=== PATIENT | male | born 1995 | race Caucasian/White ===

== ENCOUNTER 2023-04-18 12:24 | Inpatient (IN) | payer MEDICAID, SELFPAY ==
[2023-04-18] VITALS (34 sets, daily range): BP systolic 84–141; BP diastolic 64–101; PULSE 107–143; RESP 13–46; TEMP 36.1–38.2; O2SAT 90–100; BMI 18.3; BMI 18.8
[2023-04-18] MEDS: Rocuronium Bromide 50 MG/5 ML Vial IV (12:29)
[2023-04-18] MEDS: Etomidate 20 MG/10 ML Vial 10 MG IV (12:29)
--- NOTE | 2023-04-18 12:32 | EKG12_ITS ---
Test Reason : Blood Pressure : / mmHG Vent. Rate : 119 BPM Atrial Rate : 119 BPM P-R Int : 130 ms QRS Dur : 070 ms QT Int : 314 ms P-R-T Axes : 041 -49 071 degrees QTc Int : 441 ms Sinus tachycardia Left axis deviation Abnormal ECG Confirmed by BERT GALLARDO MD ([id number]), news videotape editor DOMI FERNANDEZ ([id number]) on 04/20/2023 10:54:16 AM Referred By: Confirmed By:BERT GALLARDO MD
--- NOTE | 2023-04-18 12:38 | CT_ITS ---
INDICATION: Hx IVDU, decerebrate posturing, unresponsive, unknown time down, ? Abscess, multiple doses of Narcan. EXAMINATION: CT BRAIN WITH AND WITHOUT CONTRAST - CT Head or Brain WO/W Contrast Injection TECHNIQUE: Multiple axial images were obtained of the brain with and without IV contrast. A radiation dose optimization technique was used for this scan. IV Contrast dosage and agent: 100 cc of Isovue-370. RADIATION DOSAGE (If Supplied By Facility): CTDIvol = ( 44.99 ) mGy, DLP = ( 1760.95 ) mGycm COMPARISON: No prior examinations are available for comparison. FINDINGS: BRAIN PARENCHYMA: No intra- or extra-axial hemorrhage. No evidence of acute infarct. No intracranial mass or mass effect. There is preservation of the espinosa/white matter interface. Posterior fossa structures are unremarkable. No abnormal contrast enhancement. CSF SPACES: Appropriate for age. No hydrocephalus. Basal cisterns are patent. CALVARIUM, SKULL BASE, PARANASAL SINUSES AND MASTOID AIR CELLS: Mild mucosal thickening of the maxillary sinuses. No discrete lytic or blastic abnormalities. ORBITS: Both globes, extraocular muscles, optic nerves and retrobulbar fat appear unremarkable. ASPECTS Score for Acute Strokes: 10 CT/Brain/Head W/WO Contrast IMPRESSION: No acute intracranial process. Electronically Signed: Charlie Fierro MD at 13:46 EDT ,
--- NOTE | 2023-04-18 12:50 | RAD_ITS ---
INDICATION: Intubation EXAMINATION/TECHNIQUE: X-RAY - XR Chest 1 View COMPARISON: None. FINDINGS: LINES/DEVICES: Endotracheal tube with its tip approximately 3 cm proximal to the fredy. Nasogastric tube with the tip at the gastroesophageal junction region and should be advanced about 8 to 10 cm. LUNGS: No consolidation, edema or effusion. No pneumothorax. MEDIASTINUM AND CARDIOVASCULAR STRUCTURES: Cardiac silhouette not enlarged. Central airways and mediastinal contour are unremarkable. BONES AND SOFT TISSUES: Unremarkable. RAD/Chest 1 View (Portable) IMPRESSION: Nasogastric tube with its tip in the gastroesophageal junction region and should be advanced. No active pulmonary disease. Electronically Signed: Charlie Fierro MD at 13:31 EDT ,
[2023-04-18] MEDS: 0.9% Normal Saline 1,000 ML 150 ML IV ×2 (12:58→19:35)
[2023-04-18 13:03] LABS: Absolute Lymphocyte Count 1.96 X10^3/uL (0.83-4.51); Absolute Neutrophil Count 19.1 X10^3/uL (2.0-7.7); Basophil# 0.12 X10^3/uL; Basophil% 0.5 % (0-1); Eosinophil# 0.01 X10^3/uL; Hematocrit 47.8 % (40-54); Hemoglobin 15.4 g/dL (13.0-16.5); Lymphocyte # 1.96 X10^3/ul (0.83-4.51); Lymphocyte % 8.4 % (19-41); Mean Corp Hgb Conc 32.2 g/dL (32-36); Mean Corpuscular Hgb 29.8 pg (27.0-32.0); Mean Corpuscular Volume 92.6 fL (80-94); Mean Platelet Vol. 10.4 fl (6.2-12.0); Monocyte% 7.3 % (0-10); NRBC Flagged by Analyzer 0 % (0-5); Neutrophil # 19.07 X10^3/uL (2.7-7.7); Neutrophil % 81.4 % (47-70); POSITIVE DIFFERENTIAL YES; Platelet Count 301 K/mm3 (150-450); RBC Distribution Width CV 13.4 % (11.6-14.6); RBC Distribution Width SD 45.7 fl (35.1-43.9); Red Blood Count 5.16 M/mm3 (4.6-6.2); White Blood Count 23.4 K/mm3 (4.4-11.0)
[2023-04-18 13:10] LABS: Color, Urine Amber (Yellow); Glucose, Dipstick Normal (Normal); Ketone-Dipstick 5 mg/dl (Negative); Leukocyte Esterase-Dipstick 25 /ul (Negative); Nitrite-Dipstick Positive (Negative); Occult Blood-Urine 250 /ul (Negative); Protein-Dipstick 100 mg/dl (Negative); Specific Gravity, Urine 1.025 (1.002-1.030); Urine Bilirubin Dipstick Negative (Negative); Urine Clarity Sl. Cloudy (Clear); Urine Urobilinogen 1 mg/dl (Normal)
[2023-04-18 13:14] LABS: International Normalized Ratio 1.2; Prothrombin Time (Protime)PT. 15.2 SECONDS (11.7-14.9)
[2023-04-18] MEDS: Clindamycin 900 MG/50 ML BAG 75 MG IV (13:17)
[2023-04-18 13:18] LABS: Bacteria 2+ /hpf (None Seen); Mucous, Urine 1+ /hpf (<or=2+); Red Blood Cells-Urine 25-50 SEEN /hpf (0-5); Squamous Epithelial Cells - UA 0-5 SEEN /hpf (0-5); White Blood Cells 0-5 SEEN /hpf (0-5)
--- NOTE | 2023-04-18 13:25 | ED.RN ---
PATIENT WITH REDDENED AREAS TO FOREHEAD, BILATERAL HIPS, BILATERAL KNEES, AND TOPS OF BILATERAL FEET. PATIENT WITH WOUND TO RIGHT BICEP, REDDENED WITH BLISTERS. PATIENT WITH ABRASION TO CHIN. LIPS SWOLLEN, DRY AND CRACKED. PATIENT WITH MULTIPLE SCABS OVER BODY.
--- NOTE | 2023-04-18 13:30 | EX.ED.DYSGE1 ---
HPI History of Present Illness Chief Complaint: Unresponsive Detail of Chief Complaint: Patient arrived unresponsive. Pupils were deviated to the right. Informant: EMS Onset/Context/Timing Onset: - (Unknown) Context: - (On known) Timing: - (Unknown) Quality: Unresponsive Location: Found facedown lying on floor at residence Worsened by: Unknown Relieved by: Unknown Associated Symptoms Associated Symptoms: Unknown Narrative Narrative: Patient is a 27-year-old male who was found on floor unresponsive. He has history of drug use. He arrived with a GCS of 3. Patient then had D decerebrate posturing versus seizure. Prior similar symptoms: No Recent Illness/Hospitalization: No PFSH PFSH Medical History unable to obtain unable to obtain Home Medications naproxen 500 mg tablet 500 mg PO BID PRN #20 tabs 09/30/16 [Rx Last Taken Unknown] sulfamethoxazole 800 mg-trimethoprim 160 mg tablet 1 tab PO BID ##13 09/30/16 [Rx Last Taken Unknown] Allergy/AdvReac Type Severity Reaction Status Date / Time acetaminophen [From [place]] Allergy Swelling Verified 09/30/16 04:48 cephalexin [From [place]] Allergy Hives Verified 09/30/16 04:48 hydrocodone [From [place]] Allergy Swelling Verified 09/30/16 04:48 Penicillins Allergy Itching Verified 09/30/16 04:48 Family History unable to obtain Surgical History unable to obtain unable to obtain Social History Smoking Status: Current every day smoker tobacco type: cigarettes ROS ROS ED Review of Systems ROS Unobtainable: due to mental status EXAM Physical Exam Const Vital Signs: 04/18/23 12:26 04/18/23 12:45 04/18/23 12:45 Temperature 97 F L Temperature Source Temporal Pulse Rate 138 H 136 H Respiratory Rate 46 H 17 Respiratory Pattern Blood Pressure 130/95 H 119/91 H Blood Pressure Mean 106 100 Pulse Ox 92 99 99 Oxygen Delivery Method Room Air Mechanical Ventilator Mechanical Ventilator Fraction of Inspired Oxygen (FIO2) 04/18/23 12:24 04/18/23 13:23 04/18/23 13:55 Temperature 98.2 F 97.9 F Temperature Source Core Core Pulse Rate 123 H 118 H Respiratory Rate 17 20 H 22 H Respiratory Pattern Normal Blood Pressure 137/97 H 133/93 H Blood Pressure Mean 110 106 Pulse Ox 100 100 Oxygen Delivery Method Mechanical Ventilator Mechanical Ventilator Fraction of Inspired Oxygen (FIO2) 100 04/18/23 14:11 Temperature 97.7 F L Temperature Source Core Pulse Rate 117 H Respiratory Rate 16 Respiratory Pattern Blood Pressure 119/82 H Blood Pressure Mean 94 Pulse Ox 100 Oxygen Delivery Method Mechanical Ventilator Fraction of Inspired Oxygen (FIO2) Positive well developed Constitutional Narrative: Thin gentleman. He has multiple pressure sores on his shoulder, wrists, pelvis (anterior iliac wing bilaterally), knees and ankle patient has labored breathing, perinatal coordinator small like pattern. General Appearance ED: well developed; Negative for cyanotic or diaphoretic HEENT Reports dry mucous membranes HEENT Narrative: He has evidence of trauma to his lips. He has poor dentition. He has many missing teeth. There is no hemotympanum. TMs appear normal. Mouth ED: Yes dry mucous membranes Mouth: dry mucous membranes Eyes Eyes Narrative: Patient's eyes were initially deviated to the right. Now he has roving eyes with conjugate gaze. Sclera is injected. Conjunctive is slightly injected. There is no drainage. Neck no lymphadenopathy and no JVD Neck Narrative: Trachea is midline. There is no inspiratory stridor. Chest Wall inspection of chest normal and palpation of chest normal Resp No normal respiratory effort and clear to auscultation bilaterally Resp Narrative: Use of accessory muscles and retractions noted. Patient is breathing much more rapidly than 20 times a minute Cardio regular rhythm, S1 normal heart sound, S2 normal heart sound and no murmurs Rate: tachycardic GI GI Narrative: Flat abdomen with no palp pulsatile mass or abdominal bruit. No paraspinal my. Narrative: Normal male external genitalia. Back/Spine Back/Spine Narrative: Inspection of the back. Extremity Extremity Narrative: Pressure sore is no. Question of burn versus cellulitis right bicep. There is no lymphangitis. There is no actual lymphadenopathy. Neuro No oriented x3 and No no sensory deficits noted Neuro Narrative: GCS is 3 Sensorium / Orientation: Negative for alert Psych Psych Narrative: Unable to Skin Skin Narrative: Previously described under the General appearance and extremity portion of the exam MDM MDM MDM Narrative Medical decision making narrative: With history of IV drug use unresponsiveness pinpoint pupils need to evaluate for meningitis, intracranial abscess, sinusitis. Sepsis work-up was initiated. Because of the multiple pressure sores need to evaluate for rhabdomyolysis. EKG was obtained to evaluate for evidence of pericarditis, myocarditis acute ischemia. UA was obtained to assess specific gravity as well as ketones. CPK to assess liver enzymes, and return if there is any endorgan dysfunction and specifically involving the kidneys. Since patient had GCS of 3 patient was chemically paralyzed since his teeth were clenched together. He received 10 of etomidate followed by 50 mg rocuronium. He was orotracheal intubated using a 7.5 endotracheal tube. There was purulent material noted above his cords. There is appropriate color change on the capnometer. Breath sounds were heard bilaterally. OG was placed per nursing staff. OG on chest x-ray needs to be inserted further. Endotracheal tube is at the fredy. Respiratory was asked to pull back 1.5 cm. Nurse was instructed to push the NG in an additional 10 cm. Because patient has an elevated potassium and his T waves are slightly prominent he was treated with the hyperkalemia order set Lab Data Attestation: I reviewed the patient's lab results. Lab results narrative: UA reveals spec gravity 1.025, ketones, occult blood, nitrites and leukoesterase. Micro is remarkable for 25-50 RBCs and 0-5 WBCs with 2+ bacteria. Culture was sent. I was informed the patient's lactate is 4.7 at 1339. This may be due to seizure this could be due to sepsis. Since he remains tachycardic will give small bolus at this time versus full bolus White count is 23.4 thousand with shift. There is EMEA. Comprehensive metabolic panel is remarkable for a potassium of 6.3. CO2 of 18 with an anion gap of 18. BUN of 28 the creatinine of 2.8. Estimated GFR is 29. Glucose is 115. Liver enzymes are elevated 388 and 231, AST and ALT respectively. Labs: Laboratory Results - last 24 hr 04/18/23 04/18/23 04/18/23 12:40 12:45 12:55 WBC 23.4 H RBC 5.16 Hgb 15.4 Hct 47.8 MCV 92.6 MCH 29.8 MCHC 32.2 RDW Std Deviation 45.7 H RDW Coeff of Emrrick 13.4 Plt Count 301 MPV 10.4 Immature Gran % (Auto) 2.400 H Neut % (Auto) 81.4 H Lymph % (Auto) 8.4 L Barron % (Auto) 7.3 Eos % (Auto) 0.0 Baso % (Auto) 0.5 Absolute Neuts (auto) 19.1 H Absolute Lymphs (auto) 1.96 Nucleated RBC % 0 Diff Path Review May foll Platelet Estimate ADEQUATE RBC Morphology NORM C+C PT 15.2 H INR 1.2 APTT 37.0 H Sodium 133 L Potassium 6.3 H* Chloride 101 Carbon Dioxide 14.0 L Anion Gap 18 H BUN 28 H Creatinine 2.80 H Estim Creat Clear Calc 31.93 Est GFR (MDRD) Af Amer 35 L Est GFR (MDRD) Non-Af 29 L BUN/Creatinine Ratio 10.0 Glucose 115 H Lactic Acid 4.7 H* Calcium 7.9 L Total Bilirubin 0.30 AST 388 H ALT 231 H Alkaline Phosphatase 96 Total Creatine Kinase 36434 H Total Protein 8.4 H Albumin 4.4 Globulin 4.0 Albumin/Globulin Ratio 1.1 Urine Color Arianna Urine Clarity Sl. Cloudy Urine pH 5.0 Ur Specific [place] 1.025 Urine Protein 100 H Urine Glucose (UA) Normal Urine Ketones 5 H Urine Occult Blood 250 H Urine Nitrite Positive H Urine Bilirubin Negative Urine Urobilinogen 1 H Ur Leukocyte Esterase 25 H Urine RBC 25-50 SEEN Urine WBC 0-5 SEEN Ur Squamous Epith Cells 0-5 SEEN Urine Bacteria 2+ Urine Mucus 1+ Radiography Chest X-Ray - ED: 1 View and Read by ED Physician Diagnostic Testing: Clinical Impression(s) from Imaging Studies Brain CT 04/18/23 12:38 IMPRESSION: No acute intracranial process. Electronically Signed: Charlie Fierro MD at 13:46 EDT , Chest X-Ray 04/18/23 12:50 IMPRESSION: Nasogastric tube with its tip in the gastroesophageal junction region and should be advanced. No active pulmonary disease. Electronically Signed: Charlie Fierro MD at 13:31 EDT , CT of the head with and without contrast reviewed by me reveals no obvious abnormality. There is no evidence of an abscess. There is no evidence of sinusitis. Awaiting formal read by radiologist, 1331 Management Discussion w/another healthcare provider: Hospitalist (Hospitalist was paged after contacting Dr. Barrientos.) and Chop Saw Operator (Spoke with Dr. Quique Barrientos. He was made aware of patient's history physical laboratory results and treatment. Patient be admitted to the ICU.) Treatment and Re-Evaluation :: Because of concern for meningitis, sepsis and his allergies to cephalosporin and penicillin he received 900 mg clindamycin, meropenem and vancomycin 15 mg/kg. Critical Care Time Critical Care Time: Yes Critical care time (excluding procedures): 30-74 minutes (63 minutes), Including time spent: (History, physical, discussion with EMS, discussion with law enforcement), Discussing w/Patient &/or Family/Network Security Officer (Patient has a GCS of 3 and no one has come in), Discussing w/Consultants (Dr. Quique Barrientos and hospitalist), Arranging Admission or Transfer and Performing Direct Patient Care at Bedside (Intubation, treatment for hyperkalemia) Discharge Plan Dx/Rx/DC Orders Clinical Impression: Acute kidney injury, Bacteria in urine, Hematuria, Decerebrate posture, Sepsis syndrome, Rhabdomyolysis, History of drug abuse, Chloe coma scale score 3-8, at arrival to emergency department, Acute hyperkalemia, Acidosis, lactic Disposition Disposition: [facility]
[2023-04-18 13:39] LABS: ALB/GLOB Ratio 1.1 RATIO (0.9-2.4); AST(SGOT) 388 U/L (15-37); Alanine Aminotransfer ALT/SGPT 231 U/L (16-61); Albumin, Serum 4.4 g/dL (3.2-5.0); Alkaline Phosphatase 96 U/L (45-117); Anion Gap 18 (5-15); BUN 28 mg/dL (7-18); Calcium,Total 7.9 mg/dL (8.5-10.1); Chloride 101 mmol/L (98-107); Differential Indicated SCAN CRITERIA MET; EST Glomerular Filtration Rate 29 mL/min (>60); Est Glom Filt Rate - Afr Amer 35 mL/min (>60); Estimated Creatinine Clearance 31.93 ml/min; Glucose 115 mg/dL (74-106); Platelet Estimate ADEQUATE (ADEQ); Potassium 6.3 mmol/L (3.5-5.1); Protein, Total 8.4 g/dL (6.4-8.2); Red Cell Morphology NORM C+C NORMAL (NORM C&C); Sodium Level 133 mmol/L (136-145)
[2023-04-18 13:40] LABS: Lactic Acid 4.7 mmol/L (0.4-1.9)
[2023-04-18 13:50] LABS: CPK Total, Creatine Kinase 10960 U/L (39-308)
--- NOTE | 2023-04-18 14:12 | HP.PCM.HOS_ITS ---
HPI - General General Date of Admission: 04/18/23 Date of Service: 04/18/23 Chief Complaint: found unresponsive HPI Narrative LIZ WHITNEY, is a 27 M with a PMH as outlined who was admitted via the ED after being found unresponsive. He has a history of IV drug use. HE was found face down on the floor in his residence. the EMS gave 4 doses of fentanyl with no response. On arrival in the ED, he was found to be in a decorticate posture. His Chloe Coma scale was 3. Unable to get any furhter history. Vitals in the E#D wre BP of 119/82, CO of 117, RR of 16 and temp of 97.7F. He was intubated in the ED and there was some material aspirated from his ET tube. Chemistry was significant for Hb of 15.4, wbc of 23.4, platelets of 301, INR of 1.2. Chemistry showed sodium of 133, potassium of 6.3 and bicarb of 14. HCr was 2.8 and anion gap was 18. Lactic acid was 4.7 and AST/ALT was 388/231. CPK was 90010. Urinalysis showed 2+ bacteria. CT brain showed no acute intracranial pathology and chest x-ray also showed no acute cardiopulmonary pathology. He was started on broad spectrum antibiotics and is being admitted to be managed for acute metabolic encephalopathy in setting of probable drug overdose, rhabdomyolysis, GREGORY on CKD adn anion gap metabolic acidosis. [facility] Medical History unable to obtain Home Medications naproxen 500 mg tablet 500 mg PO BID PRN #20 tabs 09/30/16 [Rx Last Taken Unknown] sulfamethoxazole 800 mg-trimethoprim 160 mg tablet 1 tab PO BID ##13 09/30/16 [Rx Last Taken Unknown] Allergy/AdvReac Type Severity Reaction Status Date / Time acetaminophen [From [place]] Allergy Swelling Verified 09/30/16 04:48 cephalexin [From Keflex] Allergy Hives Verified 09/30/16 04:48 hydrocodone [From [place]] Allergy Swelling Verified 09/30/16 04:48 Penicillins Allergy Itching Verified 09/30/16 04:48 Family History unable to obtain Surgical History unable to obtain Social History Smoking Status: Current every day smoker tobacco type: cigarettes ROS Review of Systems ROS Unobtainable: due to encephalopathy Vital Signs Vital Signs Vital Signs: 04/18/23 12:26 04/18/23 12:45 04/18/23 12:45 Temperature 97 F L Temperature Source Temporal Pulse Rate 138 H 136 H Respiratory Rate 46 H 17 Respiratory Pattern Blood Pressure 130/95 H 119/91 H Blood Pressure Mean 106 100 Pulse Ox 92 99 99 Oxygen Delivery Method Room Air Mechanical Ventilator Mechanical Ventilator Fraction of Inspired Oxygen (FIO2) 04/18/23 12:24 04/18/23 13:23 04/18/23 13:55 Temperature 98.2 F 97.9 F Temperature Source Core Core Pulse Rate 123 H 118 H Respiratory Rate 17 20 H 22 H Respiratory Pattern Normal Blood Pressure 137/97 H 133/93 H Blood Pressure Mean 110 106 Pulse Ox 100 100 Oxygen Delivery Method Mechanical Ventilator Mechanical Ventilator Fraction of Inspired Oxygen (FIO2) 100 04/18/23 14:11 Temperature 97.7 F L Temperature Source Core Pulse Rate 117 H Respiratory Rate 16 Respiratory Pattern Blood Pressure 119/82 H Blood Pressure Mean 94 Pulse Ox 100 Oxygen Delivery Method Mechanical Ventilator Fraction of Inspired Oxygen (FIO2) Weight Weight: 127 lb 13.89 oz Body Mass Index (BMI) 18.3 Physical Exam Const Constitutional Narrative: intubated, RASS score is -4 even off sedation HEENT normocephalic Eyes PERRL and conjunctivae normal Neck no lymphadenopathy Resp Resp Narrative: diminished breath sounds bibasally, few crackles, has some gurgling sounds whilst breathing. intubated. RASS score is -4 Cardio regular rhythm, S1 normal heart sound and S2 normal heart sound Cardio Narrative: tachycardic GI normal to inspection, nondistended, normoactive bowel sounds, soft to palpation and non-tender Extremity Extremity Narrative: as under skin Skin Skin Narrative: numerous superficial erythematous areas over forehead, elbows, ankles and heels as well as his knees. multiple tattoos over dorsum and extremities. Neuro Neuro Narrative: intubated, sedated, RASS score is -4 Results Lab / Micro Data 04/18/23 12:40 04/18/23 12:40 Labs: Laboratory Results - last 24 hr 04/18/23 12:40: WBC 23.4 H, RBC 5.16, Hgb 15.4, Hct 47.8, MCV 92.6, MCH 29.8, MCHC 32.2, RDW Std Deviation 45.7 H, RDW Coeff of Merrick 13.4, Plt Count 301, MPV 10.4, Immature Gran % (Auto) 2.400 H, Neut % (Auto) 81.4 H, Lymph % (Auto) 8.4 L , [place] % (Auto) 7.3, Eos % (Auto) 0.0, Baso % (Auto) 0.5, Absolute Neuts (auto) 19.1 H, Absolute Lymphs (auto) 1.96, Nucleated RBC % 0, Diff Path Review December, Platelet Estimate ADEQUATE, RBC Morphology NORM C+C, PT 15.2 H, INR 1.2, APTT 37.0 H, Sodium 133 L, Potassium 6.3 H*, Chloride 101, Carbon Dioxide 14.0 L , Anion Gap 18 H, BUN 28 H, Creatinine 2.80 H, Estim Creat Clear Calc 31.93, Est GFR (MDRD) Af Amer 35 L, Est GFR (MDRD) Non-Af 29 L, BUN/Creatinine Ratio 10.0, Glucose 115 H, Calcium 7.9 L, Total Bilirubin 0.30, AST 388 H, ALT 231 H, Alkaline Phosphatase 96, Total Creatine Kinase 51523 H, Total Protein 8.4 H, Albumin 4.4, Globulin 4.0, Albumin/Globulin Ratio 1.1 04/18/23 12:45: Urine Color Arianna, Urine Clarity Sl. Cloudy, Urine pH 5.0, Ur Specific [place] 1.025, Urine Protein 100 H, Urine Glucose (UA) Normal, Urine K etones 5 H, Urine Occult Blood 250 H, Urine Nitrite Positive H, Urine Bilirubin Negative, Urine Urobilinogen 1 H, Ur Leukocyte Esterase 25 H, Urine RBC 25-50 SEEN, Urine WBC 0-5 SEEN, Ur Squamous Epith Cells 0-5 SEEN, Urine Bacteria 2+, Urine Mucus 1+ 04/18/23 12:55: Lactic Acid 4.7 H* Radiology Impression Brain CT 04/18/23 12:38 IMPRESSION: No acute intracranial process. Electronically Signed: Charlie Fierro MD at 13:46 EDT , Chest X-Ray 04/18/23 12:50 IMPRESSION: Nasogastric tube with its tip in the gastroesophageal junction region and should be advanced. No active pulmonary disease. Electronically Signed: Charlie Fierro MD at 13:31 EDT , Assessment & Plan Assessment/Plan (1) Acute kidney injury: (2) Bacteria in urine: (3) History of drug abuse: (4) Acute hyperkalemia: (5) Rhabdomyolysis: PLAN: Plan #Acute encephalopathy * found unresponsive in his residence. Unclear how long he had been down, but considering the superficial erythema over lower extremities, forehead and elbows, he had been down on the ground for a whil * Has a history of extensive drug use. Urine tox pending. * intubated on admission. Received 4 doses of narcan to no avail * admit to ICU * hydrate with IVF * started on fentanyl drip for sedation in the ED * started on broad spectrum antibiotics; will continue vancomycin and meropenem * CT of the brain showed no acute intracranial pathology * consult critical care * get blood and urine cultures * titrate oxygen to maintain sats >90% * breathing treatment with bronchodilators * #Drug overdose: * urine tox positive for MDMA, amphetamines, cocaine and marijuana * * #NOnstemi * initial troponin checked was 4060 * cardiology consult placed. He had no audible murmur during my examination * will start on heparin drip as well as aspirin 325mg x 1 * Dr Hernandez informed * 2D echo ordered * #Acute hypoxic respiratory failure * as above. * currently intubated and sedated * critical care consulted #Hyperkalemia * given potassium depleting cocktail in the ED * give rectal kayexalate * trend potassium * * #Lactic acidosis * Lactic acid was 4.7 on admission. Will hydrate aggressively with IV fluids and trend * #GREGORY * Creatinine is 2.8. No baseline in the system. * Should improve with IV fluid hydration if it is indeed GREGORY. * Hydrate with IV fluids and trend. #UTI: Urinalysis showed 3+ bacteria. Currently on broad-spectrum antibiotics as above. Urine cultures ordered. #Rhabdomyolysis: hydrate aggressively with iVF and trend. CPK was over 10,000. Will trend CPK. DVT prophylaxis: on heparin drip Total critical care time spent in seeing, the patient, reviewing chart, examining patient and formulating the assessment and plan as well as talking to specialists: 85 minutes. Charges/Coding Visit Charges Inpatient E&M: 37282 Init Hosp L3 Procedures Hospitalists Procedures: 31242 Critial Care 1st Hr
[2023-04-18] MEDS: fentaNYL 100 MCG/2 ML Ampul 50 MCG IV (14:26)
[2023-04-18] MEDS: fentaNYL drip 100 ML 5 MCG CONT INF (14:37)
[2023-04-18 14:41] LABS: Alcohol, Blood (Medical)-Serum < 3.0 mg/dL
[2023-04-18] MEDS: Calcium Gluconate IV 3 GM in Syringe 1 EACH IV (14:42)
[2023-04-18 14:45] LABS: Allen Test Positive; Base Excess -10 mmol/L (-2 to +2); Blood Gas Specimen Type ART; Mode AC; O2 Delivery Device Adult Vent; PEEP 5; PO2 456 mmHG (75-100); RR 14; SITE R Brach; SO2 100 % (95-99); Total Carbon Dioxide 17 mmol/L; pCO2 31.9 mmHg (35-45); pH 7.31 (7.35-7.45)
[2023-04-18] MEDS: Dextrose 50%-Water 25 GM/50 ML DISP.SYRIN IV (14:47)
[2023-04-18] MEDS: Insulin Lispro 10 UNIT in Syringe 0 ML 6 UNIT IV (14:48)
[2023-04-18] MEDS: Midazolam 2 MG/2 ML Syringe IV (15:21)
--- NOTE | 2023-04-18 15:25 | RAD_ITS ---
INDICATION: NG Insertion EXAMINATION/TECHNIQUE: X-RAY - XR Abdomen 1 View COMPARISON: Prior of 04/18/2023. FINDINGS: BOWEL GAS PATTERN: Nasogastric tube with the tip in the region of the gastric fundus. Nonspecific gaseous bowel loops. The lower abdomen is not included on this examination. RAD/Abdomen Single View (Portable) IMPRESSION: NG tube with the tip in the region of the gastric fundus. Electronically Signed: Charlie Fierro MD at 16:05 EDT ,
--- NOTE | 2023-04-18 16:21 | PCM.RX.CS ---
Consult Antibiotic Management Pharmacy has been consulted to manage selected antiobiotic: Vancomycin Type of Intervention Type of Consult: New start Suspected Infection Suspected Infection: Other Labs Labs: Sodium 133 mmol/L (136-145) L 04/18/23 12:40 Potassium 6.3 mmol/L (3.5-5.1) H* 04/18/23 12:40 Chloride 101 mmol/L (98-107) 04/18/23 12:40 Carbon Dioxide 14.0 mmol/L (21.0-32.0) L 04/18/23 12:40 Anion Gap 18 (5-15) H 04/18/23 12:40 BUN 28 mg/dL (7-18) H 04/18/23 12:40 Creatinine 2.80 mg/dL (0.70-1.30) H 04/18/23 12:40 Est GFR (MDRD) Af Amer 35 mL/min (>60) L 04/18/23 12:40 Est GFR (MDRD) Non-Af 29 mL/min (>60) L 04/18/23 12:40 BUN/Creatinine Ratio 10.0 RATIO (10-20) 04/18/23 12:40 Glucose 115 mg/dL (74-106) H 04/18/23 12:40 Goal Trough Goal Trough: 15-20 mcg/mL Pharmacy Plan for Drug Dosing Pharmacy Plan for Drug Dosing: NEW IV VANCOMYCIN Consulting Physician: Dr. Aden Indication: Encephalopathy/R/O infection Goal Trough: 15-20 SrCr: 2.8 CrCl: 31 mL/min Comments: Loading dose of 1500mg IV x1 in ED 04/18/23 @1558 Vancomycin Dose: 750mg IV Q24h to start 04/19/23 @1600 Pending Level:04/20/23 @1530, prior to 3rd total dose of vancomycin per protocol Pharmacy Service will continue to monitor and adjust dosing as required.
[2023-04-18 16:24] LABS: Amphetamine Urine VISTA POSITIVE (<1000 ng/mL); Barbiturate Urine VISTA NEGATIVE (< 200 ng/mL); Benzodiazepine Urine VISTA NEGATIVE (< 200 ng/mL); Cocaine Urine VISTA POSITIVE (< 300 ng/mL); Ecstacy Urine VISTA POSITIVE (< 500 ng/mL); Methadone Urine VISTA NEGATIVE (< 300 ng/mL); PCP Urine VISTA NEGATIVE (< 25 ng/mL); THC Urine VISTA POSITIVE (< 50 ng/mL); Vista UDS pH Range 6
[2023-04-18 17:04] LABS: Reflex Lactate? Y
[2023-04-18] MEDS: Sodium Polystyrene Sulfonate 15 GM/60 ML UDC 30 GM RC (17:19)
[2023-04-18 18:09] LABS: Lactic Acid 1.2 mmol/L (0.4-1.9)
[2023-04-18 18:11] LABS: Troponin-I HS 4060 pg/mL (3.0-78.0)
--- NOTE | 2023-04-18 18:32 | ECHOD_ITS ---
Reason For Study: DYSPNEA Procedure This was a 2D Doppler, Color Flow transthoracic echocardiogram. Technically difficult study due to patient being intubated. Patient scenned in sitting position. Exam performed portable in ICU/CCU. Left Ventricle Normal left ventricle. The estimated ejection fraction is 65-70% %. Right Ventricle Normal right ventricle. Normal systolic function. Atria Normal left atrium. Moderate size echogenic mass noted attached to the right atrium, The tricuspid valve appeared clear with no evidence of tricuspid gravitation. Cannot rule out vegetations. Mitral Valve The mitral valve is structurally normal. No prolapse or stenosis seen. Tricuspid Valve Normal tricuspid valve. No tricuspid valve insufficiency. Aortic Valve The aortic valve is not well visualized. Pulmonic Valve The pulmonic valve is not well visualized. Great Vessels Normal aortic root. Pericardium/Pleural No pericardial effusion. MMode/2D Measurements & Calculations LVIDd: 3.0 cm IVSd: 0.87 cm LVIDs: 2.5 cm LVPWd: 1.2 cm RVDd: 3.1 cm FS: 19.0 % Doppler Measurements & Calculations MV E max javon: 67.4 cm/sec Lat Peak E' Javon: 10.4 cm/sec Med Peak E' Javon: 11.4 cm/sec MV A max javon: 41.6 cm/sec E/E' lat: 6.5 E/E' med: 5.9 MV E/A: 1.6 MV V2 max: 127.7 cm/sec Ao V2 max: 129.1 cm/sec LV V1 max: 95.5 cm/sec MV max P.5 mmHg Ao max P.7 mmHg LV V1 max P.7 mmHg MV V2 mean: 60.7 cm/sec Ao V2 mean: 91.8 cm/sec LV V1 mean P.1 mmHg MV mean P.8 mmHg Ao mean P.7 mmHg LV V1 mean: 68.5 cm/sec MV V2 VTI: 18.6 cm Ao V2 VTI: 17.5 cm LV V1 VTI: 14.1 cm AV (velocity ratio): 0.81 PA V2 max: 93.5 cm/sec PA V2 mean: 80.2 cm/sec ECHO/Echo Complete Interpretation Summary The estimated ejection fraction is 65-70% %. Moderate size echogenic mass noted attached to the right atrium, The tricuspid valve appeared clear with no evidence of tricuspid gravitation. Cannot rule out vegetations Consider to evaluate further with SUZIE If clinically warranted No prior echocardiogram to compare Ordering Physician: Twila Aden Referring Physician: NO PCP Performed By: Geni Spring RCS
[2023-04-18] MEDS: Propofol 10MG/Ml 1,000 MG/100 ML Bottle 3.4 MG CONT INF (19:30)
[2023-04-18] MEDS: HEPARIN/D5w 25,000 UNITS 25,000 UNITS/250 ML IV.SOLN. 7 UNITS CONT INF (19:34)
[2023-04-18] MEDS: Heparin Injection (Vial) 5,000 UNIT/ML VIAL 3500 UNIT IV (19:34)
[2023-04-18 20:01] LABS: International Normalized Ratio 1.5; Prothrombin Time (Protime)PT. 17.8 SECONDS (11.7-14.9)
[2023-04-18 20:15] LABS: Troponin-I HS 7702 pg/mL (3.0-78.0)
--- NOTE | 2023-04-18 23:05 | RAD_ITS ---
STUDY: X-RAY CHEST REASON FOR EXAM: Male, 27 years old. ETT positioning verification TECHNIQUE: Single AP portable view of the chest. COMPARISON: April 18, 2023 chest x-ray FINDINGS: An endotracheal tube is present 4.3 cm above the fredy. An NG tube is present the tip is below the hemidiaphragm out of the [id number] and appears to be within the stomach. The lungs are clear and expanded. There is no demonstrated pleural abnormality. Normal size heart. There is a tiny 4 mm curvilinear density within the left hilum. Normal visualized pulmonary arteries. Normal visualized aortic arch and descending thoracic aorta. Normal visualized thoracic spine. Normal visualized ribs, clavicles, and shoulders. There is no demonstrated abnormality of the visualized soft tissue structures of the upper abdomen. RAD/Chest 1 View (Portable) IMPRESSION: An NG tube is place the tip is out of the field of view below the hemidiaphragm. Endotracheal tube in satisfactory position. Note is made of a tiny curvilinear density projected over the left hilum which may represent a small calcification versus a foreign body. Electronically Signed: Maria Victoria Ontiveros MD at 23:20 EDT ,
--- NOTE | 2023-04-18 23:23 | NURSING ---
Upon assessment of ETT at 2230 it was noted that patient ETT was not at 24cm at the lip but was noted to be at 26cm at the lip, consulted with RT regarding report given to her for ETT placement she states she also was told 24cm at the lip, assisted RT to reposition ETT to 24cm at the lip and CXR ordered for placement verification.
[2023-04-19] VITALS (52 sets, daily range): BP systolic 85–246; BP diastolic 64–85; PULSE 100–130; RESP 9–20; TEMP 36.8–38.3; O2SAT 35–100; BMI 19.5; BMI 19.4
[2023-04-19 00:04] LABS: Troponin-I HS 15524 pg/mL (3.0-78.0)
[2023-04-19] MEDS: fentaNYL drip 100 ML 12.5 MCG CONT INF (00:35)
[2023-04-19 01:35] LABS: Triglycerides 46 mg/dL
[2023-04-19] MEDS: 0.9% Normal Saline 1,000 ML 150 ML IV ×2 (01:45→08:31)
[2023-04-19 02:52] LABS: Partial Thromboplast Time > 200.0 Seconds (24.1-36.2)
[2023-04-19 04:59] LABS: Absolute Lymphocyte Count 2.31 X10^3/uL (0.83-4.51); Absolute Neutrophil Count 18.7 X10^3/uL (2.0-7.7); Basophil# 0.07 X10^3/uL; Basophil% 0.3 % (0-1); Eosinophil# 0.11 X10^3/uL; Eosinophils% 0.5 % (0-5); Hematocrit 55.4 % (40-54); Hemoglobin 17.8 g/dL (13.0-16.5); Lymphocyte # 2.31 X10^3/ul (0.83-4.51); Lymphocyte % 9.9 % (19-41); Mean Corp Hgb Conc 32.1 g/dL (32-36); Mean Corpuscular Hgb 30.1 pg (27.0-32.0); Mean Corpuscular Volume 93.6 fL (80-94); Mean Platelet Vol. 10.7 fl (6.2-12.0); Monocyte# 1.95 X10^3/uL; Monocyte% 8.3 % (0-10); NRBC Flagged by Analyzer 0.1 % (0-5); Neutrophil # 18.66 X10^3/uL (2.7-7.7); Neutrophil % 79.9 % (47-70); POSITIVE DIFFERENTIAL YES; Platelet Count 270 K/mm3 (150-450); RBC Distribution Width CV 14.1 % (11.6-14.6); RBC Distribution Width SD 48.8 fl (35.1-43.9); Red Blood Count 5.92 M/mm3 (4.6-6.2); White Blood Count 23.4 K/mm3 (4.4-11.0)
[2023-04-19 05:17] LABS: Differential Indicated SCAN CRITERIA MET
[2023-04-19 06:05] LABS: Anion Gap 7 (5-15); BUN 40 mg/dL (7-18); BUN/Creat Ratio 11.6 RATIO (10-20); Calcium,Total 7.3 mg/dL (8.5-10.1); Chloride 112 mmol/L (98-107); Creatinine, Serum 3.46 mg/dL (0.70-1.30); EST Glomerular Filtration Rate 22 mL/min (>60); Est Glom Filt Rate - Afr Amer 27 mL/min (>60); Estimated Creatinine Clearance 25.93 ml/min; Glucose 108 mg/dL (74-106); Potassium 6.8 mmol/L (3.5-5.1); Sodium Level 138 mmol/L (136-145)
--- NOTE | 2023-04-19 07:01 | EX.PCM.CONCC ---
Assessment & Plan Assessment/Plan (1) Encephalopathy: (2) Acute respiratory failure: PLAN: Plan RECOMMENDATIONS: 1. Continue assist-control mode of mechanical ventilation. Wean FiO2 and PEEP to maintain saturations at or above 90%. 2. Continue empiric antimicrobials. Blood, urine and sputum cultures are pending. 3. Continue propofol and fentanyl for sedation. 4. Continue spontaneous awakening and breathing trials daily. 5. Increase saline infusion rate on account of rising CK. 6. Obtain nephrology consultation. 7. Complete echocardiogram and obtain renal ultrasound. IMPRESSIONS: 1. Encephalopathy Most likely secondary to acute drug overdose with questionable anoxic insult. The patient will be continued on invasive mechanical ventilatory support. Primitive brainstem reflexes remain intact. Plan to minimize sedating medications as feasible. Continue supportive care for now. Depending on neurological state, will consider neurology consultation and head imaging in the next 24 to 48 hours. 2. Acute respiratory failure The patient was initially intubated in the emergency department after being found down unresponsive at home. There was also report of a questionable aspiration event at the time of his intubation. Therefore, I agree with continuing empiric antimicrobials, while awaiting infectious work-up. The patient will be continued on assist control mode of mechanical ventilation. FiO2 and PEEP will be weaned to maintain saturations at or above 90%. Plan to continue with daily paired spontaneous awakening and breathing trials. 3. Acute kidney injury/hyperkalemia/rhabdomyolysis Most likely prerenal in etiology in the setting of #1. The patient does have an underlying metabolic acidosis and rising CK level. Potassium is elevated as well. Plan to continue aggressive volume resuscitation. Nephrology consultation will be obtained over concerns for the potential need for dialysis. 4. NSTEMI Continue current supportive care with heparin infusion and pending echocardiogram. Cardiology consultation is pending. 5. Sepsis The patient presented with sepsis due to possible urinary tract source of infection and/or aspiration pneumonia with acute sepsis related organ dysfunction as evidenced by lactic acidemia, acute kidney injury and respiratory failure, requiring invasive mechanical ventilatory support. The patient will be continued on empiric broad-spectrum antimicrobials, pending finalized culture results. TIME: 37 minutes of critical care time, independent of procedures, was spent addressing the patient's encephalopathy, acute respiratory failure, acute kidney injury, hyperkalemia, NSTEMI, sepsis, review of all data and collaboration with the care team. HPI Consult Data Date of Consult: 04/19/23 HPI Narrative Reason for Consultation: Acute respiratory failure HPI Narrative: The patient is a 27-year-old male, with a history as outlined below, who presented to the emergency department via EMS on April for after being found down unresponsive. The patient has a reported history of polysubstance dependency. History pertinent to his hospitalization was obtained primarily via chart review, as the patient is currently intubated and there is no family available at the bedside. On presentation to the emergency department, the patient was noted to have a temperature of 97 ?F. He was notably tachycardic and tachypneic. However, he was otherwise hemodynamically stable. The patient was emergently intubated on arrival. Initial laboratory evaluation revealed an elevated white blood cell count to 23,000. Arterial blood gas obtained on the ventilator demonstrated a pH of 7.3 with a PCO2 of 32 and PO2 of 456. Chemistry profile was notable for a sodium of 133, potassium of 6.3, anion gap of 18, bicarbonate of 14 and creatinine of 2.8. Lactate was elevated at 4.7. AST and ALT were increased to 388 and 231, respectively. CK was elevated at 10,960. Urine analysis was positive for nitrites, leukocyte esterase and 2+ urine bacteria. Toxicology screen was positive for amphetamines, MDMA, cocaine and cannabinoids. Head CT revealed no acute intracranial process. The patient was initiated on supplemental IV fluids along with broad-spectrum antimicrobials. He was admitted to the medical intensive care unit for further management. The patient did tolerate a spontaneous awakening and breathing trial this morning. However, the patient's breathing trial was terminated due to apneic events. [facility] Medical History unable to obtain Home Medications naproxen 500 mg tablet 500 mg PO BID PRN #20 tabs 09/30/16 [Rx Last Taken Unknown] sulfamethoxazole 800 mg-trimethoprim 160 mg tablet 1 tab PO BID ##13 09/30/16 [Rx Last Taken Unknown] Allergy/AdvReac Type Severity Reaction Status Date / Time acetaminophen [From [place]] Allergy Swelling Verified 09/30/16 04:48 cephalexin [From Kef[place]] Allergy Hives Verified 09/30/16 04:48 hydrocodone [From [place]] Allergy Swelling Verified 09/30/16 04:48 Penicillins Allergy Itching Verified 09/30/16 04:48 Family History unable to obtain Surgical History unable to obtain Social History Smoking Status: Current every day smoker tobacco type: cigarettes ROS Review of Systems ROS Unobtainable: due to endotracheal tube and due to mental status Physical Exam Const Constitutional Narrative: Currently intubated, sedated and mechanically ventilated. No ventilator dyssynchrony noted. HEENT normocephalic and head/scalp atraumatic Mouth: endotracheal tube in place and OG tube in place Eyes Eyes Narrative: Disconjugate gaze Neck supple General: trachea midline Chest inspection of chest normal Resp Auscultation: Negative for rales, rhonchi or wheezes Cardio S1 normal heart sound and S2 normal heart sound Rate: tachycardic GI normal to inspection, nondistended, normoactive bowel sounds Extremity no clubbing, cyanosis or edema Neuro Sensorium / Orientation: sedated on vent Lab / Micro Data 04/19/23 04:50 04/19/23 05:14 Labs: Laboratory Results - last 24 hr 04/18/23 12:40: WBC 23.4 H, RBC 5.16, Hgb 15.4, Hct 47.8, MCV 92.6, MCH 29.8, MCHC 32.2, RDW Std Deviation 45.7 H, RDW Coeff of Merrick 13.4, Plt Count 301, MPV 10.4, Immature Gran % (Auto) 2.400 H, Neut % (Auto) 81.4 H, Lymph % (Auto) 8.4 L, Fleming % (Auto) 7.3, Eos % (Auto) 0.0, Baso % (Auto) 0.5, Absolute Neuts (auto) 19.1 H, Absolute Lymphs (auto) 1.96, Nucleated RBC % 0, Diff Path Review December, Platelet Estimate ADEQUATE, RBC Morphology NORM C+C, PT 15.2 H, INR 1.2, APTT 37.0 H, Sodium 133 L, Potassium 6.3 H*, Chloride 101, Carbon Dioxide 14.0 L, Anion Gap 18 H, BUN 28 H, Creatinine 2.80 H, Estim Creat Clear Calc 31.93, Est GFR (MDRD) Af Amer 35 L, Est GFR (MDRD) Non-Af 29 L, BUN/Creatinine Ratio 10.0, Glucose 115 H, Calcium 7.9 L, Total Bilirubin 0.30, AST 388 H, ALT 231 H, Alkaline Phosphatase 96, Total Creatine Kinase 33461 H, Total Protein 8.4 H, Albumin 4.4, Globulin 4.0, Albumin/Globulin Ratio 1.1, Ethyl Alcohol < 3.0 04/18/23 12:45: Urine Color Arianna, Urine Clarity Sl. Cloudy, Urine pH 5.0, Ur Specific [place] 1.025, Urine Protein 100 H, Urine Glucose (UA) Normal, Urine Ketones 5 H, Urine Occult Blood 250 H, Urine Nitrite Positive H, Urine Bilirubin Negative, Urine Urobilinogen 1 H, Ur Leukocyte Esterase 25 H, Urine RBC 25-50 SEEN, Urine WBC 0-5 SEEN, Ur Squamous Epith Cells 0-5 SEEN, Urine Bacteria 2+, Urine Mucus 1+, Urine Opiates Screen NEGATIVE, Urine Methadone Screen NEGATIVE, Ur Barbiturates Screen NEGATIVE, Ur Phencyclidine Scrn NEGATIVE, Ur Amphetamines Screen POSITIVE H, MDMA (Ecstasy) Screen POSITIVE H, U Benzodiazepines Scrn NEGATIVE, Urine Cocaine Screen POSITIVE H, U Cannabinoids Screen POSITIVE H, Ur Drug Screen Comment 04/18/23 12:55: Lactic Acid 4.7 H* 04/18/23 17:20: Lactic Acid 1.2, Troponin I High Sens 4060 H* 04/18/23 19:35: PT 17.8 H, INR 1.5, APTT 36.0, Troponin I High Sens 7702 H* 04/18/23 21:45: Total Creatine Kinase 10780 H, Triglycerides 46 04/18/23 23:38: Troponin I High Sens 12384 H* 04/19/23 01:50: APTT Cancelled 04/19/23 02:20: APTT > 200.0 H* 04/19/23 04:50: WBC 23.4 H, RBC 5.92, Hgb 17.8 H, Hct 55.4 H, MCV 93.6, MCH 30.1, MCHC 32.1, RDW Std Deviation 48.8 H, RDW Coeff of Merrick 14.1, Plt Count 270, MPV 10.7, Immature Gran % (Auto) 1.100 H, Neut % (Auto) 79.9 H, Lymph % (Auto) 9.9 L, Fleming % (Auto) 8.3, Eos % (Auto) 0.5, Baso % (Auto) 0.3, Absolute Neuts (auto) 18.7 H, Absolute Lymphs (auto) 2.31, Nucleated RBC % 0.1, Diff Path Review December04/19/23 05:14: Sodium 138, Potassium 6.8 H*, Chloride 112 H, Carbon Dioxide 19.0 L, Anion Gap 7, BUN 40 H, Creatinine 3.46 H, Estim Creat Clear Calc 25.93, Est GFR (MDRD) Af Amer 27 L, Est GFR (MDRD) Non-Af 22 L, BUN/Creatinine Ratio 11.6, Glucose 108 H, Calcium 7.3 L ABG Data ABG results: ABG 04/18/23 14:40 Specimen Type ART Sample Site R Brach pH 7.31 L Bicarbonate Actual 16.0 L Total CO2 17 Base Excess -10 L O2 Saturation 100 H O2 % 80.0 ABG pCO2 31.9 L ABG pO2 456 H* Vince Test Positive Respiration Rate 14 O2 Delivery Device Adult Vent Vent Mode AC Tidal Volume 450.0 POC PEEP 5 Crit Call To/Read Back Yes Blood Gas Notified Whom castañeda Radiology Impression Brain CT 04/18/23 12:38 IMPRESSION: No acute intracranial process. Electronically Signed: Charlie Fierro MD at 13:46 EDT Reading Location ID and State: [facility] / [place] Tel , Service support , Chest X-Ray 04/18/23 12:50 IMPRESSION: Nasogastric tube with its tip in the gastroesophageal junction region and should be advanced. No active pulmonary disease. Electronically Signed: Charlie Fierro MD at 13:31 EDT Reading Location ID and State: [facility] / [place] Tel , Service support , KUB X-Ray 04/18/23 15:25 IMPRESSION: NG tube with the tip in the region of the gastric fundus. Electronically Signed: Charlie Fierro MD at 16:05 EDT , Chest X-Ray 04/18/23 23:05 IMPRESSION: An NG tube is place the tip is out of the field of view below the hemidiaphragm. Endotracheal tube in satisfactory position. Note is made of a tiny curvilinear density projected over the left hilum which may represent a small calcification versus a foreign body. Electronically Signed: Maria Victoria Ontiveros MD at 23:20 EDT , Charges/Coding Procedures Hospitalists Procedures: [id number] [facility] H[facility]
[2023-04-19] MEDS: TITRATION PARAMETER CHANGE 1 EACH IV (07:05)
--- NOTE | 2023-04-19 07:06 | US_ITS ---
INDICATION: GREGORY EXAMINATION: Ultrasound US Kidney(s) complete (eg, kidneys and bladder) TECHNIQUE: Turcios scale and color doppler images were obtained of the kidneys. COMPARISON: No prior examinations are available for comparison. FINDINGS: RIGHT KIDNEY: Echogenic in texture measuring about 11 x 5.3 x 3.9 cm. The renal cortex measures 1.3 cm. There is no hydronephrosis. No shadowing calculus, focal lesion or perinephric collection is demonstrated. LEFT KIDNEY: Echogenic in texture measuring about 10.6 x 4.3 x 4.3 cm. The renal cortex measures 1.3 cm. There is no hydronephrosis. No shadowing calculus, focal lesion or perinephric collection is demonstrated. URINARY BLADDER: The bladder is not visualized. No ureteral jet is seen. US/Kidney and Bladder IMPRESSION: 1. Echogenic kidneys likely reflecting renal medical disease. 2. No evidence of hydronephrosis. Electronically Signed: Charlie Fierro MD at 8:52 EDT ,
--- NOTE | 2023-04-19 07:56 | CPS ---
This RT was told by nightshift RT that pt was on a CPAP trial this AM. When this RT went into room pt was not on CPAP trial and was on AC/VC. RT talked to Dr. Barrientos about said pt, Floyd had called ICU to switch pt back. According to vent log, change was made at 640 without RT knowing.
--- NOTE | 2023-04-19 08:00 | NURSING ---
Pt RASS technically -3 due to no eye contact being made or held. Pt continues to be on 10 of propofol d/t restlessness on ventilator, pt continues to move extremities with and without stimulation. Opens eyes and grimaces w/ oral suctioning, upper extremities tense. Cough and gag present w/ yankeur and ett suctioning. Babinksi present in L foot, absent in R. Corneal reflexes absent, diverted gaze w/ pinpoint pupils that are not PERRLA. Dr. Barrientos made aware of pt RASS at rounds.
[2023-04-19] MEDS: fentaNYL drip 100 ML 15 MCG CONT INF ×2 (10:05→17:29)
[2023-04-19 11:09] LABS: Partial Thromboplast Time 76.3 Seconds (24.1-36.2)
--- NOTE | 2023-04-19 12:00 | NURSING ---
Dr. Delaney bedside for temporary dialysis catheter placement.
--- NOTE | 2023-04-19 12:17 | CASEMGMT ---
JORDEN ALMONTE Assessment: Face to Face with pt mother Sindhu Madrigal for initial transition planning/care coordination assessment. RN GAGE introduced self and role at [facility], pt mother voices understanding and consents to assessment. Pt is on vent and having line placed currently in room. Care providers, pharmacy, and demographics verified/updated. Admitting Dx: sepsis syndrome, GCS 3, hyperkalemia PCP:No PCP Specialists:None Preferred Pharmacy:[facility] Retail Insurance: [employer] Prescription Benefit: yes LNOK: Johan Martinez, father; Sindhu Madrigal, mother Living Arrangements: Pt lives alone in a mobile home with 4-5 steps to enter with a rail. Per mother, pt was I in ADL's prior to hospitalization. She states that pt has within the last 2-3 years quit taking care of himself and is using drugs. Transportation: Pt does not drive. Pt father transports pt as needed. DME/HHC/SNF: Pt does not have any DME, previous HHC or SNF stays. Pt mother states she has been trying to get the pt to get help with his drug use but he does not feel he has a problem. She states when it is time for him to come home, she wants him to come to her home. Pt mother states no further concerns/needs. CM to follow. Advised pt to ask CM if any further question/concerns/needs arise, voices understanding. Pt Goal: TBD Plan: TBD, updated SW on drug use.
--- NOTE | 2023-04-19 12:25 | RAD_ITS ---
INDICATION: line placement EXAMINATION/TECHNIQUE: X-RAY - XR Chest 1 View COMPARISON: 04/18/2023 FINDINGS: LINES/DEVICES: New right internal jugular central venous catheter with its tip in the cavoatrial junction region. Endotracheal tube and nasogastric tube are stable position. LUNGS: No consolidation, edema or effusion. No pneumothorax. MEDIASTINUM AND CARDIOVASCULAR STRUCTURES: Cardiac silhouette not enlarged. Central airways and mediastinal contour are unremarkable. Persistent density overlying the left hilum unchanged. BONES AND SOFT TISSUES: Unremarkable. RAD/CXR for Line Placement IMPRESSION: 1. Status post right internal jugular central venous catheter placement. 2. Otherwise no significant change. Electronically Signed: Charlie Fierro MD at 12:58 EDT ,
[2023-04-19] MEDS: Propofol 10MG/Ml 1,000 MG/100 ML Bottle 3.5 MG CONT INF (12:26)
[2023-04-19] MEDS: Chlorhexidine 15 ML PO ×2 (12:27→20:20)
--- NOTE | 2023-04-19 12:42 | PCM.CONS.C ---
Documented by User: Sendy CALVIN PA 04/19/23 14:18 Assessment & Plan Assessment/Plan (1) NSTEMI (non-ST elevated myocardial infarction): (2) Acute respiratory failure: (3) Encephalopathy: (4) Rhabdomyolysis: (5) History of drug abuse: PLAN: Plan Troponins trended 4060/7702/45742. Pt is currently intubated and unresponsive. He is on Heparin. EF is preserved. At this time his BP is on the low side and can not start a BB or LOLI-I. There is a question of a mass in his Right Atrium, if can consider a SUZIE if this would like to be pursues further. For now will monitor. He does have blood cultures pending and is on antx. BP is on the low side, he made need support of his BP in the future, will continue to monitor. Pt is being followed by Licensing Officer and hospitalist, HPI Consult Data Date of Consult: 04/19/23 HPI Narrative HPI Narrative: LIZ WHITNEY, is a 27 M who presented to [facility] ER on 04/18/2023 who was found unresponsive, he did have pinpoint pupils and pressure sores. He does have a history of IV drug use. [place] [address]. Troponins trended 4060/7702/70585. [facility] Medical History (Updated 04/19/23 @ 14:13 by MARIXA Collazo) NSTEMI (non-ST elevated myocardial infarction) Medical History unable to obtain Home Medications naproxen 500 mg tablet 500 mg PO BID PRN #20 tabs 09/30/16 [Rx Last Taken Unknown] sulfamethoxazole 800 mg-trimethoprim 160 mg tablet 1 tab PO BID ##13 09/30/16 [Rx Last Taken Unknown] Allergy/AdvReac Type Severity Reaction Status Date / Time acetaminophen [From Cypress] Allergy Swelling Verified 09/30/16 04:48 cephalexin [From Keflex] Allergy Hives Verified 09/30/16 04:48 hydrocodone [From Cypress] Allergy Swelling Verified 09/30/16 04:48 Penicillins Allergy Itching Verified 09/30/16 04:48 Family History unable to obtain Surgical History unable to obtain Social History Smoking Status: Current every day smoker tobacco type: cigarettes ROS Review of Systems ROS Unobtainable: due to endotracheal tube Physical Exam Const Constitutional Narrative: Currently intubated, sedated and mechanically ventilated. HEENT normocephalic and head/scalp atraumatic Mouth: endotracheal tube in place and OG tube in place Neck supple General: trachea midline Chest inspection of chest normal Resp Auscultation: Negative for rales, rhonchi or wheezes Cardio S1 normal heart sound and S2 normal heart sound Rate: tachycardic GI normal to inspection, nondistended, normoactive bowel sounds Extremity no clubbing, cyanosis or edema Neuro Sensorium / Orientation: sedated on vent Risk Stratification Risk Stratification Applicable: Yes Age >/= 65: No >/= 3 CAD Risk Factors (HTN, HLD, DM, family hx of CAD, or current smoker): No Aspirin Use in the Past 7 Days: No Severe Angina (>/= episodes in 24 hours): No EKG ST Changes >/= 0.5mm: No Positive Cardiac Marker: Yes RENU Risk Stratification Score: 1 RENU % Risk: 5% Risk Charges/Coding Visit Charges Office Visits / Consults: 84460 IP Consult L4 Objective Data Vital Signs: Vital Signs Temp Pulse Resp BP Pulse Ox O2 Del Method FiO2 99.8 F H 118 H 14 101/65 94 Mechanical Ventilator 30 04/19/23 11:00 04/19/23 11:00 04/19/23 11:00 04/19/23 11:00 04/19/23 11:00 04/19/23 11:00 04/19/23 11:00 Oxygen Delivery Method Mechanical Ventilator Weight: 128 lb 4.944 oz Body Mass Index (BMI) 19.5 Intake & Output: Intake and Output for Last 24 Hours 04/17/23 04/18/23 04/19/23 23:59 23:59 23:59 Intake Total 2332.25 / 2338.78 2537.22 / 2537.22 Output Total 200 / 200 248 / 248 Balance 2132.25 / 2138.78 2289.22 / 2289.22 Lab / Micro Data 04/19/23 04:50 04/19/23 05:14 Labs: Laboratory Results - last 24 hr 04/18/23 12:40: WBC 23.4 H, RBC 5.16, Hgb 15.4, Hct 47.8, MCV 92.6, MCH 29.8, MCHC 32.2, RDW Std Deviation 45.7 H, RDW Coeff of Merrick 13.4, Plt Count 301, MPV 10.4, Immature Gran % (Auto) 2.400 H, Neut % (Auto) 81.4 H, Lymph % (Auto) 8.4 L, Mcdonough % (Auto) 7.3, Eos % (Auto) 0.0, Baso % (Auto) 0.5, Absolute Neuts (auto) 19.1 H, Absolute Lymphs (auto) 1.96, Nucleated RBC % 0, Diff Path Review December, Platelet Estimate ADEQUATE, RBC Morphology NORM C+C, PT 15.2 H, INR 1.2, APTT 37.0 H, Sodium 133 L, Potassium 6.3 H*, Chloride 101, Carbon Dioxide 14.0 L, Anion Gap 18 H, BUN 28 H, Creatinine 2.80 H, Estim Creat Clear Calc 31.93, Est GFR (MDRD) Af Amer 35 L, Est GFR (MDRD) Non-Af 29 L, BUN/Creatinine Ratio 10.0, Glucose 115 H, Calcium 7.9 L, Total Bilirubin 0.30, AST 388 H, ALT 231 H, Alkaline Phosphatase 96, Total Creatine Kinase 60202 H, Total Protein 8.4 H, Albumin 4.4, Globulin 4.0, Albumin/Globulin Ratio 1.1, Ethyl Alcohol < 3.0 04/18/23 12:45: Urine Color Arianna, Urine Clarity Sl. Cloudy, Urine pH 5.0, Ur Specific [place] 1.025, Urine Protein 100 H, Urine Glucose (UA) Normal, Urine Ketones 5 H, Urine Occult Blood 250 H, Urine Nitrite Positive H, Urine Bilirubin Negative, Urine Urobilinogen 1 H, Ur Leukocyte Esterase 25 H, Urine RBC 25-50 SEEN, Urine WBC 0-5 SEEN, Ur Squamous Epith Cells 0-5 SEEN, Urine Bacteria 2+, Urine Mucus 1+, Urine Opiates Screen NEGATIVE, Urine Methadone Screen NEGATIVE, Ur Barbiturates Screen NEGATIVE, Ur Phencyclidine Scrn NEGATIVE, Ur Amphetamines Screen POSITIVE H, MDMA (Ecstasy) Screen POSITIVE H, U Benzodiazepines Scrn NEGATIVE, Urine Cocaine Screen POSITIVE H, U Cannabinoids Screen POSITIVE H, Ur Drug Screen Comment 04/18/23 12:55: Lactic Acid 4.7 H* 04/18/23 17:20: Lactic Acid 1.2, Troponin I High Sens 4060 H* 04/18/23 19:35: PT 17.8 H, INR 1.5, APTT 36.0, Troponin I High Sens 7702 H* 04/18/23 21:45: Total Creatine Kinase 43006 H, Triglycerides 46 04/18/23 23:38: Troponin I High Sens 03146 H* 04/19/23 01:50: APTT Cancelled 04/19/23 02:20: APTT > 200.0 H* 04/19/23 04:50: WBC 23.4 H, RBC 5.92, Hgb 17.8 H, Hct 55.4 H, MCV 93.6, MCH 30.1, MCHC 32.1, RDW Std Deviation 48.8 H, RDW Coeff of Merrick 14.1, Plt Count 270, MPV 10.7, Immature Gran % (Auto) 1.100 H, Neut % (Auto) 79.9 H, Lymph % (Auto) 9.9 L, [place] % (Auto) 8.3, Eos % (Auto) 0.5, Baso % (Auto) 0.3, Absolute Neuts (auto) 18.7 H, Absolute Lymphs (auto) 2.31, Nucleated RBC % 0.1, Diff Path Review December04/19/23 05:14: Sodium 138, Potassium 6.8 H*, Chloride 112 H, Carbon Dioxide 19.0 L, Anion Gap 7, BUN 40 H, Creatinine 3.46 H, Estim Creat Clear Calc 25.93, Est GFR (MDRD) Af Amer 27 L, Est GFR (MDRD) Non-Af 22 L, BUN/Creatinine Ratio 11.6, Glucose 108 H, Calcium 7.3 L 04/19/23 10:30: APTT 76.3 H Micro: Microbiology 04/18/23 16:35 Sputum, Tracheal Aspirate Gram Stain - Final 04/18/23 16:35 Sputum, Tracheal Aspirate Respiratory Culture - Preliminary Beta streptococcus 04/18/23 12:45 Urine Catheter - Catheter Urine Culture - Preliminary Culture exhibits no growth. ABG Data ABG results: ABG 04/18/23 14:40 Specimen Type ART Sample Site R Brach pH 7.31 L Bicarbonate Actual 16.0 L Total CO2 17 Base Excess -10 L O2 Saturation 100 H O2 % 80.0 ABG pCO2 31.9 L ABG pO2 456 H* Vince Test Positive Respiration Rate 14 O2 Delivery Device Adult Vent Vent Mode AC Tidal Volume 450.0 POC PEEP 5 Crit Call To/Read Back Yes Blood Gas Notified [facility] Labs/Tests 04/18/23 12:40: WBC 23.4 H, RBC 5.16, Hgb 15.4, Hct 47.8, MCV 92.6, MCH 29.8, MCHC 32.2, Plt Count 301, MPV 10.4, Immature Gran % (Auto) 2.400 H, Neut % (Auto) 81.4 H, Lymph % (Auto) 8.4 L, [place]cd[place]ough % (Auto) 7.3, Eos % (Auto) 0.0, Baso % (Auto) 0.5, Absolute Neuts (auto) 19.1 H, Nucleated RBC % 0, PT 15.2 H, INR 1.2, APTT 37.0 H, Sodium 133 L, Potassium 6.3 H*, Chloride 101, Carbon Dioxide 14.0 L, Anion Gap 18 H, BUN 28 H, Creatinine 2.80 H, Est GFR (MDRD) Af Amer 35 L, Est GFR (MDRD) Non-Af 29 L, BUN/Creatinine Ratio 10.0, Glucose 115 H, Calcium 7.9 L, Total Bilirubin 0.30 04/18/23 12:45: Urine Color Arianna, Urine Clarity Sl. Cloudy, Urine pH 5.0, Ur Specific [place] 1.025, Urine Protein 100 H, Urine Glucose (UA) Normal, Urine Ketones 5 H, Urine Occult Blood 250 H, Urine Nitrite Positive H, Urine Bilirubin Negative, Urine Urobilinogen 1 H, Ur Leukocyte Esterase 25 H, Urine RBC 25-50 SEEN, Urine WBC 0-5 SEEN 04/18/23 12:55: Lactic Acid 4.7 H* 04/18/23 14:40: pH 7.31 L, Bicarbonate Actual 16.0 L, Base Excess -10 L, O2 Saturation 100 H, ABG pCO2 31.9 L, ABG pO2 456 H*, Vince Test Positive 04/18/23 17:20: Lactic Acid 1.2 04/18/23 19:35: PT 17.8 H, INR 1.5, APTT 36.0 04/18/23 21:45: Triglycerides 46 04/19/23 01:50: APTT Cancelled 04/19/23 02:20: APTT > 200.0 H* 04/19/23 04:50: WBC 23.4 H, RBC 5.92, Hgb 17.8 H, Hct 55.4 H, MCV 93.6, MCH 30.1, MCHC 32.1, Plt Count 270, MPV 10.7, Immature Gran % (Auto) 1.100 H, Neut % (Auto) 79.9 H, Lymph % (Auto) 9.9 L, Mcdonough % (Auto) 8.3, Eos % (Auto) 0.5, Baso % (Auto) 0.3, Absolute Neuts (auto) 18.7 H, Nucleated RBC % 0.1 04/19/23 05:14: Sodium 138, Potassium 6.8 H*, Chloride 112 H, Carbon Dioxide 19.0 L, Anion Gap 7, BUN 40 H, Creatinine 3.46 H, Est GFR (MDRD) Af Amer 27 L, Est GFR (MDRD) Non-Af 22 L, BUN/Creatinine Ratio 11.6, Glucose 108 H, Calcium 7.3 L 04/19/23 10:30: APTT 76.3 H Rhythm: Sinus Tach Radiography Diagnostic Testing: Radiology Impression Brain CT 04/18/23 12:38 IMPRESSION: No acute intracranial process. Electronically Signed: Charlie Fierro MD at 13:46 EDT , Chest X-Ray 04/18/23 12:50 IMPRESSION: Nasogastric tube with its tip in the gastroesophageal junction region and should be advanced. No active pulmonary disease. Electronically Signed: Charlie Fierro MD at 13:31 EDT , KUB X-Ray 04/18/23 15:25 IMPRESSION: NG tube with the tip in the region of the gastric fundus. Electronically Signed: Charlie Fierro MD at 16:05 EDT , Echocardiogram 04/18/23 18:32 Interpretation Summary The estimated ejection fraction is 65-70% %. Moderate size echogenic mass noted attached to the right atrium, The tricuspid valve appeared clear with no evidence of tricuspid gravitation. Cannot rule out vegetations Consider to evaluate further with SUZIE If clinically warranted No prior echocardiogram to compare Ordering Physician: Twila Aden Referring Physician: FARHEEN PCP Performed By: Geni Spring RCS Chest X-Ray 04/18/23 23:05 IMPRESSION: An NG tube is place the tip is out of the field of view below the hemidiaphragm. Endotracheal tube in satisfactory position. Note is made of a tiny curvilinear density projected over the left hilum which may represent a small calcification versus a foreign body. Electronically Signed: Maria Victoria Ontiveros MD at 23:20 EDT , Renal Ultrasound 04/19/23 07:06 IMPRESSION: 1. Echogenic kidneys likely reflecting renal medical disease. 2. No evidence of hydronephrosis. Electronically Signed: Charlie Fierro MD at 8:52 EDT , Documented by User: Dr. Otoniel Booth MD 04/19/23 16:22 Assessment & Plan Assessment/Plan (1) NSTEMI (non-ST elevated myocardial infarction): (2) Acute respiratory failure: (3) Encephalopathy: (4) Rhabdomyolysis: (5) History of drug abuse: PLAN: Plan Troponins trended 4060/7702/06339. Pt is currently intubated and unresponsive. He is on Heparin. EF is preserved. At this time his BP is on the low side and can not start a BB or LOLI-I. There is a question of a mass in his Right Atrium, if can consider a SUZIE if this would like to be pursues further. For now will monitor. He does have blood cultures pending and is on antx. BP is on the low side, he made need support of his BP in the future, will continue to monitor. Pt is being followed by Licensing Officer and hospitalist, I independently examined this patient, reviewed all the documentation in the hospital Including the EKG laboratory monitor, as well I reviewed his echocardiogram today current lab result I concur with cardiac care plan as per midlevel notes and documentation No further cardiac follow-up will be required at this point and no indication for any invasive cardiac evaluation We will be available if further cardiac need arise Otoniel Booth MD,[facility] HPI Consult Data Date of Consult: 04/19/23 [facility] Medical History (Updated 04/19/23 @ 14:13 by Sendy CALVIN, PA) NSTEMI (non-ST elevated myocardial infarction) Medical History unable to obtain Home Medications naproxen 500 mg tablet 500 mg PO BID PRN #20 tabs 09/30/16 [Rx Last Taken Unknown] sulfamethoxazole 800 mg-trimethoprim 160 mg tablet 1 tab PO BID ##13 09/30/16 [Rx Last Taken Unknown] Allergy/AdvReac Type Severity Reaction Status Date / Time acetaminophen [From Cypress] Allergy Swelling Verified 09/30/16 04:48 cephalexin [From Keflex] Allergy Hives Verified 09/30/16 04:48 hydrocodone [From Cypress] Allergy Swelling Verified 09/30/16 04:48 Penicillins Allergy Itching Verified 09/30/16 04:48 Family History unable to obtain Surgical History unable to obtain Social History Smoking Status: Current every day smoker tobacco type: cigarettes Risk Stratification Age >/= 65: No REUN Risk Stratification Score: 1 RENU % Risk: 5% Risk Lab / Micro Data 04/19/23 04:50 04/19/23 05:14
[2023-04-19] MEDS: PureFlow B 2K Dialysis Soln 1 BAG 6 BAG PF (13:53)
[2023-04-19] MEDS: 0.9% Normal Saline 1,000 ML IV.SOLN. 1000 ML OPERA.SITE (13:53)
[2023-04-19] MEDS: 0.9% Saline Lock 10 ML Syringe IV ×2 (13:54→16:30)
[2023-04-19] MEDS: 0.9% Normal Saline 1,000 ML 200 ML IV ×2 (14:29→19:00)
--- NOTE | 2023-04-19 15:17 | PCM.PN.HOSP ---
Reason for Visit Reason for Visit: Diagnoses Encephalopathy, unspecified (04/18/23) Acute respiratory failure, unspecified whether with hypoxia or hypercapnia (04/18/23) Subjective Subjective Patient was seen and examined today, he remains on the ventilator, his potassium was elevated today, I talked briefly with critical care and nephrology, nephrology is planning on dialyzing the patient due to no urinary output and elevated potassium. Patient's echocardiogram today did not show any decrease in his EF, patient's tox screen yesterday was positive for amphetamines, MDMA, cocaine, and cannabinoids. Objective Data Objective Data Vital Signs: Vital Signs Temp Pulse Resp BP Pulse Ox O2 Del Method FiO2 99.3 F H 108 H 13 100/74 95 Mechanical Ventilator 30 04/19/23 14:00 04/19/23 15:13 04/19/23 15:13 04/19/23 15:13 04/19/23 15:13 04/19/23 15:13 04/19/23 14:00 Oxygen Delivery Method Mechanical Ventilator Weight: 58.2 kg Body Mass Index (BMI) 19.4 Intake & Output: Intake and Output for Last 24 Hours 04/17/23 04/18/23 04/19/23 23:59 23:59 23:59 Intake Total 2332.25 / 2338.78 3569.38 / 3569.38 Output Total 200 / 200 278 / 278 Balance 2132.25 / 2138.78 3291.38 / 3291.38 Lab / Micro Data 04/19/23 04:50 04/19/23 05:14 Labs: Laboratory Results - last 24 hr 04/18/23 12:45: Urine Color Arianna, Urine Clarity Sl. Cloudy, Urine pH 5.0, Ur Specific [place] 1.025, Urine Protein 100 H, Urine Glucose (UA) Normal, Urine Ketones 5 H, Urine Occult Blood 250 H, Urine Nitrite Positive H, Urine Bilirubin Negative, Urine Urobilinogen 1 H, Ur Leukocyte Esterase 25 H, Urine RBC 25-50 SEEN, Urine WBC 0-5 SEEN, Ur Squamous Epith Cells 0-5 SEEN, Urine Bacteria 2+, Urine Mucus 1+, Urine Opiates Screen NEGATIVE, Urine Methadone Screen NEGATIVE, Ur Barbiturates Screen NEGATIVE, Ur Phencyclidine Scrn NEGATIVE, Ur Amphetamines Screen POSITIVE H, MDMA (Ecstasy) Screen POSITIVE H, U Benzodiazepines Scrn NEGATIVE, Urine Cocaine Screen POSITIVE H, U Cannabinoids Screen POSITIVE H 04/18/23 17:20: Lactic Acid 1.2, Troponin I High Sens 4060 H* 04/18/23 19:35: PT 17.8 H, INR 1.5, APTT 36.0, Troponin I High Sens 7702 H* 04/18/23 21:45: Total Creatine Kinase 92876 H, Triglycerides 46 04/18/23 23:38: Troponin I High Sens 52542 H* 04/19/23 01:50: APTT Cancelled 04/19/23 02:20: APTT > 200.0 H* 04/19/23 04:50: WBC 23.4 H, RBC 5.92, Hgb 17.8 H, Hct 55.4 H, MCV 93.6, MCH 30.1, MCHC 32.1, RDW Std Deviation 48.8 H, RDW Coeff of Merrick 14.1, Plt Count 270, MPV 10.7, Immature Gran % (Auto) 1.100 H, Neut % (Auto) 79.9 H, Lymph % (Auto) 9.9 L, [place] % (Auto) 8.3, Eos % (Auto) 0.5, Baso % (Auto) 0.3, Absolute Neuts (auto) 18.7 H, Absolute Lymphs (auto) 2.31, Nucleated RBC % 0.1, Diff Path Review December04/19/23 05:14: Sodium 138, Potassium 6.8 H*, Chloride 112 H, Carbon Dioxide 19.0 L, Anion Gap 7, BUN 40 H, Creatinine 3.46 H, Estim Creat Clear Calc 25.93, Est GFR (MDRD) Af Amer 27 L, Est GFR (MDRD) Non-Af 22 L, BUN/Creatinine Ratio 11.6, Glucose 108 H, Calcium 7.3 L 04/19/23 10:30: APTT 76.3 H Micro: Microbiology 04/18/23 16:35 Sputum, Tracheal Aspirate Gram Stain - Final 04/18/23 16:35 Sputum, Tracheal Aspirate Respiratory Culture - Preliminary Beta streptococcus 04/18/23 12:45 Urine Catheter - Catheter Urine Culture - Preliminary Culture exhibits no growth. Radiography Diagnostic Testing: Radiology Impression KUB X-Ray 04/18/23 15:25 IMPRESSION: NG tube with the tip in the region of the gastric fundus. Electronically Signed: Charlie Fierro MD at 16:05 EDT , Echocardiogram 04/18/23 18:32 Interpretation Summary The estimated ejection fraction is 65-70% %. Moderate size echogenic mass noted attached to the right atrium, The tricuspid valve appeared clear with no evidence of tricuspid gravitation. Cannot rule out vegetations Consider to evaluate further with SUZIE If clinically warranted No prior echocardiogram to compare Ordering Physician: Twila Aden Referring Physician: FARHEEN PCP Performed By: Geni Spring RCS Chest X-Ray 04/18/23 23:05 IMPRESSION: An NG tube is place the tip is out of the field of view below the hemidiaphragm. Endotracheal tube in satisfactory position. Note is made of a tiny curvilinear density projected over the left hilum which may represent a small calcification versus a foreign body. Electronically Signed: Maria Victoria Ontiveros MD at 23:20 EDT , Renal Ultrasound 04/19/23 07:06 IMPRESSION: 1. Echogenic kidneys likely reflecting renal medical disease. 2. No evidence of hydronephrosis. Electronically Signed: Charlie Fierro MD at 8:52 EDT , Chest X-Ray 04/19/23 12:25 IMPRESSION: 1. Status post right internal jugular central venous catheter placement. 2. Otherwise no significant change. Electronically Signed: Charlie Fierro MD at 12:58 EDT , Physical Exam Const Constitutional Narrative: Patient is sedated and on the ventilator at this time General Appearance: well kempt and well developed HEENT normocephalic and head/scalp atraumatic Eyes conjunctivae normal Neck no JVD and thyroid normal General: trachea midline Resp normal respiratory effort, no retractions, no use of accessory muscles and clear to auscultation bilaterally Resp Narrative: Patient on mechanical ventilation Auscultation: Negative for rales, rhonchi or wheezes Cardio regular rate, regular rhythm, S1 normal heart sound, S2 normal heart sound, no murmurs, no rub and no gallops GI normal to inspection, nondistended, normoactive bowel sounds, soft to palpation and non-distended Extremity no clubbing, cyanosis or edema Skin no rashes or lesions noted General Skin Exam: no breakdown Neuro Neuro Narrative: Patient is sedated and on the ventilator Psych Psych Narrative: Patient is sedated and on the ventilator Assessment & Plan Assessment/Plan (1) Acute respiratory failure: PLAN: Plan 1. Acute respiratory failure-patient remains sedated on the ventilator at this time, critical care is managing his vent, the etiology of his respiratory failure is unknown but suspected to be secondary to drug usage, patient's tox screen was positive for multiple drugs #2 encephalopathy-secondary to questionable anoxic insult, supportive care will be administered #3 acute renal failure with hyperkalemia-nephrology is participating in his care, patient will receive dialysis, labs will be monitored #4 [id number] had an echocardiogram today which showed a normal EF, cardiology is participating in his care #5 sepsis-secondary to possible urinary tract infection and/or aspiration pneumonia-patient remains on IV antibiotics at this time, labs will be monitored Total clinical time spent by myself addressing the patient's medical issues, reviewing his data, and collaborating with patient's care team: 25 minutes Charges/Coding Visit Charges Inpatient E&M: 47310 Subs Hosp L1
[2023-04-19 16:29] LABS: Vancomycin, Trough Level 6.1 ug/mL (5.0-15.0)
[2023-04-19] MEDS: Heparin 10,000 UNITS/10 ML Vial IV (16:30)
[2023-04-19 16:34] LABS: BNP,B-Type NATRIURETIC PEPTIDE 7.6 pg/mL (0-100)
--- NOTE | 2023-04-19 16:41 | PCM.RX.CS ---
Consult Antibiotic Management Pharmacy has been consulted to manage selected antiobiotic: Vancomycin Type of Intervention Type of Consult: Follow-up Suspected Infection Suspected Infection: Sepsis Prior Doses of Antibiotics Prior Doses of Antibiotics Received/Current Regimen: Vancomycin 1500 mg given 04/18/23 @ 1558 Labs Labs: Sodium 138 mmol/L (136-145) 04/19/23 05:14 Potassium 6.8 mmol/L (3.5-5.1) H* 04/19/23 05:14 Chloride 112 mmol/L (98-107) H 04/19/23 05:14 Carbon Dioxide 19.0 mmol/L (21.0-32.0) L 04/19/23 05:14 Anion Gap 7 (5-15) 04/19/23 05:14 BUN 40 mg/dL (7-18) H 04/19/23 05:14 Creatinine 3.46 mg/dL (0.70-1.30) H 04/19/23 05:14 Est GFR (MDRD) Af Amer 27 mL/min (>60) L 04/19/23 05:14 Est GFR (MDRD) Non-Af 22 mL/min (>60) L 04/19/23 05:14 BUN/Creatinine Ratio 11.6 RATIO (10-20) 04/19/23 05:14 Glucose 108 mg/dL (74-106) H 04/19/23 05:14 Vancomycin Trough 6.1 ug/mL (5.0-15.0) 04/19/23 15:35 Microbiology Microbiology: Microbiology 04/18/23 16:35 Sputum, Tracheal Aspirate Gram Stain - Final 04/18/23 16:35 Sputum, Tracheal Aspirate Respiratory Culture - Preliminary Beta streptococcus 04/18/23 12:45 Urine Catheter - Catheter Urine Culture - Preliminary Culture exhibits no growth. Dosing Weight Weight used for dosin kg Estimated Creatinine Clearance Estimated Creatinine Clearance: 26 Goal Trough Goal Trough: 15-20 mcg/mL Pharmacy Plan for Drug Dosing Pharmacy Plan for Drug Dosing: Patient was started on dialysis this afternoon, vanco trough entered earlier was drawn during dialysis, will give 500 mg IV vancomycin dose today after hemodialysis, with random tomorrow morning as dialysis schedule isn't set yet. Pharmacy Service will continue to monitor and adjust dosing as required. Follow-Up Labs Follow-Up Labs: Trough: Vancomycin (random) Date/Time Labs Ordered Labs to be done on [date and time ordered]: 04/20/23 @ 0600 (Random)
[2023-04-19] MEDS: Vancomycin IV 500 MG/100 ML BAG 100 MG IV (17:31)
--- NOTE | 2023-04-19 18:37 | CON.PCM.RE_ITS ---
Assessment & Plan Assessment/Plan (1) Acute kidney injury: PLAN: LIkely due to ischemic ATN/rhabdomyolysis. no urine output. Hyperkalemia, several rhabdomyolysis. needs INSERTER. dw family at bedside. dw ICU attending. Dialysis catheter placed bedside. will plan for HD today. may need CRRT if BP any worse. HPI Consult Data Date of Consult: 04/19/23 HPI Narrative Reason for Consultation: GREGORY HPI Narrative: LIZ WHITNEY, is a 27 M who presents to hospital with AMS. was found down, unknown down time. U tox positive. Renal consulted for GREGORY and rhabdomyolysis. dw family at bedside. no prior kidney disease as per family. no urine output since this am as per staff. unable to obtain [facility] Medical History (Updated 04/19/23 @ 14:13 by Sendy CALVIN, PA) NSTEMI (non-ST elevated myocardial infarction) Medical History unable to obtain Home Medications naproxen 500 mg tablet 500 mg PO BID PRN #20 tabs 09/30/16 [Rx Last Taken Unknown] sulfamethoxazole 800 mg-trimethoprim 160 mg tablet 1 tab PO BID ##13 09/30/16 [Rx Last Taken Unknown] Allergy/AdvReac Type Severity Reaction Status Date / Time acetaminophen [From [place]] Allergy Swelling Verified 09/30/16 04:48 cephalexin [From [place]] Allergy Hives Verified 09/30/16 04:48 hydrocodone [From [place]] Allergy Swelling Verified 09/30/16 04:48 Penicillins Allergy Itching Verified 09/30/16 04:48 Family History unable to obtain Surgical History unable to obtain Social History Smoking Status: Current every day smoker tobacco type: cigarettes Physical Exam Narrative intubated no obvious distress no pallor no icterus no JVD s1s2 no murmurs lungs clear abdomen soft no organomegaly no edema no cyanosis torrez + Lab / Micro Data 04/19/23 04:50 04/19/23 05:14 Labs: Laboratory Results - last 24 hr 04/18/23 12:40: B-Natriuretic Peptide 7.6 04/18/23 19:35: PT 17.8 H, INR 1.5, APTT 36.0, Troponin I High Sens 7702 H* 04/18/23 21:45: Total Creatine Kinase 01390 H, Triglycerides 46 04/18/23 23:38: Troponin I High Sens 71574 H* 04/19/23 01:50: APTT Cancelled 04/19/23 02:20: APTT > 200.0 H* 04/19/23 04:50: WBC 23.4 H, RBC 5.92, Hgb 17.8 H, Hct 55.4 H, MCV 93.6, MCH 30.1, MCHC 32.1, RDW Std Deviation 48.8 H, RDW Coeff of Merrick 14.1, Plt Count 270, MPV 10.7, Immature Gran % (Auto) 1.100 H, Neut % (Auto) 79.9 H, Lymph % (Auto) 9.9 L, [place] % (Auto) 8.3, Eos % (Auto) 0.5, Baso % (Auto) 0.3, Absolute Neuts (auto) 18.7 H, Absolute Lymphs (auto) 2.31, Nucleated RBC % 0.1, Diff Path Review December04/19/23 05:14: Sodium 138, Potassium 6.8 H*, Chloride 112 H, Carbon Dioxide 19.0 L, Anion Gap 7, BUN 40 H, Creatinine 3.46 H, Estim Creat Clear Calc 25.93, Est GFR (MDRD) Af Amer 27 L, Est GFR (MDRD) Non-Af 22 L, BUN/Creatinine Ratio 11.6, Glucose 108 H, Calcium 7.3 L 04/19/23 10:30: APTT 76.3 H 04/19/23 15:35: Vancomycin Trough 6.1 Micro: Microbiology 04/18/23 16:35 Sputum, Tracheal Aspirate Gram Stain - Final 04/18/23 16:35 Sputum, Tracheal Aspirate Respiratory Culture - Preliminary Beta streptococcus 04/18/23 12:45 Urine Catheter - Catheter Urine Culture - Preliminary Culture exhibits no growth. Radiology Impression Echocardiogram 04/18/23 18:32 Interpretation Summary The estimated ejection fraction is 65-70% %. Moderate size echogenic mass noted attached to the right atrium, The tricuspid valve appeared clear with no evidence of tricuspid gravitation. Cannot rule out vegetations Consider to evaluate further with SUZIE If clinically warranted No prior echocardiogram to compare Ordering Physician: Twila Aden Referring Physician: NO PCP Performed By: Geni Spring RCS Chest X-Ray 04/18/23 23:05 IMPRESSION: An NG tube is place the tip is out of the field of view below the hemidiaphragm. Endotracheal tube in satisfactory position. Note is made of a tiny curvilinear density projected over the left hilum which may represent a small calcification versus a foreign body. Electronically Signed: Maria Victoria Ontiveros MD at 23:20 EDT , Renal Ultrasound 04/19/23 07:06 IMPRESSION: 1. Echogenic kidneys likely reflecting renal medical disease. 2. No evidence of hydronephrosis. Electronically Signed: Charlie Fierro MD at 8:52 EDT , Chest X-Ray 04/19/23 12:25 IMPRESSION: 1. Status post right internal jugular central venous catheter placement. 2. Otherwise no significant change. Electronically Signed: Charlie Fierro MD at 12:58 EDT ,
--- NOTE | 2023-04-19 18:41 | PCM.OP.PRO ---
Procedure Report Date of Procedure: 04/19/23 ALJ Dialysis catheter placement Pre procedure IJ visualized, confirmed collapsibility Site prepped drape applied, US sterile cover placed Under US visualization, lidocaine local injected Under US visualization, introducer needle placed, venous blood draw confirmed guidewire placed, confirmed placement under US serial dilation of tract done catheter placed with good blood return both ports sutures placed CXR done post procedure with satisfactory position
[2023-04-19 19:12] LABS: Partial Thromboplast Time > 200.0 Seconds (24.1-36.2)
[2023-04-19 20:07] LABS: Partial Thromboplast Time 54.1 Seconds (24.1-36.2)
[2023-04-19 22:05] LABS: Hepatitis B Surface Antigen Non-Reactive (Nonreactive)
[2023-04-20] VITALS (48 sets, daily range): BP systolic 8–250; BP diastolic 65–91; PULSE 79–106; RESP 7–21; TEMP 36.1–37.4; O2SAT 92–100; BMI 21.3; BMI 20.7
[2023-04-20] MEDS: 0.9% Normal Saline 1,000 ML 200 ML IV ×2 (00:34→04:52)
[2023-04-20] MEDS: fentaNYL drip 100 ML 15 MCG CONT INF ×2 (00:37→09:25)
[2023-04-20 03:08] LABS: Absolute Lymphocyte Count 1.57 X10^3/uL (0.83-4.51); Absolute Neutrophil Count 11.3 X10^3/uL (2.0-7.7); Basophil# 0.06 X10^3/uL; Basophil% 0.4 % (0-1); Eosinophil# 0.04 X10^3/uL; Eosinophils% 0.3 % (0-5); Hematocrit 45.1 % (40-54); Hemoglobin 14.3 g/dL (13.0-16.5); Lymphocyte # 1.57 X10^3/ul (0.83-4.51); Mean Corp Hgb Conc 31.7 g/dL (32-36); Mean Corpuscular Hgb 30.2 pg (27.0-32.0); Mean Corpuscular Volume 95.3 fL (80-94); Mean Platelet Vol. 11.5 fl (6.2-12.0); Monocyte# 1.21 X10^3/uL; Monocyte% 8.5 % (0-10); NRBC Flagged by Analyzer 0 % (0-5); Neutrophil # 11.32 X10^3/uL (2.7-7.7); Neutrophil % 79.1 % (47-70); Platelet Count 135 K/mm3 (150-450); RBC Distribution Width CV 14.2 % (11.6-14.6); RBC Distribution Width SD 49.7 fl (35.1-43.9); Red Blood Count 4.73 M/mm3 (4.6-6.2); White Blood Count 14.3 K/mm3 (4.4-11.0)
[2023-04-20 03:17] LABS: Partial Thromboplast Time 42.3 Seconds (24.1-36.2)
[2023-04-20 03:27] LABS: Vancomycin, Random Level 23.3 ug/mL (0.0-15.0)
[2023-04-20 04:22] LABS: ALB/GLOB Ratio 0.6 RATIO (0.9-2.4); AST(SGOT) 2040 U/L (15-37); Alanine Aminotransfer ALT/SGPT 1151 U/L (16-61); Albumin, Serum 1.8 g/dL (3.2-5.0); Alkaline Phosphatase 60 U/L (45-117); Anion Gap 7 (5-15); BUN 47 mg/dL (7-18); BUN/Creat Ratio 11.8 RATIO (10-20); Calcium,Total 6.9 mg/dL (8.5-10.1); Chloride 112 mmol/L (98-107); Creatinine, Serum 3.97 mg/dL (0.70-1.30); EST Glomerular Filtration Rate 19 mL/min (>60); Est Glom Filt Rate - Afr Amer 23 mL/min (>60); Globulin 3.1 g/dL (2.2-4.2); Glucose 105 mg/dL (74-106); Magnesium 2.2 mg/dL (1.6-2.6); Potassium 5.4 mmol/L (3.5-5.1); Protein, Total 4.9 g/dL (6.4-8.2); Sodium Level 138 mmol/L (136-145)
--- NOTE | 2023-04-20 05:16 | PCM.RX.CS ---
Consult Antibiotic Management Pharmacy has been consulted to manage selected antiobiotic: Vancomycin Type of Intervention Type of Consult: Follow-up Labs Labs: Sodium 138 mmol/L (136-145) 04/20/23 03:00 Potassium 5.4 mmol/L (3.5-5.1) H 04/20/23 03:00 Chloride 112 mmol/L (98-107) H 04/20/23 03:00 Carbon Dioxide 19.0 mmol/L (21.0-32.0) L 04/20/23 03:00 Anion Gap 7 (5-15) 04/20/23 03:00 BUN 47 mg/dL (7-18) H 04/20/23 03:00 Creatinine 3.97 mg/dL (0.70-1.30) H 04/20/23 03:00 Est GFR (MDRD) Af Amer 23 mL/min (>60) L 04/20/23 03:00 Est GFR (MDRD) Non-Af 19 mL/min (>60) L 04/20/23 03:00 BUN/Creatinine Ratio 11.8 RATIO (10-20) 04/20/23 03:00 Glucose 105 mg/dL (74-106) 04/20/23 03:00 Vancomycin Trough 6.1 ug/mL (5.0-15.0) 04/19/23 15:35 Random Vancomycin 23.3 ug/mL (0.0-15.0) H 04/20/23 03:00 Microbiology Microbiology: Microbiology 04/18/23 16:35 Sputum, Tracheal Aspirate Gram Stain - Final 04/18/23 16:35 Sputum, Tracheal Aspirate Respiratory Culture - Preliminary Beta streptococcus 04/18/23 12:45 Urine Catheter - Catheter Urine Culture - Preliminary Culture exhibits no growth. Dosing Weight Weight used for dosin.8 kg Estimated Creatinine Clearance Estimated Creatinine Clearance: 22.6 Goal Trough Goal Trough: 15-20 mcg/mL Pharmacy Plan for Drug Dosing Pharmacy Plan for Drug Dosing: The random vancomycin level drawn 04/20/23 @0300 was 23.3. This was 9.5hrs after the previous dose. This is high enough to warrant holding further dosing today, if another dialysis is done. Pharmacy will coordinate with nursing for ongoing HD schedule. Another level will be drawn in AM day of next scheduled dialysis. Pharmacy Service will continue to monitor and adjust dosing as required.
[2023-04-20] MEDS: TITRATION PARAMETER CHANGE 1 EACH IV (06:03)
[2023-04-20] MEDS: Propofol 10MG/Ml 1,000 MG/100 ML Bottle 3.8 MG CONT INF ×2 (06:03→14:04)
--- NOTE | 2023-04-20 06:12 | PCM.PN.INT ---
Assessment & Plan Assessment/Plan (1) Encephalopathy: (2) Acute respiratory failure: PLAN: Plan RECOMMENDATIONS: 1. Continue assist-control mode of mechanical ventilation. Wean FiO2 and PEEP to maintain saturations at or above 90%. 2. Ongoing dialysis support per nephrology recommendations. 3. Recheck CK and obtain arterial blood gas. 4. Attempt to limit sedating medications. Goal to maintain a RASS of -1 to 1. 5. Continue spontaneous awakening and breathing trials daily. 6. Obtain SUZIE, while the patient is still intubated. 7. Obtain MRI brain. 8. Initiate tube feeds today. 9. Continue appropriate GI prophylaxis. IMPRESSIONS: 1. Encephalopathy Most likely secondary to acute drug overdose with questionable anoxic insult. The patient will be continued on invasive mechanical ventilatory support. Primitive brainstem reflexes remain intact. Plan to minimize sedating medications as feasible. Continue supportive care for now. Depending on neurological state, will consider neurology consultation. In the interim, will obtain MRI brain today. 2. Acute respiratory failure The patient was initially intubated in the emergency department after being found down unresponsive at home. There was also report of a questionable aspiration event at the time of his intubation. Therefore, I agree with continuing empiric antimicrobials, while awaiting infectious work-up. The patient will be continued on assist control mode of mechanical ventilation. FiO2 and PEEP will be weaned to maintain saturations at or above 90%. Plan to continue with daily paired spontaneous awakening and breathing trials. 3. Acute kidney injury/hyperkalemia/rhabdomyolysis Most likely prerenal in etiology in the setting of #1. Nephrology is currently following to assist with hemodialysis needs. 4. NSTEMI Continue current supportive care with heparin infusion. Echocardiogram revealed a potential vegetation. Therefore, recommend follow-up transesophageal echocardiogram for further clarification. Blood cultures are pending. 5. Sepsis The patient presented with sepsis due to possible urinary tract source of infection and/or aspiration pneumonia with acute sepsis related organ dysfunction as evidenced by lactic acidemia, acute kidney injury and respiratory failure, requiring invasive mechanical ventilatory support. The patient will be continued on empiric broad-spectrum antimicrobials, pending finalized culture results. TIME: 34 minutes of critical care time, independent of procedures, was spent addressing the patient's encephalopathy, acute respiratory failure, acute kidney injury, hyperkalemia, NSTEMI, sepsis, review of all data and collaboration with the care team. Subjective Subjective The patient was seen and examined at the bedside this morning. Events from the last 24 hours have been reviewed. The patient is currently afebrile, hemodynamically stable and maintaining appropriate oxygen saturations on assist control mode mechanical ventilation with an FiO2 of 30%. White count is elevated at 14,000. Potassium is elevated at 5.4. The patient tolerated his first dialysis session yesterday. The patient again failed his spontaneous breathing trial this morning due to apneic events. He is currently documented to be overall net +8.4 L for the hospitalization. When the patient's sedation is placed on hold, he does open his eyes to his name and attempts to sit up in bed, but is overall not directable. Objective Data Objective Data The patient's most recent lab work, culture data and imaging studies have all been personally reviewed. Renal ultrasound was unremarkable. Surface echocardiogram demonstrated an ejection fraction of 65 to 70%. There was a moderate size echogenic mass noted in the right atrium, which could represent a potential vegetation. Preliminary sputum culture is growing beta Streptococcus. Vital Signs: Vital Signs Temp Pulse Resp BP Pulse Ox O2 Del Method FiO2 98.2 F 90 14 110/75 97 Mechanical Ventilator 30 04/20/23 05:00 04/20/23 05:39 04/20/23 05:39 04/20/23 05:00 04/20/23 05:39 04/20/23 05:00 04/20/23 05:39 Oxygen Delivery Method Mechanical Ventilator Weight: 140 lb 10.479 oz Body Mass Index (BMI) 21.3 Intake & Output: Intake and Output for Last 24 Hours 04/18/23 04/19/23 04/20/23 23:59 23:59 23:59 Intake Total 2332.25 / 2338.78 4754.41 / 5759.16 2088.86 / 2088.86 Output Total 200 / 200 478 / 478 50 / 50 Balance 2132.25 / 2138.78 4276.41 / 5281.16 2038. / Lab / Micro Data Attestation: I reviewed the patient's lab results. 04/20/23 03:00 04/20/23 03:00 Labs: Laboratory Results - last 24 hr 04/18/23 12:40: B-Natriuretic Peptide 7.6 04/19/23 10:30: APTT 76.3 H 04/19/23 15:35: Vancomycin Trough 6.1, Hep Bs Antigen Non-Reactive 04/19/23 18:20: APTT > 200.0 H* 04/19/23 19:30: APTT 54.1 H 04/20/23 03:00: WBC 14.3 H, RBC 4.73, Hgb 14.3, Hct 45.1, MCV 95.3 H, MCH 30.2, MCHC 31.7 L, RDW Std Deviation 49.7 H, RDW Coeff of Merrick 14.2, Plt Count 135 L, MPV 11.5, Immature Gran % (Auto) 0.700, Neut % (Auto) 79.1 H, Lymph % (Auto) 11.0 L, [place] % (Auto) 8.5, Eos % (Auto) 0.3, Baso % (Auto) 0.4, Absolute Neuts (auto) 11.3 H, Absolute Lymphs (auto) 1.57, Nucleated RBC % 0, APTT 42.3 H, Sodium 138, Potassium 5.4 H, Chloride 112 H, Carbon Dioxide 19.0 L, Anion Gap 7, BUN 47 H, Creatinine 3.97 H, Estim Creat Clear Calc 22.60, Est GFR (MDRD) Af Amer 23 L, Est GFR (MDRD) Non-Af 19 L, BUN/Creatinine Ratio 11.8, Glucose 105, Calcium 6.9 L, Phosphorus 9.0 H*, Magnesium 2.2, Total Bilirubin 0.30, AST 2040 H, ALT 1151 H, Alkaline Phosphatase 60, Total Protein 4.9 L, Albumin 1.8 L, Globulin 3.1, Albumin/Globulin Ratio 0.6 L, Random Vancomycin 23.3 H Micro: Microbiology 04/18/23 16:35 Sputum, Tracheal Aspirate Gram Stain - Final 04/18/23 16:35 Sputum, Tracheal Aspirate Respiratory Culture - Preliminary Beta streptococcus 04/18/23 12:45 Urine Catheter - Catheter Urine Culture - Preliminary Culture exhibits no growth. Radiography Diagnostic Testing: Radiology Impression Echocardiogram 04/18/23 18:32 Interpretation Summary The estimated ejection fraction is 65-70% %. Moderate size echogenic mass noted attached to the right atrium, The tricuspid valve appeared clear with no evidence of tricuspid gravitation. Cannot rule out vegetations Consider to evaluate further with SUZIE If clinically warranted No prior echocardiogram to compare Ordering Physician: Twila Aden Referring Physician: FARHEEN PCP Performed By: Geni Spring RCS Renal Ultrasound 04/19/23 07:06 IMPRESSION: 1. Echogenic kidneys likely reflecting renal medical disease. 2. No evidence of hydronephrosis. Electronically Signed: Charlie Fierro MD at 8:52 EDT , Chest X-Ray 04/19/23 12:25 IMPRESSION: 1. Status post right internal jugular central venous catheter placement. 2. Otherwise no significant change. Electronically Signed: Charlie Fierro MD at 12:58 EDT , Physical Exam Const Constitutional Narrative: Currently intubated, sedated and mechanically ventilated. No ventilator dyssynchrony noted. HEENT normocephalic and head/scalp atraumatic HEENT Narrative: Nasogastric tube in place. The patient does have swelling of his lips and tongue. Mouth: endotracheal tube in place Eyes PERRL Neck supple General: trachea midline Chest inspection of chest normal Resp Auscultation: Negative for rales, rhonchi or wheezes Cardio regular rate, regular rhythm, S1 normal heart sound and S2 normal heart sound GI normal to inspection, nondistended, normoactive bowel sounds Extremity no clubbing, cyanosis or edema Neuro Sensorium / Orientation: sedated on vent Charges/Coding Procedures Hospitalists Procedures: [id number] Critial Care 1st Hr
--- NOTE | 2023-04-20 07:12 | PCM.PN.HOSP ---
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 Objective Data Objective Data Vital Signs: Vital Signs Temp Pulse Resp BP Pulse Ox O2 Del Method FiO2 98.4 F 101 H 14 110/69 95 Mechanical Ventilator 30 04/20/23 07:00 04/20/23 07:00 04/20/23 07:00 04/20/23 07:00 04/20/23 07:00 04/20/23 07:00 04/20/23 07:00 Oxygen Delivery Method Mechanical Ventilator Weight: 140 lb 10.479 oz Body Mass Index (BMI) 21.3 Intake & Output: Intake and Output for Last 24 Hours 04/18/23 04/19/23 04/20/23 23:59 23:59 23:59 Intake Total 2332.25 / 2338.78 4754.41 / 5759.16 2103.77 / 2103.77 Output Total 200 / 200 478 / 478 50 / 50 Balance 2132.25 / 2138.78 4276.41 / 5281.16 2053.77 / 2053.77 Lab / Micro Data 04/20/23 03:00 04/20/23 03:00 Labs: Laboratory Results - last 24 hr 04/18/23 12:40: B-Natriuretic Peptide 7.6 04/19/23 10:30: APTT 76.3 H 04/19/23 15:35: Vancomycin Trough 6.1, Hep Bs Antigen Non-Reactive 04/19/23 18:20: APTT > 200.0 H* 04/19/23 19:30: APTT 54.1 H 04/20/23 03:00: WBC 14.3 H, RBC 4.73, Hgb 14.3, Hct 45.1, MCV 95.3 H, MCH 30.2, MCHC 31.7 L, RDW Std Deviation 49.7 H, RDW Coeff of Merrick 14.2, Plt Count 135 L, MPV 11.5, Immature Gran % (Auto) 0.700, Neut % (Auto) 79.1 H, Lymph % (Auto) 11.0 L, [place] % (Auto) 8.5, Eos % (Auto) 0.3, Baso % (Auto) 0.4, Absolute Neuts (auto) 11.3 H, Absolute Lymphs (auto) 1.57, Nucleated RBC % 0, APTT 42.3 H, Sodium 138, Potassium 5.4 H, Chloride 112 H, Carbon Dioxide 19.0 L, Anion Gap 7, BUN 47 H, Creatinine 3.97 H, Estim Creat Clear Calc 22.60, Est GFR (MDRD) Af Amer 23 L, Est GFR (MDRD) Non-Af 19 L, BUN/Creatinine Ratio 11.8, Glucose 105, Calcium 6.9 L, Phosphorus 9.0 H*, Magnesium 2.2, Total Bilirubin 0.30, AST 2040 H, ALT 1151 H, Alkaline Phosphatase 60, Total Protein 4.9 L, Albumin 1.8 L, Globulin 3.1, Albumin/Globulin Ratio 0.6 L, Random Vancomycin 23.3 H Micro: Microbiology 04/18/23 16:35 Sputum, Tracheal Aspirate Gram Stain - Final 04/18/23 16:35 Sputum, Tracheal Aspirate Respiratory Culture - Preliminary Beta streptococcus 04/18/23 12:45 Urine Catheter - Catheter Urine Culture - Preliminary Culture exhibits no growth. Radiography Diagnostic Testing: Radiology Impression Echocardiogram 04/18/23 18:32 Interpretation Summary The estimated ejection fraction is 65-70% %. Moderate size echogenic mass noted attached to the right atrium, The tricuspid valve appeared clear with no evidence of tricuspid gravitation. Cannot rule out vegetations Consider to evaluate further with SUZIE If clinically warranted No prior echocardiogram to compare Renal Ultrasound 04/19/23 07:06 IMPRESSION: 1. Echogenic kidneys likely reflecting renal medical disease. 2. No evidence of hydronephrosis. Electronically Signed: Charlie Fierro MD at 8:52 EDT , Chest X-Ray 04/19/23 12:25 IMPRESSION: 1. Status post right internal jugular central venous catheter placement. 2. Otherwise no significant change. Physical Exam Narrative General: Sedated. HEENT: Atraumatic, PERRLA, EOMI, Normocephalic Oral: Intubated on ventilator Neck: Right IJ temporary dialysis catheter. Supple, No JVD, Negative Carotid Bruits Lungs: Air entry diminished in bilateral lung bases. No crepitation/rhonchi Cardiovascular: Regular rate, Regular Rhythm, Normal S1, Normal S2, No murmurs Abdomen: Bowel Sounds sluggish, Soft, Non Tender, Non-Distended : No renal angle tenderness. No suprapubic tenderness. Extremities: No edema, Capillary Refill Less than 3 Seconds Skin: No rashes, No breakdown Musculoskeletal: No Tenderness to Palpation of Joints or Extremities. Neurological: Sedated. No acute focal neurological deficit. Psych/Mental Status: Sedated Assessment & Plan Assessment/Plan (1) Acute respiratory failure: QUALIFIERS: Respiratory failure complication: hypoxia Qualified Code(s): J96.01 - Acute respiratory failure with hypoxia PLAN: Plan 1. Acute respiratory failure mainly due to acute encephalopathy with questionable anoxic insult Patient is sedated on the ventilator at this time, critical care is managing his vent, the etiology of his respiratory failure is unknown but suspected to be secondary to drug usage, patient's tox screen was positive for multiple drugs. MRI brain is ordered. #2 Acute encephalopathy due to multiple etiologies, predominantly toxic encephalopathy and metabolic/hypoxic encephalopathy from multiple drug overdoses:-secondary to questionable anoxic insult, supportive care. Tox screen positive for crack cocaine, amphetamine, ecstasy and cannabinoids. Patient was intubated after being found unresponsive at home. There is also questionable aspiration event at the time of intubation. #3 Acute kidney injury most likely due to ischemic ATN/rhabdomyolysis: Hyperkalemia and rhabdomyolysis most likely prerenal progressed to ATN-patient has right IJ dialysis temporary catheter. Patient is started on dialysis. Low urine output. Patient has metabolic acidosis. Magnesium 2.2. Phosphorus 9.0, calcium 6.9. Hyperkalemia potassium 5.4. Normal anion gap metabolic acidosis. BUNs/creatinine 47/3.97. CK 51,615. Urine output 85 mL since midnight. 478 mL on 04/19. #4 [id number] consulted. Very high troponin, 15,524 most likely due to increased cardiac demand/myocardial injury. Patient on IV heparin drip. 2D echo shows EF 65 to 70% #5 sepsis-sepsis most likely due to UTI and/or aspiration pneumonia with acute sepsis related organ dysfunction as evidenced by lactic acidemia, acute kidney injury, acute hypoxic respiratory failure on mechanical invasive ventilator spectrum antibiotic. Tracheal aspirate shows beta Streptococcus on 04/18/2023. Blood culture is pending. 2D echo shows moderate-sized echogenic mass attached to right atrium. Tricuspid valve appears clear with no TR. discussed with reeling and tubing machine operator. No plan for SUZIE until patient is extubated or more awake. Total time of the visit including total time spent in counseling or coordination of care, (more than 50% of the total time, spent in obtaining medical information from nurses and other ancillary care providers,explaining to the patient about labs, imaging, diagnosis and management of active complex medical conditions), multiple consultants, review of labs and imaging is 50 minutes. Charges/Coding Visit Charges Inpatient E&M: 86409 Subs Hosp L3
--- NOTE | 2023-04-20 07:17 | MRI_ITS ---
INDICATION: Eval for anoxic injury EXAMINATION: MRI - MR Brain WO/W Contrast TECHNIQUE: Multiplanar and multisequence MR images of the brain were obtained without and with gadolinium. IV Contrast Dosage and Agent: 13 cc clariscan. COMPARISON: CT 04/18/2023. FINDINGS: BRAIN AND EXTRA-AXIAL SPACES: No intracranial mass, mass effect, or midline shift. No enhancing lesion. No acute hemorrhage. Restricted diffusion in the internal capsules bilaterally and in the deep parietal white matter consistent with acute ischemia. Areas of low attenuation / T2 signal hyperintensity in the white matter are consistent with microvascular ischemia. Ventriculomegaly is commensurate with the degree of sulcal atrophy. There is cerebral atrophy with widening of the extra-axial spaces and ventricular dilation. Basal cisterns are unremarkable. SELLA: Pituitary gland is normal in height. AUDITORY SYSTEM: Unremarkable. BONES/JOINTS: Unremarkable. SINUSES: Unremarkable as visualized. Clear. MASTOID AIR CELLS: Unremarkable as visualized. Clear. ORBITS: Unremarkable as visualized. VASCULATURE: Normal flow voids in the major intracranial circulation. MRI/Brain W/WO Contrast IMPRESSION: Acute ischemia in the internal capsules and deep parietal white matter bilaterally consistent with anoxia. Electronically Signed: Tammy De León MD at 16:44 EDT [place] Location ID and State: [id number] / Tel , Service support ,
--- NOTE | 2023-04-20 07:38 | US_ITS ---
STUDY: ABDOMINAL ULTRASOUND - RIGHT UPPER QUADRANT REASON FOR VISIT: Male, 27 years old Transaminitis TECHNIQUE: Ultrasound evaluation of the right upper quadrant was performed with real-time and static espinosa-scale imaging. TECHNICAL QUALITY: Adequate. COMPARISON: None. FINDINGS: Liver: The liver measures 15.9 cm. There is normal echogenicity of the liver. The bile ducts are within normal limits. There is hepatic color flow. The direction of portal flow is hepatopetal. There is no demonstrated mass lesion. Minimal amount of free fluid is seen surrounding the liver. Gallbladder: Normal distended gallbladder. The gallbladder wall measures 2.7 mm. There is a negative sonographic Munroe''s sign. There is no pericholecystic fluid. There are no gallstones. Sludge is seen within the gallbladder lumen. Common Bile Duct (C.B.D.): The common bile duct measures 5 mm. Pancreas: Normal size of the head, body and tail of the pancreas. There is normal echogenicity of the pancreas. There is no demonstrated pancreatic mass or cyst. Right Kidney: Normal size of the right kidney. The right kidney measures 11.2 cm x 5.5 cm x 3.7 cm. Increased echotexture of the renal cortex suggestive medical renal disease. The right cortex measures 1.6 cm. There is no demonstrated renal mass or cyst. There is no right hydronephrosis. US/Liver IMPRESSION: Sludge is seen in the gallbladder lumen. Small amount of perihepatic fluid. Increased echotexture of the kidneys suggestive of medical renal disease. Electronically Signed: Art Kelly MD at 12:53 EDT ,
[2023-04-20] MEDS: Chlorhexidine 15 ML PO ×2 (07:48→21:20)
[2023-04-20 07:49] LABS: Allen Test Positive; Base Excess -10 mmol/L (-2 to +2); Bicarbonate 18.1 mmol/L (22-26); Blood Gas Specimen Type ART; Mode AC; O2 Delivery Device Adult Vent; PEEP 5; PO2 78 mmHG (75-100); RR 14; SITE R Radial; SO2 93 % (95-99); Total Carbon Dioxide 20 mmol/L; pCO2 44.9 mmHg (35-45); pH 7.21 (7.35-7.45)
[2023-04-20] MEDS: PureFlow B 2K Dialysis Soln 1 BAG 6 BAG PF (08:41)
[2023-04-20] MEDS: 0.9% Normal Saline 1,000 ML IV.SOLN. 1000 ML OPERA.SITE (08:41)
[2023-04-20] MEDS: 0.9% Saline Lock 10 ML Syringe IV ×2 (08:43→11:00)
[2023-04-20 09:51] LABS: Partial Thromboplast Time 36.7 Seconds (24.1-36.2)
[2023-04-20 10:35] LABS: Bedside Glucose 133 mg/dL (74-106)
--- NOTE | 2023-04-20 10:43 | CASEMGMT ---
Social Work SW met with pt's mother and introduced self and role of SW. Emotional support provided to mother. Pt's mother has friends present with her in ICU waiting room offering support. Pt's father is aware of pt's hospitalization but mother states he has not been present. No needs voiced at this time. SW will remain available should need arise. CASSANDRA Acevedo
[2023-04-20] MEDS: Heparin 10,000 UNITS/10 ML Vial IV (11:00)
--- NOTE | 2023-04-20 11:45 | PCM.PN.REN ---
Subjective Subjective no new events. no urine output. cr remains high. K is borderline. Objective Data Objective Data Vital Signs: Vital Signs Temp Pulse Resp BP Pulse Ox O2 Del Method FiO2 96.9 F L 100 14 113/80 96 Ambu-Bag 30 04/20/23 11:34 04/20/23 11:34 04/20/23 11:34 04/20/23 11:34 04/20/23 11:34 04/20/23 11:34 04/20/23 11:00 Oxygen Delivery Method Ambu-Bag Weight: 60.1 kg Body Mass Index (BMI) 20.0 Intake & Output: Intake and Output for Last 24 Hours 04/18/23 04/19/23 04/20/23 23:59 23:59 23:59 Intake Total 2332.25 / 2338.78 4754.41 / 5759.16 2899.89 / 2899.89 Output Total 200 / 200 478 / 478 1994 / 1994 Balance 2132.25 / 2138.78 4276.41 / 5281.16 904.89 / 904.89 Lab / Micro Data 04/20/23 03:00 04/20/23 03:00 Labs: Laboratory Results - last 24 hr 04/18/23 12:40: B-Natriuretic Peptide 7.6 04/18/23 12:45: Urine Color Arianna, Urine Clarity Sl. Cloudy, Urine pH 5.0, Ur Specific [place] 1.025, Urine Protein 100 H, Urine Glucose (UA) Normal, Urine Ketones 5 H, Urine Occult Blood 250 H, Urine Nitrite Positive H, Urine Bilirubin Negative, Urine Urobilinogen 1 H, Ur Leukocyte Esterase 25 H, Urine RBC 25-50 SEEN, Urine WBC 0-5 SEEN, Ur Squamous Epith Cells 0-5 SEEN, Urine Bacteria 2+, Urine Mucus 1+ 04/18/23 13:03: POC Glucose 133 H 04/19/23 15:35: Vancomycin Trough 6.1, Hep Bs Antigen Non-Reactive 04/19/23 18:20: APTT > 200.0 H* 04/19/23 19:30: APTT 54.1 H 04/20/23 03:00: WBC 14.3 H, RBC 4.73, Hgb 14.3, Hct 45.1, MCV 95.3 H, MCH 30.2, MCHC 31.7 L, RDW Std Deviation 49.7 H, RDW Coeff of [place]rick 14.2, Plt Count 135 L, MPV 11.5, Immature Gran % (Auto) 0.700, Neut % (Auto) 79.1 H, Lymph % (Auto) 11.0 L, [place] % (Auto) 8.5, Eos % (Auto) 0.3, Baso % (Auto) 0.4, Absolute Neuts (auto) 11.3 H, Absolute Lymphs (auto) 1.57, Nucleated RBC % 0, APTT 42.3 H, Sodium 138, Potassium 5.4 H, Chloride 112 H, Carbon Dioxide 19.0 L, Anion Gap 7, BUN 47 H, Creatinine 3.97 H, Estim Creat Clear Calc 22.60, Est GFR (MDRD) Af Amer 23 L, Est GFR (MDRD) Non-Af 19 L, BUN/Creatinine Ratio 11.8, Glucose 105, Calcium 6.9 L, Phosphorus 9.0 H*, Magnesium 2.2, Total Bilirubin 0.30, AST 2040 H, ALT 1151 H, Alkaline Phosphatase 60, Total Creatine Kinase 12509 H, Total Protein 4.9 L, Albumin 1.8 L, Globulin 3.1, Albumin/Globulin Ratio 0.6 L, Random Vancomycin 23.3 H 04/20/23 08:58: Ammonia 52.0 H 04/20/23 09:20: APTT 36.7 H Micro: Microbiology 04/18/23 12:45 Urine Catheter - Catheter Urine Culture - Final Culture exhibits no growth. 04/18/23 16:35 Sputum, Tracheal Aspirate Gram Stain - Final 04/18/23 16:35 Sputum, Tracheal Aspirate Respiratory Culture - Final Streptococcus group C ABG Data ABG results: ABG 04/20/23 07:44 Specimen Type ART Sample Site R Radial pH 7.21 L Bicarbonate Actual 18.1 L Total CO2 20 Base Excess -10 L O2 Saturation 93 L O2 % 30.0 ABG pCO2 44.9 ABG pO2 78 Vince Test Positive Respiration Rate 14 O2 Delivery Device Adult Vent Vent Mode AC Tidal Volume 450.0 POC PEEP 5 Radiography Diagnostic Testing: Radiology Impression Echocardiogram 04/18/23 18:32 Interpretation Summary The estimated ejection fraction is 65-70% %. Moderate size echogenic mass noted attached to the right atrium, The tricuspid valve appeared clear with no evidence of tricuspid gravitation. Cannot rule out vegetations Consider to evaluate further with SUZIE If clinically warranted No prior echocardiogram to compare Ordering Physician: Twila Aden Referring Physician: NO PCP Performed By: Geni Spring RCS Chest X-Ray 04/19/23 12:25 IMPRESSION: 1. Status post right internal jugular central venous catheter placement. 2. Otherwise no significant change. Electronically Signed: Charlie Fierro MD at 12:58 EDT , Physical Exam Narrative intubated no obvious distress no pallor no icterus no JVD s1s2 no murmurs lungs clear abdomen soft no organomegaly no edema no cyanosis torrez + Assessment & Plan Assessment/Plan (1) Acute kidney injury: PLAN: due to ATN. no obstruction. anuric. due to ATN and rhaddomyolysis. HD today. seen on HD. see orders Hyperkalemia. S/p dialysis. Potassium remains borderline high. Repeat dialysis today. Rhabdomyolysis. CPK levels are better. Discussed with ICU.
[2023-04-20] MEDS: Heparin Injection (Vial) 5,000 UNIT/ML VIAL IV (11:53)
[2023-04-20 13:01] LABS: Magnesium 2.6 mg/dL (1.6-2.6)
[2023-04-20 13:08] LABS: Pathologist Review Reviewed
[2023-04-20 13:10] LABS: Pathologist Review Reviewed
--- NOTE | 2023-04-20 14:45 | NURSING ---
1445- per [facility] interventional radiology tech, pt was restless and unsafe to scan in MRI, [facility] RN increased patient sedation, Propofol to 20mcg/kg/min and Fentanyl to 200mcg/hr. 1600- pt returned to ICU w/ respiratory and [facility] interventional radiology tech, propofol noted to be at 20mcg/kg/min and fentanyl 200mcg/hr.
[2023-04-20] MEDS: fentaNYL drip 100 ML 20 MCG CONT INF (15:15)
--- NOTE | 2023-04-20 16:07 | VDLE_ITS ---
Reason For Study: RLE Swelling RIGHT LEFT GSV is normal. CFV is compressible, spontaneous, competent, CFV is compressible, spontaneous, competent and demonstrates pulsatile venous flow. and demonstrates pulsatile venous flow. FV is compressible, spontaneous, competent and demonstrates pulsatile venous flow. POP V is compressible, spontaneous, competent and demonstrates pulsatile venous flow. T/P Trunk is compressible. PTV is compressible. RT PerV is compressible. Procedure This is a venous duplex using B-mode, color flow and spectral Doppler. Exam performed portable in ICU/CCU. The exam was diagnostic. A preliminary report was called and/or faxed to CVICU house servant. VL/Venous Duplex US, Unilateral Interpretation Summary Deep veins of the right lower extremity are patent and compressible segmentally . There is no evidence of right lower extremity deep vein thrombosis. The right [place] vein appears patent and compressible segmentally. Ordering Physician: Anthony Beauchamp Referring Physician: N/A Performed By: Patric Sotomayor RVT
--- NOTE | 2023-04-20 16:08 | VDUE_ITS ---
Reason For Study: RUE Swelling Right Proximal Left Proximal Right jugular vein is spontaneous, widely Left subclavian vein is spontaneous, widely patent, pulsatile, with no intraluminal patent, pulsatile, with no intraluminal echogenicity noted. echogenicity noted. Right subclavian vein is spontaneous, widely patent, pulsatile, with no intraluminal echogenicity noted. Right Lower Arm Right radial vein is compressible. Right ulnar vein is compressible. Right Arm Right axillary vein is spontaneous, patent, pulsatile, competent, compressible and demonstrates augmentation. Right brachial vein is compressible. Right cephalic vein is compressible. Right basilic vein is compressible. non vascularized heterogenous mass measuring approximately 2.29cm x 1.21cm is noted mid RT bicep. Patient Safety Preliminary result delivered to CVICU interactive art director. VL/Venous Duplex US, Unilateral Interpretation Summary Deep veins of the right upper extremity are patent and compressible segmentally . There is no evidence of deep vein thrombosis. Superficial veins of the right upper extremity are patent and compressible segm entally. There is no evidence of superficial vein thrombosis. Non vascularized heterogenous mass measuring approximately 2.29cm x 1.21cm is n oted mid right bicep. Ordering Physician: Anthony Beauchamp Referring Physician: N/A Performed By: Patric Sotomayor RVT ???
--- NOTE | 2023-04-20 16:08 | PCM.CONS.GEN ---
Assessment & Plan Assessment/Plan (1) Encephalopathy: PLAN: Possible mass/veg seen on TTE. Recommend SUZIE. Bcx neg so far, will check another today. On empiric vanc/jorge. H/o PCN allergy. IVDU - will check hiv and hep panel with AM labs. RUE and RLE swelling - will order doppler u/s of R side Will follow, thank you, d.w nursing (2) Acute kidney injury: (3) Acute respiratory failure: QUALIFIERS: Respiratory failure complication: hypoxia Qualified Code(s): J96.01 - Acute respiratory failure with hypoxia (4) History of drug abuse: HPI Consult Data Date of Consult: 04/20/23 HPI Narrative Reason for Consultation: endocarditis HPI Narrative: LIZ WHITNEY, is a 27 M with h/o IVDU, presented 04/18/23 after being found down. Tox screen (+). Intubated, admitted to icu with rhabdo, started on vanc/jorge. Family at bedside, mother reports he had been at normal health a few days ago. TTE showed possible atrial mass/veg. ROS unobtainable due to mental status [facility] Medical History NSTEMI (non-ST elevated myocardial infarction) Medical History unable to obtain Home Medications naproxen 500 mg tablet 500 mg PO BID PRN #20 tabs 09/30/16 [Rx Last Taken Unknown] sulfamethoxazole 800 mg-trimethoprim 160 mg tablet 1 tab PO BID ##13 09/30/16 [Rx Last Taken Unknown] Allergy/AdvReac Type Severity Reaction Status Date / Time acetaminophen [From [place]] Allergy Swelling Verified 09/30/16 04:48 cephalexin [From [place]] Allergy Hives Verified 09/30/16 04:48 hydrocodone [From [place]] Allergy Swelling Verified 09/30/16 04:48 Penicillins Allergy Itching Verified 09/30/16 04:48 Family History unable to obtain Surgical History unable to obtain Social History Smoking Status: Current every day smoker tobacco type: cigarettes Physical Exam Const Constitutional Narrative: ill appearing, on vent HEENT normocephalic Eyes Eyes Narrative: pupils constricted Neck supple and No nodes Resp Effort and Inspection: mechanically ventilated Auscultation: diminished lung sounds Cardio Rate: tachycardic Heart Sounds: murmur GI soft to palpation, non-tender and non-distended Extremity Extremity Narrative: RUE and RLE swelling Skin Skin Narrative: cross-shaped ? brand on R upper arm Neuro Neuro Narrative: not following commands Lab / Micro Data Attestation: I reviewed the patient's lab results. 04/20/23 03:00 04/20/23 12:30 Labs: Laboratory Results - last 24 hr 04/18/23 12:40: Diff Path Review Reviewed, B-Natriuretic Peptide 7.6 04/18/23 12:45: Urine Color Arianna, Urine Clarity Sl. Cloudy, Urine pH 5.0, Ur Specific [place] 1.025, Urine Protein 100 H, Urine Glucose (UA) Normal, Urine Ketones 5 H, Urine Occult Blood 250 H, Urine Nitrite Positive H, Urine Bilirubin Negative, Urine Urobilinogen 1 H, Ur Leukocyte Esterase 25 H, Urine RBC 25-50 SEEN, Urine WBC 0-5 SEEN, Ur Squamous Epith Cells 0-5 SEEN, Urine Bacteria 2+, Urine Mucus 1+ 04/18/23 13:03: POC Glucose 133 H 04/19/23 04:50: Diff Path Review Reviewed 04/19/23 15:35: Vancomycin Trough 6.1, Hep Bs Antigen Non-Reactive 04/19/23 18:20: APTT > 200.0 H* 04/19/23 19:30: APTT 54.1 H 04/20/23 03:00: WBC 14.3 H, RBC 4.73, Hgb 14.3, Hct 45.1, MCV 95.3 H, MCH 30.2, MCHC 31.7 L, RDW Std Deviation 49.7 H, RDW Coeff of [place]rick 14.2, Plt Count 135 L, MPV 11.5, Immature Gran % (Auto) 0.700, Neut % (Auto) 79.1 H, Lymph % (Auto) 11.0 L, [place] % (Auto) 8.5, Eos % (Auto) 0.3, Baso % (Auto) 0.4, Absolute Neuts (auto) 11.3 H, Absolute Lymphs (auto) 1.57, Nucleated RBC % 0, APTT 42.3 H, Sodium 138, Potassium 5.4 H, Chloride 112 H, Carbon Dioxide 19.0 L, Anion Gap 7, BUN 47 H, Creatinine 3.97 H, Estim Creat Clear Calc 22.60, Est GFR (MDRD) Af Amer 23 L, Est GFR (MDRD) Non-Af 19 L, BUN/Creatinine Ratio 11.8, Glucose 105, Calcium 6.9 L, Phosphorus 9.0 H*, Magnesium 2.2, Total Bilirubin 0.30, AST 2040 H, ALT 1151 H, Alkaline Phosphatase 60, Total Creatine Kinase 26924 H, Total Protein 4.9 L, Albumin 1.8 L, Globulin 3.1, Albumin/Globulin Ratio 0.6 L, Random Vancomycin 23.3 H 04/20/23 08:58: Ammonia 52.0 H 04/20/23 09:20: APTT 36.7 H 04/20/23 12:30: Potassium 5.0, Magnesium 2.6 Micro: Microbiology 04/18/23 12:55 Blood Culture (Wb) - Venous Blood Culture - Preliminary No growth in 48 hours. 04/18/23 12:40 Blood Culture (Wb) - Venous Blood Culture - Preliminary No growth in 48 hours. 04/18/23 12:45 Urine Catheter - Catheter Urine Culture - Final Culture exhibits no growth. 04/18/23 16:35 Sputum, Tracheal Aspirate Gram Stain - Final 04/18/23 16:35 Sputum, Tracheal Aspirate Respiratory Culture - Final Streptococcus group C ABG Data ABG results: ABG 04/20/23 07:44 Specimen Type ART Sample Site R Radial pH 7.21 L Bicarbonate Actual 18.1 L Total CO2 20 Base Excess -10 L O2 Saturation 93 L O2 % 30.0 ABG pCO2 44.9 ABG pO2 78 Vince Test Positive Respiration Rate 14 O2 Delivery Device Adult Vent Vent Mode AC Tidal Volume 450.0 POC PEEP 5 Radiology Impression Liver Ultrasound 04/20/23 07:38 IMPRESSION: Sludge is seen in the gallbladder lumen. Small amount of perihepatic fluid. Increased echotexture of the kidneys suggestive of medical renal disease. Electronically Signed: Art Kelly MD at 12:53 EDT ,
[2023-04-20] MEDS: NEPRO TUBE FEED 1,000 ML 20 ML NG (16:26)
[2023-04-20] MEDS: fentaNYL drip 100 ML 17.5 MCG CONT INF (21:00)
[2023-04-20 21:03] LABS: Partial Thromboplast Time 65.1 Seconds (24.1-36.2)
[2023-04-20] MEDS: HEPARIN/D5w 25,000 UNITS 25,000 UNITS/250 ML IV.SOLN. 7 UNITS CONT INF (23:47)
[2023-04-21] VITALS (35 sets, daily range): BP systolic 119–167; BP diastolic 56–97; PULSE 16–114; RESP 11–23; TEMP 36.9–37.7; O2SAT 93–961; BMI 21.5
[2023-04-21 03:57] LABS: Partial Thromboplast Time 64.4 Seconds (24.1-36.2)
[2023-04-21 04:34] LABS: Vancomycin, Random Level 17.2 ug/mL (0.0-15.0)
[2023-04-21 05:02] LABS: HIV - WCH Non-Reactive (Nonreactive)
--- NOTE | 2023-04-21 06:53 | PCM.PN.INT ---
Assessment & Plan Assessment/Plan (1) Encephalopathy: (2) Acute respiratory failure: QUALIFIERS: Respiratory failure complication: hypoxia Qualified Code(s): J96.01 - Acute respiratory failure with hypoxia PLAN: Plan RECOMMENDATIONS: 1. Given frequent apneic events on SBT, will convert back to assist control and resume full ventilatory support. 2. Resume sedation regimen with fentanyl and propofol. 3. Continue daily spontaneous awakening and breathing trials. 4. Resume tube feeds. 5. Continue antimicrobials per ID recommendations. 6. Defer timing of SUZIE to cardiology. 7. Ongoing dialysis support per nephrology recommendations. 8. Continue appropriate GI prophylaxis. IMPRESSIONS: 1. Encephalopathy Most likely secondary to acute drug overdose with questionable anoxic insult. The patient will be continued on invasive mechanical ventilatory support. Primitive brainstem reflexes remain intact. Plan to minimize sedating medications as feasible. Continue supportive care for now. Although MRI brain did reveal some ischemic changes, the patient was able to follow simple commands during his breathing trial this morning. 2. Acute respiratory failure The patient was initially intubated in the emergency department after being found down unresponsive at home. There was also report of a questionable aspiration event at the time of his intubation. Therefore, I agree with continuing empiric antimicrobials, while awaiting infectious work-up. The patient will be continued on assist control mode of mechanical ventilation. FiO2 and PEEP will be weaned to maintain saturations at or above 90%. Plan to continue with daily paired spontaneous awakening and breathing trials. 3. Acute kidney injury/hyperkalemia/rhabdomyolysis Most likely prerenal in etiology in the setting of #1. Nephrology is currently following to assist with hemodialysis needs. 4. NSTEMI Continue current supportive care with heparin infusion. Echocardiogram revealed a potential vegetation. Therefore, recommend follow-up transesophageal echocardiogram for further clarification. Blood cultures are pending. 5. Sepsis The patient presented with sepsis due to possible urinary tract source of infection and/or aspiration pneumonia with acute sepsis related organ dysfunction as evidenced by lactic acidemia, acute kidney injury and respiratory failure, requiring invasive mechanical ventilatory support. The patient will be continued on empiric broad-spectrum antimicrobials, pending finalized culture results. TIME: 33 minutes of critical care time, independent of procedures, was spent addressing the patient's encephalopathy, acute respiratory failure, acute kidney injury, hyperkalemia, NSTEMI, sepsis, review of all data and collaboration with the care team. Subjective Subjective The patient was seen and examined at the bedside this morning. Events from the last 24 hours have been reviewed. The patient has a low-grade fever but remains otherwise hemodynamically stable on spontaneous mode of mechanical ventilation with an FiO2 of 30%. The patient has actually passed a spontaneous breathing trial this morning for a period of time, but was later noted to have frequent apneic events, for which his SBT was terminated. He was alert and able to follow simple commands, nevertheless. The patient is currently documented to be overall net +8.3 L for the hospitalization. MRI brain yesterday revealed some ischemic changes in the internal capsule and deep parietal white matter bilaterally. Objective Data Objective Data The patient's most recent lab work, culture data and imaging studies have all been personally reviewed. Renal ultrasound was unremarkable. Surface echocardiogram demonstrated an ejection fraction of 65 to 70%. There was a moderate size echogenic mass noted in the right atrium, which could represent a potential vegetation. Preliminary sputum culture is growing beta Streptococcus. Vital Signs: Vital Signs Temp Pulse Resp BP Pulse Ox O2 Del Method FiO2 99.4 F H 105 H 14 138/63 H 95 Mechanical Ventilator 30 04/21/23 06:00 04/21/23 06:00 04/21/23 06:00 04/21/23 06:00 04/21/23 06:00 04/21/23 06:00 04/21/23 05:00 Oxygen Delivery Method Mechanical Ventilator Weight: 141 lb 15.643 oz Body Mass Index (BMI) 21.5 Intake & Output: Intake and Output for Last 24 Hours 04/19/23 04/20/23 04/21/23 23:59 23:59 23:59 Intake Total 4754.41 / 5759.16 3370.01 / 3541.31 555.11 / 555.11 Output Total 478 / 478 2014 Balance 4276.41 / 5281.16 1355.01 / 1526.31 545.11 / 545.11 Lab / Micro Data Attestation: I reviewed the patient's lab results. 04/21/23 03:40 04/21/23 03:40 Labs: Laboratory Results - last 24 hr 04/18/23 12:40: Diff Path Review Reviewed 04/18/23 12:45: Urine Color Arianna, Urine Clarity Sl. Cloudy, Urine pH 5.0, Ur Specific [place] 1.025, Urine Protein 100 H, Urine Glucose (UA) Normal, Urine Ketones 5 H, Urine Occult Blood 250 H, Urine Nitrite Positive H, Urine Bilirubin Negative, Urine Urobilinogen 1 H, Ur Leukocyte Esterase 25 H, Urine RBC 25-50 SEEN, Urine WBC 0-5 SEEN, Ur Squamous Epith Cells 0-5 SEEN, Urine Bacteria 2+, Urine Mucus 1+ 04/18/23 13:03: POC Glucose 133 H 04/19/23 04:50: Diff Path Review Reviewed 04/20/23 03:00: Total Creatine Kinase 74953 H 04/20/23 08:58: Ammonia 52.0 H 04/20/23 09:20: APTT 36.7 H 04/20/23 12:30: Potassium 5.0, Magnesium 2.6 04/20/23 20:17: APTT 65.1 H 04/21/23 03:40: APTT 64.4 H, Random Vancomycin 17.2 H, HIV 1&2 Antibody Non-Reactive Micro: Microbiology 04/18/23 12:55 Blood Culture (Wb) - Venous Blood Culture - Preliminary No growth in 48 hours. 04/18/23 12:40 Blood Culture (Wb) - Venous Blood Culture - Preliminary No growth in 48 hours. 04/18/23 12:45 Urine Catheter - Catheter Urine Culture - Final Culture exhibits no growth. 04/18/23 16:35 Sputum, Tracheal Aspirate Gram Stain - Final 04/18/23 16:35 Sputum, Tracheal Aspirate Respiratory Culture - Final Streptococcus group C ABG Data ABG results: ABG 04/20/23 07:44 Specimen Type ART Sample Site R Radial pH 7.21 L Bicarbonate Actual 18.1 L Total CO2 20 Base Excess -10 L O2 Saturation 93 L O2 % 30.0 ABG pCO2 44.9 ABG pO2 78 Vince Test Positive Respiration Rate 14 O2 Delivery Device Adult Vent Vent Mode AC Tidal Volume 450.0 POC PEEP 5 Radiography Diagnostic Testing: Radiology Impression Brain MRI 04/20/23 07:17 IMPRESSION: Acute ischemia in the internal capsules and deep parietal white matter bilaterally consistent with anoxia. Electronically Signed: Tammy De León MD at 16:44 EDT Reading Location ID and State: [id number] / Tel , Service support , Liver Ultrasound 04/20/23 07:38 IMPRESSION: Sludge is seen in the gallbladder lumen. Small amount of perihepatic fluid. Increased echotexture of the kidneys suggestive of medical renal disease. Electronically Signed: Art Kelly MD at 12:53 EDT , Physical Exam Const Constitutional Narrative: Remains intubated and mechanically ventilated. Currently tolerating spontaneous mode mechanical ventilation. Alert and able to follow simple commands. HEENT normocephalic and head/scalp atraumatic HEENT Narrative: Nasogastric tube in place. The patient does have swelling of his lips and tongue. Mouth: endotracheal tube in place Eyes PERRL and EOMs intact bilaterally Neck supple General: trachea midline Chest inspection of chest normal Resp Auscultation: Negative for rales, rhonchi or wheezes Cardio regular rate, regular rhythm, S1 normal heart sound and S2 normal heart sound GI normal to inspection, nondistended, normoactive bowel sounds Extremity Extremity Narrative: There is edema involving the right upper and lower extremities. General Extremity: Negative for clubbing Neuro Neuro Narrative: Alert and able to follow simple commands. Charges/Coding Procedures Hospitalists Procedures: [id number] Critial Care 1st Hr
[2023-04-21 07:20] LABS: Absolute Lymphocyte Count 0.95 X10^3/uL (0.83-4.51); Absolute Neutrophil Count 8.3 X10^3/uL (2.0-7.7); Basophil# 0.07 X10^3/uL; Basophil% 0.6 % (0-1); Eosinophil# 0.51 X10^3/uL; Eosinophils% 4.7 % (0-5); Hematocrit 37.3 % (40-54); Hemoglobin 11.2 g/dL (13.0-16.5); Lymphocyte # 0.95 X10^3/ul (0.83-4.51); Lymphocyte % 8.8 % (19-41); Mean Corpuscular Hgb 30.1 pg (27.0-32.0); Mean Corpuscular Volume 100.3 fL (80-94); Mean Platelet Vol. 11.7 fl (6.2-12.0); Monocyte# 0.96 X10^3/uL; Monocyte% 8.8 % (0-10); NRBC Flagged by Analyzer 0 % (0-5); Neutrophil # 8.28 X10^3/uL (2.7-7.7); Neutrophil % 76.4 % (47-70); POSITIVE MORPHOLOGY YES; Platelet Count 117 K/mm3 (150-450); RBC Distribution Width CV 14.4 % (11.6-14.6); RBC Distribution Width SD 52.9 fl (35.1-43.9); Red Blood Count 3.72 M/mm3 (4.6-6.2); White Blood Count 10.9 K/mm3 (4.4-11.0)
[2023-04-21 07:21] LABS: Differential Indicated SCAN CRITERIA MET
[2023-04-21 07:52] LABS: ALB/GLOB Ratio 0.6 RATIO (0.9-2.4); AST(SGOT) 1664 U/L (15-37); Alanine Aminotransfer ALT/SGPT 995 U/L (16-61); Albumin, Serum 1.9 g/dL (3.2-5.0); Alkaline Phosphatase 66 U/L (45-117); Anion Gap 9 (5-15); BUN 57 mg/dL (7-18); BUN/Creat Ratio 10.7 RATIO (10-20); Calcium,Total 7.2 mg/dL (8.5-10.1); Chloride 106 mmol/L (98-107); Creatinine, Serum 5.34 mg/dL (0.70-1.30); EST Glomerular Filtration Rate 14 mL/min (>60); Est Glom Filt Rate - Afr Amer 16 mL/min (>60); Estimated Creatinine Clearance 18.59 ml/min; Globulin 3.3 g/dL (2.2-4.2); Glucose 107 mg/dL (74-106); Potassium 4.1 mmol/L (3.5-5.1); Protein, Total 5.2 g/dL (6.4-8.2); Sodium Level 137 mmol/L (136-145)
[2023-04-21 07:56] LABS: Differential Comment SCANNED
--- NOTE | 2023-04-21 08:11 | PN.HOSP_ITS ---
Reason for Visit Reason for Visit: Diagnoses Hyperkalemia (04/18/23) Other psychoactive substance abuse, in remission (04/18/23) Encephalopathy, unspecified (04/18/23) Non-ST elevation (NSTEMI) myocardial infarction (04/18/23) Acute respiratory failure, unspecified whether with hypoxia or hypercapnia (04/18/23) Acute respiratory failure with hypoxia (04/18/23) Rhabdomyolysis (04/18/23) Acute kidney failure, unspecified (04/18/23) Bacteriuria (04/18/23) Subjective Subjective Multiple leg issues including acute encephalopathy, acute hypoxic respiratory failure, rhabdomyolysis and GREGORY Objective Data Objective Data Vital Signs: Vital Signs Temp Pulse Resp BP Pulse Ox O2 Del Method FiO2 99.1 F 114 H 16 149/97 H 98 Mechanical Ventilator 25 04/21/23 07:00 04/21/23 07:05 04/21/23 07:05 04/21/23 07:00 04/21/23 07:05 04/21/23 07:00 04/21/23 07:05 Oxygen Delivery Method Mechanical Ventilator Weight: 141 lb 15.643 oz Body Mass Index (BMI) 21.5 Intake & Output: Intake and Output for Last 24 Hours 04/19/23 04/20/23 04/21/23 23:59 23:59 23:59 Intake Total 4754.41 / 5759.16 3370.01 / 3541.31 555.11 / 555.11 Output Total 478 / 478 2014 Balance 4276.41 / 5281.16 1355.01 / 1526.31 545.11 / 545.11 Lab / Micro Data 04/21/23 03:40 04/21/23 03:40 Labs: Laboratory Results - last 24 hr 04/18/23 12:40: Diff Path Review Reviewed 04/18/23 12:45: Urine Color Arianna, Urine Clarity Sl. Cloudy, Urine pH 5.0, Ur Specific [place] 1.025, Urine Protein 100 H, Urine Glucose (UA) Normal, Urine Ketones 5 H, Urine Occult Blood 250 H, Urine Nitrite Positive H, Urine Bilirubin Negative, Urine Urobilinogen 1 H, Ur Leukocyte Esterase 25 H, Urine RBC 25-50 SEEN, Urine WBC 0-5 SEEN, Ur Squamous Epith Cells 0-5 SEEN, Urine Bacteria 2+, Urine Mucus 1+ 04/18/23 13:03: POC Glucose 133 H 04/19/23 04:50: Diff Path Review Reviewed 04/20/23 03:00: Total Creatine Kinase 47064 H 04/20/23 08:58: Ammonia 52.0 H 04/20/23 09:20: APTT 36.7 H 04/20/23 12:30: Potassium 5.0, Magnesium 2.6 04/20/23 20:17: APTT 65.1 H 04/21/23 03:40: WBC 10.9, RBC 3.72 L, Hgb 11.2 L, Hct 37.3 L, MCV 100.3 H D, MCH 30.1, MCHC 30.0 L D, RDW Std Deviation 52.9 H, RDW Coeff of Merrick 14.4, Plt Count 117 L, MPV 11.7, Immature Gran % (Auto) 0.700, Neut % (Auto) 76.4 H, Lymph % (Auto) 8.8 L, Kinney % (Auto) 8.8, Eos % (Auto) 4.7, Baso % (Auto) 0.6, Absolute Neuts (auto) 8.3 H, Absolute Lymphs (auto) 0.95, Nucleated RBC % 0, Differential Comment SCANNED, APTT 64.4 H, Sodium 137, Potassium 4.1, Chloride 106, Carbon Dioxide 22.0, Anion Gap 9, BUN 57 H, Creatinine 5.34 H, Estim Creat Clear Calc 18.59, Est GFR (MDRD) Af Amer 16 L, Est GFR (MDRD) Non-Af 14 L, BUN/Creatinine Ratio 10.7, Glucose 107 H, Calcium 7.2 L, Total Bilirubin 0.30, AST 1664 H, ALT 995 H, Alkaline Phosphatase 66, Total Protein 5.2 L, Albumin 1.9 L, Globulin 3.3, Albumin/Globulin Ratio 0.6 L, Random Vancomycin 17.2 H, HIV 1&2 Antibody Non-Reactive Micro: Microbiology 04/18/23 12:55 Blood Culture (Wb) - Venous Blood Culture - Preliminary No growth in 48 hours. 04/18/23 12:40 Blood Culture (Wb) - Venous Blood Culture - Preliminary No growth in 48 hours. 04/18/23 12:45 Urine Catheter - Catheter Urine Culture - Final Culture exhibits no growth. 04/18/23 16:35 Sputum, Tracheal Aspirate Gram Stain - Final 04/18/23 16:35 Sputum, Tracheal Aspirate Respiratory Culture - Final Streptococcus group C Radiography Diagnostic Testing: Radiology Impression Brain MRI 04/20/23 07:17 IMPRESSION: Acute ischemia in the internal capsules and deep parietal white matter bilaterally consistent with anoxia. Liver Ultrasound 04/20/23 07:38 IMPRESSION: Sludge is seen in the gallbladder lumen. Small amount of perihepatic fluid. Increased echotexture of the kidneys suggestive of medical renal disease. Physical Exam Narrative General: Awake, follows simple command HEENT: Atraumatic, PERRLA, EOMI, Normocephalic Oral: Intubated on ventilator Neck: Right IJ temporary dialysis catheter. Supple, No JVD, Negative Carotid Bruits Lungs: Air entry diminished in bilateral lung bases. No crepitation/rhonchi Cardiovascular: Regular rate, Regular Rhythm, Normal S1, Normal S2, No murmurs Abdomen: Bowel Sounds sluggish, Soft, Non Tender, Non-Distended : No renal angle tenderness. No suprapubic tenderness. Extremities: Bilateral lower and upper extremities dependent edema., Capillary Refill Less than 3 Seconds Skin: No rashes, No breakdown Musculoskeletal: No Tenderness to Palpation of Joints or Extremities. Neurological: Opens eyes, DTR 2+. Follows simple commands. Psych/Mental Status: Flat affect Assessment & Plan Assessment/Plan (1) Acute respiratory failure: QUALIFIERS: Respiratory failure complication: hypoxia Qualified Code(s): J96.01 - Acute respiratory failure with hypoxia PLAN: Plan 27-year-old gentleman was brought to ED by EMS in unresponsive state. 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 EMS gave 4 doses of Narcan. In ED patient GCS scale was 3 in decorticate posture 1. Acute respiratory failure mainly due to acute encephalopathy with anoxic insult Patient is sedated on the ventilator at this time, critical care is managing his vent, the etiology of his respiratory failure is unknown but suspected to be secondary to drug usage, patient's tox screen was positive for multiple drugs. 04/21/2023: Patient is on weaning trial for extubation. #2 Acute encephalopathy due to multiple etiologies, predominantly toxic encephalopathy and metabolic/hypoxic encephalopathy from multiple drug overdoses:-secondary to questionable anoxic insult, supportive care. Tox screen positive for crack cocaine, amphetamine, ecstasy and cannabinoids. Patient was intubated after being found unresponsive at home. There is also questionable aspiration event at the time of intubation. 04/21: MRI brain was done and reported acute ischemia of the internal capsules and deep parietal white matter's bilaterally consistent with anoxia. Microvascular ischemia in the white matter with ventriculomegaly. Cerebral atrophy, sulcal atrophy with widening of the extra-axial spaces. Patient is following simple commands as a squeezing and opening eyes, raising her legs. #3 Acute kidney injury most likely due to ischemic ATN/rhabdomyolysis: Hyperkalemia and rhabdomyolysis most likely prerenal progressed to ATN-patient has right IJ dialysis temporary catheter. Patient is started on dialysis. Low urine output. Patient has metabolic acidosis. Magnesium 2.2. Phosphorus 9.0, calcium 6.9. Hyperkalemia potassium 5.4. Normal anion gap metabolic acidosis. BUNs/creatinine 47/3.97. CK 51,615. Urine output 85 mL since midnight. 478 mL on 04/19. 04/21: BUN 57, creatinine 5.34. Bicarb 22 anion gap 9. Serum sodium potassium normal. Patient on hemodialysis as per calender runner schedule.Was dialyzed yesterday on 04/20. Repeat CPK ordered #4 [id number] consulted. Very high troponin, 15,524 most likely due to increased cardiac demand/myocardial injury. Patient on IV heparin drip. 2D echo shows EF 65 to 70% #5 sepsis-sepsis most likely due to UTI and/or aspiration pneumonia with acute sepsis related organ dysfunction as evidenced by lactic acidemia, acute kidney injury, acute hypoxic respiratory failure on mechanical invasive ventilator spectrum antibiotic. Tracheal aspirate shows beta Streptococcus on 04/18/2023. Blood culture is pending. 2D echo shows moderate-sized echogenic mass attached to right atrium. Tricuspid valve appears clear with no TR. discussed with leadership development manager. No plan for SUZIE until patient is extubated or more awake. 04/15: Blood culture negative for 48 hours. Urine culture negative. Sputum culture growing strep group C. ID was consulted yesterday. 6. Acute liver injury most likely due to ischemic hepatitis : ALT AST elevated, AST 1600s, ALT about 1000. Total bilirubin normal. Alkaline phosphatase 66. Liver chemistry shows decreasing trend of transaminitis. Liver ultrasound reported sludge in GB lumen with a small amount of perihepatic fluid. Total time of the visit including total time spent in counseling or coordination of care, (more than 50% of the total time, spent in obtaining medical information from nurses and other ancillary care providers,explaining to the patient about labs, imaging, diagnosis and management of active complex medical conditions), multiple consultants, review of labs and imaging is 50 minutes. Laboratory Results 04/18/23 12:40: Diff Path Review Reviewed 04/18/23 13:03: POC Glucose 133 H 04/19/23 04:50: Diff Path Review Reviewed 04/20/23 03:00: Total Creatine Kinase 81281 H 04/20/23 08:58: Ammonia 52.0 H 04/20/23 09:20: APTT 36.7 H 04/20/23 12:30: Potassium 5.0, Magnesium 2.6 04/20/23 20:17: APTT 65.1 H 04/21/23 03:40: WBC 10.9, RBC 3.72 L, Hgb 11.2 L, Hct 37.3 L, MCV 100.3 H D, MCH 30.1, MCHC 30.0 L D, RDW Std Deviation 52.9 H, RDW Coeff of Merrick 14.4, Plt Count 117 L, MPV 11.7, Immature Gran % (Auto) 0.700, Neut % (Auto) 76.4 H, Lymph % (Auto) 8.8 L, Kinney % (Auto) 8.8, Eos % (Auto) 4.7, Baso % (Auto) 0.6, Absolute Neuts (auto) 8.3 H, Absolute Lymphs (auto) 0.95, Nucleated RBC % 0, Differential Comment SCANNED, APTT 64.4 H, Sodium 137, Potassium 4.1, Chloride 106, Carbon Dioxide 22.0, Anion Gap 9, BUN 57 H, Creatinine 5.34 H, Estim Creat Clear Calc 18.59, Est GFR (MDRD) Af Amer 16 L, Est GFR (MDRD) Non-Af 14 L, BUN/Creatinine Ratio 10.7, Glucose 107 H, Calcium 7.2 L, Total Bilirubin 0.30, AST 1664 H, ALT 995 H, Alkaline Phosphatase 66, Total Protein 5.2 L, Albumin 1.9 L, Globulin 3.3, Albumin/Globulin Ratio 0.6 L, Random Vancomycin 17.2 H, Hepatitis A IgM Ab Pending, Hep Bs Antigen Pending, Hep B Core IgM Ab Pending, Hepatitis C Ab (EIA) Pending, HIV 1&2 Antibody Non-Reactive Charges/Coding Visit Charges Inpatient E&M: 01774 Subs Hosp L3
--- NOTE | 2023-04-21 09:02 | PCM.RX.CS ---
Consult Antibiotic Management Pharmacy has been consulted to manage selected antiobiotic: Vancomycin Type of Intervention Type of Consult: Follow-up Suspected Infection Suspected Infection: Sepsis Prior Doses of Antibiotics Prior Doses of Antibiotics Received/Current Regimen: Received 750mg iv x 1 9.5.23 @1600 Labs Labs: Sodium 137 mmol/L (136-145) 04/21/23 03:40 Potassium 4.1 mmol/L (3.5-5.1) 04/21/23 03:40 Chloride 106 mmol/L (98-107) 04/21/23 03:40 Carbon Dioxide 22.0 mmol/L (21.0-32.0) 04/21/23 03:40 Anion Gap 9 (5-15) 04/21/23 03:40 BUN 57 mg/dL (7-18) H 04/21/23 03:40 Creatinine 5.34 mg/dL (0.70-1.30) H 04/21/23 03:40 Est GFR (MDRD) Af Amer 16 mL/min (>60) L 04/21/23 03:40 Est GFR (MDRD) Non-Af 14 mL/min (>60) L 04/21/23 03:40 BUN/Creatinine Ratio 10.7 RATIO (10-20) 04/21/23 03:40 Glucose 107 mg/dL (74-106) H 04/21/23 03:40 Vancomycin Trough 6.1 ug/mL (5.0-15.0) 04/19/23 15:35 Random Vancomycin 17.2 ug/mL (0.0-15.0) H 04/21/23 03:40 Microbiology Microbiology: Microbiology 04/18/23 12:55 Blood Culture (Wb) - Venous Blood Culture - Preliminary No growth in 48 hours. 04/18/23 12:40 Blood Culture (Wb) - Venous Blood Culture - Preliminary No growth in 48 hours. 04/18/23 12:45 Urine Catheter - Catheter Urine Culture - Final Culture exhibits no growth. 04/18/23 16:35 Sputum, Tracheal Aspirate Gram Stain - Final 04/18/23 16:35 Sputum, Tracheal Aspirate Respiratory Culture - Final Streptococcus group C Dosing Weight Weight used for dosin.8 kg Estimated Creatinine Clearance Estimated Creatinine Clearance: 18ml/min Goal Trough Goal Trough: 15-20 mcg/mL Pharmacy Plan for Drug Dosing Pharmacy Plan for Drug Dosing: Random level yesterday elevated @ 23.3. Today in goal range @17.2. Patient not getting HD today. Will not give any dosing today. Pharmacy Service will continue to monitor and adjust dosing as required.
[2023-04-21] MEDS: Chlorhexidine 15 ML PO ×2 (09:16→20:49)
--- NOTE | 2023-04-21 09:57 | ECHOL_ITS ---
Reason For Study: Endocarditis Procedure This was a limited 2D transthoracic echocardiogram. SUZIE attempted but was unsuccessful, a limited surface echo was completed to check function and valves. Exam performed portable in ICU/CCU. Left Ventricle Normal left ventricle. The estimated ejection fraction is 55-60 %. Right Ventricle Normal right ventricle. Normal systolic function. Atria Normal left atrium. Normal right atrium. Mitral Valve The mitral valve is structurally normal. No prolapse or stenosis seen. Tricuspid Valve Normal tricuspid valve. ECHO/Echo, Limited Study Interpretation Summary The estimated ejection fraction is 55-60 %. Patient was very resistant for SUZIE evaluation Repeat transthoracic echocardiogram was performed No valvular vegetation noted LV and RV systolic function normal No pericardial effusion It was a limited study with a focus on the right atrium which revealed eustachi an valve. Ordering Physician: Sendy Reyes Performed By: Gilberto Kimbrough RCS
[2023-04-21] MEDS: Propofol 10MG/Ml 1,000 MG/100 ML Bottle 3.8 MG CONT INF (09:59)
--- NOTE | 2023-04-21 10:33 | PCM.PN.ID ---
Physical Exam Narrative On vent, no fever, more interactive Const no apparent distress Resp normal air movement and clear to auscultation bilaterally Effort and Inspection: mechanically ventilated Cardio regular rate and regular rhythm GI soft to palpation, non-tender and non-distended Skin no rashes or lesions noted ID ID: Route of nutrition/ use of supplements: [] Nutritional Intake: [] IV Site: [] Allison Catheter: [] Assessment & Plan Assessment/Plan (1) Encephalopathy: PLAN: Possible mass/veg seen on TTE. Pending SUZIE. Bcx neg so far.. On empiric vanc/jorge. H/o PCN allergy. IVDU - neg hiv and pending hep panel with AM labs. RUE and RLE swelling - pending doppler u/s of R side Will follow (2) Acute kidney injury: (3) Acute respiratory failure: QUALIFIERS: Respiratory failure complication: hypoxia Qualified Code(s): J96.01 - Acute respiratory failure with hypoxia (4) History of drug abuse:
--- NOTE | 2023-04-21 10:51 | PN.RENAL_ITS ---
Subjective Subjective Resting in bed, on vent. Mother at bedside Objective Data Objective Data Vital Signs: Vital Signs Temp Pulse Resp BP Pulse Ox O2 Del Method FiO2 98.9 F 92 15 119/56 L 98 Mechanical Ventilator 35 04/21/23 10:00 04/21/23 10:00 04/21/23 10:00 04/21/23 10:00 04/21/23 10:00 04/21/23 10:00 04/21/23 10:00 Oxygen Delivery Method Mechanical Ventilator Weight: 64.4 kg Body Mass Index (BMI) 21.5 Intake & Output: Intake and Output for Last 24 Hours 04/19/23 04/20/23 04/21/23 23:59 23:59 23:59 Intake Total 4754.41 / 5759.16 3370.01 / 3541.31 665.68 / 665.68 Output Total 478 / 478 2014 Balance 4276.41 / 5281.16 1355.01 / 1526.31 655.68 / 655.68 Lab / Micro Data 04/21/23 03:40 04/21/23 03:40 Labs: Laboratory Results - last 24 hr 04/18/23 12:40: Diff Path Review Reviewed 04/19/23 04:50: Diff Path Review Reviewed 04/20/23 12:30: Potassium 5.0, Magnesium 2.6 04/20/23 20:17: APTT 65.1 H 04/21/23 03:40: WBC 10.9, RBC 3.72 L, Hgb 11.2 L, Hct 37.3 L, MCV 100.3 H D, MCH 30.1, MCHC 30.0 L D, RDW Std Deviation 52.9 H, RDW Coeff of Merrick 14.4, Plt Count 117 L, MPV 11.7, Immature Gran % (Auto) 0.700, Neut % (Auto) 76.4 H, Lymph % (Auto) 8.8 L, Baker % (Auto) 8.8, Eos % (Auto) 4.7, Baso % (Auto) 0.6, Absolute Neuts (auto) 8.3 H, Absolute Lymphs (auto) 0.95, Nucleated RBC % 0, Differential Comment SCANNED, APTT 64.4 H, Sodium 137, Potassium 4.1, Chloride 106, Carbon Dioxide 22.0, Anion Gap 9, BUN 57 H, Creatinine 5.34 H, Estim Creat Clear Calc 18.59, Est GFR (MDRD) Af Amer 16 L, Est GFR (MDRD) Non-Af 14 L, BUN/Creatinine Ratio 10.7, Glucose 107 H, Calcium 7.2 L, Total Bilirubin 0.30, AST 1664 H, ALT 995 H, Alkaline Phosphatase 66, Total Protein 5.2 L, Albumin 1.9 L, Globulin 3.3, Albumin/Globulin Ratio 0.6 L, Random Vancomycin 17.2 H, HIV 1&2 Antibody Non-Reactive Micro: Microbiology 04/18/23 12:55 Blood Culture (Wb) - Venous Blood Culture - Preliminary No growth in 48 hours. 04/18/23 12:40 Blood Culture (Wb) - Venous Blood Culture - Preliminary No growth in 48 hours. 04/18/23 12:45 Urine Catheter - Catheter Urine Culture - Final Culture exhibits no growth. 04/18/23 16:35 Sputum, Tracheal Aspirate Gram Stain - Final 04/18/23 16:35 Sputum, Tracheal Aspirate Respiratory Culture - Final Streptococcus group C Radiography Diagnostic Testing: Radiology Impression Brain MRI 04/20/23 07:17 IMPRESSION: Acute ischemia in the internal capsules and deep parietal white matter bilaterally consistent with anoxia. Electronically Signed: Tammy De León MD at 16:44 EDT Reading Location ID and State: [id number] / Tel , Service support , Liver Ultrasound 04/20/23 07:38 IMPRESSION: Sludge is seen in the gallbladder lumen. Small amount of perihepatic fluid. Increased echotexture of the kidneys suggestive of medical renal disease. Electronically Signed: Art Kelly MD at 12:53 EDT , Physical Exam Narrative intubated no obvious distress s1s2 no murmurs lungs clear abdomen soft no pitting edema torrez + right IJ temporary HD catheter Assessment & Plan Assessment/Plan (1) Acute kidney injury: PLAN: Anuric GREGORY secondary due to ATN and rhabdo. Patient initiated on hemodialysis on 04/19 (K+ 6.8, Cr 3.4) and dialyzed again on 04/20. No acute indication for CABLE WAY OPERATOR today, likely plan for dialysis tomorrow with UF. Discussed with patient's mother who is at bedside. Hyperkalemia. S/p dialysis. NPO. On nepro TF Rhabdomyolysis. possible mass/vegetation on echo, to have SUZIE today. BC negative so far. On IV ABX per ID.
[2023-04-21] MEDS: NEPRO TUBE FEED 1,000 ML 30 ML NG (11:53)
[2023-04-21] MEDS: fentaNYL drip 100 ML 2.5 MCG CONT INF (12:58)
[2023-04-21] MEDS: Propofol 10MG/Ml 1,000 MG/100 ML Bottle 5.7 MG CONT INF (20:40)
[2023-04-22] VITALS (50 sets, daily range): BP systolic 124–213; BP diastolic 60–93; PULSE 69–117; RESP 13–24; TEMP 37–38.6; O2SAT 15–99; BMI 21.7; BMI 20.3
[2023-04-22 04:31] LABS: Partial Thromboplast Time 102.6 Seconds (24.1-36.2)
[2023-04-22 05:01] LABS: Albumin, Serum 1.8 g/dL (3.2-5.0); BUN 81 mg/dL (7-18); BUN/Creat Ratio 10.5 RATIO (10-20); Calcium,Total 7.1 mg/dL (8.5-10.1); Chloride 104 mmol/L (98-107); Creatinine, Serum 7.73 mg/dL (0.70-1.30); EST Glomerular Filtration Rate 9 mL/min (>60); Est Glom Filt Rate - Afr Amer 11 mL/min (>60); Estimated Creatinine Clearance 12.84 ml/min; Glucose 124 mg/dL (74-106); Phosphorus 6.4 mg/dL (2.5-4.9); Potassium 3.8 mmol/L (3.5-5.1); Sodium Level 136 mmol/L (136-145)
--- NOTE | 2023-04-22 06:48 | PN.CC_ITS ---
Assessment & Plan Assessment/Plan (1) Encephalopathy: (2) Acute respiratory failure: QUALIFIERS: Respiratory failure complication: hypoxia Qualified Code(s): J96.01 - Acute respiratory failure with hypoxia PLAN: Plan RECOMMENDATIONS: 1. Continue assist-control mode mechanical ventilation. Wean FiO2 to maintain oxygen saturations at or above 90%. 2. Continue sedation regimen with fentanyl and propofol. 3. Continue daily spontaneous awakening and breathing trials. 4. Continue tube feeds. 5. Continue antimicrobials per ID recommendations. 6. Ongoing dialysis support per nephrology recommendations. 7. Continue appropriate GI prophylaxis. IMPRESSIONS: 1. Encephalopathy Most likely secondary to acute drug overdose with questionable anoxic insult. The patient will be continued on invasive mechanical ventilatory support. Plan to minimize sedating medications as feasible. Continue supportive care for now. Although MRI brain did reveal some ischemic changes, the patient has been intermittently able to follow simple commands. However, he failed his spontaneous breathing trial this morning due to apneic events and will therefore not be extubated. 2. Acute respiratory failure The patient was initially intubated in the emergency department after being found down unresponsive at home. There was also report of a questionable aspiration event at the time of his intubation. Therefore, I agree with continuing empiric antimicrobials, while awaiting infectious work-up. The patient will be continued on assist control mode of mechanical ventilation. FiO2 and PEEP will be weaned to maintain saturations at or above 90%. Plan to continue with daily paired spontaneous awakening and breathing trials. 3. Acute kidney injury/hyperkalemia/rhabdomyolysis Most likely prerenal in etiology in the setting of #1. Nephrology is currently following to assist with hemodialysis needs. 4. NSTEMI Most likely secondary to demand ischemia. Echocardiogram revealed intact systolic function. Cardiology is following to assist with medical management. 5. Sepsis The patient presented with sepsis due to possible aspiration pneumonia with acute sepsis related organ dysfunction as evidenced by lactic acidemia, acute kidney injury and respiratory failure, requiring invasive mechanical ventilatory support. The patient will be continued on empiric broad-spectrum antimicrobials, pending finalized culture results. TIME: 31 minutes of critical care time, independent of procedures, was spent addr essing the patient's encephalopathy, acute respiratory failure, acute kidney injury, hyperkalemia, NSTEMI, sepsis, review of all data and collaboration with the care team. Subjective Subjective The patient was seen and examined at the bedside this morning. Events from the last 24 hours have been reviewed. The patient continues to have low-grade fevers but remains otherwise hemodynamically stable on assist control mode of mechanical ventilation with an FiO2 requirement of 30% and PEEP of 5. The patient remains on broad-spectrum antimicrobials. He has been tolerant of tube feeds. The patient remains sedated on propofol and fentanyl. There are plans to proceed with dialysis today. Unfortunately, the patient failed his spontaneous breathing trial this morning due to significant apneic episodes. He is currently documented to be overall net +10.3 L for the hospitalization. Objective Data Objective Data The patient's most recent lab work, culture data and imaging studies have all been personally reviewed. Renal ultrasound was unremarkable. Surface echocardiogram demonstrated an ejection fraction of 65 to 70%. Preliminary sputum culture is growing beta Streptococcus. Vital Signs: Vital Signs Temp Pulse Resp BP Pulse Ox O2 Del Method O2 Flow Rate 99.7 F H 87 17 135/80 H 97 Mechanical Ventilator 35 04/22/23 06:00 04/22/23 06:00 04/22/23 06:00 04/22/23 06:00 04/22/23 06:00 04/22/23 06:00 04/21/23 13:00 FiO2 30 04/22/23 06:00 Oxygen Flow Rate (L/min) 35 Oxygen Delivery Method Mechanical Ventilator Weight: 143 lb 1.28 oz Body Mass Index (BMI) 21.7 Intake & Output: Intake and Output for Last 24 Hours 04/20/23 04/21/23 04/22/23 23:59 23:59 23:59 Intake Total 3370.01 / 3541.31 1894.67 / 2056.87 698.86 / 698.86 Output Total 2014 50 / 50 0 / 0 Balance 1355.01 / 1526.31 1844.67 / 2006.87 698.86 / 698.86 Lab / Micro Data Attestation: I reviewed the patient's lab results. 04/22/23 04:05 04/22/23 04:05 Labs: Laboratory Results - last 24 hr 04/21/23 03:40: WBC 10.9, RBC 3.72 L, Hgb 11.2 L, Hct 37.3 L, MCV 100.3 H D, MCH 30.1, MCHC 30.0 L D, RDW Std Deviation 52.9 H, RDW Coeff of Merrick 14.4, Plt Count 117 L, MPV 11.7, Immature Gran % (Auto) 0.700, Neut % (Auto) 76.4 H, Lymph % (Auto) 8.8 L, [place] % (Auto) 8.8, Eos % (Auto) 4.7, Baso % (Auto) 0.6, Absolute Neuts (auto) 8.3 H, Absolute Lymphs (auto) 0.95, Nucleated RBC % 0, Differential Comment SCANNED, Sodium 137, Potassium 4.1, Chloride 106, Carbon Dioxide 22.0, Anion Gap 9, BUN 57 H, Creatinine 5.34 H, Estim Creat Clear Calc 18.59, Est GFR (MDRD) Af Amer 16 L, Est GFR (MDRD) Non-Af 14 L, BUN/Creatinine Ratio 10.7, Glucose 107 H, Calcium 7.2 L, Total Bilirubin 0.30, AST 1664 H, ALT 995 H, Alkaline Phosphatase 66, Total Protein 5.2 L, Albumin 1.9 L, Globulin 3.3, Albumin/Globulin Ratio 0.6 L 04/22/23 04:05: APTT 102.6 H*, Sodium 136, Potassium 3.8, Chloride 104, Carbon Dioxide 22.0, BUN 81 H, Creatinine 7.73 H*, Estim Creat Clear Calc 12.84, Est GFR (MDRD) Af Amer 11 L, Est GFR (MDRD) Non-Af 9 L, BUN/Creatinine Ratio 10.5, Glucose 124 H, Calcium 7.1 L, Phosphorus 6.4 H, Albumin 1.8 L Micro: Microbiology 04/18/23 12:55 Blood Culture (Wb) - Venous Blood Culture - Preliminary No growth in 48 hours. 04/18/23 12:40 Blood Culture (Wb) - Venous Blood Culture - Preliminary No growth in 48 hours. 04/18/23 12:45 Urine Catheter - Catheter Urine Culture - Final Culture exhibits no growth. 04/18/23 16:35 Sputum, Tracheal Aspirate Gram Stain - Final 04/18/23 16:35 Sputum, Tracheal Aspirate Respiratory Culture - Final Streptococcus group C ABG Data ABG results: ABG 04/20/23 07:44 Specimen Type ART Sample Site R Radial pH 7.21 L Bicarbonate Actual 18.1 L Total CO2 20 Base Excess -10 L O2 Saturation 93 L O2 % 30.0 ABG pCO2 44.9 ABG pO2 78 Vince Test Positive Respiration Rate 14 O2 Delivery Device Adult Vent Vent Mode AC Tidal Volume 450.0 POC PEEP 5 Radiography Diagnostic Testing: Radiology Impression Venous Doppler Study 04/20/23 16:07 Interpretation Summary Deep veins of the right lower extremity are patent and compressible segmentally. There is no evidence of right lower extremity deep vein thrombosis. The right great saphenous vein appears patent and compressible segmentally. Ordering Physician: Anthony Beauchamp Referring Physician: N/A Performed By: Patric Sotomayor RVT Venous Doppler Study 04/20/23 16:08 Interpretation Summary Deep veins of the right upper extremity are patent and compressible segmentally. There is no evidence of deep vein thrombosis. Superficial veins of the right upper extremity are patent and compressible segmentally. There is no evidence of superficial vein thrombosis. Non vascularized heterogenous mass measuring approximately 2.29cm x 1.21cm is noted mid right bicep. Ordering Physician: Anthony Beauchamp Referring Physician: N/A Performed By: Patric Sotomayor RVT ??? Echocardiogram 04/21/23 09:57 Interpretation Summary The estimated ejection fraction is 55-60 %. Patient was very resistant for SUZIE evaluation Repeat transthoracic echocardiogram was performed No valvular vegetation noted LV and RV systolic function normal No pericardial effusion It was a limited study with a focus on the right atrium which revealed eustachian valve. Ordering Physician: Sendy Reyes Performed By: Gilberto Kimbrough RCS Physical Exam Const Constitutional Narrative: Remains intubated, sedated and mechanically ventilated. No ventilator dyssynchrony noted. HEENT normocephalic and head/scalp atraumatic HEENT Narrative: Nasogastric tube in place. The patient does have swelling of his lips and tongue. Mouth: endotracheal tube in place Eyes PERRL and EOMs intact bilaterally Neck supple General: trachea midline Chest inspection of chest normal Resp Auscultation: Negative for rales, rhonchi or wheezes Cardio regular rate, regular rhythm, S1 normal heart sound and S2 normal heart sound GI normal to inspection, nondistended, normoactive bowel sounds Extremity Extremity Narrative: There is edema involving the right upper and lower extremities. General Extremity: Negative for clubbing Neuro Sensorium / Orientation: sedated on vent Psych Activity / Motor Behavior: restless Charges/Coding Procedures Hospitalists Procedures: 31614 Critial Care 1st Hr
[2023-04-22 07:05] LABS: Absolute Neutrophil Count 6.6 X10^3/uL (2.0-7.7); Basophil# 0.03 X10^3/uL; Basophil% 0.3 % (0-1); Eosinophil# 0.39 X10^3/uL; Eosinophils% 4.4 % (0-5); Hematocrit 33.1 % (40-54); Lymphocyte % 10.1 % (19-41); Mean Corp Hgb Conc 33.2 g/dL (32-36); Mean Corpuscular Hgb 30.2 pg (27.0-32.0); Mean Corpuscular Volume 90.9 fL (80-94); Mean Platelet Vol. 11.9 fl (6.2-12.0); Monocyte# 0.96 X10^3/uL; Monocyte% 10.8 % (0-10); NRBC Flagged by Analyzer 0 % (0-5); Neutrophil # 6.56 X10^3/uL (2.7-7.7); Neutrophil % 73.4 % (47-70); POSITIVE COUNT YES; POSITIVE MORPHOLOGY YES; Platelet Count 84 K/mm3 (150-450); RBC Distribution Width CV 13.8 % (11.6-14.6); RBC Distribution Width SD 45.9 fl (35.1-43.9); Red Blood Count 3.64 M/mm3 (4.6-6.2); White Blood Count 8.9 K/mm3 (4.4-11.0)
[2023-04-22 07:12] LABS: Differential Indicated SCAN CRITERIA MET
[2023-04-22] MEDS: 0.9% Saline Lock 10 ML Syringe IV ×2 (07:23→10:25)
[2023-04-22] MEDS: 0.9% Normal Saline 1,000 ML IV.SOLN. 1000 ML OPERA.SITE (07:23)
--- NOTE | 2023-04-22 07:23 | PCM.PN.HOSP ---
Reason for Visit Reason for Visit: Diagnoses Hyperkalemia (04/18/23) Other psychoactive substance abuse, in remission (04/18/23) Encephalopathy, unspecified (04/18/23) Non-ST elevation (NSTEMI) myocardial infarction (04/18/23) Acute respiratory failure, unspecified whether with hypoxia or hypercapnia (04/18/23) Acute respiratory failure with hypoxia (04/18/23) Rhabdomyolysis (04/18/23) Acute kidney failure, unspecified (04/18/23) Bacteriuria (04/18/23) Objective Data Objective Data Vital Signs: Vital Signs Temp Pulse Resp BP Pulse Ox O2 Del Method O2 Flow Rate 99.6 F H 117 H 21 H 132/82 H 98 Mechanical Ventilator 35 04/22/23 07:10 04/22/23 07:10 04/22/23 07:10 04/22/23 07:10 04/22/23 07:10 04/22/23 07:10 04/21/23 13:00 FiO2 30 04/22/23 07:00 Oxygen Flow Rate (L/min) 35 Oxygen Delivery Method Mechanical Ventilator Weight: 143 lb 1.28 oz Body Mass Index (BMI) 21.7 Intake & Output: Intake and Output for Last 24 Hours 04/20/23 04/21/23 04/22/23 23:59 23:59 23:59 Intake Total 3370.01 / 3541.31 1894.67 / 2056.87 708.31 / 708.31 Output Total 2014 50 / 50 0 / 0 Balance 1355.01 / 1526.31 1844.67 / 2006. 708.31 / 708.31 Lab / Micro Data 04/22/23 04:05 04/22/23 04:05 Labs: Laboratory Results - last 24 hr 04/21/23 03:40: Differential Comment SCANNED, Sodium 137, Potassium 4.1, Chloride 106, Carbon Dioxide 22.0, Anion Gap 9, BUN 57 H, Creatinine 5.34 H, Estim Creat Clear Calc 18.59, Est GFR (MDRD) Af Amer 16 L, Est GFR (MDRD) Non-Af 14 L, BUN/Creatinine Ratio 10.7, Glucose 107 H, Calcium 7.2 L, Total Bilirubin 0.30, AST 1664 H, ALT 995 H, Alkaline Phosphatase 66, Total Protein 5.2 L, Albumin 1.9 L, Globulin 3.3, Albumin/Globulin Ratio 0.6 L 04/22/23 04:05: WBC 8.9, RBC 3.64 L, Hgb 11.0 L, Hct 33.1 L, MCV 90.9 D, MCH 30.2, MCHC 33.2 D, RDW Std Deviation 45.9 H, RDW Coeff of Merrick 13.8, Plt Count 84 L, MPV 11.9, Immature Gran % (Auto) 1.000 H, Neut % (Auto) 73.4 H, Lymph % (Auto) 10.1 L, [place] % (Auto) 10.8 H, Eos % (Auto) 4.4, Baso % (Auto) 0.3, Absolute Neuts (auto) 6.6, Absolute Lymphs (auto) 0.90, Nucleated RBC % 0, APTT 102.6 H*, Sodium 136, Potassium 3.8, Chloride 104, Carbon Dioxide 22.0, BUN 81 H, Creatinine 7.73 H*, Estim Creat Clear Calc 12.84, Est GFR (MDRD) Af Amer 11 L, Est GFR (MDRD) Non-Af 9 L, BUN/Creatinine Ratio 10.5, Glucose 124 H, Calcium 7.1 L, Phosphorus 6.4 H, Albumin 1.8 L Micro: Microbiology 04/18/23 12:55 Blood Culture (Wb) - Venous Blood Culture - Preliminary No growth in 48 hours. 04/18/23 12:40 Blood Culture (Wb) - Venous Blood Culture - Preliminary No growth in 48 hours. 04/18/23 12:45 Urine Catheter - Catheter Urine Culture - Final Culture exhibits no growth. 04/18/23 16:35 Sputum, Tracheal Aspirate Gram Stain - Final 04/18/23 16:35 Sputum, Tracheal Aspirate Respiratory Culture - Final Streptococcus group C Radiography Diagnostic Testing: Radiology Impression Venous Doppler Study 04/20/23 16:07 Interpretation Summary Deep veins of the right lower extremity are patent and compressible segmentally. There is no evidence of right lower extremity deep vein thrombosis. The right great saphenous vein appears patent and compressible segmentally. Ordering Physician: Anthony Beauchamp Referring Physician: N/A Performed By: Patric Sotomayor RVT Venous Doppler Study 04/20/23 16:08 Interpretation Summary Deep veins of the right upper extremity are patent and compressible segmentally. There is no evidence of deep vein thrombosis. Superficial veins of the right upper extremity are patent and compressible segmentally. There is no evidence of superficial vein thrombosis. Non vascularized heterogenous mass measuring approximately 2.29cm x 1.21cm is noted mid right bicep. Ordering Physician: Anthony Beauchamp Referring Physician: N/A Performed By: Patric Sotomayor RVT ??? Echocardiogram 04/21/23 09:57 Interpretation Summary The estimated ejection fraction is 55-60 %. Patient was very resistant for SUZIE evaluation Repeat transthoracic echocardiogram was performed No valvular vegetation noted LV and RV systolic function normal No pericardial effusion It was a limited study with a focus on the right atrium which revealed eustachian valve. Ordering Physician: Sendy Reyes Performed By: Gilberto Kimbrough RCS Physical Exam Narrative Seen and examined. Mild low-grade fever Tmax 100 Fahrenheit. Sinus tachycardia. Follow simple command but could not be extubated. FiO2 30%, PEEP 5. General: Awake, follows simple command on low IV fentanyl drip HEENT: Atraumatic, PERRLA, EOMI, Normocephalic Oral: Intubated on ventilator. NG tube Neck: Right IJ temporary dialysis catheter. Supple, No JVD, Negative Carotid Bruits Lungs: Air entry diminished in bilateral lung bases. No crepitation/rhonchi Cardiovascular: Sinus tachycardia, Normal S1, Normal S2, No murmurs Abdomen: Bowel Sounds sluggish, Soft, Non Tender, Non-Distended : On hemodialysis. Allison catheter. Oliguria no renal angle tenderness. No suprapubic tenderness. Extremities: Bilateral lower and upper extremities dependent edema., Capillary Refill Less than 3 Seconds Skin: No rashes, No breakdown Musculoskeletal: No Tenderness to Palpation of Joints or Extremities. Neurological: Opens eyes, DTR 2+. Follows simple commands. Psych/Mental Status: Flat affect Assessment & Plan Assessment/Plan (1) Acute respiratory failure: QUALIFIERS: Respiratory failure complication: hypoxia Qualified Code(s): J96.01 - Acute respiratory failure with hypoxia PLAN: Plan 27-year-old gentleman was brought to ED by EMS in unresponsive state. 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 EMS gave 4 doses of Narcan. In ED patient GCS scale was 3 in decorticate posture 1. Acute respiratory failure mainly due to acute encephalopathy with anoxic insult Patient is sedated on the ventilator at this time, critical care is managing his vent, the etiology of his respiratory failure is unknown but suspected to be secondary to drug usage, patient's tox screen was positive for multiple drugs. 04/21/2023: Patient is on weaning trial for extubation. 04/22/2023: Patient failed his spontaneous breathing trial due to significant apneic episodes. Being managed by manager investment #2 Acute encephalopathy due to multiple etiologies, predominantly toxic encephalopathy and metabolic/hypoxic encephalopathy from multiple drug overdoses:-secondary to questionable anoxic insult, supportive care. Tox screen positive for crack cocaine, amphetamine, ecstasy and cannabinoids. Patient was intubated after being found unresponsive at home. There is also questionable aspiration event at the time of intubation. 04/21: MRI brain was done and reported acute ischemia of the internal capsules and deep parietal white matter's bilaterally consistent with anoxia. Microvascular ischemia in the white matter with ventriculomegaly. Cerebral atrophy, sulcal atrophy with widening of the extra-axial spaces. Patient is following simple commands as a squeezing and opening eyes, raising her legs. #3 Acute kidney injury most likely due to ischemic ATN/rhabdomyolysis: Hyperkalemia and rhabdomyolysis most likely prerenal progressed to ATN-patient has right IJ dialysis temporary catheter. Patient is started on dialysis. Low urine output. Patient has metabolic acidosis. Magnesium 2.2. Phosphorus 9.0, calcium 6.9. Hyperkalemia potassium 5.4. Normal anion gap metabolic acidosis. BUNs/creatinine 47/3.97. CK 51,615. Urine output 85 mL since midnight. 478 mL on 04/19. 04/21: BUN 57, creatinine 5.34. Bicarb 22 anion gap 9. Serum sodium potassium normal. Patient on hemodialysis as per motel food service supervisor schedule.Was dialyzed yesterday on 04/20. Repeat CPK ordered 04/22: Remains on hemodialysis. Oliguric. BUNs/creatinine high. Corrected calcium 8.9. Electrolytes in normal range #4 [id number] consulted. Very high troponin, 15,524 most likely due to increased cardiac demand/myocardial injury. Patient on IV heparin drip. 2D echo shows EF 65 to 70% #5 sepsis-sepsis most likely due to UTI and/or aspiration pneumonia with acute sepsis related organ dysfunction as evidenced by lactic acidemia, acute kidney injury, acute hypoxic respiratory failure on mechanical invasive ventilator spectrum antibiotic. Tracheal aspirate shows beta Streptococcus on 04/18/2023. Blood culture is pending. 2D echo shows moderate-sized echogenic mass attached to right atrium. Tricuspid valve appears clear with no TR. discussed with stewardesses teacher. No plan for SUZIE until patient is extubated or more awake. 04/22: Blood culture negative for 48 hours. Urine culture negative. Sputum culture growing strep group C. ID was consulted yesterday. 04/21: Limited echo was done which reported no valvular vegetations noted with attempted SUZIE but was unsuccessful. Patient was very resistant for SUZIE evaluation. LV and RV systolic function normal. Normal left and right atria. EF 55 to 60%. RUE venous duplex shows no DVT but nonvascularized creatinine is mass 2.29 x 1.1 cm noted in mid right biceps. RLE venous duplex also negative for DVT and right GSV thrombosis. 6. Acute liver injury most likely due to ischemic hepatitis : ALT AST elevated, AST 1600s, ALT about 1000. Total bilirubin normal. Alkaline phosphatase 66. Liver chemistry shows decreasing trend of transaminitis. Liver ultrasound reported sludge in GB lumen with a small amount of perihepatic fluid. 04/22: ALT and AST decreasing improving trend. Alkaline phosphatase normal. Low albumin 1.8. Total time of the visit including total time spent in counseling or coordination of care, (more than 50% of the total time, spent in obtaining medical information from nurses and other ancillary care providers,explaining to the patient about labs, imaging, diagnosis and management of active complex medical conditions), multiple consultants, review of labs and imaging is 50 minutes. Charges/Coding Visit Charges Inpatient E&M: 56543 Subs Hosp L3
[2023-04-22] MEDS: PureFlow B 3K Dialysis Soln 1 BAG 6 BAG PF (07:24)
[2023-04-22 07:27] LABS: AST(SGOT) 1402 U/L (15-37); Alanine Aminotransfer ALT/SGPT 743 U/L (16-61); Albumin, Serum 1.8 g/dL (3.2-5.0); Alkaline Phosphatase 66 U/L (45-117); Bilirubin, Direct 0.19 mg/dL (0.00-0.30); Globulin 3.4 g/dL (2.2-4.2); Protein, Total 5.2 g/dL (6.4-8.2)
[2023-04-22 07:38] LABS: Platelet Estimate SLT DEC (ADEQ)
--- NOTE | 2023-04-22 08:24 | NURSING ---
started hemodialysis treatment on 3K+ solution r/t potassium trending down on non-dialysis. utilities ground worker ordered to use 2k+ solution during last hour of treatment to prevent hyperkalemia. patient is now receiving 1.8cal Nepro via NG tube.
[2023-04-22] MEDS: Chlorhexidine 15 ML PO ×2 (08:40→21:45)
[2023-04-22] MEDS: Propofol 10MG/Ml 1,000 MG/100 ML Bottle 5.7 MG CONT INF ×2 (08:48→17:44)
[2023-04-22] MEDS: fentaNYL drip 100 ML 7.5 MCG CONT INF ×2 (09:23→19:52)
[2023-04-22] MEDS: PUREFLOW B SOLUTION 2K 5,000 ML BAG 1 BAG PF (09:33)
[2023-04-22] MEDS: Heparin 10,000 UNITS/10 ML Vial IV (10:25)
[2023-04-22 12:11] LABS: Partial Thromboplast Time 119.3 Seconds (24.1-36.2)
--- NOTE | 2023-04-22 12:45 | PCM.PN.ID ---
Physical Exam Narrative On vent, no fever Const no apparent distress Resp Effort and Inspection: mechanically ventilated Cardio regular rate and regular rhythm GI soft to palpation, non-tender and non-distended Skin Skin Narrative: Dressing over R bicep, no purulence ID ID: Route of nutrition/ use of supplements: [] Nutritional Intake: [] IV Site: [] Allison Catheter: [] Assessment & Plan Assessment/Plan (1) Encephalopathy: PLAN: Possible atrial mass/veg seen on TTE. Unable to do SUZIE, repeat SUZIE showed eustachian valve. Bcx neg so far. On empiric vanc/jorge. H/o PCN allergy. Will stop vanc today. On jorge for suspected aspiration. IVDU - neg hiv, pending hep panel RUE and RLE swelling - neg doppler u/s of R side Will follow (2) Acute kidney injury: (3) Acute respiratory failure: QUALIFIERS: Respiratory failure complication: hypoxia Qualified Code(s): J96.01 - Acute respiratory failure with hypoxia (4) History of drug abuse:
[2023-04-22] MEDS: NEPRO TUBE FEED 1,000 ML 40 ML NG (13:23)
--- NOTE | 2023-04-22 13:48 | PCM.PN.REN ---
Subjective Subjective Is alert, awake. Follows basic commands. Failed extubation trial. On minimal FiO2 and PEEP. No urine output. Objective Data Objective Data Vital Signs: Vital Signs Temp Pulse Resp BP Pulse Ox O2 Del Method O2 Flow Rate 99.1 F 81 16 137/79 H 98 Mechanical Ventilator 35 04/22/23 11:00 04/22/23 11:37 04/22/23 11:37 04/22/23 11:00 04/22/23 11:37 04/22/23 11:00 04/21/23 13:00 FiO2 21 04/22/23 11:37 Oxygen Flow Rate (L/min) 35 Oxygen Delivery Method Mechanical Ventilator Weight: 60.9 kg Body Mass Index (BMI) 20.3 Intake & Output: Intake and Output for Last 24 Hours 04/20/23 04/21/23 04/22/23 23:59 23:59 23:59 Intake Total 3370.01 / 3541.31 1894.67 / 2057.87 1367.67 / 1367.67 Output Total 2014 50 / 50 4000 / 4000 Balance 1355.01 / 1526.31 1844.67 / 2007.87 -2632.33 / -2632.33 Lab / Micro Data 04/22/23 04:05 04/22/23 04:05 Labs: Laboratory Results - last 24 hr 04/22/23 04:05: WBC 8.9, RBC 3.64 L, Hgb 11.0 L, Hct 33.1 L, MCV 90.9 D, MCH 30.2, MCHC 33.2 D, RDW Std Deviation 45.9 H, RDW Coeff of Merrick 13.8, Plt Count 84 L, MPV 11.9, Immature Gran % (Auto) 1.000 H, Neut % (Auto) 73.4 H, Lymph % (Auto) 10.1 L, [place] % (Auto) 10.8 H, Eos % (Auto) 4.4, Baso % (Auto) 0.3, Absolute Neuts (auto) 6.6, Absolute Lymphs (auto) 0.90, Nucleated RBC % 0, Differential Comment , Platelet Estimate SLT DEC, APTT 102.6 H*, Sodium 136, Potassium 3.8, Chloride 104, Carbon Dioxide 22.0, BUN 81 H, Creatinine 7.73 H*, Estim Creat Clear Calc 12.84, Est GFR (MDRD) Af Amer 11 L, Est GFR (MDRD) Non-Af 9 L, BUN/Creatinine Ratio 10.5, Glucose 124 H, Calcium 7.1 L, Phosphorus 6.4 H, Total Bilirubin 0.40, Direct Bilirubin 0.19, AST 1402 H, ALT 743 H, Alkaline Phosphatase 66, Total Protein 5.2 L, Albumin 1.8 L 04/22/23 04:05: Albumin 1.8 L, Globulin 3.4 04/22/23 11:35: APTT 119.3 H* Micro: Microbiology 04/18/23 12:55 Blood Culture (Wb) - Venous Blood Culture - Preliminary No growth in 48 hours. 04/18/23 12:40 Blood Culture (Wb) - Venous Blood Culture - Preliminary No growth in 48 hours. 04/18/23 12:45 Urine Catheter - Catheter Urine Culture - Final Culture exhibits no growth. 04/18/23 16:35 Sputum, Tracheal Aspirate Gram Stain - Final 04/18/23 16:35 Sputum, Tracheal Aspirate Respiratory Culture - Final Streptococcus group C Radiography Diagnostic Testing: Radiology Impression Venous Doppler Study 04/20/23 16:07 Interpretation Summary Deep veins of the right lower extremity are patent and compressible segmentally. There is no evidence of right lower extremity deep vein thrombosis. The right great saphenous vein appears patent and compressible segmentally. Ordering Physician: Anthony Beauchamp Referring Physician: N/A Performed By: Patric Sotomayor RVT Venous Doppler Study 04/20/23 16:08 Interpretation Summary Deep veins of the right upper extremity are patent and compressible segmentally. There is no evidence of deep vein thrombosis. Superficial veins of the right upper extremity are patent and compressible segmentally. There is no evidence of superficial vein thrombosis. Non vascularized heterogenous mass measuring approximately 2.29cm x 1.21cm is noted mid right bicep. Ordering Physician: Anthony Beauchamp Referring Physician: N/A Performed By: Patric Sotomayor RVT ??? Physical Exam Narrative intubated no obvious distress s1s2 no murmurs lungs clear abdomen soft no pitting edema torrez + right IJ temporary HD catheter Assessment & Plan Assessment/Plan (1) Acute kidney injury: PLAN: Anuric GREGORY secondary due to ATN and rhabdo. Patient initiated on hemodialysis on 04/19 (K+ 6.8, Cr 3.4) and dialyzed again on 04/20. Dialysis today 04/22/2023. Discussed with dialysis staff. Hyperkalemia. Potassium has improved. Rhabdomyolysis. Due to prolonged immobilization. CPK levels are improving. He is anuric now. IV fluids have been discontinued. No focal tenderness to suggest compartment syndrome on examination. possible mass/vegetation on echo. SUZIE could not be done. Waiting for extubation at this point. On broad-spectrum antibiotic coverage as per ID. Thrombocytopenia. Platelet counts are totally appropriate. Down to 84. Discussed with hospitalist. Heparin drip will be discontinued today
--- NOTE | 2023-04-22 19:59 | NURSING ---
Addendum entered by Tammy Marcelo 04/22/23 20:57: Correction: Fentynal drip is going at 75mcg/hr not 75mL/hr Original Note: Fentynal drip appears on OCT that it was completed at 1800. However, Fentynal drip has continued at 75mL/hr, per order, since this nurse came onto unit at 1900.
[2023-04-23] VITALS (30 sets, daily range): BP systolic 123–176; BP diastolic 62–93; PULSE 90–118; RESP 11–27; TEMP 37.6–38.4; O2SAT 92–100; BMI 21.4
--- NOTE | 2023-04-23 03:36 | NURSING ---
At 0224 when this nurse and preceptor were giving patient a bed bath and changing linens it was noted that upon turning patient on his left side that he had a run of V tach on the monitor. Pt had a 6 beat run and then went back into sinus tach. Pt remained in sinus tach until we turned him on his right side and he had a 10 beat run on V tach. Pt went back into sinus tach. Pt resting on back at this time and remains sinus tach with no further episodes noted.
[2023-04-23 04:17] LABS: Absolute Lymphocyte Count 1.02 X10^3/uL (0.83-4.51); Absolute Neutrophil Count 9.8 X10^3/uL (2.0-7.7); Basophil# 0.08 X10^3/uL; Basophil% 0.6 % (0-1); Eosinophil# 0.75 X10^3/uL; Eosinophils% 5.6 % (0-5); Hematocrit 36.9 % (40-54); Hemoglobin 12.5 g/dL (13.0-16.5); Lymphocyte # 1.02 X10^3/ul (0.83-4.51); Lymphocyte % 7.6 % (19-41); Mean Corp Hgb Conc 33.9 g/dL (32-36); Mean Corpuscular Hgb 30.3 pg (27.0-32.0); Mean Corpuscular Volume 89.3 fL (80-94); Mean Platelet Vol. 11.7 fl (6.2-12.0); Monocyte# 1.46 X10^3/uL; Monocyte% 10.8 % (0-10); NRBC Flagged by Analyzer 0 % (0-5); Neutrophil # 9.79 X10^3/uL (2.7-7.7); Neutrophil % 72.7 % (47-70); Platelet Count 125 K/mm3 (150-450); RBC Distribution Width CV 13.7 % (11.6-14.6); RBC Distribution Width SD 44.7 fl (35.1-43.9); Red Blood Count 4.13 M/mm3 (4.6-6.2); White Blood Count 13.5 K/mm3 (4.4-11.0)
[2023-04-23 04:34] LABS: ALB/GLOB Ratio 0.5 RATIO (0.9-2.4); AST(SGOT) 961 U/L (15-37); Alanine Aminotransfer ALT/SGPT 519 U/L (16-61); Albumin, Serum 1.8 g/dL (3.2-5.0); Alkaline Phosphatase 69 U/L (45-117); Anion Gap 8 (5-15); BUN 79 mg/dL (7-18); BUN/Creat Ratio 11.1 RATIO (10-20); Calcium,Total 7.6 mg/dL (8.5-10.1); Chloride 101 mmol/L (98-107); Creatinine, Serum 7.13 mg/dL (0.70-1.30); EST Glomerular Filtration Rate 10 mL/min (>60); Est Glom Filt Rate - Afr Amer 12 mL/min (>60); Estimated Creatinine Clearance 13.84 ml/min; Globulin 3.6 g/dL (2.2-4.2); Glucose 123 mg/dL (74-106); Magnesium 3.2 mg/dL (1.6-2.6); Potassium 3.7 mmol/L (3.5-5.1); Protein, Total 5.4 g/dL (6.4-8.2); Sodium Level 134 mmol/L (136-145)
[2023-04-23] MEDS: Propofol 10MG/Ml 1,000 MG/100 ML Bottle 5.7 MG CONT INF (07:00)
--- NOTE | 2023-04-23 07:27 | PCM.PN.HOSP ---
Reason for Visit Reason for Visit: Diagnoses Hyperkalemia (04/18/23) Other psychoactive substance abuse, in remission (04/18/23) Encephalopathy, unspecified (04/18/23) Non-ST elevation (NSTEMI) myocardial infarction (04/18/23) Acute respiratory failure, unspecified whether with hypoxia or hypercapnia (04/18/23) Acute respiratory failure with hypoxia (04/18/23) Rhabdomyolysis (04/18/23) Acute kidney failure, unspecified (04/18/23) Bacteriuria (04/18/23) Objective Data Objective Data Vital Signs: Vital Signs Temp Pulse Resp BP Pulse Ox O2 Del Method O2 Flow Rate 100 F H 100 18 167/75 H 95 Mechanical Ventilator 35 04/23/23 07:00 04/23/23 07:00 04/23/23 07:00 04/23/23 07:00 04/23/23 07:00 04/23/23 07:00 04/21/23 13:00 FiO2 21 04/23/23 07:00 Oxygen Flow Rate (L/min) 35 Oxygen Delivery Method Mechanical Ventilator Weight: 141 lb 1.533 oz Body Mass Index (BMI) 21.4 Intake & Output: Intake and Output for Last 24 Hours 04/21/23 04/22/23 04/23/23 23:59 23:59 23:59 Intake Total 1893.67 / 2056.87 88 / 1082.10 / 1082.10 Output Total 50 / 50 4000 / 4010 Balance 1844.67 / -2021. 1072.10 / 1072.10 Lab / Micro Data 04/23/23 04:00 04/23/23 04:00 Labs: Laboratory Results - last 24 hr 04/22/23 04:05: Differential Comment , Platelet Estimate SLT DEC, Total Bilirubin 0.40, Direct Bilirubin 0.19, AST 1402 H, ALT 743 H, Alkaline Phosphatase 66, Total Protein 5.2 L, Albumin 1.8 L, Globulin 3.4 04/22/23 11:35: APTT 119.3 H* 04/23/23 04:00: WBC 13.5 H, RBC 4.13 L, Hgb 12.5 L, Hct 36.9 L, MCV 89.3, MCH 30.3, MCHC 33.9, RDW Std Deviation 44.7 H, RDW Coeff of Merrick 13.7, Plt Count 125 L, MPV 11.7, Immature Gran % (Auto) 2.700 H, Neut % (Auto) 72.7 H, Lymph % (Auto) 7.6 L, [place] % (Auto) 10.8 H, Eos % (Auto) 5.6 H, Baso % (Auto) 0.6, Absolute Neuts (auto) 9.8 H, Absolute Lymphs (auto) 1.02, Nucleated RBC % 0, Sodium 134 L, Potassium 3.7, Chloride 101, Carbon Dioxide 25.0, Anion Gap 8, BUN 79 H, Creatinine 7.13 H, Estim Creat Clear Calc 13.84, Est GFR (MDRD) Af Amer 12 L, Est GFR (MDRD) Non-Af 10 L, BUN/Creatinine Ratio 11.1, Glucose 123 H, Calcium 7.6 L, Magnesium 3.2 H, Total Bilirubin 0.50, AST 961 H, ALT 519 H, Alkaline Phosphatase 69, Total Protein 5.4 L, Albumin 1.8 L, Globulin 3.6, Albumin/Globulin Ratio 0.5 L Micro: Microbiology 04/18/23 12:55 Blood Culture (Wb) - Venous Blood Culture - Preliminary No growth in 48 hours. 04/18/23 12:40 Blood Culture (Wb) - Venous Blood Culture - Preliminary No growth in 48 hours. 04/18/23 12:45 Urine Catheter - Catheter Urine Culture - Final Culture exhibits no growth. 04/18/23 16:35 Sputum, Tracheal Aspirate Gram Stain - Final 04/18/23 16:35 Sputum, Tracheal Aspirate Respiratory Culture - Final Streptococcus group C Physical Exam Narrative Seen and examined. The patient has fever Tmax 101.5 Fahrenheit. Patient is extubated in the morning. Lip swelling but denies any sore throat. General: Awake, alert, oriented x3. HEENT: Atraumatic, PERRLA, EOMI, Normocephalic. Grossly visual equity looks normal, color perception normal. Oral: Intubated on ventilator. NG tube Neck: Right IJ temporary dialysis catheter. Supple, No JVD, Negative Carotid Bruits Lungs: Air entry diminished in bilateral lung bases. No crepitation/rhonchi Cardiovascular: Sinus tachycardia, Normal S1, Normal S2, No murmurs Abdomen: Bowel Sounds sluggish, Soft, Non Tender, Non-Distended : On hemodialysis. Allison catheter. Oliguria no renal angle tenderness. No suprapubic tenderness. Extremities: Bilateral lower and upper extremities dependent edema., Capillary Refill Less than 3 Seconds Skin: No rashes, No breakdown Musculoskeletal: No Tenderness to Palpation of Joints or Extremities. Moving his extremities Neurological: Moves extremities. Speech fluent. Swallow evaluation pending. Denies sensory changes Psych/Mental Status: Flat affect. Remembers the name of his relatives including mother father and sister. Reads wall clock correctly. Aware of the month and the year. Assessment & Plan Assessment/Plan (1) Acute respiratory failure: QUALIFIERS: Respiratory failure complication: hypoxia Qualified Code(s): J96.01 - Acute respiratory failure with hypoxia PLAN: Plan 27-year-old gentleman was brought to ED by EMS in unresponsive state. 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 EMS gave 4 doses of Narcan. In ED patient GCS scale was 3 in decorticate posture 1. Acute respiratory failure mainly due to acute encephalopathy with anoxic insult Patient is sedated on the ventilator at this time, critical care is managing his vent, the etiology of his respiratory failure is unknown but suspected to be secondary to drug usage, patient's tox screen was positive for multiple drugs. 04/21/2023: Patient is on weaning trial for extubation. 04/22/2023: Patient failed his spontaneous breathing trial due to significant apneic episodes. Being managed by blood bank booking clerk 04/23/2023: Patient is extubated.Swallow evaluation pending. Patient currently on ambient air #2 Acute encephalopathy due to multiple etiologies, predominantly toxic encephalopathy and metabolic/hypoxic encephalopathy from multiple drug overdoses:-secondary to questionable anoxic insult, supportive care. Tox screen positive for crack cocaine, amphetamine, ecstasy and cannabinoids. Patient was intubated after being found unresponsive at home. There is also questionable aspiration event at the time of intubation. 04/21: MRI brain was done and reported acute ischemia of the internal capsules and deep parietal white matter's bilaterally consistent with anoxia. Microvascular ischemia in the white matter with ventriculomegaly. Cerebral atrophy, sulcal atrophy with widening of the extra-axial spaces. Patient is following simple commands as a squeezing and opening eyes, raising her legs. 04/23: Patient remembers well is surrounding, oriented x3. Fluent speech. Has gross retrograde memory. PT OT and speech evaluation as per stroke protocol reported in MRI. #3 Acute kidney injury most likely due to ischemic ATN/rhabdomyolysis: Hyperkalemia and rhabdomyolysis most likely prerenal progressed to ATN-patient has right IJ dialysis temporary catheter. Patient is started on dialysis. Low urine output. Patient has metabolic acidosis. Magnesium 2.2. Phosphorus 9.0, calcium 6.9. Hyperkalemia potassium 5.4. Normal anion gap metabolic acidosis. BUNs/creatinine 47/3.97. CK 51,615. Urine output 85 mL since midnight. 478 mL on 04/19. 04/21: BUN 57, creatinine 5.34. Bicarb 22 anion gap 9. Serum sodium potassium normal. Patient on hemodialysis as per telephone order dispatcher schedule.Was dialyzed yesterday on 04/20. Repeat CPK ordered 04/22: Remains on hemodialysis. Oliguric. BUNs/creatinine high. Corrected calcium 8.9. Electrolytes in normal range 04/23: Patient remains on hemodialysis with anuria, urine output 0 and 10 ml. Repeat CPK and ammonia ordered. #4 [id number] consulted. Very high troponin, 15,524 most likely due to increased cardiac demand/myocardial injury. Patient on IV heparin drip. 2D echo shows EF 65 to 70% #5 sepsis-sepsis most likely due to UTI and/or aspiration pneumonia with acute sepsis related organ dysfunction as evidenced by lactic acidemia, acute kidney injury, acute hypoxic respiratory failure on mechanical invasive ventilator spectrum antibiotic. Tracheal aspirate shows beta Streptococcus on 04/18/2023. Blood culture is pending. 2D echo shows moderate-sized echogenic mass attached to right atrium. Tricuspid valve appears clear with no TR. discussed with tumble tailstock turret lathe operator. No plan for SUZIE until patient is extubated or more awake. 04/22: Blood culture negative for 48 hours. Urine culture negative. Sputum culture growing strep group C. ID was consulted yesterday. 04/21: Limited echo was done which reported no valvular vegetations noted with attempted SUZIE but was unsuccessful. Patient was very resistant for SUZIE evaluation. LV and RV systolic function normal. Normal left and right atria. EF 55 to 60%. RUE venous duplex shows no DVT but nonvascularized creatinine is mass 2.29 x 1.1 cm noted in mid right biceps. RLE venous duplex also negative for DVT and right GSV thrombosis. 04/23: Temperature Tmax 101.4%. CBC shows immature granulocytes 2.7% suggestive of left shift and bands were noted. Patient has leukocytosis 13.5K. ID follow-up reviewed. Vancomycin discontinued. Continue IV meropenem 6. Acute liver injury most likely due to ischemic hepatitis : ALT AST elevated, AST 1600s, ALT about 1000. Total bilirubin normal. Alkaline phosphatase 66. Liver chemistry shows decreasing trend of transaminitis. Liver ultrasound reported sludge in GB lumen with a small amount of perihepatic fluid. 04/22: ALT and AST decreasing improving trend. Alkaline phosphatase normal. Low albumin 1.8. 04/23: ALT AST are improving. Alkaline phosphatase normal. Total time of the visit including total time spent in counseling or coordination of care, (more than 50% of the total time, spent in obtaining medical information from nurses and other ancillary care providers,explaining to the patient about labs, imaging, diagnosis and management of active complex medical conditions), multiple consultants, review of labs and imaging clinical update and hospital course to patient's mother is 50 minutes. Charges/Coding Visit Charges Inpatient E&M: 86386 Subs Hosp L3
--- NOTE | 2023-04-23 10:05 | PN.CC_ITS ---
Assessment & Plan Assessment/Plan (1) Encephalopathy: (2) Acute respiratory failure: QUALIFIERS: Respiratory failure complication: hypoxia Qualified Code(s): J96.01 - Acute respiratory failure with hypoxia PLAN: Plan RECOMMENDATIONS: Extubated successfully this morning PT/ OT Bedside swallow eval. if he passes remove NG tube and start clear liquid diet Continue antimicrobials per ID recommendations. Right calf pain, no signs of DVT on duplex ultrasound and pain management Ongoing dialysis per nephrology, underwent hemodialysis yesterday Continue appropriate GI prophylaxis. Completed heparin drip for NSTEMI. Switch to subcu heparin for DVT prophylaxis Lines: abbey Allison he reamins oligouric IMPRESSIONS: 1. Encephalopathy Most likely secondary to acute drug overdose with questionable anoxic insult. MRI brain did reveal some ischemic changes, He was extubated this morning improved mental status. Can't be started on statins given liver injury. 2. Acute respiratory failure The patient was initially intubated in the emergency department after being found down unresponsive at home. Extubated to RA on 04/23. 3. Acute kidney injury/hyperkalemia/rhabdomyolysis Most likely prerenal in etiology in the setting of #1. Nephrology is currently following to assist with hemodialysis needs. 4. NSTEMI Most likely secondary to demand ischemia. Echocardiogram revealed intact systolic function. Cardiology is following to assist with medical management. He completed Heparin ggt. Concern for mass in RA, SUZIE was not feasible, repeat TTE was WNL. 5. Sepsis The patient presented with sepsis due to possible aspiration pneumonia with acute sepsis related organ dysfunction as evidenced by lactic acidemia, acute kidney injury and respiratory failure, requiring invasive mechanical ventilatory support. Antibiotics per ID. 6. Transaminitis Secondary to rhabdomyolysis. Hepatitis panel is pending. Ultrasound of liver was negative for acute process TIME: 31 minutes of critical care time, independent of procedures, was spent addressing the patient's above problems Subjective Subjective Underwent SBT this morning. Extubated successfully. He was complaining of right calf pain. DVT scan yesterday was negative. He notes that he is not allergic to oxycodone. And had tried it before. Objective Data Objective Data Vital Signs: Vital Signs Temp Pulse Resp BP Pulse Ox O2 Del Method O2 Flow Rate 37.7 C H 100 18 167/75 H 95 Mechanical Ventilator 35 04/23/23 07:00 04/23/23 07:00 04/23/23 07:00 04/23/23 07:00 04/23/23 07:00 04/23/23 07:00 04/21/23 13:00 FiO2 21 04/23/23 07:00 Oxygen Flow Rate (L/min) 35 Oxygen Delivery Method Mechanical Ventilator Weight: 64 kg Body Mass Index (BMI) 21.4 Intake & Output: Intake and Output for Last 24 Hours 04/21/23 04/22/23 04/23/23 23:59 23:59 23:59 Intake Total 1893.67 / 2056. / 1083.77 / 1083.77 Output Total 50 / 50 4000 / 4010 Balance 4. / 2006.87 -2021. 1073.77 / 1073.77 Lab / Micro Data 04/23/23 04:00 04/23/23 04:00 Labs: Laboratory Results - last 24 hr 04/22/23 11:35: APTT 119.3 H* 04/23/23 04:00: WBC 13.5 H, RBC 4.13 L, Hgb 12.5 L, Hct 36.9 L, MCV 89.3, MCH 30.3, MCHC 33.9, RDW Std Deviation 44.7 H, RDW Coeff of Merrick 13.7, Plt Count 125 L, MPV 11.7, Immature Gran % (Auto) 2.700 H, Neut % (Auto) 72.7 H, Lymph % (Auto) 7.6 L, [place] % (Auto) 10.8 H, Eos % (Auto) 5.6 H, Baso % (Auto) 0.6, Absolute Neuts (auto) 9.8 H, Absolute Lymphs (auto) 1.02, Nucleated RBC % 0, Sodium 134 L, Potassium 3.7, Chloride 101, Carbon Dioxide 25.0, Anion Gap 8, BUN 79 H, Creatinine 7.13 H, Estim Creat Clear Calc 13.84, Est GFR (MDRD) Af Amer 12 L, Est GFR (MDRD) Non-Af 10 L, BUN/Creatinine Ratio 11.1, Glucose 123 H, Calcium 7.6 L, Magnesium 3.2 H, Total Bilirubin 0.50, AST 961 H, ALT 519 H, Alkaline Phosphatase 69, Total Protein 5.4 L, Albumin 1.8 L, Globulin 3.6, Alb umin/Globulin Ratio 0.5 L 04/23/23 07:50: Ammonia 45.0 H Micro: Microbiology 04/20/23 20:17 Blood Culture (Wb) - Pic Blood Culture - Preliminary No growth in 48 hours. 04/18/23 12:55 Blood Culture (Wb) - Venous Blood Culture - Preliminary No growth in 48 hours. 04/18/23 12:40 Blood Culture (Wb) - Venous Blood Culture - Preliminary No growth in 48 hours. 04/18/23 12:45 Urine Catheter - Catheter Urine Culture - Final Culture exhibits no growth. 04/18/23 16:35 Sputum, Tracheal Aspirate Gram Stain - Final 04/18/23 16:35 Sputum, Tracheal Aspirate Respiratory Culture - Final Streptococcus group C Physical Exam Const oriented x3 and no apparent distress General Appearance: cooperative HEENT normocephalic Teeth and Gingiva: poor dentition Eyes EOMs intact bilaterally Resp normal respiratory effort and no use of accessory muscles Effort and Inspection: able to speak in complete sentences Cardio regular rate and regular rhythm GI normal to inspection, nondistended, normoactive bowel sounds Extremity Extremity Narrative: R Calf tenderness Neuro oriented x3, moves all extremities and no focal motor deficits Charges/Coding Multi Select Codes Hospitalists' Procedures Procedures: 42963 Critial Care 1st Hr
[2023-04-23] MEDS: oxyCODONE 5 MG Tablet PO ×2 (10:25→18:08)
[2023-04-23] MEDS: Potassium Chloride Oral Tablet 10 MEQ 20 MEQ PO (10:26)
[2023-04-23] MEDS: Heparin Injection (Vial) 5,000 UNIT/ML VIAL 5000 UNIT SC ×2 (14:10→22:50)
--- NOTE | 2023-04-23 20:59 | CASEMGMT ---
Social Work SW met with patient and introduced self and role as [facility] SW. Patient lying on hospital bed and agreeable to speak with SW. SW engage patient in conversation regarding community resources and AOD needs. Patient reports no current resources other than S Medicaid. SW attempted to discuss AOD resources, community agencies or MH agencies, patient declined information. SW offered to leave resources for patient to review at a different time, time declined. SW then inquired about providing a PCP list in network with patient's insurance and accepting new patients; patient declined. No other needs voiced by patient at this time. SW updated RN. Laney London MSW, JASON
[2023-04-24] VITALS (25 sets, daily range): BP systolic 110–162; BP diastolic 61–91; PULSE 82–105; RESP 11–23; TEMP 37.1–38.3; O2SAT 92–100; BMI 21.4
[2023-04-24] MEDS: oxyCODONE 5 MG Tablet PO ×3 (00:33→20:46)
[2023-04-24] MEDS: Morphine 2 MG/ML Syringe IV (02:18)
[2023-04-24] MEDS: 0.9% Saline Lock 10 ML Syringe IV ×2 (02:18→20:51)
[2023-04-24 02:26] LABS: Absolute Lymphocyte Count 1.07 X10^3/uL (0.83-4.51); Absolute Neutrophil Count 9.2 X10^3/uL (2.0-7.7); Basophil# 0.09 X10^3/uL; Basophil% 0.7 % (0-1); Eosinophil# 0.51 X10^3/uL; Hematocrit 30.7 % (40-54); Hemoglobin 10.4 g/dL (13.0-16.5); Lymphocyte # 1.07 X10^3/ul (0.83-4.51); Lymphocyte % 8.4 % (19-41); Mean Corp Hgb Conc 33.9 g/dL (32-36); Mean Corpuscular Volume 88.5 fL (80-94); Mean Platelet Vol. 11.5 fl (6.2-12.0); Monocyte# 1.27 X10^3/uL; NRBC Flagged by Analyzer 0 % (0-5); Neutrophil # 9.15 X10^3/uL (2.7-7.7); Neutrophil % 72.1 % (47-70); Platelet Count 122 K/mm3 (150-450); RBC Distribution Width CV 13.3 % (11.6-14.6); RBC Distribution Width SD 42.8 fl (35.1-43.9); Red Blood Count 3.47 M/mm3 (4.6-6.2); White Blood Count 12.7 K/mm3 (4.4-11.0)
[2023-04-24 02:52] LABS: ALB/GLOB Ratio 0.7 RATIO (0.9-2.4); AST(SGOT) 1291 U/L (15-37); Alanine Aminotransfer ALT/SGPT 532 U/L (16-61); Alkaline Phosphatase 51 U/L (45-117); Anion Gap 9 (5-15); BUN 109 mg/dL (7-18); BUN/Creat Ratio 11.7 RATIO (10-20); Calcium,Total 7.5 mg/dL (8.5-10.1); Chloride 100 mmol/L (98-107); Creatinine, Serum 9.28 mg/dL (0.70-1.30); EST Glomerular Filtration Rate 7 mL/min (>60); Est Glom Filt Rate - Afr Amer 9 mL/min (>60); Estimated Creatinine Clearance 10.63 ml/min; Globulin 2.9 g/dL (2.2-4.2); Glucose 111 mg/dL (74-106); Potassium 4.5 mmol/L (3.5-5.1); Protein, Total 4.9 g/dL (6.4-8.2); Sodium Level 131 mmol/L (136-145)
--- NOTE | 2023-04-24 03:44 | NURSING ---
Pt's sheets and gown disheveled and covered in food/drink stains. Attempted to assist pt into clean gown and change sheets. Pt uncooperative, turning away in the bed saying just leave it. This RN left the room per pt's request. Pt resting in bed, call light in reach.
[2023-04-24] MEDS: Heparin Injection (Vial) 5,000 UNIT/ML VIAL 5000 UNIT SC ×3 (06:03→20:49)
--- NOTE | 2023-04-24 07:22 | PCM.PN.HOSP ---
Reason for Visit Reason for Visit: Diagnoses Hyperkalemia (04/18/23) Other psychoactive substance abuse, in remission (04/18/23) Encephalopathy, unspecified (04/18/23) Non-ST elevation (NSTEMI) myocardial infarction (04/18/23) Acute respiratory failure, unspecified whether with hypoxia or hypercapnia (04/18/23) Acute respiratory failure with hypoxia (04/18/23) Rhabdomyolysis (04/18/23) Acute kidney failure, unspecified (04/18/23) Bacteriuria (04/18/23) Subjective Subjective Follow-up for GREGORY, rhabdomyolysis Objective Data Objective Data Vital Signs: Vital Signs Temp Pulse Resp BP Pulse Ox O2 Del Method O2 Flow Rate 99.9 F H 84 18 141/72 H 98 Room Air 35 04/24/23 06:00 04/24/23 06:00 04/24/23 06:00 04/24/23 06:00 04/24/23 06:00 04/24/23 06:00 04/21/23 13:00 FiO2 21 04/23/23 07:00 Oxygen Flow Rate (L/min) 35 Oxygen Delivery Method Room Air Weight: 141 lb 1.533 oz Body Mass Index (BMI) 21.4 Intake & Output: Intake and Output for Last 24 Hours 04/22/23 04/23/23 04/24/23 23:59 23:59 23:59 Intake Total 1977.88 / 1992.08 1494.29 / 1494.29 1160 / 1160 Output Total 4000 / 4010 40 / 40 Balance - 1454.29 / 1454.29 1155 / 1155 Lab / Micro Data 04/24/23 02:18 04/24/23 02:18 Labs: Laboratory Results - last 24 hr 04/23/23 07:50: Ammonia 45.0 H 04/23/23 08:09: Total Creatine Kinase 45576 H 04/24/23 02:18: WBC 12.7 H, RBC 3.47 L, Hgb 10.4 L, Hct 30.7 L, MCV 88.5, MCH 30.0, MCHC 33.9, RDW Std Deviation 42.8, RDW Coeff of Merrick 13.3, Plt Count 122 L, MPV 11.5, Immature Gran % (Auto) 4.800 H, Neut % (Auto) 72.1 H, Lymph % (Auto) 8.4 L, [place] % (Auto) 10.0, Eos % (Auto) 4.0, Baso % (Auto) 0.7, Absolute Neuts (auto) 9.2 H, Absolute Lymphs (auto) 1.07, Nucleated RBC % 0, Sodium 131 L, Potassium 4.5, Chloride 100, Carbon Dioxide 22.0, Anion Gap 9, BUN 109 H*, Creatinine 9.28 H*, Estim Creat Clear Calc 10.63, Est GFR (MDRD) Af Amer 9 L, Est GFR (MDRD) Non-Af 7 L, BUN/Creatinine Ratio 11.7, Glucose 111 H, Calcium 7.5 L, Total Bilirubin 0.60, AST 1291 H, ALT 532 H, Alkaline Phosphatase 51, Total Protein 4.9 L, Albumin 2.0 L, Globulin 2.9, Albumin/Globulin Ratio 0.7 L Micro: Microbiology 04/18/23 12:55 Blood Culture (Wb) - Venous Blood Culture - Final No growth in 5 days. 04/18/23 12:40 Blood Culture (Wb) - Venous Blood Culture - Final No growth in 5 days. 04/20/23 20:17 Blood Culture (Wb) - Pic Blood Culture - Preliminary No growth in 48 hours. 04/18/23 12:45 Urine Catheter - Catheter Urine Culture - Final Culture exhibits no growth. 04/18/23 16:35 Sputum, Tracheal Aspirate Gram Stain - Final 04/18/23 16:35 Sputum, Tracheal Aspirate Respiratory Culture - Final Streptococcus group C Physical Exam Narrative Seen and examined. The patient has fever Tmax 101.2 Fahrenheit. Patient is extubated on 04/23. Lip swelling but denies any sore throat. Patient tolerated regular diet. Complain of right lower leg pain and still swollen about 3 times more than left side. General: Awake, alert, oriented x3. HEENT: Atraumatic, PERRLA, EOMI, Normocephalic. Grossly visual equity looks normal, color perception normal. Oral: Intubated on ventilator. NG tube Neck: Right IJ temporary dialysis catheter. Supple, No JVD, Negative Carotid Bruits Lungs: Air entry diminished in bilateral lung bases. No crepitation/rhonchi Cardiovascular: Sinus tachycardia, Normal S1, Normal S2, No murmurs Abdomen: Bowel Sounds sluggish, Soft, Non Tender, Non-Distended : On hemodialysis. Allison catheter. Oliguria no renal angle tenderness. No suprapubic tenderness. Extremities: Bilateral lower and upper extremities dependent edema., Capillary Refill Less than 3 Seconds Skin: No rashes, No breakdown Musculoskeletal: No Tenderness to Palpation of Joints or Extremities. Moving his extremities Neurological: Moves extremities. Speech fluent. Passed nursing swallow test. Denies sensory changes Psych/Mental Status: Flat affect. Memory is good. Assessment & Plan Assessment/Plan (1) Acute respiratory failure: QUALIFIERS: Respiratory failure complication: hypoxia Qualified Code(s): J96.01 - Acute respiratory failure with hypoxia PLAN: Plan 27-year-old gentleman was brought to ED by EMS in unresponsive state. 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 EMS gave 4 doses of Narcan. In ED patient GCS scale was 3 in decorticate posture 1. Acute respiratory failure mainly due to acute encephalopathy with anoxic insult Patient is sedated on the ventilator at this time, critical care is managing his vent, the etiology of his respiratory failure is unknown but suspected to be secondary to drug usage, patient's tox screen was positive for multiple drugs. 04/21/2023: Patient is on weaning trial for extubation. 04/22/2023: Patient failed his spontaneous breathing trial due to significant apneic episodes. Being managed by asphalt heater operator 04/23/2023: Patient is extubated.Swallow evaluation pending. Patient currently on ambient air 04/23: Patient is on room air. #2 Acute encephalopathy due to multiple etiologies, predominantly toxic encephalopathy and metabolic/hypoxic encephalopathy from multiple drug overdoses:-secondary to questionable anoxic insult, supportive care. Tox screen positive for crack cocaine, amphetamine, ecstasy and cannabinoids. Patient was intubated after being found unresponsive at home. There is also questionable aspiration event at the time of intubation. 04/21: MRI brain was done and reported acute ischemia of the internal capsules and deep parietal white matter's bilaterally consistent with anoxia. Microvascular ischemia in the white matter with ventriculomegaly. Cerebral atrophy, sulcal atrophy with widening of the extra-axial spaces. Patient is following simple commands as a squeezing and opening eyes, raising her legs. 04/23: Patient remembers well is surrounding, oriented x3. Fluent speech. PT OT and speech evaluation as per stroke protocol reported in MRI. 04/24: No acute issues. Patient is eating food. Acute encephalopathy resolved. #3 Acute kidney injury most likely due to ischemic ATN/rhabdomyolysis: Hyperkalemia and rhabdomyolysis most likely prerenal progressed to ATN-patient has right IJ dialysis temporary catheter. Patient is started on dialysis. Low urine output. Patient has metabolic acidosis. Magnesium 2.2. Phosphorus 9.0, calcium 6.9. Hyperkalemia potassium 5.4. Normal anion gap metabolic acidosis. BUNs/creatinine 47/3.97. CK 51,615. Urine output 85 mL since midnight. 478 mL on 04/19. 04/21: BUN 57, creatinine 5.34. Bicarb 22 anion gap 9. Serum sodium potassium normal. Patient on hemodialysis as per radiographer angiogram schedule.Was dialyzed yesterday on 04/20. Repeat CPK ordered 04/22: Remains on hemodialysis. Oliguric. BUNs/creatinine high. Corrected calcium 8.9. Electrolytes in normal range 04/23: Patient remains on hemodialysis with anuria, urine output 0 and 10 ml. 04/24: Rhabdomyolysis. Total CK still 28,524. Uric acid 8.5. Discussed with the radiographer angiogram and does not need dialysis today. Ammonia 45 but patient does not seem confused. #4 [id number] consulted. Very high troponin, 15,524 most likely due to increased cardiac demand/myocardial injury. Patient on IV heparin drip. 2D echo shows EF 65 to 70% #5 sepsis-sepsis most likely due to UTI and/or aspiration pneumonia with acute sepsis related organ dysfunction as evidenced by lactic acidemia, acute kidney injury, acute hypoxic respiratory failure on mechanical invasive ventilator spectrum antibiotic. Tracheal aspirate shows beta Streptococcus on 04/18/2023. Blood culture is pending. 2D echo shows moderate-sized echogenic mass attached to right atrium. Tricuspid valve appears clear with no TR. discussed with gravel weigher. No plan for SUZIE until patient is extubated or more awake. 04/22: Blood culture negative for 48 hours. Urine culture negative. Sputum culture growing strep group C. ID was consulted yesterday. 04/21: Limited echo was done which reported no valvular vegetations noted with attempted SUZIE but was unsuccessful. Patient was very resistant for SUZIE evaluation. LV and RV systolic function normal. Normal left and right atria. EF 55 to 60%. RUE venous duplex shows no DVT but nonvascularized creatinine is mass 2.29 x 1.1 cm noted in mid right biceps. RLE venous duplex also negative for DVT and right GSV thrombosis. 04/23: Temperature Tmax 101.4%. CBC shows immature granulocytes 2.7% suggestive of left shift and bands were noted. Patient has leukocytosis 13.5K. ID follow-up reviewed. Vancomycin discontinued. Continue IV meropenem 6. Acute liver injury most likely due to ischemic hepatitis : ALT AST elevated, AST 1600s, ALT about 1000. Total bilirubin normal. Alkaline phosphatase 66. Liver chemistry shows decreasing trend of transaminitis. Liver ultrasound reported sludge in GB lumen with a small amount of perihepatic fluid. 04/22: ALT and AST decreasing improving trend. Alkaline phosphatase normal. Low albumin 1.8. 04/23: ALT AST are improving. Alkaline phosphatase normal. 04/24: Liver chemistry improving. ALT 532. AST 1291. Total time of the visit including total time spent in counseling or coordination of care, (more than 50% of the total time, spent in obtaining medical information from nurses and other ancillary care providers,explaining to the patient about labs, imaging, diagnosis and management of active complex medical conditions), asphalt heater operator and radiographer angiogram, review of labs and imaging clinical update and hospital course to patient's mother is 45 minutes. Microbiology Past 72 Hours 04/18/23 12:55 Blood Culture (Wb) - Venous Blood Culture - Final No growth in 5 days. 04/18/23 12:40 Blood Culture (Wb) - Venous Blood Culture - Final No growth in 5 days. 04/20/23 20:17 Blood Culture (Wb) - Pic Blood Culture - Preliminary No growth in 48 hours. Laboratory Results 04/24/23 02:18: WBC 12.7 H, RBC 3.47 L, Hgb 10.4 L, Hct 30.7 L, MCV 88.5, MCH 30.0, MCHC 33.9, RDW Std Deviation 42.8, RDW Coeff of Merrick 13.3, Plt Count 122 L, MPV 11.5, Immature Gran % (Auto) 4.800 H, Neut % (Auto) 72.1 H, Lymph % (Auto) 8.4 L, [place] % (Auto) 10.0, Eos % (Auto) 4.0, Baso % (Auto) 0.7, Absolute Neuts (auto) 9.2 H, Absolute Lymphs (auto) 1.07, Nucleated RBC % 0, Sodium 131 L, Potassium 4.5, Chloride 100, Carbon Dioxide 22.0, Anion Gap 9, BUN 109 H*, Creatinine 9.28 H*, Estim Creat Clear Calc 10.63, Est GFR (MDRD) Af Amer 9 L, Est GFR (MDRD) Non-Af 7 L, BUN/Creatinine Ratio 11.7, Glucose 111 H, Calcium 7.5 L, Total Bilirubin 0.60, AST 1291 H, ALT 532 H, Alkaline Phosphatase 51, Total Protein 4.9 L, Albumin 2.0 L, Globulin 2.9, Albumin/Globulin Ratio 0.7 L 04/24/23 09:00: Uric Acid 8.5 H, Total Creatine Kinase 87700 H Charges/Coding Visit Charges Inpatient E&M: 70311 Subs Hosp L3
[2023-04-24] MEDS: Vancomycin IV 1,000 MG/200 ML BAG 200 MG IV (09:10)
--- NOTE | 2023-04-24 09:22 | PN.CC_ITS ---
Assessment & Plan Assessment/Plan (1) Encephalopathy: (2) Acute respiratory failure: QUALIFIERS: Respiratory failure complication: hypoxia Qualified Code(s): J96.01 - Acute respiratory failure with hypoxia PLAN: Plan RECOMMENDATIONS: 1. He remains on room air in no acute respiratory distress 2. Right lower extremity appears to be swollen and inflamed, concern for cellulitis. Will restart vancomycin. This is to evaluate the patient tomorrow 3. Knee function appears to be worsening. He is on dialysis per nephrology 4. PT OT 5. He passed swallow tolerating diet 6. DVT prophylaxis subcu heparin Lines: vascath RIJ Torrez he remains anuric, ok to DC torrez IMPRESSIONS: 1. Encephalopathy Most likely secondary to acute drug overdose with questionable anoxic insult. MRI brain did reveal some ischemic changes, He was extubated this morning improved mental status. Can't be started on statins given liver injury. 2. Acute respiratory failure The patient was initially intubated in the emergency department after being found down unresponsive at home. Extubated to on 04/23. 3. Acute kidney injury/hyperkalemia/rhabdomyolysis Most likely prerenal in etiology in the setting of #1. Nephrology is currently following to assist with hemodialysis needs. 4. NSTEMI Most likely secondary to demand ischemia. Echocardiogram revealed intact systolic function. Cardiology is following to assist with medical management. He completed Heparin ggt. Concern for mass in RA, SUZIE was not feasible, repeat TTE was WNL. 5. Sepsis The patient presented with sepsis due to possible aspiration pneumonia with a cute sepsis related organ dysfunction as evidenced by lactic acidemia, acute kidney injury and respiratory failure, requiring invasive mechanical ventilatory support. Antibiotics per ID. 6. Transaminitis Secondary to rhabdomyolysis. Hepatitis panel is negative. Ultrasound of liver was negative for acute process Subjective Subjective No acute events overnight. Patient continues to have pain in his right leg. His fever has trended down. Tmax overnight was 38.4. Objective Data Objective Data Vital Signs: Vital Signs Temp Pulse Resp BP Pulse Ox O2 Del Method O2 Flow Rate 37.7 C H 84 18 141/72 H 98 Room Air 35 04/24/23 06:00 04/24/23 06:00 04/24/23 06:00 04/24/23 06:00 04/24/23 06:00 04/24/23 06:00 04/21/23 13:00 FiO2 21 04/23/23 07:00 Oxygen Flow Rate (L/min) 35 Oxygen Delivery Method Room Air Weight: 64 kg Body Mass Index (BMI) 21.4 Intake & Output: Intake and Output for Last 24 Hours 04/22/23 04/23/23 04/24/23 23:59 23:59 23:59 Intake Total 1977.88 / 1992.08 1494.29 / 1494.29 1270 / 1270 Output Total 4000 / 4010 40 / 40 Balance - 1454.29 / 1454.29 1265 / 1265 Lab / Micro Data 04/24/23 02:18 04/24/23 02:18 Labs: Laboratory Results - last 24 hr 04/23/23 08:09: Total Creatine Kinase 13400 H 04/24/23 02:18: WBC 12.7 H, RBC 3.47 L, Hgb 10.4 L, Hct 30.7 L, MCV 88.5, MCH 30.0, MCHC 33.9, RDW Std Deviation 42.8, RDW Coeff of Merrick 13.3, Plt Count 122 L, MPV 11.5, Immature Gran % (Auto) 4.800 H, Neut % (Auto) 72.1 H, Lymph % (Auto) 8.4 L, [place] % (Auto) 10.0, Eos % (Auto) 4.0, Baso % (Auto) 0.7, Absolute Neuts (auto) 9.2 H, Absolute Lymphs (auto) 1.07, Nucleated RBC % 0, Sodium 131 L, Potassium 4.5, Chloride 100, Carbon Dioxide 22.0, Anion Gap 9, BUN 109 H*, Creatinine 9.28 H*, Estim Creat Clear Calc 10.63, Est GFR (MDRD) Af Amer 9 L, Est GFR (MDRD) Non-Af 7 L, BUN/Creatinine Ratio 11.7, Glucose 111 H, Calcium 7.5 L, Total Bilirubin 0.60, AST 1291 H, ALT 532 H, Alkaline Phosphatase 51, Total Protein 4.9 L, Albumin 2.0 L, Globulin 2.9, Albumin/Globulin Ratio 0.7 L Micro: Microbiology 04/18/23 12:55 Blood Culture (Wb) - Venous Blood Culture - Final No growth in 5 days. 04/18/23 12:40 Blood Culture (Wb) - Venous Blood Culture - Final No growth in 5 days. 04/20/23 20:17 Blood Culture (Wb) - Pic Blood Culture - Preliminary No growth in 48 hours. 04/18/23 12:45 Urine Catheter - Catheter Urine Culture - Final Culture exhibits no growth. 04/18/23 16:35 Sputum, Tracheal Aspirate Gram Stain - Final 04/18/23 16:35 Sputum, Tracheal Aspirate Respiratory Culture - Final Streptococcus group C Physical Exam Narrative General alert oriented in no acute distress HEENT. Normocephalic atraumatic, pupils equal and reactive Respiratory equal air entry bilaterally no wheezing Cardiac S1-S2, regular rate and rhythm GI abdomen soft and nontender MSK Right calf pain and tenderness. Skin is warm and erythematous Neuro moves all extremities, no dysarthria, no facial droop Charges/Coding Visit Charges Inpatient E&M: 44661 Subs Hosp L3
[2023-04-24 10:36] LABS: CPK Total, Creatine Kinase 28524 U/L (39-308); Uric Acid 8.5 mg/dL (3.5-7.2)
[2023-04-24] MEDS: Polyethylene Glycol 3350 17 GM PACKET PO (12:04)
--- NOTE | 2023-04-24 12:07 | PCM.RX.CS ---
Consult Antibiotic Management Pharmacy has been consulted to manage selected antiobiotic: Vancomycin Type of Intervention Type of Consult: New start Suspected Infection Suspected Infection: Sepsis and Pneumonia Prior Doses of Antibiotics Prior Doses of Antibiotics Received/Current Regimen: Vancomycin 1000 mg IV x 1 given 04/24/23 @ 0910 Labs Labs: Sodium 131 mmol/L (136-145) L 04/24/23 02:18 Potassium 4.5 mmol/L (3.5-5.1) 04/24/23 02:18 Chloride 100 mmol/L (98-107) 04/24/23 02:18 Carbon Dioxide 22.0 mmol/L (21.0-32.0) 04/24/23 02:18 Anion Gap 9 (5-15) 04/24/23 02:18 BUN 109 mg/dL (7-18) H* 04/24/23 02:18 Creatinine 9.28 mg/dL (0.70-1.30) H* 04/24/23 02:18 Est GFR (MDRD) Af Amer 9 mL/min (>60) L 04/24/23 02:18 Est GFR (MDRD) Non-Af 7 mL/min (>60) L 04/24/23 02:18 BUN/Creatinine Ratio 11.7 RATIO (10-20) 04/24/23 02:18 Glucose 111 mg/dL (74-106) H 04/24/23 02:18 Vancomycin Trough 6.1 ug/mL (5.0-15.0) 04/19/23 15:35 Random Vancomycin 17.2 ug/mL (0.0-15.0) H 04/21/23 03:40 Microbiology Microbiology: Microbiology 04/18/23 12:55 Blood Culture (Wb) - Venous Blood Culture - Final No growth in 5 days. 04/18/23 12:40 Blood Culture (Wb) - Venous Blood Culture - Final No growth in 5 days. 04/20/23 20:17 Blood Culture (Wb) - Pic Blood Culture - Preliminary No growth in 48 hours. 04/18/23 12:45 Urine Catheter - Catheter Urine Culture - Final Culture exhibits no growth. 04/18/23 16:35 Sputum, Tracheal Aspirate Gram Stain - Final 04/18/23 16:35 Sputum, Tracheal Aspirate Respiratory Culture - Final Streptococcus group C Dosing Weight Weight used for dosin kg Estimated Creatinine Clearance Estimated Creatinine Clearance: HD Goal Trough Goal Trough: 10-15 mcg/mL Pharmacy Plan for Drug Dosing Pharmacy Plan for Drug Dosing: Patient given 1000 mg dose on 04/24/23 @ 0910. Patient is on HD with no HD scheduled for today. Will await further determination of HD prior to subsequent dosing and trough orders. Pharmacy Service will continue to monitor and adjust dosing as required.
--- NOTE | 2023-04-24 19:36 | PN.RENAL_ITS ---
Subjective Subjective unilateral right sided edema. ? dependent edema. anuric. extubated. Objective Data Objective Data Vital Signs: Vital Signs Temp Pulse Resp BP Pulse Ox O2 Del Method O2 Flow Rate 99.1 F 95 17 155/86 H 93 Room Air 35 04/24/23 09:00 04/24/23 18:00 04/24/23 18:00 04/24/23 18:00 04/24/23 18:00 04/24/23 18:00 04/21/23 13:00 FiO2 21 04/23/23 07:00 Oxygen Flow Rate (L/min) 35 Oxygen Delivery Method Room Air Weight: 64 kg Body Mass Index (BMI) 21.4 Intake & Output: Intake and Output for Last 24 Hours 04/22/23 04/23/23 04/24/23 23:59 23:59 23:59 Intake Total 1976.88 / 1992.08 1494.29 / 1494.29 2069 Output Total 4000 / 4010 40 / 40 45 / 45 Balance - 1454.29 / 1454.29 2024 Lab / Micro Data 04/24/23 02:18 04/24/23 02:18 Labs: Laboratory Results - last 24 hr 04/24/23 02:18: WBC 12.7 H, RBC 3.47 L, Hgb 10.4 L, Hct 30.7 L, MCV 88.5, MCH 30.0, MCHC 33.9, RDW Std Deviation 42.8, RDW Coeff of [place] 13.3, Plt Count 122 L, MPV 11.5, Immature Gran % (Auto) 4.800 H, Neut % (Auto) 72.1 H, Lymph % (Auto) 8.4 L, [place] % (Auto) 10.0, Eos % (Auto) 4.0, Baso % (Auto) 0.7, Absolute Neuts (auto) 9.2 H, Absolute Lymphs (auto) 1.07, Nucleated RBC % 0, Sodium 131 L, Potassium 4.5, Chloride 100, Carbon Dioxide 22.0, Anion Gap 9, BUN 109 H*, Creatinine 9.28 H*, Estim Creat Clear Calc 10.63, Est GFR (MDRD) Af Amer 9 L, Est GFR (MDRD) Non-Af 7 L, BUN/Creatinine Ratio 11.7, Glucose 111 H, Calcium 7.5 L, Total Bilirubin 0.60, AST 1291 H, ALT 532 H, Alkaline Phosphatase 51, Total Protein 4.9 L, Albumin 2.0 L, Globulin 2.9, Albumin/Globulin Ratio 0.7 L 04/24/23 09:00: Uric Acid 8.5 H, Total Creatine Kinase 33856 H Micro: Microbiology 04/18/23 12:55 Blood Culture (Wb) - Venous Blood Culture - Final No growth in 5 days. 04/18/23 12:40 Blood Culture (Wb) - Venous Blood Culture - Final No growth in 5 days. 04/20/23 20:17 Blood Culture (Wb) - Pic Blood Culture - Preliminary No growth in 48 hours. 04/18/23 12:45 Urine Catheter - Catheter Urine Culture - Final Culture exhibits no growth. 04/18/23 16:35 Sputum, Tracheal Aspirate Gram Stain - Final 04/18/23 16:35 Sputum, Tracheal Aspirate Respiratory Culture - Final Streptococcus group C Physical Exam Narrative no obvious distress s1s2 no murmurs lungs clear abdomen soft no pitting edema torrez + right IJ temporary HD catheter Assessment & Plan Assessment/Plan (1) Acute kidney injury: PLAN: Anuric GREGORY secondary due to ATN and rhabdo. Patient initiated on hemodialysis on 04/19 (K+ 6.8, Cr 3.4) Hyperkalemia. Potassium has improved. Rhabdomyolysis. Due to prolonged immobilization. CPK levels are improving. He is anuric now. IV fluids have been discontinued. No focal tenderness to suggest compartment syndrome on examination. possible mass/vegetation on echo. SUZIE could not be done. CK remains high but he is anuric. right sided edema likely dependent edema. extubated. on RA. will plan for HD 04/25/23
[2023-04-25] VITALS (36 sets, daily range): BP systolic 46–271; BP diastolic 43–88; PULSE 71–110; RESP 14–20; TEMP 36.3–37; O2SAT 93–100; BMI 22.1; BMI 21.3
[2023-04-25] MEDS: oxyCODONE 5 MG Tablet PO ×3 (04:32→19:57)
[2023-04-25 06:07] LABS: Hematocrit 32.1 % (40-54); Mean Corp Hgb Conc 34.3 g/dL (32-36); Mean Corpuscular Hgb 29.7 pg (27.0-32.0); Mean Corpuscular Volume 86.8 fL (80-94); Mean Platelet Vol. 11.8 fl (6.2-12.0); POSITIVE COUNT YES; POSITIVE DIFFERENTIAL YES; POSITIVE MORPHOLOGY YES; Platelet Count 149 K/mm3 (150-450); RBC Distribution Width CV 13.1 % (11.6-14.6); RBC Distribution Width SD 40.7 fl (35.1-43.9); White Blood Count 16.2 K/mm3 (4.4-11.0)
[2023-04-25 06:15] LABS: Differential Indicated MANUAL DIFF
[2023-04-25] MEDS: Heparin Injection (Vial) 5,000 UNIT/ML VIAL 5000 UNIT SC ×2 (06:24→14:58)
[2023-04-25 06:53] LABS: ALB/GLOB Ratio 0.8 RATIO (0.9-2.4); AST(SGOT) 709 U/L (15-37); Alanine Aminotransfer ALT/SGPT 372 U/L (16-61); Alkaline Phosphatase 48 U/L (45-117); Anion Gap 13 (5-15); BUN 139 mg/dL (7-18); BUN/Creat Ratio 12.6 RATIO (10-20); Calcium,Total 7.7 mg/dL (8.5-10.1); Chloride 96 mmol/L (98-107); EST Glomerular Filtration Rate 6 mL/min (>60); Est Glom Filt Rate - Afr Amer 7 mL/min (>60); Estimated Creatinine Clearance 9.24 ml/min; Globulin 2.6 g/dL (2.2-4.2); Glucose 104 mg/dL (74-106); Potassium 5.4 mmol/L (3.5-5.1); Protein, Total 4.6 g/dL (6.4-8.2); Sodium Level 129 mmol/L (136-145)
--- NOTE | 2023-04-25 06:59 | PCM.RX.CS ---
Consult Antibiotic Management Pharmacy has been consulted to manage selected antiobiotic: Vancomycin Type of Intervention Type of Consult: Follow-up Labs Labs: Sodium 129 mmol/L (136-145) L 04/25/23 06:00 Potassium 5.4 mmol/L (3.5-5.1) H 04/25/23 06:00 Chloride 96 mmol/L (98-107) L 04/25/23 06:00 Carbon Dioxide 20.0 mmol/L (21.0-32.0) L 04/25/23 06:00 Anion Gap 13 (5-15) 04/25/23 06:00 BUN 139 mg/dL (7-18) H* 04/25/23 06:00 Creatinine 11.00 mg/dL (0.70-1.30) H* 04/25/23 06:00 Est GFR (MDRD) Af Amer 7 mL/min (>60) L 04/25/23 06:00 Est GFR (MDRD) Non-Af 6 mL/min (>60) L 04/25/23 06:00 BUN/Creatinine Ratio 12.6 RATIO (10-20) 04/25/23 06:00 Glucose 104 mg/dL (74-106) 04/25/23 06:00 Vancomycin Trough 6.1 ug/mL (5.0-15.0) 04/19/23 15:35 Random Vancomycin 17.2 ug/mL (0.0-15.0) H 04/21/23 03:40 Microbiology Microbiology: Microbiology 04/18/23 12:55 Blood Culture (Wb) - Venous Blood Culture - Final No growth in 5 days. 04/18/23 12:40 Blood Culture (Wb) - Venous Blood Culture - Final No growth in 5 days. 04/20/23 20:17 Blood Culture (Wb) - Pic Blood Culture - Preliminary No growth in 48 hours. 04/18/23 12:45 Urine Catheter - Catheter Urine Culture - Final Culture exhibits no growth. 04/18/23 16:35 Sputum, Tracheal Aspirate Gram Stain - Final 04/18/23 16:35 Sputum, Tracheal Aspirate Respiratory Culture - Final Streptococcus group C Pharmacy Plan for Drug Dosing Pharmacy Plan for Drug Dosing: DAILY ASSESSMENT Current Vancomycin Dose: Dosing per HD schedule Number of Doses Received: Initial dose 1000mg IV x1 ordered & administered 04/24 @0910 Current Renal Function: On HD- no set schedule established at this time Renal Function Trend: on HD. Plan is for HD today, 04/25/23 Lab/Micro: BCx NG x48hr Any Change in Vanc Plan: Patient will get 500mg IV x1 post HD treatment today Pending Level: None scheduled at this time. Will have to follow daily to see when next HD session will be. Patient will be due for a trough prior to next HD session to determine what dosing pt should get. Pharmacy Service will continue to monitor and adjust dosing as required.
[2023-04-25 07:02] LABS: Metamyelocyte 2 % (0-1); Neutrophil-Band 2 % (0-5); Neutrophil-Segmented 63 % (47-70); Total Cells Counted 100 (MANUAL DIFF)
[2023-04-25 07:03] LABS: Atypical Lymphocyte 2+ %; Differential Comment SCANNED; Eosinophil 8 % (0-5); Lymphocyte 16 % (19-41); Monocyte 7 % (0-10); Myelocyte 2 % (0-0)
[2023-04-25 07:06] LABS: Toxic Granulation RARE
[2023-04-25 07:11] LABS: Absolute Lymphocyte Count 2.59 X10^3/uL (0.83-4.51); Absolute Neutrophil Count 10.5 X10^3/uL (2.0-7.7)
[2023-04-25] MEDS: PureFlow B 2K Dialysis Soln 1 BAG 6 BAG PF (07:24)
[2023-04-25] MEDS: 0.9% Normal Saline 1,000 ML IV.SOLN. 1000 ML OPERA.SITE (07:24)
[2023-04-25] MEDS: 0.9% Saline Lock 10 ML Syringe IV ×3 (07:24→11:36)
--- NOTE | 2023-04-25 08:59 | PCM.PN.INT ---
Assessment & Plan Assessment/Plan (1) Encephalopathy: (2) Acute respiratory failure: QUALIFIERS: Respiratory failure complication: hypoxia Qualified Code(s): J96.01 - Acute respiratory failure with hypoxia PLAN: Plan RECOMMENDATIONS: 1. He remains on room air in no acute respiratory distress 2. Cont vanc for possible cellulitis 3. He is undergoing HD this AM with plans for 3 L to be removed. He remains anuric. He may need a tunneled dialysis catheter if his kidney function doesn't improve. SW is onboard, pt has hx of drug abuse which may complicate his discharge plan with an HD catheter 4. liver enzymes are improving, hepatits panel is negative 5. PT OT 6. tolerating diet 7. DVT prophylaxis subcu heparin Lines: abbey torrez Dc'bridget 04/24 OK for transfer to PCU IMPRESSIONS: 1. Encephalopathy Most likely secondary to acute drug overdose with questionable anoxic insult. MRI brain did reveal some ischemic changes, He was extubated this morning improved mental status. Can't be started on statins given liver injury. 2. Acute respiratory failure The patient was initially intubated in the emergency department after being found down unresponsive at home. Extubated to RA on 04/23. 3. Acute kidney injury/hyperkalemia/rhabdomyolysis Most likely prerenal in etiology in the setting of #1. Nephrology is currently following to assist with hemodialysis needs. 4. NSTEMI Most likely secondary to demand ischemia. Echocardiogram revealed intact systolic function. Cardiology is following to assist with medical management. He completed Heparin ggt. Concern for mass in RA, SUZIE was not feasible, repeat TTE was WNL. 5. Sepsis The patient presented with sepsis due to possible aspiration pneumonia with acute sepsis related organ dysfunction as evidenced by lactic acidemia, acute kidney injury and respiratory failure, requiring invasive mechanical ventilatory support. Antibiotics per ID. 6. Transaminitis Secondary to rhabdomyolysis. Hepatitis panel is negative. Ultrasound of liver was negative for acute process Subjective Subjective No acute events. Pt undergoing HD this AM. Objective Data Objective Data Vital Signs: Vital Signs Temp Pulse Resp BP Pulse Ox O2 Del Method O2 Flow Rate 36.4 C L 79 15 114/65 96 Room Air 35 04/25/23 07:00 04/25/23 08:43 04/25/23 08:43 04/25/23 08:43 04/25/23 08:43 04/25/23 08:43 04/21/23 13:00 FiO2 21 04/23/23 07:00 Oxygen Flow Rate (L/min) 35 Oxygen Delivery Method Room Air Weight: 65.9 kg Body Mass Index (BMI) 22.1 Intake & Output: Intake and Output for Last 24 Hours 04/23/23 04/24/23 04/25/23 23:59 23:59 23:59 Intake Total 1494.29 / 1494.29 2069 120 / 120 Output Total 40 / 40 45 / 45 Balance 1454.29 / 1454.29 2024 120 / 120 Lab / Micro Data 04/25/23 06:00 04/25/23 06:00 Labs: Laboratory Results - last 24 hr 04/24/23 09:00: Uric Acid 8.5 H, Total Creatine Kinase 95025 H 04/25/23 06:00: WBC 16.2 H, RBC 3.70 L, Hgb 11.0 L, Hct 32.1 L, MCV 86.8, MCH 29.7, MCHC 34.3, RDW Std Deviation 40.7, RDW Coeff of Merrick 13.1, Plt Count 149 L, MPV 11.8, Neut % (Auto) Not Reportable, Absolute Neuts (auto) 10.5 H, Absolute Lymphs (auto) 2.59, Total Counted 100, Neutrophils % (Manual) 63, Band Neutrophils % 2, Lymphocytes % (Manual) 16 L, Monocytes % (Manual) 7, Eosinophils % (Manual) 8 H, Metamyelocytes % 2 H, Myelocytes % 2 H, Differential Comment SCANNED, Diff Path Review May foll, Atypical Lymphocytes 2+, Toxic Granulation RARE, Sodium 129 L, Potassium 5.4 H, Chloride 96 L, Carbon Dioxide 20.0 L, Anion Gap 13, BUN 139 H*, Creatinine 11.00 H*, Estim Creat Clear Calc 9.24, Est GFR (MDRD) Af Amer 7 L, Est GFR (MDRD) Non-Af 6 L, BUN/Creatinine Ratio 12.6, Glucose 104, Calcium 7.7 L, Total Bilirubin 0.60, AST 709 H, ALT 372 H, Alkaline Phosphatase 48, Total Protein 4.6 L, Albumin 2.0 L, Globulin 2.6, Albumin/Globulin Ratio 0.8 L Micro: Microbiology 04/18/23 12:55 Blood Culture (Wb) - Venous Blood Culture - Final No growth in 5 days. 04/18/23 12:40 Blood Culture (Wb) - Venous Blood Culture - Final No growth in 5 days. 04/20/23 20:17 Blood Culture (Wb) - Pic Blood Culture - Preliminary No growth in 48 hours. 04/18/23 12:45 Urine Catheter - Catheter Urine Culture - Final Culture exhibits no growth. 04/18/23 16:35 Sputum, Tracheal Aspirate Gram Stain - Final 04/18/23 16:35 Sputum, Tracheal Aspirate Respiratory Culture - Final Streptococcus group C Physical Exam Narrative General alert oriented in no acute distress HEENT. Normocephalic atraumatic, pupils equal and reactive Respiratory equal air entry bilaterally no wheezing Cardiac S1-S2, regular rate and rhythm GI abdomen soft and nontender MSK Right calf pain and tenderness. Skin is warm and erythematous Neuro moves all extremities, no dysarthria, no facial droop Charges/Coding Visit Charges Inpatient E&M: 78454 Subs Hosp L3
--- NOTE | 2023-04-25 10:05 | VDLE_ITS ---
Reason For Study: Right leg swelling RIGHT LEFT GSV is normal. CFV is compressible, spontaneous, phasic, T/P Trunk is compressible. competent, and demonstrates normal PTV is compressible. augmentation. RT PerV is compressible. CFV is compressible, countinuous high resistive flow, competent and demonstrates normal augmentation. FV is compressible, countinuous high resistive flow, competent and demonstrates normal augmentation. POP V is compressible, competent and demonstrates normal augmentation. EIV has countinuous high resistive flow. EIA, 133.1 cm/sec, artery is low resistive. TUGGER OPERATOR, 151.6 cm/sec, artery is low resistive. SFA prox, 150.6 cm/sec, artery is low resistive. Procedure This is a venous duplex using B-mode, color flow and spectral Doppler. Exam performed portable in ICU/CCU. A preliminary report was called and/or faxed to ICU. VL/Venous Duplex US, Unilateral Interpretation Summary Deep veins of the right lower extremity are patent and compressible segmentally . There is no evidence of right lower extremity deep vein thrombosis. The right great sapheno us vein appears patent and compressible segmentally. High resistance venous waveforms indicating possible central obstruction. Ordering Physician: Christine Mancini Performed By: Gudelia Kim RVT
--- NOTE | 2023-04-25 10:08 | PCM.PN.REN ---
Subjective Subjective Seen and examined during dialysis. Alert. Mother at bedside. Denies any complaints except for swelling right leg and right arm. Objective Data Objective Data Vital Signs: Vital Signs Temp Pulse Resp BP Pulse Ox O2 Del Method O2 Flow Rate 97.6 F L 88 17 96/49 L 100 Room Air 35 04/25/23 07:00 04/25/23 10:00 04/25/23 09:45 04/25/23 10:00 04/25/23 09:14 04/25/23 09:45 04/21/23 13:00 FiO2 21 04/23/23 07:00 Oxygen Flow Rate (L/min) 35 Oxygen Delivery Method Room Air Weight: 65.9 kg Body Mass Index (BMI) 22.1 Intake & Output: Intake and Output for Last 24 Hours 04/23/23 04/24/23 04/25/23 23:59 23:59 23:59 Intake Total 1494.29 / 1494.29 2069 / 2069 120 / 120 Output Total 40 / 40 45 / 45 Balance 1454.29 / 1454.29 2024 / 2024 120 / 120 Lab / Micro Data 04/25/23 06:00 04/25/23 06:00 Labs: Laboratory Results - last 24 hr 04/24/23 09:00: Uric Acid 8.5 H, Total Creatine Kinase 66024 H 04/25/23 06:00: WBC 16.2 H, RBC 3.70 L, Hgb 11.0 L, Hct 32.1 L, MCV 86.8, MCH 29.7, MCHC 34.3, RDW Std Deviation 40.7, RDW Coeff of Merrick 13.1, Plt Count 149 L, MPV 11.8, Neut % (Auto) Not Reportable, Absolute Neuts (auto) 10.5 H, Absolute Lymphs (auto) 2.59, Total Counted 100, Neutrophils % (Manual) 63, Band Neutrophils % 2, Lymphocytes % (Manual) 16 L, Monocytes % (Manual) 7, Eosinophils % (Manual) 8 H, Metamyelocytes % 2 H, Myelocytes % 2 H, Differential Comment SCANNED, Diff Path Review May foll, Atypical Lymphocytes 2+, Toxic Granulation RARE, Sodium 129 L, Potassium 5.4 H, Chloride 96 L, Carbon Dioxide 20.0 L, Anion Gap 13, BUN 139 H*, Creatinine 11.00 H*, Estim Creat Clear Calc 9.24, Est GFR (MDRD) Af Amer 7 L, Est GFR (MDRD) Non-Af 6 L, BUN/Creatinine Ratio 12.6, Glucose 104, Calcium 7.7 L, Total Bilirubin 0.60, AST 709 H, ALT 372 H, Alkaline Phosphatase 48, Total Protein 4.6 L, Albumin 2.0 L, Globulin 2.6, Albumin/Globulin Ratio 0.8 L Micro: Microbiology 04/18/23 12:55 Blood Culture (Wb) - Venous Blood Culture - Final No growth in 5 days. 04/18/23 12:40 Blood Culture (Wb) - Venous Blood Culture - Final No growth in 5 days. 04/20/23 20:17 Blood Culture (Wb) - Pic Blood Culture - Preliminary No growth in 48 hours. 04/18/23 12:45 Urine Catheter - Catheter Urine Culture - Final Culture exhibits no growth. 04/18/23 16:35 Sputum, Tracheal Aspirate Gram Stain - Final 04/18/23 16:35 Sputum, Tracheal Aspirate Respiratory Culture - Final Streptococcus group C Physical Exam Narrative no obvious distress, alert and oriented s1s2 no murmurs lungs clear abdomen soft no pitting edema left leg or arm. Edema right leg and arm. right IJ temporary HD catheter accessed for dialysis Assessment & Plan Assessment/Plan (1) Acute kidney injury: PLAN: Anuric GREGORY secondary to ATN and rhabdo. Patient initiated on hemodialysis on 04/19 (K+ 6.8, Cr 3.4). Creatinine increasing, up to 11.00 mg/dL today, patient to undergo dialysis today over 4 hours and attempt around 1 to 2 L fluid removal as patient/blood pressure tolerates. Likely patient will need dialysis outside of hospital. HD to be arranged at kidney center near his home ([facility]). When cleared by infectious disease patient will need tunneled HD catheter placed. Hyperkalemia. To dialyze on 2K bath today Rhabdomyolysis. Due to prolonged immobilization. CPK levels are improving. He is anuric now. IV fluids have been discontinued. Edema right arm and right leg,Venous ultrasound no evidence of DVT. possible mass/vegetation on echo. blood cultures to date negative. Antibiotics per ID, has been on Vanco and meropenem.
[2023-04-25] MEDS: Heparin 10,000 UNITS/10 ML Vial IV (10:44)
[2023-04-25 11:42] LABS: BUN 94 mg/dL (7-18)
--- NOTE | 2023-04-25 13:07 | PCM.PN.ID ---
Physical Exam Narrative Off vent, feeling ok, no fever. RLE mildly sore. Const alert and no apparent distress General Appearance: cooperative Resp normal air movement and clear to auscultation bilaterally Cardio regular rate and regular rhythm GI soft to palpation, non-tender and non-distended Skin no rashes or lesions noted Skin Narrative: RLE and RUE edema, mild soreness ID ID: Route of nutrition/ use of supplements: [] Nutritional Intake: [] IV Site: [] Allison Catheter: [] Assessment & Plan Assessment/Plan (1) Encephalopathy: PLAN: Possible atrial mass/veg seen on TTE. Unable to do SUZIE, repeat SUZIE showed eustachian valve. Bcx neg so far. On empiric vanc/jorge. H/o PCN allergy. On jorge for suspected aspiration. IVDU - neg hiv, pending hep panel RUE and RLE swelling - neg doppler u/s of R side. No redness today, but mild soreness. Will follow (2) Acute kidney injury: (3) Acute respiratory failure: QUALIFIERS: Respiratory failure complication: hypoxia Qualified Code(s): J96.01 - Acute respiratory failure with hypoxia (4) History of drug abuse:
[2023-04-25 17:07] LABS: Heparin-Induced Plt Ab 0.052 OD (0.000-0.400)
[2023-04-25] MEDS: Vancomycin IV 500 MG/100 ML BAG 100 MG IV (17:16)
--- NOTE | 2023-04-25 17:51 | PN.HOSP_ITS ---
Reason for Visit Reason for Visit: Unresponsive Subjective Subjective Patient is a 27-year-old male who presented to the emergency department on 04/18/2023 after being found unresponsive. He had a known history of IV drug use and was found facedown on the floor at his residence. EMS gave him 4 doses of Narcan with no response. On arrival to the emergency department he was found to be in a decorticate posturing and his Chloe Coma Scale was 3. He was intu bated in the emergency department and admitted to the ICU. Vital signs on presentation were overall unremarkable. CBC showed a white count of 23,000 and hemoglobin of 15.4. His chemistry showed a sodium of 133 with a potassium of 6.8 and a serum bicarb of 14. Serum creatinine was 2.8 and his anion gap was 18. Lactic acid was 4.7 and he had shock liver with AST of 388 and an ALT of 231. CPK was found to be 10,960 and his urinalysis showed 2+ bacteria. CT of the brain was unremarkable. He was started on broad-spectrum antibiotics after cultures were obtained and admitted to the ICU. An echocardiogram was done on the day of presentation showed an EF of 65 to 70% with a moderate size echogenic mass attached to the right atrium, unremarkable tricuspid valve. ICU was consulted as well as nephrology. Renal ultrasound was also performed due to his GREGORY due to rhabdomyolysis and showed echogenic kidneys indicative of renal medical disease but no hydronephrosis. An MRI of his brain was performed on 04/20/2023 that showed acute ischemia in the internal capsules and deep parietal white matter consistent with anoxia but was otherwise unremarkable. Liver ultrasound was done for liver enzyme elevation and demonstrated gallbladder sludge, small amount of perihepatic fluid and increased echotexture of the kidneys as noted previously. Venous Dopplers were performed on 04 20 and was unre markable for clot. Repeated Dopplers were done for right lower extremity swelling today and again remained unremarkable. Initial blood cultures were negative and repeat blood cultures were performed and remained negative. He was maintained empirically on vancomycin and meropenem due to history of penicillin allergy. We did obtain HIV and hepatitis studies and they were all negative. A SUZIE was unable to be performed. He did ultimately require initiation of dialysis and a temporary IJ dialysis catheter was placed by the journeyman operator assistant on 04/19/2023. He has tolerated dialysis well. His troponin did rise and it was felt likely due to demand ischemia as his echocardiogram was unremarkable. C ardiology was following but has since signed off. It was felt that sepsis was present on presentation and was likely related to aspiration pneumonia. Sputum culture is growing group see strep at this point. Antibiotics have been weaned to meropenem by infectious disease. Patient was able to be extubated on 04/23/2023 and has been transitioned to an oral diet without difficulty. He has since been cleared for placement of a tunneled dialysis catheter until there is hopeful return of renal function. Patient currently is complaining only of right lower extremity pain and swelling which is likely related to his rhabdomyolysis and there are no current signs of compartment syndrome. Objective Data Objective Data Vital Signs: Vital Signs Temp Pulse Resp BP Pulse Ox O2 Del Method O2 Flow Rate 98.2 F 90 15 123/56 H 100 Room Air 35 04/25/23 16:00 04/25/23 17:00 04/25/23 17:00 04/25/23 17:00 04/25/23 17:00 04/25/23 17:00 04/21/23 13:00 FiO2 21 04/23/23 07:00 Oxygen Flow Rate (L/min) 35 Oxygen Delivery Method Room Air Weight: 63.9 kg Body Mass Index (BMI) 21.3 Intake & Output: Intake and Output for Last 24 Hours 04/23/23 04/24/23 04/25/23 23:59 23:59 23:59 Intake Total 1494.29 / 1494.29 2069 1035.25 / 1035.25 Output Total 40 / 40 45 / 45 1999 Balance 1454.29 / 1454.29 2024 -964.75 / -964.75 Lab / Micro Data 04/25/23 06:00 04/25/23 Unknown Labs: Laboratory Results - last 24 hr 04/22/23 13:55: Heparin-induced Plt Ab 0.052 04/25/23 06:00: WBC 16.2 H, RBC 3.70 L, Hgb 11.0 L, Hct 32.1 L, MCV 86.8, MCH 29.7, MCHC 34.3, RDW Std Deviation 40.7, RDW Coeff of Merrick 13.1, Plt Count 149 L, MPV 11.8, Neut % (Auto) Not Reportable, Absolute Neuts (auto) 10.5 H, Absolute Lymphs (auto) 2.59, Total Counted 100, Neutrophils % (Manual) 63, Band Neutrophils % 2, Lymphocytes % (Manual) 16 L, Monocytes % (Manual) 7, Eosinophils % (Manual) 8 H, Metamyelocytes % 2 H, Myelocytes % 2 H, Differential Comment SCANNED, Diff Path Review May foll, Atypical Lymphocytes 2+, Toxic Granulation RARE, Sodium 129 L, Potassium 5.4 H, Chloride 96 L, Carbon Dioxide 20.0 L, Anion Gap 13, BUN 139 H*, Creatinine 11.00 H*, Estim Creat Clear Calc 9.24, Est GFR (MDRD) Af Amer 7 L, Est GFR (MDRD) Non-Af 6 L, BUN/Creatinine Rati o 12.6, Glucose 104, Calcium 7.7 L, Total Bilirubin 0.60, AST 709 H, ALT 372 H, Alkaline Phosphatase 48, Total Protein 4.6 L, Albumin 2.0 L, Globulin 2.6, Albumin/Globulin Ratio 0.8 L 04/25/23 : BUN 94 H Micro: Microbiology 04/18/23 12:55 Blood Culture (Wb) - Venous Blood Culture - Final No growth in 5 days. 04/18/23 12:40 Blood Culture (Wb) - Venous Blood Culture - Final No growth in 5 days. 04/20/23 20:17 Blood Culture (Wb) - Pic Blood Culture - Preliminary No growth in 48 hours. 04/18/23 12:45 Urine Catheter - Catheter Urine Culture - Final Culture exhibits no growth. 04/18/23 16:35 Sputum, Tracheal Aspirate Gram Stain - Final 04/18/23 16:35 Sputum, Tracheal Aspirate Respiratory Culture - Final Streptococcus group C Radiography Diagnostic Testing: Radiology Impression Venous Doppler Study 04/25/23 10:05 Interpretation Summary Deep veins of the right lower extremity are patent and compressible segmentally. There is no evidence of right lower extremity deep vein thrombosis. The right great saphenous vein appears patent and compressible segmentally. High resistance venous waveforms indicating possible central obstruction. Ordering Physician: Christine Mancini Performed By: Gudelia Kim RVT Assessment & Plan Assessment/Plan (1) NSTEMI (non-ST elevated myocardial infarction): (2) Acute respiratory failure: QUALIFIERS: Respiratory failure complication: hypoxia Qualified Code(s): J96.01 - Acute respiratory failure with hypoxia (3) Encephalopathy: (4) Acute kidney injury: (5) Sepsis syndrome: (6) Rhabdomyolysis: (7) Leukocytosis: (8) Thrombocytopenia: PLAN: Plan Acute hypoxic respiratory failure secondary to narcotic overdose -Intubated on presentation -Extubated on 04/23/2023 -Currently on room air -Tolerating oral diet without difficulty Acute encephalopathy secondary to the above -Resolved -Patient does have evidence of anoxia on his MRI -Continue to monitor clinically GREGORY secondary to ischemic ATN/rhabdomyolysis -Temporary dialysis catheter placed on 04/19/2023 -Per discussion with nephrology will need tunneled catheter placement -Okay per infectious disease for tunneled dialysis catheter placement at this time -Discussed case with general surgery and they would like to follow his white count prior to placing this -N.p.o. at midnight and reevaluate CBC in a.m. for possible tunneled dialysis placement tomorrow depending on white count -No further need to follow CPK as they are trending down and he is on dialysis -Continue dialysis per nephrology Sepsis secondary to Group C strep pneumonia -Likely related to aspiration with acute event -ID is following -Appreciate input -TTE was suggestive of possible echogenic mass in the right atrium and tricuspid valve appeared unremarkable -Patient was resistant to SUZIE and cardiology did not want to do this why he was intubated -Repeat blood cultures drawn are negative thus far -Vancomycin discontinued on 04/23/2023 and patient remains on IV meropenem per ID 8 recommendations Acute ischemic hepatitis secondary to the above -Improving and liver enzymes continue to trend down with dramatic improvement in AST in the last 24 hours Thrombocytopenia -Mild -Likely related to acute process he -We will continue to monitor as this is mild with a platelet count of 149,000 currently -Overall improving Leukocytosis -Slowly trending up however seems to fluctuate -Cultures all remain unremarkable at this time -We will continue to monitor with repeat CBC in the a.m. History of IVDU -HIV and hepatitis are unremarkable -Toxicology screen on presentation showed amphetamines, ecstasy, cocaine, and cannabis, -Admitted to fentanyl use which would not show up on toxicology screen DVT prophylaxis -We will hold heparin tonight for possible tunneled dialysis catheter tomorrow CODE STATUS Full code Charges/Coding Visit Charges Inpatient E&M: 72749 Subs Hosp L2
--- NOTE | 2023-04-25 17:53 | CASEMGMT ---
JORDEN ALMONTE NOTE: Per Liana/PLATE ROLLER, nephrology, plan is for pt to have tunnelled cath placed once cleared by ID and OP HD referral to be initiated. JORDEN ALMONTE to room. Pt states he plans to discharge to his moms home in [place] @ d/c. Pt denies having preference of OP HD company and gave JORDEN ALMONTE permission to contact his mom to discuss. Call placed to pt's mom. She states she wants an HD center near her home, stating there is a dialysis center right up the street on [address], but is not sure if it is [facility] or [facility]. JORDEN ALMONTE checked on locations and both are on [address]. [facility] is 5 min away. [facility] is 7 min away. Mother made aware. She states to go with the one w/highest star-rating. Per Medicare.gov, [facility] is 5-star and [facility] is 4-star. Referral faxed to [facility] at this time. Confirmation received that fax went through successfully. Trish PAYNE RN CM
--- NOTE | 2023-04-25 21:35 | EX.PCM.CON.S ---
Assessment & Plan Assessment/Plan (1) Acute kidney injury: (2) Leukocytosis: (3) NSTEMI (non-ST elevated myocardial infarction): (4) Thrombocytopenia: (5) History of drug abuse: (6) Localized swelling of right upper extremity: PLAN: Plan Discussed with patient will not plan to place a tunneled dialysis catheter as this is a more permanent catheter with a white blood cell count still increasing. Would recommend continued use of temporary until leukocytosis has improved/resolved. Patient's Dopplers of the right upper extremity did note heterogeneous mass over the right bicep. 2.3 x 1.5 cm. Recommend ultrasound of this area to take further look. Nneka Zheng M.D. Pager: [phone] [facility] [address] [place] [address], [facility], [address] [place] [address] Office: [phone] HPI Consult Data Date of Consult: 04/26/23 HPI Narrative HPI Narrative: LIZ WHITNEY, is a 27 M who after being found down on 04/18 admitted to ICU. Patient was found to have acute kidney injury and dialysis line was placed by nephrology. Request for tunneled dialysis catheter. Patient's white blood cell count yesterday was 12 today it is 16. Infectious disease also consulted and following?patient is on empiric Vanco/jorge for possible aspiration. Patient does have a history of IV drug use states usually injects into his left AC. [facility] Medical History NSTEMI (non-ST elevated myocardial infarction) Medical History unable to obtain Home Medications naproxen 500 mg tablet 500 mg PO BID PRN #20 tabs 09/30/16 [Rx Last Taken Unknown] sulfamethoxazole 800 mg-trimethoprim 160 mg tablet 1 tab PO BID ##13 09/30/16 [Rx Last Taken Unknown] Allergy/AdvReac Type Severity Reaction Status Date / Time acetaminophen [From [place]] Allergy Swelling Verified 09/30/16 04:48 cephalexin [From [place]] Allergy Hives Verified 09/30/16 04:48 hydrocodone [From [place]] Allergy Swelling Verified 09/30/16 04:48 Penicillins Allergy Itching Verified 09/30/16 04:48 Family History unable to obtain Surgical History unable to obtain Social History Smoking Status: Current every day smoker tobacco type: cigarettes ROS Constitutional Constitutional: Denies anorexia Eyes Eyes: Denies loss of central vision ENT HEENT: Denies dysphagia Cardiovascular Cardiovascular: Denies chest pain Respiratory/Chest Respiratory/Chest: Denies cough Gastrointestinal Gastrointestinal: Denies abdominal pain, nausea or vomiting Genitourinary Genitourinary: Denies dysuria Musculoskeletal Musculoskeletal: Denies back pain Integumentary Integumentary: Denies jaundice Neurologic Neurologic: Denies focal weakness Psychiatric Psychiatric: Denies anxiety Endocrine Endocrinology: Denies palpitations Hematologic/Lymphatic Hematologic/Lymphatic: Denies easy bleeding Physical Exam Narrative Temporary right IJ dialysis catheter in place Const alert, oriented x3 and no apparent distress Neck supple Resp normal respiratory effort Cardio Rate: regular rate GI soft to palpation, non-tender and non-distended Extremity Extremity Narrative: Right upper and lower extremity are enlarged compared to the left side. Dopplers were done and negative. Patient's right bicep has a firm area of induration below his skin tear which was dressed with 4 x 4's and tape. Skin No no jaundice Neuro CN's II-XII intact bilaterally Psych mental status grossly normal Lab / Micro Data 04/26/23 06:33 04/26/23 06:33 Labs: Laboratory Results - last 24 hr 04/21/23 03:40: Hepatitis A IgM Ab , Hep Bs Antigen Not Reportable, Hep B Core IgM Ab Not Reportable, Hepatitis C Ab (EIA) Not Reportable 04/22/23 13:55: Heparin-induced Plt Ab 0.052 04/25/23 06:00: WBC 16.2 H, RBC 3.70 L, Hgb 11.0 L, Hct 32.1 L, MCV 86.8, MCH 29.7, MCHC 34.3, RDW Std Deviation 40.7, RDW Coeff of Merrick 13.1, Plt Count 149 L, MPV 11.8, Neut % (Auto) Not Reportable, Absolute Neuts (auto) 10.5 H, Absolute Lymphs (auto) 2.59, Total Counted 100, Neutrophils % (Manual) 63, Band Neutrophils % 2, Lymphocytes % (Manual) 16 L, Monocytes % (Manual) 7, Eosinophils % (Manual) 8 H, Metamyelocytes % 2 H, Myelocytes % 2 H, Differential Comment SCANNED, Diff Path Review May foll, Atypical Lymphocytes 2+, Toxic Granulation RARE, Sodium 129 L, Potassium 5.4 H, Chloride 96 L, Carbon Dioxide 20.0 L, Anion Gap 13, BUN 139 H*, Creatinine 11.00 H*, Estim Creat Clear Calc 9.24, Est GFR (MDRD) Af Amer 7 L, Est GFR (MDRD) Non-Af 6 L, BUN/Creatinine Ratio 12.6, Glucose 104, Calcium 7.7 L, Total Bilirubin 0.60, AST 709 H, ALT 372 H, Alkaline Phosphatase 48, Total Protein 4.6 L, Albumin 2.0 L, Globulin 2.6, Albumin/Globulin Ratio 0.8 L 04/25/23 : BUN 94 H Radiology Impression Venous Doppler Study 04/25/23 10:05 Interpretation Summary Deep veins of the right lower extremity are patent and compressible segmentally. There is no evidence of right lower extremity deep vein thrombosis. The right great saphenous vein appears patent and compressible segmentally. High resistance venous waveforms indicating possible central obstruction. Ordering Physician: Christine Mancini Performed By: Gudelia Kim RVT Charges/Coding Visit Charges Inpatient E&M: 59204 Init Hosp L3
[2023-04-26] VITALS: BP 114/62; PULSE 74; PULSE 81; RESP 18; TEMP 36.6; O2SAT 98
--- NOTE | 2023-04-26 00:01 | VDUE_ITS ---
Reason For Study: RUE Swelling Right Proximal Left Proximal Right jugular vein is spontaneous, widely Left subclavian vein is spontaneous, widely patent, phasic, with no intraluminal patent, phasic, with no intraluminal echogenicity noted. echogenicity noted. Right subclavian vein is spontaneous, widely patent, phasic, with no intraluminal echogenicity noted. Right Lower Arm Right radial vein is compressible. Right ulnar vein is compressible. Right Arm Right axillary vein is spontaneous, patent, phasic, competent, compressible and demonstrates augmentation. Right brachial vein is compressible. Right cephalic vein is compressible. Right basilic vein is compressible. non vascularized heterogenous mass measuring approximately 2.24cm x 1.34cm is noted mid RT bicep. Patient Safety Preliminary result delivered to PCU special agent in charge. VL/Venous Duplex US, Unilateral Interpretation Summary Deep veins of the right upper extremity are patent and compressible segmentally . There is no evidence of deep vein thrombosis. Superficial veins of the right upper extremity are patent and compressible segm entally. There is no evidence of superficial vein thrombosis. Non vascularized heterogenous mass measuring approximately 2.24cm x 1.34cm is n oted mid right bicep. Ordering Physician: Nneka Zhegn Referring Physician: Christine Mancini Performed By: Patric Sotomayor RVT ???
[2023-04-26 03:00] VITALS: BP 129/64; PULSE 86; RESP 16; TEMP 36.6; O2SAT 96
[2023-04-26 03:38] VITALS: BMI 22.3
--- NOTE | 2023-04-26 04:38 | US_ITS ---
STUDY: SUPERFICIAL ULTRASOUND - PALPABLE LUMP IN THE RIGHT BICEPS. REASON FOR EXAM: Male, 27 years old. Right bicep swelling/mass TECHNIQUE: A superficial ultrasound was performed with real-time and static espinosa-scale imaging. COMPARISON: None. FINDINGS: The palpable abnormality corresponds to a 2.6 cm x 1.6 x 1.4 cm heterogeneous hypoechoic solid nodule. This is deep to the overlying open wound. This may represent a possible resolving hematoma. Tissue diagnosis is recommended. US/Ext Non Vasc Limited/Soft Tiss IMPRESSION: Palpable abnormality corresponds to a 2.6 cm x 1.69 x 1.4 cm heterogeneous hypoechoic solid nodular density deep to the skin surface. Differential diagnosis should include probable resolving hematoma. Tissue diagnosis is recommended. Electronically Signed: Art Kelly MD at 10:17 EDT ,
[2023-04-26] MEDS: oxyCODONE 5 MG Tablet PO ×3 (05:49→18:57)
[2023-04-26 06:45] LABS: Hematocrit 37.2 % (40-54); Hemoglobin 12.3 g/dL (13.0-16.5); Mean Corp Hgb Conc 33.1 g/dL (32-36); Mean Corpuscular Hgb 29.6 pg (27.0-32.0); Mean Corpuscular Volume 89.4 fL (80-94); Mean Platelet Vol. 11.6 fl (6.2-12.0); POSITIVE COUNT YES; POSITIVE DIFFERENTIAL YES; POSITIVE MORPHOLOGY YES; Platelet Count 179 K/mm3 (150-450); RBC Distribution Width CV 13.4 % (11.6-14.6); RBC Distribution Width SD 43.5 fl (35.1-43.9); Red Blood Count 4.16 M/mm3 (4.6-6.2); White Blood Count 16.3 K/mm3 (4.4-11.0)
[2023-04-26 06:50] LABS: Differential Indicated MANUAL DIFF
[2023-04-26 07:25] LABS: Lymphocyte 10 % (19-41); Metamyelocyte 2 % (0-1); Monocyte 7 % (0-10); Myelocyte 7 % (0-0); Neutrophil-Band 2 % (0-5); Neutrophil-Segmented 64 % (47-70); Total Cells Counted 100 (MANUAL DIFF)
[2023-04-26 07:26] LABS: Absolute Lymphocyte Count 0.26 X10^3/uL (0.83-4.51); Absolute Neutrophil Count 10.7 X10^3/uL (2.0-7.7); Eosinophil 8 % (0-5); Lymphocyte # 0.26 X10^3/ul (0.83-4.51); Neutrophil # 10.74 X10^3/uL (2.7-7.7); Platelet Estimate ADEQUATE (ADEQ); Red Cell Morphology NORM C+C NORMAL (NORM C&C)
[2023-04-26 07:49] LABS: ALB/GLOB Ratio 0.7 RATIO (0.9-2.4); AST(SGOT) 402 U/L (15-37); Alanine Aminotransfer ALT/SGPT 278 U/L (16-61); Alkaline Phosphatase 43 U/L (45-117); Anion Gap 9 (5-15); BUN 118 mg/dL (7-18); BUN/Creat Ratio 13.1 RATIO (10-20); Calcium,Total 7.8 mg/dL (8.5-10.1); Chloride 99 mmol/L (98-107); Creatinine, Serum 9.02 mg/dL (0.70-1.30); EST Glomerular Filtration Rate 7 mL/min (>60); Est Glom Filt Rate - Afr Amer 9 mL/min (>60); Estimated Creatinine Clearance 11.43 ml/min; Globulin 2.8 g/dL (2.2-4.2); Glucose 98 mg/dL (74-106); Phosphorus 5.2 mg/dL (2.5-4.9); Potassium 5.1 mmol/L (3.5-5.1); Protein, Total 4.8 g/dL (6.4-8.2); Sodium Level 129 mmol/L (136-145)
[2023-04-26 11:26] VITALS: BP 111/54; PULSE 85; RESP 16; TEMP 36.7; O2SAT 98
--- NOTE | 2023-04-26 12:22 | CT_ITS ---
STUDY: CT SCAN UPPER EXTREMITY RIGHT REASON FOR EXAM: Male, 27 years old. Palpable mass in the right upper extremity RADIATION DOSAGE (If Supplied By Facility): CTDIvol = ( 24.58 ) mGy, DLP = ( 996.98 ) mGycm. Individualized dose optimization techniques were used for this CT.? TECHNIQUE: Multiple axial tomographic images of the right upper extremity were obtained following IV contrast administration. COMPARISON: None. FINDINGS: There is a 5 cm x 6.5 cm heterogeneous enhancing mass in the region of the triceps muscle. With the patient''s history of IV drug abuser, this most likely represents phlegmon with abscess formation. There is also evidence of a focal area of heterogeneous enhancement in the soft tissues overlying the distal humerus measuring 3.2 cm x 5.4 cm. This is seen in the distal portion of the biceps muscle. This corresponds to the sonographic abnormality. This may represent a similar appearing abscess. No bony destruction is seen. CT/Extremity Upper WITH Contrast IMPRESSION: 5 cm x 6.5 cm heterogeneous enhancing mass in the region of the triceps muscle as well as in the soft tissues overlying the distal portion of the humerus suggestive of abscess formation. Electronically Signed: Art Kelly MD at 14:50 EDT ,
--- NOTE | 2023-04-26 13:45 | PCM.PN.REN ---
Subjective Subjective Resting in bed, father at bedside. No overnight events. Objective Data Objective Data Vital Signs: Vital Signs Temp Pulse Resp BP Pulse Ox O2 Del Method O2 Flow Rate 98.1 F 85 16 111/54 L 98 Room Air 35 04/26/23 11:26 04/26/23 11:04/26/23 11:04/26/23 11:04/26/23 11:04/26/23 11:04/21/23 13:00 FiO2 21 04/23/23 07:00 Oxygen Flow Rate (L/min) 35 Oxygen Delivery Method Room Air Weight: 66.9 kg Body Mass Index (BMI) 22.3 Intake & Output: Intake and Output for Last 24 Hours 04/24/23 04/25/23 04/26/23 23:59 23:59 23:59 Intake Total 2069 / 2069 1135.25 / 1235.25 270 / 270 Output Total 45 / 45 1999 / 1999 0 / 0 Balance 2024 / 2024 -864.75 / -764.75 270 / 270 Lab / Micro Data 04/26/23 06:33 04/26/23 06:33 Labs: Laboratory Results - last 24 hr 04/21/23 03:40: Hepatitis A IgM Ab , Hep Bs Antigen Not Reportable, Hep B Core IgM Ab Not Reportable, Hepatitis C Ab (EIA) Not Reportable 04/22/23 13:55: Heparin-induced Plt Ab 0.052 04/26/23 06:33: WBC 16.3 H, RBC 4.16 L, Hgb 12.3 L, Hct 37.2 L, MCV 89.4, MCH 29.6, MCHC 33.1, RDW Std Deviation 43.5, RDW Coeff of Merrick 13.4, Plt Count 179, MPV 11.6, Neut % (Auto) Not Reportable, Absolute Neuts (auto) 10.7 H, Absolute Lymphs (auto) 0.26 L, Total Counted 100, Neutrophils % (Manual) 64, Band Neutrophils % 2, Lymphocytes % (Manual) 10 L, Monocytes % (Manual) 7, Eosinophils % (Manual) 8 H, Metamyelocytes % 2 H, Myelocytes % 7 H, Diff Path Review May , Platelet Estimate ADEQUATE, RBC Morphology NORM C+C, Sodium 129 L, Potassium 5.1, Chloride 99, Carbon Dioxide 21.0, Anion Gap 9, BUN 118 H*, Creatinine 9.02 H*, Estim Creat Clear Calc 11.43, Est GFR (MDRD) Af Amer 9 L, Est GFR (MDRD) Non-Af 7 L, BUN/Creatinine Ratio 13.1, Glucose 98, Calcium 7.8 L, Phosphorus 5.2 H, Magnesium 3.0 H, Total Bilirubin 0.70, AST 402 H, ALT 278 H, Alkaline Phosphatase 43 L, Total Protein 4.8 L, Albumin 2.0 L, Globulin 2.8, Albumin/Globulin Ratio 0.7 L Micro: Microbiology 04/20/23 20:17 Blood Culture (Wb) - Pic Blood Culture - Final No growth in 5 days. 04/18/23 12:55 Blood Culture (Wb) - Venous Blood Culture - Final No growth in 5 days. 04/18/23 12:40 Blood Culture (Wb) - Venous Blood Culture - Final No growth in 5 days. 04/18/23 12:45 Urine Catheter - Catheter Urine Culture - Final Culture exhibits no growth. 04/18/23 16:35 Sputum, Tracheal Aspirate Gram Stain - Final 04/18/23 16:35 Sputum, Tracheal Aspirate Respiratory Culture - Final Streptococcus group C Radiography Diagnostic Testing: Radiology Impression Soft Tissue Ultrasound 04/26/23 04:38 IMPRESSION: Palpable abnormality corresponds to a 2.6 cm x 1.69 x 1.4 cm heterogeneous hypoechoic solid nodular density deep to the skin surface. Differential diagnosis should include probable resolving hematoma. Tissue diagnosis is recommended. Electronically Signed: Art Kelly MD at 10:17 EDT , Physical Exam Narrative no obvious distress, alert and oriented s1s2 no murmurs lungs clear abdomen soft no pitting edema left leg or arm. Edema right leg and arm. right IJ temporary HD catheter accessed for dialysis Assessment & Plan Assessment/Plan (1) Acute kidney injury: PLAN: Anuric GREGORY secondary to ATN and rhabdo. Patient initiated on hemodialysis on 04/19 (K+ 6.8, Cr 3.4). Creatinine increasing therefore underwent hemodialysis yesterday with fluid removal. 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 Likely plan for dialysis tomorrow. Creatinine continues to increase despite hemodialysis therefore patient will need dialysis outside of hospital. HD to be arranged at kidney center near his home ([facility]). White count 16.3 today. Blood cultures and urine culture no growth. On Vanco/meropenem. Patient has right IJ temporary HD catheter but line ran sluggish and was positional during last HD session. Appreciate surgery team consultation for eventual tunneled HD catheter placement. Rhabdomyolysis. Due to prolonged immobilization. CPK levels are improved. He is anuric now. IV fluids have been discontinued. Edema right arm and right leg, Venous ultrasound no evidence of DVT. Ultrasound right arm showed 2.6 cm solid nodular density; to have CT arm possible mass/vegetation on echo. blood cultures to date negative. Antibiotics per ID, has been on Vanco and meropenem.
[2023-04-26 15:16] VITALS: BP 147/78; PULSE 89; RESP 16; TEMP 36.7; O2SAT 100
--- NOTE | 2023-04-26 17:06 | PCM.PN.HOSP ---
Reason for Visit Reason for Visit: Unresponsiveness Objective Data Objective Data Vital Signs: Vital Signs Temp Pulse Resp BP Pulse Ox O2 Del Method O2 Flow Rate 98.1 F 89 16 147/78 H 100 Room Air 35 04/26/23 15:16 04/26/23 15:16 04/26/23 15:16 04/26/23 15:16 04/26/23 15:16 04/26/23 15:16 04/21/23 13:00 FiO2 21 04/23/23 07:00 Oxygen Flow Rate (L/min) 35 Oxygen Delivery Method Room Air Weight: 66.9 kg Body Mass Index (BMI) 22.3 Intake & Output: Intake and Output for Last 24 Hours 04/24/23 04/25/23 04/26/23 23:59 23:59 23:59 Intake Total 2069 1135.25 / 1235.25 270 / 270 Output Total 45 / 45 1999 0 / 0 Balance 2024 / 2024 -864.75 / -764.75 270 / 270 Lab / Micro Data 04/26/23 06:33 04/26/23 06:33 Labs: Laboratory Results - last 24 hr 04/21/23 03:40: Hepatitis A IgM Ab , Hep Bs Antigen Not Reportable, Hep B Core IgM Ab Not Reportable, Hepatitis C Ab (EIA) Not Reportable 04/22/23 13:55: Heparin-induced Plt Ab 0.052 04/26/23 06:33: WBC 16.3 H, RBC 4.16 L, Hgb 12.3 L, Hct 37.2 L, MCV 89.4, MCH 29.6, MCHC 33.1, RDW Std Deviation 43.5, RDW Coeff of Merrick 13.4, Plt Count 179, MPV 11.6, Neut % (Auto) Not Reportable, Absolute Neuts (auto) 10.7 H, Absolute Lymphs (auto) 0.26 L, Total Counted 100, Neutrophils % (Manual) 64, Band Neutrophils % 2, Lymphocytes % (Manual) 10 L, Monocytes % (Manual) 7, Eosinophils % (Manual) 8 H, Metamyelocytes % 2 H, Myelocytes % 7 H, Diff Path Review May , Platelet Estimate ADEQUATE, RBC Morphology NORM C+C, Sodium 129 L, Potassium 5.1, Chloride 99, Carbon Dioxide 21.0, Anion Gap 9, BUN 118 H*, Creatinine 9.02 H*, Estim Creat Clear Calc 11.43, Est GFR (MDRD) Af Amer 9 L, Est GFR (MDRD) Non-Af 7 L, BUN/Creatinine Ratio 13.1, Glucose 98, Calcium 7.8 L, Phosphorus 5.2 H, Magnesium 3.0 H, Total Bilirubin 0.70, AST 402 H, ALT 278 H, Alkaline Phosphatase 43 L, Total Protein 4.8 L, Albumin 2.0 L, Globulin 2.8, Albumin/Globulin Ratio 0.7 L Micro: Microbiology 04/20/23 20:17 Blood Culture (Wb) - Pic Blood Culture - Final No growth in 5 days. 04/18/23 12:55 Blood Culture (Wb) - Venous Blood Culture - Final No growth in 5 days. 04/18/23 12:40 Blood Culture (Wb) - Venous Blood Culture - Final No growth in 5 days. 04/18/23 12:45 Urine Catheter - Catheter Urine Culture - Final Culture exhibits no growth. 04/18/23 16:35 Sputum, Tracheal Aspirate Gram Stain - Final 04/18/23 16:35 Sputum, Tracheal Aspirate Respiratory Culture - Final Streptococcus group C Radiography Diagnostic Testing: Radiology Impression Soft Tissue Ultrasound 04/26/23 04:38 IMPRESSION: Palpable abnormality corresponds to a 2.6 cm x 1.69 x 1.4 cm heterogeneous hypoechoic solid nodular density deep to the skin surface. Differential diagnosis should include probable resolving hematoma. Tissue diagnosis is recommended. Electronically Signed: Art Kelly MD at 10:17 EDT , Upper Extremity CT 04/26/23 12:22 IMPRESSION: 5 cm x 6.5 cm heterogeneous enhancing mass in the region of the triceps muscle as well as in the soft tissues overlying the distal portion of the humerus suggestive of abscess formation. Electronically Signed: Art Kelly MD at 14:50 EDT , Physical Exam Narrative Seen and examined. The patient has fever Tmax 101.2 Fahrenheit. Patient is extubated on 04/23. Lip swelling but denies any sore throat. Patient tolerated regular diet. Complain of right lower leg pain and still swollen about 3 times more than left side. General: Awake, alert, oriented x3. HEENT: Atraumatic, PERRLA, EOMI, Normocephalic. Grossly visual equity looks normal, color perception normal. Oral: Intubated on ventilator. NG tube Neck: Right IJ temporary dialysis catheter. Supple, No JVD, Negative Carotid Bruits Lungs: Air entry diminished in bilateral lung bases. No crepitation/rhonchi Cardiovascular: Sinus tachycardia, Normal S1, Normal S2, No murmurs Abdomen: Bowel Sounds sluggish, Soft, Non Tender, Non-Distended : On hemodialysis. Allison catheter. Oliguria no renal angle tenderness. No suprapubic tenderness. Extremities: Bilateral lower and upper extremities dependent edema., Capillary Refill Less than 3 Seconds Skin: No rashes, No breakdown Musculoskeletal: No Tenderness to Palpation of Joints or Extremities. Moving his extremities Neurological: Moves extremities. Speech fluent. Passed nursing swallow test. Denies sensory changes Psych/Mental Status: Flat affect. Memory is good. Const Constitutional Narrative: Patient is sedated and on the ventilator at this time General Appearance: well kempt and well developed HEENT normocephalic and head/scalp atraumatic Eyes PERRL and conjunctivae normal Neck no lymphadenopathy, no JVD and thyroid normal General: trachea midline Resp normal respiratory effort, no retractions, no use of accessory muscles and clear to auscultation bilaterally Resp Narrative: Patient on mechanical ventilation Auscultation: Negative for rales, rhonchi or wheezes Cardio regular rate, regular rhythm, S1 normal heart sound, S2 normal heart sound, no murmurs, no rub and no gallops Cardio Narrative: tachycardic GI normal to inspection, nondistended, normoactive bowel sounds, soft to palpation, non-tender and non-distended Extremity normal to inspection and no clubbing, cyanosis or edema Extremity Narrative: as under skin Skin no rashes or lesions noted Skin Narrative: numerous superficial erythematous areas over forehead, elbows, ankles and heels as well as his knees. multiple tattoos over dorsum and extremities. General Skin Exam: no breakdown Neuro Neuro Narrative: Patient is sedated and on the ventilator Psych Psych Narrative: Patient is sedated and on the ventilator Assessment & Plan Assessment/Plan (1) NSTEMI (non-ST elevated myocardial infarction): (2) Acute respiratory failure: QUALIFIERS: Respiratory failure complication: hypoxia Qualified Code(s): J96.01 - Acute respiratory failure with hypoxia (3) Encephalopathy: (4) Acute kidney injury: (5) Sepsis syndrome: (6) Rhabdomyolysis: (7) Leukocytosis: (8) Thrombocytopenia: (9) Arm abscess: PLAN: Plan Acute hypoxic respiratory failure secondary to narcotic overdose -Intubated on presentation -Extubated on 04/23/2023 -Currently on room air -Tolerating oral diet without difficulty Acute encephalopathy secondary to the above -Resolved -Patient does have evidence of anoxia on his MRI -Continue to monitor clinically GREGORY secondary to ischemic ATN/rhabdomyolysis -Temporary dialysis catheter placed on 04/19/2023 -Per discussion with nephrology will need tunneled catheter placement -Okay per infectious disease for tunneled dialysis catheter placement at this time -Discussed case with general surgery and they would like to follow his white count prior to placing this -Placement to occur once general surgery feels he is medical stable for proceeding with this -No further need to follow CPK as they are trending down and he is on dialysis -Continue dialysis per nephrology Sepsis secondary to Group C strep pneumonia -Likely related to aspiration with acute event -ID is following -Appreciate input -TTE was suggestive of possible echogenic mass in the right atrium and tricuspid valve appeared unremarkable -Patient was resistant to SUZIE and cardiology did not want to do this why he was intubated -Repeat blood cultures are notable negative at 5 days -Vancomycin discontinued on 04/23/2023 and patient remains on IV meropenem per ID 8 recommendations Right arm abscess -Discussed findings on CT scan with general surgery and they will review it and either do an I&D or aspirated depending on appearance -Continue antibiotics as ordered -ID is following Acute ischemic hepatitis secondary to the above -Improving and liver enzymes continue to trend down with dramatic improvement in AST in the last 24 hours Thrombocytopenia -Resolved Leukocytosis -Stabilize around 16,000 -May be remaining elevated due to abscess noted on right upper arm -Cultures all remain unremarkable at this time -We will continue to monitor with repeat CBC in the a.m. History of IVDU -HIV and hepatitis are unremarkable -Toxicology screen on presentation showed amphetamines, ecstasy, cocaine, and cannabis, -Admitted to fentanyl use which would not show up on toxicology screen DVT prophylaxis -Restart subcu heparin CODE STATUS Full code Charges/Coding Visit Charges Inpatient E&M: 12141 Subs Hosp L2
[2023-04-26 21:23] VITALS: BP 137/61; PULSE 96; RESP 20; TEMP 36.6; O2SAT 100
[2023-04-26] MEDS: Heparin Injection (Vial) 5,000 UNIT/ML VIAL 5000 UNIT SC (21:43)
[2023-04-27] VITALS (14 sets, daily range): BP systolic 74–184; BP diastolic 57–85; PULSE 81–120; RESP 13–16; TEMP 36.2–36.9; O2SAT 95–100; BMI 22.9; BMI 22.4
[2023-04-27] MEDS: Heparin Injection (Vial) 5,000 UNIT/ML VIAL 5000 UNIT SC ×3 (05:17→20:15)
[2023-04-27] MEDS: oxyCODONE 5 MG Tablet PO ×2 (05:18→14:02)
[2023-04-27 06:28] LABS: Hematocrit 30.4 % (40-54); Hemoglobin 10.3 g/dL (13.0-16.5); Mean Corp Hgb Conc 33.9 g/dL (32-36); Mean Corpuscular Hgb 29.7 pg (27.0-32.0); Mean Corpuscular Volume 87.6 fL (80-94); Mean Platelet Vol. 11.6 fl (6.2-12.0); POSITIVE COUNT YES; POSITIVE DIFFERENTIAL YES; POSITIVE MORPHOLOGY YES; Platelet Count 218 K/mm3 (150-450); RBC Distribution Width CV 13.6 % (11.6-14.6); RBC Distribution Width SD 42.5 fl (35.1-43.9); Red Blood Count 3.47 M/mm3 (4.6-6.2); White Blood Count 15.5 K/mm3 (4.4-11.0)
[2023-04-27 06:43] LABS: Differential Indicated MANUAL DIFF
[2023-04-27 07:06] LABS: Vancomycin, Random Level 22.6 ug/mL (0.0-15.0)
[2023-04-27 07:10] LABS: Anion Gap 13 (5-15); BUN 141 mg/dL (7-18); BUN/Creat Ratio 13.3 RATIO (10-20); Calcium,Total 7.3 mg/dL (8.5-10.1); Chloride 94 mmol/L (98-107); EST Glomerular Filtration Rate 6 mL/min (>60); Est Glom Filt Rate - Afr Amer 7 mL/min (>60); Estimated Creatinine Clearance 9.95 ml/min; Glucose 106 mg/dL (74-106); Potassium 5.3 mmol/L (3.5-5.1); Sodium Level 126 mmol/L (136-145)
[2023-04-27 07:16] LABS: Metamyelocyte 2 % (0-1); Neutrophil-Band 6 % (0-5); Neutrophil-Segmented 55 % (47-70); Total Cells Counted 100 (MANUAL DIFF)
[2023-04-27 07:17] LABS: Absolute Neutrophil Count 9.4 X10^3/uL (2.0-7.7); Eosinophil 4 % (0-5); Lymphocyte 16 % (19-41); Monocyte 10 % (0-10); Myelocyte 7 % (0-0); Neutrophil # 9.43 X10^3/uL (2.7-7.7); Platelet Estimate ADEQUATE (ADEQ); Red Cell Morphology NORM C+C NORMAL (NORM C&C)
[2023-04-27 07:18] LABS: Absolute Lymphocyte Count 2.47 X10^3/uL (0.83-4.51); Lymphocyte # 2.47 X10^3/ul (0.83-4.51)
--- NOTE | 2023-04-27 07:18 | PCM.CONS.GEN ---
Assessment & Plan Assessment/Plan (1) Arm abscess: PLAN: Plan Clinically patient has an obvious abscess over the right anterior arm which would likely benefit from incision and drainage formally and washout, I do not appreciate clinically a tricipital abscess. I did order a stat CT scan to further evaluate the extent of this abscess clinically does not appear to involve the muscle. I will discuss the case with his admitting physician to see if he is medically cleared to proceed with a incision and drainage in the operating room tomorrow 04/28/2023. HPI Consult Data Date of Consult: 04/27/23 HPI Narrative Reason for Consultation: Right biceps abscess HPI Narrative: LIZ WHITNEY, is a 27 M who was admitted on 04/18/2023 after being found unresponsive from a drug overdose and suffered significant medical sequela of this including encephalopathy rhabdomyolysis acute renal failure respiratory failure, cardiac complications. I was consulted to evaluate abscess of right anterior arm. Patient states he has injected drugs into the arm in the past but not recently he did not notice this abscess prior to admission. Currently his arm is comfortable denies any numbness or tingling or pain. [facility] Medical History NSTEMI (non-ST elevated myocardial infarction) Medical History unable to obtain Home Medications naproxen 500 mg tablet 500 mg PO BID PRN #20 tabs 09/30/16 [Rx Last Taken Unknown] sulfamethoxazole 800 mg-trimethoprim 160 mg tablet 1 tab PO BID ##13 09/30/16 [Rx Last Taken Unknown] Allergy/AdvReac Type Severity Reaction Status Date / Time acetaminophen [From [place]] Allergy Swelling Verified 09/30/16 04:48 cephalexin [From [place]] Allergy Hives Verified 09/30/16 04:48 hydrocodone [From [place]] Allergy Swelling Verified 09/30/16 04:48 Penicillins Allergy Itching Verified 09/30/16 04:48 Family History unable to obtain Surgical History unable to obtain Social History Smoking Status: Current every day smoker tobacco type: cigarettes Physical Exam Const alert, oriented x3 and no apparent distress Extremity Extremity Narrative: There is a palpable mass in the anterior lower third of the arm there is a small open area with drainage. There is no appreciated abscess in the triceps area there is swelling however in the elbow and forearm. He has full range of motion of the elbow no pain with resisted elbow flexion or extension supination or pronation intact sensation light touch throughout the arm. Lab / Micro Data 04/27/23 06:15 04/27/23 06:15 Labs: Laboratory Results - last 24 hr 04/26/23 06:33: Absolute Neuts (auto) 10.7 H, Absolute Lymphs (auto) 0.26 L, Total Counted 100, Neutrophils % (Manual) 64, Band Neutrophils % 2, Lymphocytes % (Manual) 10 L, Monocytes % (Manual) 7, Eosinophils % (Manual) 8 H, Metamyelocytes % 2 H, Myelocytes % 7 H, Diff Path Review May foll, Platelet Estimate ADEQUATE, RBC Morphology NORM C+C, Sodium 129 L, Potassium 5.1, Chloride 99, Carbon Dioxide 21.0, Anion Gap 9, BUN 118 H*, Creatinine 9.02 H*, Estim Creat Clear Calc 11.43, Est GFR (MDRD) Af Amer 9 L, Est GFR (MDRD) Non-Af 7 L, BUN/Creatinine Ratio 13.1, Glucose 98, Calcium 7.8 L, Phosphorus 5.2 H, Magnesium 3.0 H, Total Bilirubin 0.70, AST 402 H, ALT 278 H, Alkaline Phosphatase 43 L, Total Protein 4.8 L, Albumin 2.0 L, Globulin 2.8, Albumin/Globulin Ratio 0.7 L 04/27/23 06:15: WBC 15.5 H, RBC 3.47 L, Hgb 10.3 L, Hct 30.4 L, MCV 87.6, MCH 29.7, MCHC 33.9, RDW Std Deviation 42.5, RDW Coeff of Merrick 13.6, Plt Count 218, MPV 11.6, Neut % (Auto) Not Reportable, Absolute Neuts (auto) 9.4 H, Absolute Lymphs (auto) 2.47, Total Counted 100, Neutrophils % (Manual) 55, Band Neutrophils % 6 H, Lymphocytes % (Manual) 16 L, Monocytes % (Manual) 10, Eosinophils % (Manual) 4, Metamyelocytes % 2 H, Myelocytes % 7 H, Diff Path Review May foll, Platelet Estimate ADEQUATE, RBC Morphology NORM C+C, Sodium 126 L, Potassium 5.3 H, Chloride 94 L, Carbon Dioxide 19.0 L, Anion Gap 13, BUN 141 H*, Creatinine 10.60 H*, Estim Creat Clear Calc 9.95, Est GFR (MDRD) Af Amer 7 L, Est GFR (MDRD) Non-Af 6 L, BUN/Creatinine Ratio 13.3, Glucose 106, Calcium 7.3 L, Random Vancomycin 22.6 H Micro: Microbiology 04/20/23 20:17 Blood Culture (Wb) - Pic Blood Culture - Final No growth in 5 days. Radiology Impression Venous Doppler Study 04/26/23 00:01 Interpretation Summary Deep veins of the right upper extremity are patent and compressible segmentally. There is no evidence of deep vein thrombosis. Superficial veins of the right upper extremity are patent and compressible segmentally. There is no evidence of superficial vein thrombosis. Non vascularized heterogenous mass measuring approximately 2.24cm x 1.34cm is noted mid right bicep. Ordering Physician: Nneka Zheng Referring Physician: Christine Mancini Performed By: Patric Sotomayor, Curt ??? Soft Tissue Ultrasound 04/26/23 04:38 IMPRESSION: Palpable abnormality corresponds to a 2.6 cm x 1.69 x 1.4 cm heterogeneous hypoechoic solid nodular density deep to the skin surface. Differential diagnosis should include probable resolving hematoma. Tissue diagnosis is recommended. Electronically Signed: Art Kelly MD at 10:17 EDT , Upper Extremity CT 04/26/23 12:22 IMPRESSION: 5 cm x 6.5 cm heterogeneous enhancing mass in the region of the triceps muscle as well as in the soft tissues overlying the distal portion of the humerus suggestive of abscess formation. Electronically Signed: Art Kelly MD at 14:50 EDT ,
--- NOTE | 2023-04-27 07:29 | PCM.RX.CS ---
Consult Antibiotic Management Pharmacy has been consulted to manage selected antiobiotic: Vancomycin Type of Intervention Type of Consult: Follow-up Prior Doses of Antibiotics Prior Doses of Antibiotics Received/Current Regimen: last dose was vanc 500mg IV x1 given on 04/25/23 at 17:16 after HD Labs Labs: Sodium 126 mmol/L (136-145) L 04/27/23 06:15 Potassium 5.3 mmol/L (3.5-5.1) H 04/27/23 06:15 Chloride 94 mmol/L (98-107) L 04/27/23 06:15 Carbon Dioxide 19.0 mmol/L (21.0-32.0) L 04/27/23 06:15 Anion Gap 13 (5-15) 04/27/23 06:15 BUN 141 mg/dL (7-18) H* 04/27/23 06:15 Creatinine 10.60 mg/dL (0.70-1.30) H* 04/27/23 06:15 Est GFR (MDRD) Af Amer 7 mL/min (>60) L 04/27/23 06:15 Est GFR (MDRD) Non-Af 6 mL/min (>60) L 04/27/23 06:15 BUN/Creatinine Ratio 13.3 RATIO (10-20) 04/27/23 06:15 Glucose 106 mg/dL (74-106) 04/27/23 06:15 Vancomycin Trough 6.1 ug/mL (5.0-15.0) 04/19/23 15:35 Random Vancomycin 22.6 ug/mL (0.0-15.0) H 04/27/23 06:15 Microbiology Microbiology: Microbiology 04/20/23 20:17 Blood Culture (Wb) - Pic Blood Culture - Final No growth in 5 days. 04/18/23 12:55 Blood Culture (Wb) - Venous Blood Culture - Final No growth in 5 days. 04/18/23 12:40 Blood Culture (Wb) - Venous Blood Culture - Final No growth in 5 days. 04/18/23 12:45 Urine Catheter - Catheter Urine Culture - Final Culture exhibits no growth. 04/18/23 16:35 Sputum, Tracheal Aspirate Gram Stain - Final 04/18/23 16:35 Sputum, Tracheal Aspirate Respiratory Culture - Final Streptococcus group C Dosing Weight Weight used for dosin.7 kg Goal Trough Goal Trough: 10-15 mcg/mL Pharmacy Plan for Drug Dosing Pharmacy Plan for Drug Dosing: The pre-HD vanc level drawn today at 06:15 was 22.6. This is above 20 so the patient will not need another dose today after HD as it appears the patient will be getting HD today. No specific HD schedule has been determined yet so when the next HD session after today is scheduled, we will need to order a pre-HD trough that day as well so that we can determine if a post-HD dose is needed. Pharmacy Service will continue to monitor and adjust dosing as required.
--- NOTE | 2023-04-27 07:41 | MRI_ITS ---
HISTORY: abscess Date: 04/27/2023 3:21 PM Technique: MRI examination obtained with multiplanar multi echo imaging. Location: RIGHT humerus Contrast: No contrast administered Comparison: No previous MRI for comparison, correlation is made to CT examination dated 04/26/2023 FINDINGS: Limitation: Significant limitation current examination due to motion artifact. BONY ELEMENTS: 1. Normal alignment bony elements without evidence of fracture malalignment. No destructive bony process noted. No evidence of marrow edema. JOINT SPACES: 1. Normal appearance of alignment of bony elements and joint spaces. No joint effusion DEEP MUSCULAR COMPARTMENTS: 1. Artifact obscures definition of many of the deep muscular compartments. 2. On STIR imaging, however there is elevated signal within the mid to distal biceps, and extends into the underlying brachialis. On T1 imaging, there is focal circumscribed area measuring 1.3 x 1.3 cm characterized by T1 hyperintensity, which is located in the larger area of STIR hyperintensity. This may represent an area of blood products/hematoma however the larger area corresponds to the abnormality on recent CT, and likely represents an intramuscular phlegmon and potential abscess. Seroma is felt less likely. No distinct mass noted. 3. Normal appearance of the visualized triceps. 4. Current examination however also documents an area of signal abnormality in the posterior one 3rd of the deltoid, also present on recent CT examination. There also appears to be subtle signal abnormality in the region of teres major and adjacent infraspinatus. Significant myositis is a consideration. NEURAL VASCULAR COMPARTMENTS: 1. Normal appearance of the neural vascular compartments SUBCUTANEOUS SOFT TISSUES. 1. Normal appearance of visualized obtained soft tissues. No soft tissue stranding, fluid. No masses or abscess accumulation. MRI/Upper Ext/No Jt/ wo IMPRESSION: 1. Current examination is limited by motion artifact. 2. Multiple focal areas of intramuscular abnormality involving the RIGHT upper arm. Large prominent area of edema noted within the mid to distal biceps and underlying brachialis. There is a circumscribed area of T1 hyperintensity associated with this larger area of edema. T1 hyperintensity may represent sequelae of blood products and mild intramuscular hematoma however larger area consistent with myositis, and on recent CT examination has the appearance of a prominent intramuscular abscess. 3. Similar though less extensive changes are noted along posterior one 3rd of the deltoid, similar though smaller areas noted within the RIGHT teres major, and distal aspect of the RIGHT infraspinatus muscle. 4. Triceps on current examination has normal appearance. 5. No evidence of destructive bony process or marrow edema. No evidence of osteomyelitis. Electronically Signed: Dusty Calles MD at 18:24 EDT ,
--- NOTE | 2023-04-27 07:45 | PN.SURG_ITS ---
Subjective Subjective Patient is a 27 y/o M I am following in conjunction with Dr. Zheng. Patient was receiving dialysis while I was in the room this morning. Dialysis catheter seems to be working well. Patient had a CT scan of the right upper extremity yesterday which demonstrated an abscess in the region of the muscle and soft tissues. Patient denies any concerns or complaints this morning. Objective Data Objective Data Vital Signs: Vital Signs Temp Pulse Resp BP Pulse Ox O2 Del Method O2 Flow Rate 98 F 90 16 140/74 H 97 Room Air 35 04/27/23 05:00 04/27/23 05:00 04/27/23 05:00 04/27/23 05:00 04/27/23 05:00 04/27/23 05:00 04/21/23 13:00 FiO2 21 04/23/23 07:00 Oxygen Flow Rate (L/min) 35 Oxygen Delivery Method Room Air Weight: 151 lb 7.321 oz Body Mass Index (BMI) 22.9 Intake & Output: Intake and Output for Last 24 Hours 04/25/23 04/26/23 04/27/23 23:59 23:59 23:59 Intake Total 1135.25 / 1235.25 1270 / 1270 120 / 120 Output Total 1999 / 1999 0 / 0 Balance -864.75 / -764.75 1270 / 1270 120 / 120 Lab / Micro Data 04/27/23 06:15 04/27/23 06:15 Labs: Laboratory Results - last 24 hr 04/26/23 06:33: Sodium 129 L, Potassium 5.1, Chloride 99, Carbon Dioxide 21.0, Anion Gap 9, BUN 118 H*, Creatinine 9.02 H*, Estim Creat Clear Calc 11.43, Est GFR (MDRD) Af Amer 9 L, Est GFR (MDRD) Non-Af 7 L, BUN/Creatinine Ratio 13.1, Glucose 98, Calcium 7.8 L, Phosphorus 5.2 H, Magnesium 3.0 H, Total Bilirubin 0.70, AST 402 H, ALT 278 H, Alkaline Phosphatase 43 L, Total Protein 4.8 L, Albumin 2.0 L, Globulin 2.8, Albumin/Globulin Ratio 0.7 L 04/27/23 06:15: WBC 15.5 H, RBC 3.47 L, Hgb 10.3 L, Hct 30.4 L, MCV 87.6, MCH 29.7, MCHC 33.9, RDW Std Deviation 42.5, RDW Coeff of Merrick 13.6, Plt Count 218, MPV 11.6, Neut % (Auto) Not Reportable, Absolute Neuts (auto) 9.4 H, Absolute Lymphs (auto) 2.47, Total Counted 100, Neutrophils % (Manual) 55, Band Neutrophils % 6 H, Lymphocytes % (Manual) 16 L, Monocytes % (Manual) 10, Eosinophils % (Manual) 4, Metamyelocytes % 2 H, Myelocytes % 7 H, Diff Path Review May , Platelet Estimate ADEQUATE, RBC Morphology NORM C+C, Sodium 126 L, Potassium 5.3 H, Chloride 94 L, Carbon Dioxide 19.0 L, Anion Gap 13, BUN 141 H*, Creatinine 10.60 H*, Estim Creat Clear Calc 9.95, Est GFR (MDRD) Af Amer 7 L , Est GFR (MDRD) Non-Af 6 L, BUN/Creatinine Ratio 13.3, Glucose 106, Calcium 7.3 L, Random Vancomycin 22.6 H Micro: Microbiology 04/20/23 20:17 Blood Culture (Wb) - Pic Blood Culture - Final No growth in 5 days. 04/18/23 12:55 Blood Culture (Wb) - Venous Blood Culture - Final No growth in 5 days. 04/18/23 12:40 Blood Culture (Wb) - Venous Blood Culture - Final No growth in 5 days. 04/18/23 12:45 Urine Catheter - Catheter Urine Culture - Final Culture exhibits no growth. 04/18/23 16:35 Sputum, Tracheal Aspirate Gram Stain - Final 04/18/23 16:35 Sputum, Tracheal Aspirate Respiratory Culture - Final Streptococcus group C Radiography Diagnostic Testing: Radiology Impression Venous Doppler Study 04/26/23 00:01 Interpretation Summary Deep veins of the right upper extremity are patent and compressible segmentally. There is no evidence of deep vein thrombosis. Superficial veins of the right upper extremity are patent and compressible segmentally. There is no evidence of superficial vein thrombosis. Non vascularized heterogenous mass measuring approximately 2.24cm x 1.34cm is noted mid right bicep. Ordering Physician: Nneka Zheng Referring Physician: Christine Mancini Performed By: Patric Sotomayor, Curt ??? Soft Tissue Ultrasound 04/26/23 04:38 IMPRESSION: Palpable abnormality corresponds to a 2.6 cm x 1.69 x 1.4 cm heterogeneous hypoechoic solid nodular density deep to the skin surface. Differential diagnosis should include probable resolving hematoma. Tissue diagnosis is recommended. Electronically Signed: Art Kelly MD at 10:17 EDT , Upper Extremity CT 04/26/23 12:22 IMPRESSION: 5 cm x 6.5 cm heterogeneous enhancing mass in the region of the triceps muscle as well as in the soft tissues overlying the distal portion of the humerus suggestive of abscess formation. Electronically Signed: Art Kelly MD at 14:50 EDT , Physical Exam Neck Neck Narrative: Right neck- temporary dialysis catheter intact Extremity Extremity Narrative: Right upper extremity- swollen upper extremity. Firm mass superior to the antecubital space consistent with the known abscess. dressing intact Assessment & Plan Assessment/Plan (1) Chronic renal failure, stage 5: PLAN: WBC is trending downward. Continue white count likely due to the right upper extremity abscess. Once white count improves, we will place a tunneled dialysis catheter We will continue to monitor this patient (2) Arm abscess: PLAN: Patient going to surgery with ortho today to have an incision and drainage of the right upper extremity abscess. Charges/Coding Visit Charges Inpatient E&M: 57005 Subs Hosp L1
[2023-04-27 09:46] LABS: Pathologist Review Reviewed
[2023-04-27 09:51] LABS: Pathologist Review Reviewed
--- NOTE | 2023-04-27 09:58 | CASEMGMT ---
JORDEN ALMONTE received call from Cecilio at [facility] regarding HD setup. JORDEN ALMONTE clarified that patient is requesting [facility] as he will be staying with his mother. Cecilio requesting HepB pannel and HD flow sheets. CM to fax updated clinicals to [facility]. Hospitalist questing possible [facility] referral regarding concern for history of IV drug use. JORDEN ALMONTE will discuss discharge planning with patient regarding [facility] referral. CM will continue to follow this patient and plan for a safe discharge.
--- NOTE | 2023-04-27 10:29 | CASEMGMT ---
Updated clinicals faxed to [facility]. April Del Real BSN, RN, CM
[2023-04-27] MEDS: Heparin 10,000 UNITS/10 ML Vial IV (11:30)
[2023-04-27] MEDS: PureFlow B 2K Dialysis Soln 1 BAG 6 BAG PF (11:34)
--- NOTE | 2023-04-27 12:23 | PN.RENAL_ITS ---
Subjective Subjective Resting in bed, just finished dialysis. No complaints. Objective Data Objective Data Vital Signs: Vital Signs Temp Pulse Resp BP Pulse Ox O2 Del Method O2 Flow Rate 97.4 F L 81 16 118/65 100 Room Air 35 04/27/23 11:25 04/27/23 11:25 04/27/23 11:25 04/27/23 11:25 04/27/23 11:25 04/27/23 11:25 04/21/23 13:00 FiO2 21 04/23/23 07:00 Oxygen Flow Rate (L/min) 35 Oxygen Delivery Method Room Air Weight: 67.2 kg Body Mass Index (BMI) 22.4 Intake & Output: Intake and Output for Last 24 Hours 04/25/23 04/26/23 04/27/23 23:59 23:59 23:59 Intake Total 1135.25 / 1235.25 1270 / 1270 120 / 120 Output Total 1999 / 1999 0 / 0 1530 / 1530 Balance -864.75 / -764.75 1270 / 1270 -1410 / -1410 Lab / Micro Data 04/27/23 06:15 04/27/23 06:15 Labs: Laboratory Results - last 24 hr 04/25/23 06:00: Diff Path Review Reviewed 04/26/23 06:33: Diff Path Review Reviewed 04/27/23 06:15: WBC 15.5 H, RBC 3.47 L, Hgb 10.3 L, Hct 30.4 L, MCV 87.6, MCH 29.7, MCHC 33.9, RDW Std Deviation 42.5, RDW Coeff of Merrick 13.6, Plt Count 218, MPV 11.6, Neut % (Auto) Not Reportable, Absolute Neuts (auto) 9.4 H, Absolute Lymphs (auto) 2.47, Total Counted 100, Neutrophils % (Manual) 55, Band Neutrophils % 6 H, Lymphocytes % (Manual) 16 L, Monocytes % (Manual) 10, Eosinophils % (Manual) 4, Metamyelocytes % 2 H, Myelocytes % 7 H, Diff Path Review December, Platelet Estimate ADEQUATE, RBC Morphology NORM C+C, Sodium 126 L, Potassium 5.3 H, Chloride 94 L, Carbon Dioxide 19.0 L, Anion Gap 13, BUN 141 H*, Creatinine 10.60 H*, Estim Creat Clear Calc 9.95, Est GFR (MDRD) Af Amer 7 L , Est GFR (MDRD) Non-Af 6 L, BUN/Creatinine Ratio 13.3, Glucose 106, Calcium 7.3 L, Random Vancomycin 22.6 H Micro: Microbiology 04/20/23 20:17 Blood Culture (Wb) - Pic Blood Culture - Final No growth in 5 days. 04/18/23 12:55 Blood Culture (Wb) - Venous Blood Culture - Final No growth in 5 days. 04/18/23 12:40 Blood Culture (Wb) - Venous Blood Culture - Final No growth in 5 days. 04/18/23 12:45 Urine Catheter - Catheter Urine Culture - Final Culture exhibits no growth. 04/18/23 16:35 Sputum, Tracheal Aspirate Gram Stain - Final 04/18/23 16:35 Sputum, Tracheal Aspirate Respiratory Culture - Final Streptococcus group C Radiography Diagnostic Testing: Radiology Impression Venous Doppler Study 04/26/23 00:01 Interpretation Summary Deep veins of the right upper extremity are patent and compressible segmentally. There is no evidence of deep vein thrombosis. Superficial veins of the right upper extremity are patent and compressible segmentally. There is no evidence of superficial vein thrombosis. Non vascularized heterogenous mass measuring approximately 2.24cm x 1.34cm is noted mid right bicep. Ordering Physician: Nneka Zheng Referring Physician: Christine Mancini Performed By: Patric Sotomayor, T ??? Upper Extremity CT 04/26/23 12:22 IMPRESSION: 5 cm x 6.5 cm heterogeneous enhancing mass in the region of the triceps muscle as well as in the soft tissues overlying the distal portion of the humerus suggestive of abscess formation. Electronically Signed: Art Kelly MD at 14:50 EDT , Physical Exam Narrative no obvious distress, alert and oriented s1s2 no murmurs lungs clear abdomen soft no pitting edema left leg or arm. Edema right leg and arm. right IJ temporary HD catheter dressing clean, dry and intact Assessment & Plan Assessment/Plan (1) Acute kidney injury: PLAN: - Anuric GREGORY secondary to ATN and rhabdo. Patient initiated on hemodialysis on 04/19 (K+ 6.8, Cr 3.4). Creatinine increasing (SCr 10.6) t herefore underwent hemodialysis today with around 1.5 L fluid removed. Temporary HD line ran better today for dialysis with blood flow rate around 350- 400. Patient remains essentially anuric and creatinine continues to increase despite hemodialysis therefore patient will need dialysis outside of hospital. HD to be arranged at kidney center near his mother's home ([facility]). - Rhabdomyolysis. Due to prolonged immobilization. CPK levels are improved. He is essentially anuric now. IV fluids have been discontinued. Edema right arm and right leg, Venous ultrasound no evidence of DVT. CT right arm abscess. Patient to have I&D tomorrow. Blood cultures and urine culture no growth. On V anco/meropenem. Appreciate surgery team consultation for eventual tunneled HD catheter placement, possibly Tuesday. possible mass/vegetation on echo. blood cultures to date negative. Antibiotics per ID, has been on Vanco and meropenem.
[2023-04-27] MEDS: 0.9% Saline Lock 10 ML Syringe IV (14:03)
--- NOTE | 2023-04-27 14:55 | CASEMGMT ---
Discharge Planning A list of [facility] providers including quality and resource use data and consistent with the patient?s preferred geographic region, medical needs, and insurance network was created in [facility]. This list was provided to the RN CM. Demetrice Cohn, Discharge Planning Asst.
--- NOTE | 2023-04-27 15:05 | PN.HOSP_ITS ---
Reason for Visit Reason for Visit: Unresponsiveness Subjective Subjective No issues overnight. Patient is agreeable to go to LTAC at discharge. Plan is for surgery to I&D this abscess tomorrow. Hopefully then will be able to get his tunneled catheter in. Mother was at the bedside and we discussed discharge planning. Objective Data Objective Data Vital Signs: Vital Signs Temp Pulse Resp BP Pulse Ox O2 Del Method O2 Flow Rate 97.4 F L 81 16 118/65 100 Room Air 35 04/27/23 11:25 04/27/23 11:25 04/27/23 11:25 04/27/23 11:25 04/27/23 11:25 04/27/23 11:25 04/21/23 13:00 FiO2 21 04/23/23 07:00 Oxygen Flow Rate (L/min) 35 Oxygen Delivery Method Room Air Weight: 67.2 kg Body Mass Index (BMI) 22.4 Intake & Output: Intake and Output for Last 24 Hours 04/25/23 04/26/23 04/27/23 23:59 23:59 23:59 Intake Total 1135.25 / 1235.25 1270 / 1270 420 / 420 Output Total 1999 / 1999 0 / 0 1530 / 1530 Balance -864.75 / -764.75 1270 / 1270 -1110 / -1110 Lab / Micro Data 04/27/23 06:15 04/27/23 06:15 Labs: Laboratory Results - last 24 hr 04/25/23 06:00: Diff Path Review Reviewed 04/26/23 06:33: Diff Path Review Reviewed 04/27/23 06:15: WBC 15.5 H, RBC 3.47 L, Hgb 10.3 L, Hct 30.4 L, MCV 87.6, MCH 29.7, MCHC 33.9, RDW Std Deviation 42.5, RDW Coeff of Merrick 13.6, Plt Count 218, MPV 11.6, Neut % (Auto) Not Reportable, Absolute Neuts (auto) 9.4 H, Absolute L ymphs (auto) 2.47, Total Counted 100, Neutrophils % (Manual) 55, Band Neutrophils % 6 H, Lymphocytes % (Manual) 16 L, Monocytes % (Manual) 10, Eosinophils % (Manual) 4, Metamyelocytes % 2 H, Myelocytes % 7 H, Diff Path Review May foll, Platelet Estimate ADEQUATE, RBC Morphology NORM C+C, Sodium 126 L, Potassium 5.3 H, Chloride 94 L, Carbon Dioxide 19.0 L, Anion Gap 13, BUN 141 H*, Creatinine 10.60 H*, Estim Creat Clear Calc 9.95, Est GFR (MDRD) Af Amer 7 L , Est GFR (MDRD) Non-Af 6 L, BUN/Creatinine Ratio 13.3, Glucose 106, Calcium 7.3 L, Random Vancomycin 22.6 H Micro: Microbiology 04/20/23 20:17 Blood Culture (Wb) - Pic Blood Culture - Final No growth in 5 days. 04/18/23 12:55 Blood Culture (Wb) - Venous Blood Culture - Final No growth in 5 days. 04/18/23 12:40 Blood Culture (Wb) - Venous Blood Culture - Final No growth in 5 days. 04/18/23 12:45 Urine Catheter - Catheter Urine Culture - Final Culture exhibits no growth. 04/18/23 16:35 Sputum, Tracheal Aspirate Gram Stain - Final 04/18/23 16:35 Sputum, Tracheal Aspirate Respiratory Culture - Final Streptococcus group C Radiography Diagnostic Testing: Radiology Impression Venous Doppler Study 04/26/23 00:01 Interpretation Summary Deep veins of the right upper extremity are patent and compressible segmentally. There is no evidence of deep vein thrombosis. Superficial veins of the right upper extremity are patent and compressible segmentally. There is no evidence of superficial vein thrombosis. Non vascularized heterogenous mass measuring approximately 2.24cm x 1.34cm is noted mid right bicep. Ordering Physician: Nneka Zheng Referring Physician: Christine Mancini Performed By: Patric Sotomayor RVT ??? Physical Exam Const alert and no apparent distress Constitutional Narrative: Thin, white male, sitting up in bed, currently on dialysis, mother at bedside General Appearance: well kempt and well developed HEENT normocephalic and head/scalp atraumatic HEENT Narrative: Dentition is poor, Mallampati is 1 Head and Scalp: normocephalic Resp normal respiratory effort, no retractions, no use of accessory muscles and clear to auscultation bilaterally Auscultation: Negative for rales, rhonchi or wheezes Cardio regular rate, regular rhythm, S1 normal heart sound, S2 normal heart sound, no murmurs, no rub, no gallops and no clicks GI normal to inspection, nondistended, normoactive bowel sounds, soft to palpation, non-tender and non-distended Extremity Extremity Narrative: PICC line left upper extremity, clean dry and intact, ongoing right upper and lower extremity edema with no cyanosis or clubbing Skin no rashes or lesions noted Skin Narrative: numerous superficial erythematous areas over forehead, elbows, ankles and heels as well as his knees. multiple tattoos over dorsum and extremities. Neuro moves all extremities Psych Psych Narrative: Affect is somewhat flat Assessment & Plan Assessment/Plan (1) NSTEMI (non-ST elevated myocardial infarction): (2) Acute respiratory failure: QUALIFIERS: Respiratory failure complication: hypoxia Qualified Code(s): J96.01 - Acute respiratory failure with hypoxia (3) Encephalopathy: (4) Acute kidney injury: (5) Sepsis syndrome: (6) Rhabdomyolysis: (7) Leukocytosis: (8) Thrombocytopenia: (9) Arm abscess: PLAN: Plan Acute hypoxic respiratory failure secondary to narcotic overdose -Intubated on presentation -Extubated on 04/23/2023 -Remains on room air -Tolerating oral diet without difficulty Acute encephalopathy secondary to the above -Resolved but patient is with some memory loss and altered per mom -Patient does have evidence of anoxia on his MRI -Continue to monitor clinically GREGORY secondary to ischemic ATN/rhabdomyolysis -Temporary dialysis catheter placed on 04/19/2023 -Per discussion with nephrology will need tunneled catheter placement -Okay per infectious disease for tunneled dialysis catheter placement at this time -Discussed case with general surgery and they would like to follow his white count prior to placing this -Placement to occur once general surgery feels he is medical stable for proceeding with this -No further need to follow CPK as they are trending down and he is on dialysis -Continue dialysis per nephrology Sepsis secondary to Group C strep pneumonia -Likely related to aspiration with acute event -ID is following -Appreciate input -TTE was suggestive of possible echogenic mass in the right atrium and tricuspid valve appeared unremarkable -Patient was resistant to SUZIE and cardiology did not want to do this why he was intubated -Repeat blood cultures are notable negative at 5 days -Vancomycin discontinued on 04/23/2023 and patient remains on IV meropenem per ID 8 recommendations Right arm abscess -Continue antibiotics as ordered -Orthopedic surgery consulted and they will plan on performing I&D of this area tomorrow -ID is following Acute ischemic hepatitis secondary to the above -Improving and liver enzymes continue to trend down with dramatic improvement in AST in the last 24 hours Thrombocytopenia -Resolved Leukocytosis -Stabilize around 16,000 -May be remaining elevated due to abscess noted on right upper arm -Cultures all remain unremarkable at this time -We will continue to monitor with repeat CBC in the a.m. History of IVDU -HIV and hepatitis are unremarkable -Toxicology screen on presentation showed amphetamines, ecstasy, cocaine, and cannabis, -Admitted to fentanyl use which would not show up on toxicology screen DVT prophylaxis -Continue subcu heparin CODE STATUS Full code Disposition: -Patient would highly benefit from LTAC placement at discharge as he will likely have a wound from his I&D of his right arm as well as ongoing dialysis needs and significant needs for physical therapy occupational therapy and speech therapy after discharge Charges/Coding Visit Charges Inpatient E&M: 13789 Subs Hosp L2
[2023-04-28] VITALS (11 sets, daily range): BP systolic 109–145; BP diastolic 61–88; PULSE 82–96; RESP 16; TEMP 36.4–37.3; O2SAT 96–100; BMI 23.5
[2023-04-28 06:42] LABS: ALB/GLOB Ratio 0.8 RATIO (0.9-2.4); AST(SGOT) 180 U/L (15-37); Alanine Aminotransfer ALT/SGPT 158 U/L (16-61); Alkaline Phosphatase 42 U/L (45-117); Anion Gap 11 (5-15); BUN 107 mg/dL (7-18); Calcium,Total 7.2 mg/dL (8.5-10.1); Chloride 98 mmol/L (98-107); Creatinine, Serum 8.91 mg/dL (0.70-1.30); EST Glomerular Filtration Rate 8 mL/min (>60); Est Glom Filt Rate - Afr Amer 9 mL/min (>60); Estimated Creatinine Clearance 11.84 ml/min; Globulin 2.4 g/dL (2.2-4.2); Glucose 93 mg/dL (74-106); Potassium 5.4 mmol/L (3.5-5.1); Protein, Total 4.4 g/dL (6.4-8.2); Sodium Level 129 mmol/L (136-145)
[2023-04-28 08:33] LABS: Hematocrit 27.3 % (40-54); Hemoglobin 9.3 g/dL (13.0-16.5); Mean Corp Hgb Conc 34.1 g/dL (32-36); Mean Corpuscular Volume 88.1 fL (80-94); Mean Platelet Vol. 11.8 fl (6.2-12.0); POSITIVE COUNT YES; POSITIVE DIFFERENTIAL YES; POSITIVE MORPHOLOGY YES; Platelet Count 188 K/mm3 (150-450); RBC Distribution Width CV 13.8 % (11.6-14.6); RBC Distribution Width SD 43.8 fl (35.1-43.9); White Blood Count 14.9 K/mm3 (4.4-11.0)
[2023-04-28 08:36] LABS: Differential Indicated MANUAL DIFF
[2023-04-28 09:31] LABS: Eosinophil 4 % (0-5); Lymphocyte 9 % (19-41); Metamyelocyte 3 % (0-1); Monocyte 8 % (0-10); Myelocyte 1 % (0-0); Neutrophil-Band 1 % (0-5); Neutrophil-Segmented 71 % (47-70); Promyelocyte 3 % (0-0); Total Cells Counted 100 (MANUAL DIFF)
[2023-04-28 09:32] LABS: Absolute Neutrophil Count 10.7 X10^3/uL (2.0-7.7); Platelet Estimate ADEQUATE (ADEQ); Red Cell Morphology NORM C+C NORMAL (NORM C&C)
[2023-04-28] MEDS: Vancomycin IV 1,000 MG/200 ML BAG 200 MG IV (09:40)
[2023-04-28] MEDS: Lidocaine 1% /Epi 1:100 (20ml) 20 ML Vial (09:44)
--- NOTE | 2023-04-28 09:51 | OP.PCM_ITS ---
Operative Report Date of Procedure: 04/28/23 Preoperative diagnosis: Right anterior arm abscess Postoperative diagnosis: Same plus hematoma Procedure: Open incision and drainage right arm Anesthesia: General LMA EBL: 10 Complications: none Tourniquet time: 5 minutes Specimen: Culture fluid seroma biceps Condition: Stable to PACU Findings: More consistent with hematoma/seroma no purulence or maria a abscess Indication for procedure: 27-year-old male patient drug user admitted after overdose and sequela of multiple medical complications from this, who had concerns of abscess right anterior arm in the area of the muscle belly of the biceps there was a swelling in the area and some superficial abrasions and granulation tissue that was weeping. Patient had MRI and CT which were read as an area of blood products/hematoma however the larger area corresponds to the abnormality on recent CT, and likely represents an intramuscular phlegmon and potential abscess. Seroma is felt less likely. Considering patient has been on antibiotics and has continued to have elevated white blood cell count, this was presumed to be an abscess and the potential source for this leukocytosis. .risk benefits and alternatives were reviewed including risk of bleeding infection nerve, artery, bone, tissue damage, blood clot need for further surgery and continued pain. Procedure: Patient was met the preoperative holding area once again the operative extremity was identified by both patient and physician was marked, she was met by anesthesia brought back to the operating room wheeled cart transfer the upper table supine position anesthesia was started. Patient was prepped and draped in the usual sterile fashion a timeout was called ensure the proper patient procedure extremity being contemplated. The area that was previously draining was granulated over and there was no purulent expression. The brachial artery was palpated and marked on the skin . a midline incision over the anterior biceps mass was made sharp dissection was carried down through the skin and subcutaneous tissues electrocautery was used. Full-thickness skin flaps were elevated medial and lateral along the anterior arm fascia there is no tract from the skin the fascial covering was not violated there is no purulence in the area. Sharp dissection was then carried down through the anterior arm fascia into the biceps muscle. At this point a sterile tourniquet was inflated , blunt dissection in line with the muscle fibers was performed with a hemostat and gloved finger a pocket of seroma was encountered which correlated to the area of MRI findings cultures were taken of this. I was able to visualize the underlying brachialis muscle there is no sign of abscess and the tissue appeared healthy there was hematoma within this area which was expressed, a small amount. Tissue all appeared viable and healthy. The wound was thoroughly irrigated with pulse lavage and Betadine rinse and several more liters of irrigation. Tourniquet was let down to ensure that all bleeding was controlled. closure was performed with 2-0 Vicryl subcutaneous tissue and kylie in the skin dressing was applied in the form of Xeroform 4 x 4's ABD and Ioban all counts were correct patient tolerated the procedure well with no intraoperative c omplications, thorough palpation was performed of the entire shoulder girdle and arm and I cannot appreciate any other areas of potential concern that may represent underlying abscess. he was brought back to the PACU in stable condition.
--- NOTE | 2023-04-28 10:03 | PCM.PN.SRG ---
Subjective Subjective Patient's right arm swelling was due to hematoma not abscess. Objective Data Objective Data Vital Signs: Vital Signs Temp Pulse Resp BP Pulse Ox O2 Del Method O2 Flow Rate 98.5 F 83 16 126/79 H 99 Room Air 35 04/28/23 04:56 04/28/23 04:56 04/28/23 04:56 04/28/23 04:56 04/28/23 04:56 04/28/23 04:56 04/21/23 13:00 FiO2 21 04/23/23 07:00 Oxygen Flow Rate (L/min) 35 Oxygen Delivery Method Room Air Weight: 154 lb 15.759 oz Body Mass Index (BMI) 23.5 Intake & Output: Intake and Output for Last 24 Hours 04/26/23 04/27/23 04/28/23 23:59 23:59 23:59 Intake Total 1270 / 1270 660 / 660 Output Total 0 / 0 1530 / 1530 Balance 1270 / 1270 -870 / -870 Lab / Micro Data 04/28/23 08:00 04/28/23 05:03 Labs: Laboratory Results - last 24 hr 04/28/23 05:03: WBC Cancelled, Corrected WBC Cancelled, RBC Cancelled, Hgb Cancelled, Hct Cancelled, MCV Cancelled, MCH Cancelled, MCHC Cancelled, RDW Std Deviation Cancelled, RDW Coeff of Merrick Cancelled, Plt Count Cancelled, MPV Cancelled, Immature Gran % (Auto) Cancelled, Neut % (Auto) Cancelled, Lymph % (Auto) Cancelled, Frederick % (Auto) Cancelled, Eos % (Auto) Cancelled, Baso % (Auto) Cancelled, Absolute Neuts (auto) Cancelled, Absolute Lymphs (auto) Cancelled, Total Counted Cancelled, Neutrophils % (Manual) Cancelled, Band Neutrophils % Cancelled, Lymphocytes % (Manual) Cancelled, Monocytes % (Manual) Cancelled, Eosinophils % (Manual) Cancelled, Basophils % (Manual) Cancelled, Metamyelocytes % Cancelled, Myelocytes % Cancelled, Promyelocytes % Cancelled, Blast Cells % Cancelled, Plasma Cell % (Manual) Cancelled, Other Cells % Cancelled, Nucleated RBC % Cancelled, Nucleated RBCs/100 WBC Cancelled, Differential Comment Cancelled, Diff Path Review Cancelled, Hypersegmented Neuts Cancelled, Atypical Lymphocytes Cancelled, Reactive Lymphocytes Cancelled, Smudge Cells Cancelled, Toxic Granulation Cancelled, Toxic Vacuolation Cancelled, Dohle Bodies Cancelled, Maico Rods Cancelled, Platelet Estimate Cancelled, Plt Morphology Comment Cancelled, RBC Morphology Cancelled 04/28/23 05:03: RBC Morphology Cancelled, Polychromasia Cancelled, Hypochromasia Cancelled, Poikilocytosis Cancelled, Basophilic Stippling Cancelled, Anisocytosis Cancelled, Microcytosis Cancelled, Macrocytosis Cancelled, Spherocytes Cancelled, Sickle Cells Cancelled, Target Cells Cancelled, Tear Drop Cells Cancelled, Ovalocytes Cancelled, Stomatocytes Cancelled, Larry-Devola Bodies Cancelled, Warren Cells Cancelled, Bite Cells Cancelled, Crenated Cell Cancelled, Acanthocytes (Spur) Cancelled, Rouleaux Cancelled, Schistocytes Cancelled, Sodium 129 L, Potassium 5.4 H, Chloride 98, Carbon Dioxide 20.0 L, Anion Gap 11, BUN 107 H*, Creatinine 8.91 H*, Estim Creat Clear Calc 11.84, Est GFR (MDRD) Af Amer 9 L, Est GFR (MDRD) Non-Af 8 L, BUN/Creatinine Ratio 12.0, Glucose 93, Calcium 7.2 L, Total Bilirubin 0.50, AST 180 H, ALT 158 H, Alkaline Phosphatase 42 L, Total Protein 4.4 L, Albumin 2.0 L, Globulin 2.4, Albumin/Globulin Ratio 0.8 L 04/28/23 08:00: WBC 14.9 H, RBC 3.10 L, Hgb 9.3 L, Hct 27.3 L, MCV 88.1, MCH 30.0, MCHC 34.1, RDW Std Deviation 43.8, RDW Coeff of Merrick 13.8, Plt Count 188, MPV 11.8, Neut % (Auto) Not Reportable, Absolute Neuts (auto) 10.7 H, Absolute Lymphs (auto) 1.30, Total Counted 100, Neutrophils % (Manual) 71 H, Band Neutrophils % 1, Lymphocytes % (Manual) 9 L, Monocytes % (Manual) 8, Eosinophils % (Manual) 4, Metamyelocytes % 3 H, Myelocytes % 1 H, Promyelocytes % 3 H, Diff Path Review May foll, Platelet Estimate ADEQUATE, RBC Morphology NORM C+C Micro: Microbiology 04/20/23 20:17 Blood Culture (Wb) - Pic Blood Culture - Final No growth in 5 days. 04/18/23 12:55 Blood Culture (Wb) - Venous Blood Culture - Final No growth in 5 days. 04/18/23 12:40 Blood Culture (Wb) - Venous Blood Culture - Final No growth in 5 days. 04/18/23 12:45 Urine Catheter - Catheter Urine Culture - Final Culture exhibits no growth. 04/18/23 16:35 Sputum, Tracheal Aspirate Gram Stain - Final 04/18/23 16:35 Sputum, Tracheal Aspirate Respiratory Culture - Final Streptococcus group C Radiography Diagnostic Testing: Radiology Impression Upper Extremity MRI 04/27/23 07:41 IMPRESSION: 1. Current examination is limited by motion artifact. 2. Multiple focal areas of intramuscular abnormality involving the RIGHT upper arm. Large prominent area of edema noted within the mid to distal biceps and underlying brachialis. There is a circumscribed area of T1 hyperintensity associated with this larger area of edema. T1 hyperintensity may represent sequelae of blood products and mild intramuscular hematoma however larger area consistent with myositis, and on recent CT examination has the appearance of a prominent intramuscular abscess. 3. Similar though less extensive changes are noted along posterior one 3rd of the deltoid, similar though smaller areas noted within the RIGHT teres major, and distal aspect of the RIGHT infraspinatus muscle. 4. Triceps on current examination has normal appearance. 5. No evidence of destructive bony process or marrow edema. No evidence of osteomyelitis. Electronically Signed: Dusty Calles MD at 18:24 EDT , Physical Exam Narrative Right IJ temporary dialysis line in place Const no apparent distress Assessment & Plan Assessment/Plan (1) Acute kidney injury: (2) Leukocytosis: (3) NSTEMI (non-ST elevated myocardial infarction): (4) Thrombocytopenia: (5) History of drug abuse: PLAN: Plan Plan to place a tunneled right IJ dialysis line tomorrow or timing to be determined possibly late morning/early afternoon. Discussed with Robin with dialysis he will remove patient's temporary dialysis line today. Patient's white blood count slightly reduced, patient's blood cultures have been negative from 04/18 and 04/20. Nneka Zheng M.D. Pager: [phone] [facility] [address] [place] [address], [facility], [address] [place] [address] Office: [phone] Charges/Coding Visit Charges Inpatient E&M: 28589 Subs Hosp L2
[2023-04-28 10:32] LABS: Pathologist Review Reviewed
[2023-04-28] MEDS: 0.9% Saline Lock 10 ML Syringe IV (11:31)
--- NOTE | 2023-04-28 11:39 | CASEMGMT ---
RN CM in to room to discuss discharge planning. Patient's mother and one other family member present at bedside. A list of LTACH providers including quality and resource use data and consistent with the patient?s preferred geographical region, medical needs, and insurance network were provided from the [facility] [facility]. Patient and mother choose [facility] as their fist choice and [facility] as their second choice. Discharge director financial planning notified to please make referral for LTACH to [facility]. HEATH SylvesterN, RN, CM
--- NOTE | 2023-04-28 12:18 | CASEMGMT ---
Discharge Planning Referral sent to [facility] via [facility]. Demetrice Cohn, Discharge Planning Asst.
[2023-04-28] MEDS: oxyCODONE 5 MG Tablet PO ×2 (13:53→19:49)
--- NOTE | 2023-04-28 14:37 | PN.HOSP_ITS ---
Reason for Visit Reason for Visit: Unresponsive Subjective Subjective No issues overnight. Family would like him to go to [facility]. Went to the OR for I&D of his left upper extremity abscess which ended up not being abscess and ended up being hematoma. This was evacuated by orthopedic surgery. Plan is for tunneled dialysis catheter once OR time can be obtained Objective Data Objective Data Vital Signs: Vital Signs Temp Pulse Resp BP Pulse Ox O2 Del Method O2 Flow Rate 97.6 F L 89 14 99/50 L 98 Room Air 35 04/28/23 13:13 04/28/23 13:40 04/28/23 13:40 04/28/23 13:40 04/28/23 13:40 04/28/23 13:40 04/21/23 13:00 FiO2 21 04/23/23 07:00 Oxygen Flow Rate (L/min) 35 Oxygen Delivery Method Room Air Weight: 70.3 kg Body Mass Index (BMI) 23.5 Intake & Output: Intake and Output for Last 24 Hours 04/26/23 04/27/23 04/28/23 23:59 23:59 23:59 Intake Total 1270 / 1270 660 / 660 Output Total 0 / 0 1530 / 1530 Balance 1270 / 1270 -870 / -870 Lab / Micro Data 04/28/23 08:00 04/28/23 05:03 Labs: Laboratory Results - last 24 hr 04/27/23 06:15: Diff Path Review Reviewed 04/28/23 05:03: WBC Cancelled, Corrected WBC Cancelled, RBC Cancelled, Hgb Cancelled, Hct Cancelled, MCV Cancelled, MCH Cancelled, MCHC Cancelled, RDW Std Deviation Cancelled, RDW Coeff of Merrick Cancelled, Plt Count Cancelled, MPV Cancelled, Immature Gran % (Auto) Cancelled, Neut % (Auto) Cancelled, Lymph % (Auto) Cancelled, [place]ike % (Auto) Cancelled, Eos % (Auto) Cancelled, Baso % (Auto) Cancelled, Absolute Neuts (auto) Cancelled, Absolute Lymphs (auto) Cancelled, Total Counted Cancelled, Neutrophils % (Manual) Cancelled, Band Neutrophils % Cancelled, Lymphocytes % (Manual) Cancelled, Monocytes % (Manual) Cancelled, Eosinophils % (Manual) Cancelled, Basophils % (Manual) Cancelled, Metamyelocytes % Cancelled, Myelocytes % Cancelled, Promyelocytes % Cancelled, Blast Cells % Cancelled, Plasma Cell % (Manual) Cancelled, Other Cells % Cancelled, Nucleated RBC % Cancelled, Nucleated RBCs/100 WBC Cancelled, Differential Comment Cancelled, Diff Path Review Cancelled, Hypersegmented Neuts Cancelled, Atypical Lymphocytes Cancelled, Reactive Lymphocytes Cancelled, Smudge Cells Cancelled, Toxic Granulation Cancelled, Toxic Vacuolation Cancelled, Dohle Bodies Cancelled, Maico Rods Cancelled, Platelet Estimate Cancelled, Plt Morphology Comment Cancelled, RBC Morphology Cancelled 04/28/23 05:03: RBC Morphology Cancelled, Polychromasia Cancelled, Hypochromasia Cancelled, Poikilocytosis Cancelled, Basophilic Stippling Cancelled, Anisocytosis Cancelled, Microcytosis Cancelled, Macrocytosis Cancelled, S pherocytes Cancelled, Sickle Cells Cancelled, Target Cells Cancelled, Tear Drop Cells Cancelled, Ovalocytes Cancelled, Stomatocytes Cancelled, [place] Bodies Cancelled, [place] Cells Cancelled, Bite Cells Cancelled, Crenated Cell Cancelled, Acanthocytes (Spur) Cancelled, Rouleaux Cancelled, Schistocytes Cancelled, Sodium 129 L, Potassium 5.4 H, Chloride 98, Carbon Dioxide 20.0 L, Anion Gap 11, BUN 107 H*, Creatinine 8.91 H*, Estim Creat Clear Calc 11.84, Est GFR (MDRD) Af Amer 9 L, Est GFR (MDRD) Non-Af 8 L, BUN/Creatinine Ratio 12.0, Glucose 93, Calcium 7.2 L, Total Bilirubin 0.50, AST 180 H, ALT 158 H, Alkaline Phosphatase 42 L, Total Protein 4.4 L, Albumin 2.0 L, Globulin 2.4, Albumin/Globulin Ratio 0.8 L 04/28/23 08:00: WBC 14.9 H, RBC 3.10 L, Hgb 9.3 L, Hct 27.3 L, MCV 88.1, MCH 30.0, MCHC 34.1, RDW Std Deviation 43.8, RDW Coeff of Merrick 13.8, Plt Count 188, MPV 11.8, Neut % (Auto) Not Reportable, Absolute Neuts (auto) 10.7 H, Absolute Lymphs (auto) 1.30, Total Counted 100, Neutrophils % (Manual) 71 H, Band Neutrophils % 1, Lymphocytes % (Manual) 9 L, Monocytes % (Manual) 8, Eosinophils % (Manual) 4, Metamyelocytes % 3 H, Myelocytes % 1 H, Promyelocytes % 3 H, Diff Path Review May foll, Platelet Estimate ADEQUATE, RBC Morphology NORM C+C Micro: Microbiology 04/20/23 20:17 Blood Culture (Wb) - Pic Blood Culture - Final No growth in 5 days. 04/18/23 12:55 Blood Culture (Wb) - Venous Blood Culture - Final No growth in 5 days. 04/18/23 12:40 Blood Culture (Wb) - Venous Blood Culture - Final No growth in 5 days. 04/18/23 12:45 Urine Catheter - Catheter Urine Culture - Final Culture exhibits no growth. 04/18/23 16:35 Sputum, Tracheal Aspirate Gram Stain - Final 04/18/23 16:35 Sputum, Tracheal Aspirate Respiratory Culture - Final Streptococcus group C Radiography Diagnostic Testing: Radiology Impression Upper Extremity MRI 04/27/23 07:41 IMPRESSION: 1. Current examination is limited by motion artifact. 2. Multiple focal areas of intramuscular abnormality involving the RIGHT upper arm. Large prominent area of edema noted within the mid to distal biceps and underlying brachialis. There is a circumscribed area of T1 hyperintensity associated with this larger area of edema. T1 hyperintensity may represent sequelae of blood products and mild intramuscular hematoma however larger area consistent with myositis, and on recent CT examination has the appearance of a prominent intramuscular abscess. 3. Similar though less extensive changes are noted along posterior one 3rd of the deltoid, similar though smaller areas noted within the RIGHT teres major, and distal aspect of the RIGHT infraspinatus muscle. 4. Triceps on current examination has normal appearance. 5. No evidence of destructive bony process or marrow edema. No evidence of osteomyelitis. Electronically Signed: Dusty Calles MD at 18:24 EDT , Physical Exam Const alert and no apparent distress Constitutional Narrative: Thin, white male, sitting up in bed, has just returned from surgery, mother at bedside HEENT normocephalic and head/scalp atraumatic HEENT Narrative: Mallampati is 2, no thrush, dentition is poor Eyes PERRL and conjunctivae normal Resp normal respiratory effort, no retractions, no use of accessory muscles and clear to auscultation bilaterally Auscultation: Negative for rales, rhonchi or wheezes Cardio regular rate, regular rhythm, S1 normal heart sound, S2 normal heart sound, no murmurs, no rub, no gallops and no clicks GI normal to inspection, nondistended, normoactive bowel sounds, soft to palpation and non-tender Extremity normal to inspection Extremity Narrative: PICC line left upper extremity, clean dry and intact, ongoing right upper and lower extremity edema with no cyanosis or clubbing, cap refill is good on the right side Skin Skin Narrative: Right upper extremity postoperative dressing is in place Neuro moves all extremities and no focal motor deficits Neuro Narrative: Speech is normal however response time is somewhat delayed at times Speech: speech normal Psych Psych Narrative: Affect is flat Assessment & Plan Assessment/Plan (1) NSTEMI (non-ST elevated myocardial infarction): (2) Acute respiratory failure: QUALIFIERS: Respiratory failure complication: hypoxia Qualified Code(s): J96.01 - Acute respiratory failure with hypoxia (3) Encephalopathy: (4) Acute kidney injury: (5) Sepsis syndrome: (6) Rhabdomyolysis: (7) Leukocytosis: (8) Thrombocytopenia: (9) Arm abscess: PLAN: Plan Acute hypoxic respiratory failure secondary to narcotic overdose -Intubated on presentation -Extubated on 04/23/2023 -Remains on room air -Tolerating oral diet without difficulty Acute encephalopathy secondary to the above -Resolved but patient is with some memory loss and altered per mom -Patient does have evidence of anoxia on his MRI -Continue to monitor clinically GREGORY secondary to ischemic ATN/rhabdomyolysis -Temporary dialysis catheter placed on 04/19/2023 -Per discussion with nephrology will need tunneled catheter placement -Okay per infectious disease for tunneled dialysis catheter placement at this time -Plan is for tunneled dialysis catheter in the next 24 hours once OR time can be available -Continue dialysis per nephrology Sepsis secondary to Group C strep pneumonia -Likely related to aspiration with acute event -ID is following--> awaiting overall plan for discharge with regards to antibiotics -Appreciate input -TTE was suggestive of possible echogenic mass in the right atrium and tricuspid valve appeared unremarkable -Patient was resistant to SUZIE and cardiology did not want to do this why he was intubated -All blood cultures drawn since admission are negative -Continue meropenem per ID Right arm hematoma -Continue antibiotics as ordered -I&D revealed that this is a hematoma and once not an infection -This has been drained and will need ongoing wound care after discharge Acute ischemic hepatitis secondary to the above -Enzymes are normalizing with an AST of 180 and an ALT of 158 Leukocytosis -White count is 14.9 today -May be remaining elevated due to abscess noted on right upper arm -Cultures all remain unremarkable at this time -We will continue to monitor with repeat CBC in the a.m. History of IVDU -HIV and hepatitis are unremarkable -Toxicology screen on presentation showed amphetamines, ecstasy, cocaine, and cannabis, -Admitted to fentanyl use which would not show up on toxicology screen DVT prophylaxis -Continue subcu heparin CODE STATUS Full code Disposition: -Plan is for LTAC at discharge will need pre-CERT which should be started today if patient is excepted Charges/Coding Visit Charges Inpatient E&M: 75292 Subs Hosp L2
[2023-04-29] VITALS (16 sets, daily range): BP systolic 102–176; BP diastolic 61–94; PULSE 84–97; RESP 12–18; TEMP 36.8–37.1; O2SAT 95–100; BMI 23.6; BMI 22.9
[2023-04-29 06:08] LABS: Hematocrit 24.8 % (40-54); Hemoglobin 8.5 g/dL (13.0-16.5); Mean Corp Hgb Conc 34.3 g/dL (32-36); Mean Corpuscular Hgb 30.1 pg (27.0-32.0); Mean Corpuscular Volume 87.9 fL (80-94); Mean Platelet Vol. 11.2 fl (6.2-12.0); POSITIVE COUNT YES; POSITIVE MORPHOLOGY YES; Platelet Count 240 K/mm3 (150-450); RBC Distribution Width CV 13.8 % (11.6-14.6); RBC Distribution Width SD 43.7 fl (35.1-43.9); Red Blood Count 2.82 M/mm3 (4.6-6.2); White Blood Count 14.9 K/mm3 (4.4-11.0)
[2023-04-29 06:14] LABS: Differential Indicated MANUAL DIFF
[2023-04-29 06:32] LABS: Eosinophil 1 % (0-5); Lymphocyte 17 % (19-41); Metamyelocyte 2 % (0-1); Monocyte 5 % (0-10); Myelocyte 10 % (0-0); Neutrophil # 9.65 X10^3/uL (2.7-7.7); Neutrophil-Band 3 % (0-5); Neutrophil-Segmented 62 % (47-70); Platelet Estimate ADEQUATE (ADEQ); Red Cell Morphology NORM C+C NORMAL (NORM C&C); Total Cells Counted 100 (MANUAL DIFF)
[2023-04-29 06:33] LABS: Absolute Lymphocyte Count 2.52 X10^3/uL (0.83-4.51); Absolute Neutrophil Count 9.7 X10^3/uL (2.0-7.7); Lymphocyte # 2.52 X10^3/ul (0.83-4.51)
[2023-04-29 06:45] LABS: Vancomycin, Random Level 30.1 ug/mL (0.0-15.0)
--- NOTE | 2023-04-29 07:02 | NURSING ---
Pts primary rn rocio aware of critical results bun 125 and creatinine of 10.4 at this time.
[2023-04-29 07:03] LABS: Anion Gap 10 (5-15); BUN 125 mg/dL (7-18); Calcium,Total 7.4 mg/dL (8.5-10.1); Chloride 98 mmol/L (98-107); EST Glomerular Filtration Rate 6 mL/min (>60); Est Glom Filt Rate - Afr Amer 8 mL/min (>60); Estimated Creatinine Clearance 10.14 ml/min; Glucose 100 mg/dL (74-106); Potassium 5.5 mmol/L (3.5-5.1); Sodium Level 128 mmol/L (136-145)
[2023-04-29] MEDS: oxyCODONE 5 MG Tablet PO ×2 (10:18→16:40)
--- NOTE | 2023-04-29 11:03 | PCM.PN.REN ---
Subjective Subjective Sitting in bed. No overnight events. Objective Data Objective Data Vital Signs: Vital Signs Temp Pulse Resp BP Pulse Ox O2 Del Method O2 Flow Rate 98.4 F 97 16 135/82 H 99 Room Air 35 04/29/23 08:08 04/29/23 08:08 04/29/23 08:08 04/29/23 08:08 04/29/23 08:08 04/29/23 08:17 04/21/23 13:00 FiO2 21 04/23/23 07:00 Oxygen Flow Rate (L/min) 35 Oxygen Delivery Method Room Air Weight: 70.7 kg Body Mass Index (BMI) 23.6 Intake & Output: Intake and Output for Last 24 Hours 04/27/23 04/28/23 04/29/23 23:59 23:59 23:59 Intake Total 660 / 660 320 / 560 240 / 240 Output Total 1530 / 1530 Balance -870 / -870 320 / 560 240 / 240 Lab / Micro Data 04/29/23 05:57 04/29/23 05:57 Labs: Laboratory Results - last 24 hr 04/29/23 05:57: WBC 14.9 H, RBC 2.82 L, Hgb 8.5 L, Hct 24.8 L, MCV 87.9, MCH 30.1, MCHC 34.3, RDW Std Deviation 43.7, RDW Coeff of Merrick 13.8, Plt Count 240, MPV 11.2, Neut % (Auto) Not Reportable, Absolute Neuts (auto) 9.7 H, Absolute Lymphs (auto) 2.52, Total Counted 100, Neutrophils % (Manual) 62, Band Neutrophils % 3, Lymphocytes % (Manual) 17 L, Monocytes % (Manual) 5, Eosinophils % (Manual) 1, Metamyelocytes % 2 H, Myelocytes % 10 H, Diff Path Review May , Platelet Estimate ADEQUATE, RBC Morphology NORM C+C, Sodium 128 L, Potassium 5.5 H, Chloride 98, Carbon Dioxide 20.0 L, Anion Gap 10, BUN 125 H*, Creatinine 10.40 H*, Estim Creat Clear Calc 10.14, Est GFR (MDRD) Af Amer 8 L, Est GFR (MDRD) Non-Af 6 L, BUN/Creatinine Ratio 12.0, Glucose 100, Calcium 7.4 L, Random Vancomycin 30.1 H Micro: Microbiology 04/28/23 10:18 Wound - Arm Right Gram Stain - Final 04/20/23 20:17 Blood Culture (Wb) - Pic Blood Culture - Final No growth in 5 days. 04/18/23 12:55 Blood Culture (Wb) - Venous Blood Culture - Final No growth in 5 days. 04/18/23 12:40 Blood Culture (Wb) - Venous Blood Culture - Final No growth in 5 days. 04/18/23 12:45 Urine Catheter - Catheter Urine Culture - Final Culture exhibits no growth. 04/18/23 16:35 Sputum, Tracheal Aspirate Gram Stain - Final 04/18/23 16:35 Sputum, Tracheal Aspirate Respiratory Culture - Final Streptococcus group C Physical Exam Narrative no obvious distress, alert and oriented s1s2 no murmurs lungs clear abdomen soft no pitting edema left leg or arm. Edema right leg and arm. Dressing intact to right arm Assessment & Plan Assessment/Plan (1) Acute kidney injury: PLAN: - Anuric GREGORY secondary to ATN and rhabdo. Patient initiated on hemodialysis on 04/19 (K+ 6.8, Cr 3.4). Creatinine increasing. Today serum creatinine 10.4 mg/dL. Patient remains essentially anuric and creatinine continues to increase despite hemodialysis therefore patient will need dialysis outside of hospital. Patient ro have tunneled HD catheter placed today. Patient to undergo hemodialysis today over 3.5 hours on 2K bath with around 1 to 2 L fluid removal as patient/blood pressure tolerates. HD to be arranged near his mother's home ([place]). Reviewed with patient today recommend renal diet, reviewed foods high in K+ to limit/or avoid - Rhabdomyolysis. Due to prolonged immobilization. CPK levels are improved. He is essentially anuric now. IV fluids have been discontinued. Edema right arm and right leg, Venous ultrasound no evidence of DVT. CT of arm concerning for abscess however patient underwent I&D of right arm arm which revealed hematoma. Blood cultures and urine culture no growth. On Vanco/meropenem. Appreciate surgery team for tunneled HD catheter placement - possible mass/vegetation on echo. blood cultures to date negative. Antibiotics per ID, has been on Vanco and meropenem. - discharge planning in progress to LTAC . Patient accepted at [facility] in [place], DX: GREGORY. OK for discharge per renal when cleared by primary team as outpatient HD arrangements have been made.
--- NOTE | 2023-04-29 11:04 | CASEMGMT ---
Discharge Planning Requested updates sent to [facility] via [facility]. Demetrice Cohn, Discharge Planning Asst.
--- NOTE | 2023-04-29 11:15 | PN.ORTHO_ITS ---
Subjective Subjective Seen and examined doing well no complaints with his right upper extremity denies pain denies numbness or tingling Objective Data Objective Data Vital Signs: Vital Signs Temp Pulse Resp BP Pulse Ox O2 Del Method O2 Flow Rate 98.4 F 97 16 135/82 H 99 Room Air 35 04/29/23 08:08 04/29/23 08:08 04/29/23 08:08 04/29/23 08:08 04/29/23 08:08 04/29/23 08:17 04/21/23 13:00 FiO2 21 04/23/23 07:00 Oxygen Flow Rate (L/min) 35 Oxygen Delivery Method Room Air Weight: 155 lb 13.869 oz Body Mass Index (BMI) 23.6 Intake & Output: Intake and Output for Last 24 Hours 04/27/23 04/28/23 04/29/23 23:59 23:59 23:59 Intake Total 660 / 660 320 / 560 240 / 240 Output Total 1530 / 1530 Balance -870 / -870 320 / 560 240 / 240 Lab / Micro Data 04/29/23 05:57 04/29/23 05:57 Labs: Laboratory Results - last 24 hr 04/29/23 05:57: WBC 14.9 H, RBC 2.82 L, Hgb 8.5 L, Hct 24.8 L, MCV 87.9, MCH 30.1, MCHC 34.3, RDW Std Deviation 43.7, RDW Coeff of Merrick 13.8, Plt Count 240, MPV 11.2, Neut % (Auto) Not Reportable, Absolute Neuts (auto) 9.7 H, Absolute Lymphs (auto) 2.52, Total Counted 100, Neutrophils % (Manual) 62, Band Neutrophils % 3, Lymphocytes % (Manual) 17 L, Monocytes % (Manual) 5, Eosinophils % (Manual) 1, Metamyelocytes % 2 H, Myelocytes % 10 H, Diff Path Review May , Platelet Estimate ADEQUATE, RBC Morphology NORM C+C, Sodium 128 L, Potassium 5.5 H, Chloride 98, Carbon Dioxide 20.0 L, Anion Gap 10, BUN 125 H* , Creatinine 10.40 H*, Estim Creat Clear Calc 10.14, Est GFR (MDRD) Af Amer 8 L, Est GFR (MDRD) Non-Af 6 L, BUN/Creatinine Ratio 12.0, Glucose 100, Calcium 7.4 L , Random Vancomycin 30.1 H Micro: Microbiology 04/28/23 10:18 Wound - Arm Right Gram Stain - Final 04/20/23 20:17 Blood Culture (Wb) - Pic Blood Culture - Final No growth in 5 days. 04/18/23 12:55 Blood Culture (Wb) - Venous Blood Culture - Final No growth in 5 days. 04/18/23 12:40 Blood Culture (Wb) - Venous Blood Culture - Final No growth in 5 days. 04/18/23 12:45 Urine Catheter - Catheter Urine Culture - Final Culture exhibits no growth. 04/18/23 16:35 Sputum, Tracheal Aspirate Gram Stain - Final 04/18/23 16:35 Sputum, Tracheal Aspirate Respiratory Culture - Final Streptococcus group C Physical Exam Const alert, oriented x3 and no apparent distress Extremity Extremity Narrative: Right upper extremity dressing clean dry intact compartments soft neurovascular intact radial median ulnar AIN and musculocutaneous nerves. Assessment & Plan Assessment/Plan (1) Localized swelling of right upper extremity: PLAN: Plan Postop day #1 incision and drainage of right arm Dressing on for 5 days postop then remove dressing and wash the area daily with antibacterial soap and warm water and replace with dry dressing Hudson to be removed 2 weeks postop encourage elbow wrist and hand finger range of motion no restrictions to right upper extremity.
[2023-04-29] MEDS: Bupivacaine 0.25% 30 ML Vial (13:02)
[2023-04-29] MEDS: Lidocaine 1% /Epi 1:100 (20ml) 20 ML Vial (13:02)
[2023-04-29] MEDS: Heparin 10,000 UNITS/10 ML Vial 10000 UNITS (13:14)
--- NOTE | 2023-04-29 13:21 | OP.PCM_ITS ---
Report of Operation Date of Procedure: 04/29/23 Pre-Operative Diagnosis: Acute kidney injury Post-Operative Diagnosis: Same Surgery/Procedure Performed:: Insertion of right IJ tunneled dialysis catheter Surgeon: Nneka Zheng Type of Anesthesia: Local MAC Anesthesiologist: Nick Deras Special Medications: Patient is on meropenem IV every 24 [address] floor Specimen's removed: None Estimated Blood Loss (mL): 20 cc Description of Procedure: After informed consent was given, the patient was brought to the operating room and placed in the supine position. Appropriate time out protocol was followed. He was then given IV conscious sedation for anesthesia. The patient's right upper chest and neck were then prepped with a surgical skin preparation and sterile surgical drapes were placed. After proper landmarks were ascertained, the skin at the upper right chest area was then infiltrated with 1:1 mixture of 1% lidocaine with epinephrine and 0.5% maricaine. A needle trocar was then inserted into the right internal jugular vein with ultrasound guidance-multiple vessels were viewed with u/s and the right IJ was chosen-- and there was good aspiration of venous blood. A wire was then threaded into the needle trocar and this was visualized under fluoroscopy to ensure that the wire was in the superior vena cava. Once this was done, then the needle trocar was removed. A small incision was made with an 11 blade knife at the wire entrance site. The dilator x2 with the introducer sheath attached was then placed over the wire into the right internal jugular vein via the Seldinger technique and this was visualized under fluoroscopy. Next the introducer and sheath were in proper position as visualized by fluoroscopy. The location of the cuffed was estimated on the skin, an incision was made with a 15 blade scalpel. The Palindrome 14.5 Ethiopian x 19 cm (lot [id number] ref [id number]) was tunneled from the chest incision to the right neck incision. The sheath was removed. The catheter was placed through the introducer and was positioned with its tip at the junction of the superior vena cava and the right atrium as visualized under fluoroscopy. The cuff of the catheter was in the subcutaneous tissue. The catheter flushed and asher well with saline. Catheter was also flushed with 1.6 cc of 1-10,000 of heparin. Hemostasis was assured. Silver dressing was placed at the catheter exit site. Catheter was sutured with 3-0 nylon sutures. The neck incision was sutured with interrupted 3-0 Vicryl interrupted sutures x2 and Steri-Strips were placed. A large OpSite was placed over the catheter site and a small OpSite over the neck incision. The patient tolerated the procedure well. Grafts/Implants Used: Palindrome 14.5 Ethiopian x 19 cm (lot [id number] ref [id number]) Complications none
--- NOTE | 2023-04-29 13:31 | RAD_ITS ---
STUDY: X-RAY CHEST REASON FOR EXAM: Male, 27 years old. Dialysis catheter -- pacu TECHNIQUE: Single AP portable view of the chest. COMPARISON: Comparison is made with prior study dated April 19, 2023. FINDINGS: A right-sided double-lumen catheter has been placed. The tip is at the junction of the superior vena cava and right atrium. EKG electrodes are seen. The lungs are clear and expanded. There is no demonstrated pleural abnormality. Normal size heart. Normal mediastinum and alex. Normal visualized pulmonary arteries. Normal visualized aortic arch and descending thoracic aorta. Normal visualized thoracic spine. Normal visualized ribs, clavicles, and shoulders. There is no demonstrated abnormality of the visualized soft tissue structures of the upper abdomen. RAD/Chest 1 View (Portable) IMPRESSION: The tip of the right-sided double lumen catheter is at the junction of the superior vena cava and right atrium. Electronically Signed: Art Kelly MD at 13:58 EDT ,
[2023-04-29] MEDS: 0.9% Normal Saline (1000mL) 1,000 ML 15 ML IV (13:36)
--- NOTE | 2023-04-29 13:52 | PN.HOSP_ITS ---
Reason for Visit Reason for Visit: Unresponsiveness Subjective Subjective No issues overnight. Patient still complaining of right-sided pain which experienced trauma from him lying on his right side for extended period of time. Plan is for tunneled dialysis catheter this afternoon and then dialysis following. Patient remains agreeable to LTAC and pre-CERT is to be initiated. Objective Data Objective Data Vital Signs: Vital Signs Temp Pulse Resp BP Pulse Ox O2 Del Method O2 Flow Rate 98.5 F 90 14 143/87 H 95 Room Air 35 04/29/23 13:44 04/29/23 13:44 04/29/23 13:44 04/29/23 13:44 04/29/23 13:44 04/29/23 13:44 04/21/23 13:00 FiO2 21 04/23/23 07:00 Oxygen Flow Rate (L/min) 35 Oxygen Delivery Method Room Air Weight: 70.7 kg Body Mass Index (BMI) 23.6 Intake & Output: Intake and Output for Last 24 Hours 04/27/23 04/28/23 04/29/23 23:59 23:59 23:59 Intake Total 660 / 660 320 / 560 240 / 240 Output Total 1530 / 1530 Balance -870 / -870 320 / 560 240 / 240 Lab / Micro Data 04/29/23 05:57 04/29/23 05:57 Labs: Laboratory Results - last 24 hr 04/29/23 05:57: WBC 14.9 H, RBC 2.82 L, Hgb 8.5 L, Hct 24.8 L, MCV 87.9, MCH 30.1, MCHC 34.3, RDW Std Deviation 43.7, RDW Coeff of Merrick 13.8, Plt Count 240, MPV 11.2, Neut % (Auto) Not Reportable, Absolute Neuts (auto) 9.7 H, Absolute Lymphs (auto) 2.52, Total Counted 100, Neutrophils % (Manual) 62, Band Neutrophils % 3, Lymphocytes % (Manual) 17 L, Monocytes % (Manual) 5, Eosinophils % (Manual) 1, Metamyelocytes % 2 H, Myelocytes % 10 H, Diff Path Review May foll, Platelet Estimate ADEQUATE, RBC Morphology NORM C+C, Sodium 128 L, Potassium 5.5 H, Chloride 98, Carbon Dioxide 20.0 L, Anion Gap 10, BUN 125 H* , Creatinine 10.40 H*, Estim Creat Clear Calc 10.14, Est GFR (MDRD) Af Amer 8 L, Est GFR (MDRD) Non-Af 6 L, BUN/Creatinine Ratio 12.0, Glucose 100, Calcium 7.4 L , Random Vancomycin 30.1 H Micro: Microbiology 04/28/23 10:18 Wound - Arm Right Gram Stain - Final 04/20/23 20:17 Blood Culture (Wb) - Pic Blood Culture - Final No growth in 5 days. 04/18/23 12:55 Blood Culture (Wb) - Venous Blood Culture - Final No growth in 5 days. 04/18/23 12:40 Blood Culture (Wb) - Venous Blood Culture - Final No growth in 5 days. 04/18/23 12:45 Urine Catheter - Catheter Urine Culture - Final Culture exhibits no growth. 04/18/23 16:35 Sputum, Tracheal Aspirate Gram Stain - Final 04/18/23 16:35 Sputum, Tracheal Aspirate Respiratory Culture - Final Streptococcus group C Physical Exam Const alert, oriented x3 and no apparent distress; Negative for healthy appearing Constitutional Narrative: Thin, white male, sitting up in bed, lying in bed watching television HEENT normocephalic and head/scalp atraumatic HEENT Narrative: Dentition is poor, Mallampati is 1, no thrush Head and Scalp: normocephalic Resp normal respiratory effort, no retractions, no use of accessory muscles and clear to auscultation bilaterally Auscultation: Negative for rales, rhonchi or wheezes Cardio regular rate, regular rhythm, S1 normal heart sound, S2 normal heart sound, no murmurs, no rub, no gallops and no clicks GI normal to inspection, nondistended, normoactive bowel sounds, soft to palpation, non-tender and non-distended Extremity normal to inspection and no clubbing, cyanosis or edema Extremity Narrative: PICC line left upper extremity, clean dry and intact, ongoing right upper and lo wer extremity edema with no cyanosis or clubbing, cap refill is good on the right side Skin Skin Narrative: Right upper extremity postoperative dressing is in place Neuro oriented x3, moves all extremities and no focal motor deficits Neuro Narrative: Speech response signs are improving, significant generalized weakness Psych Psych Narrative: More interactive today Assessment & Plan Assessment/Plan (1) NSTEMI (non-ST elevated myocardial infarction): (2) Acute respiratory failure: QUALIFIERS: Respiratory failure complication: hypoxia Qualified Code(s): J96.01 - Acute respiratory failure with hypoxia (3) Encephalopathy: (4) Acute kidney injury: (5) Sepsis syndrome: (6) Rhabdomyolysis: (7) Leukocytosis: (8) Thrombocytopenia: (9) Arm abscess: PLAN: Plan Acute hypoxic respiratory failure secondary to narcotic overdose -Intubated on presentation -Extubated on 04/23/2023 -Remains on room air -Tolerating oral diet without difficulty Acute encephalopathy secondary to the above with related anoxia -Resolved but patient is with some memory loss and altered per mom -Patient does have evidence of anoxia on his MRI -Continue to monitor clinically GREGORY secondary to ischemic ATN/rhabdomyolysis -Temporary dialysis catheter removed yesterday 04/28/2023 -Tunneled dialysis catheter placement today at 1 PM -Continue dialysis per nephrology Sepsis secondary to Group C strep pneumonia -Sepsis has resolved -Likely related to aspiration with acute event -ID is following--> awaiting overall plan for discharge with regards to antibiotics -Appreciate input -TTE was suggestive of possible echogenic mass in the right atrium and tricuspid valve appeared unremarkable -Patient was resistant to SUZIE and cardiology did not want to do this why he was intubated -All blood cultures drawn since admission are negative -Meropenem has been discontinued Right arm hematoma -I&D revealed that this is a hematoma and once not an infection -This has been drained and will need ongoing wound care after discharge Acute ischemic hepatitis secondary to the above -Resolving Leukocytosis -White count is 14.9 today stable when compared to yesterday -Antibiotics have been discontinued -We will continue to monitor with repeat CBC in the a.m. History of IVDU -HIV and hepatitis are unremarkable -Toxicology screen on presentation showed amphetamines, ecstasy, cocaine, and cannabis, -Admitted to fentanyl use which would not show up on toxicology screen DVT prophylaxis -Continue subcu heparin CODE STATUS Full code Disposition: -Plan is for LTAC at discharge will need pre-CERT which should be started today if patient is excepted patient would also benefit from speech therapy as there is some cognitive impairment from the anoxia that he experienced while he was unresponsive Charges/Coding Visit Charges Inpatient E&M: 61676 Subs Hosp L2
--- NOTE | 2023-04-29 14:22 | PCM.PN.ID ---
Physical Exam Narrative Feeling fine, mild arm soreness, no fever. HD today Const alert and no apparent distress General Appearance: cooperative Resp normal air movement and clear to auscultation bilaterally Cardio regular rate and regular rhythm GI soft to palpation, non-tender and non-distended Skin Skin Narrative: no new rash ID ID: Route of nutrition/ use of supplements: [] Nutritional Intake: [] IV Site: [] Allison Catheter: [] Assessment & Plan Assessment/Plan (1) Encephalopathy: PLAN: Possible atrial mass/veg seen on TTE. Unable to do SUZIE, repeat SUZIE showed eustachian valve. Bcx neg so far. On empiric jorge. H/o PCN allergy. On jorge for suspected aspiration. IVDU - neg hiv, pending hep panel RUE and RLE swelling - neg doppler u/s of R side. No redness today, but mild soreness. Taken to OR 04/28, but was not an abscess. Will follow as needed, will stop abx today. (2) Acute kidney injury: (3) Acute respiratory failure: QUALIFIERS: Respiratory failure complication: hypoxia Qualified Code(s): J96.01 - Acute respiratory failure with hypoxia (4) History of drug abuse:
[2023-04-29] MEDS: PureFlow B 2K Dialysis Soln 1 BAG 6 BAG PF (14:23)
[2023-04-29] MEDS: 0.9% Normal Saline 1,000 ML IV.SOLN. 1000 ML OPERA.SITE (14:23)
--- NOTE | 2023-04-29 14:24 | CASEMGMT ---
Discharge Planning Requested updates sent to [facility]. Gave them PCU phone number to call if auth is received over the weekend. Demetrice Cohn, Discharge Planning Asst.
[2023-04-29] MEDS: 0.9% Saline Lock 10 ML Syringe IV (17:08)
[2023-04-29] MEDS: Heparin 10,000 UNITS/10 ML Vial IV (17:09)
[2023-04-30 03:48] VITALS: BMI 24.3
[2023-04-30 04:00] VITALS: BP 141/72; PULSE 96; RESP 16; TEMP 36.8; O2SAT 97
[2023-04-30] MEDS: oxyCODONE 5 MG Tablet PO (04:29)
[2023-04-30 08:02] LABS: Hematocrit 24.1 % (40-54); Mean Corp Hgb Conc 33.2 g/dL (32-36); Mean Corpuscular Hgb 30.1 pg (27.0-32.0); Mean Corpuscular Volume 90.6 fL (80-94); Mean Platelet Vol. 14.1 fl (6.2-12.0); POSITIVE COUNT YES; POSITIVE MORPHOLOGY YES; RBC Distribution Width CV 14.4 % (11.6-14.6); RBC Distribution Width SD 46.5 fl (35.1-43.9); Red Blood Count 2.66 M/mm3 (4.6-6.2); White Blood Count 15.4 K/mm3 (4.4-11.0)
[2023-04-30 08:24] LABS: Anion Gap 11 (5-15); BUN 95 mg/dL (7-18); BUN/Creat Ratio 11.6 RATIO (10-20); Calcium,Total 7.1 mg/dL (8.5-10.1); Chloride 102 mmol/L (98-107); EST Glomerular Filtration Rate 8 mL/min (>60); Est Glom Filt Rate - Afr Amer 10 mL/min (>60); Estimated Creatinine Clearance 12.86 ml/min; Glucose 95 mg/dL (74-106); Potassium 4.9 mmol/L (3.5-5.1); Sodium Level 134 mmol/L (136-145)
--- NOTE | 2023-04-30 08:37 | PN.SURG_ITS ---
Subjective Subjective Patient's catheter worked well per patient Objective Data Objective Data Vital Signs: Vital Signs Temp Pulse Resp BP Pulse Ox O2 Del Method O2 Flow Rate 98.3 F 96 16 141/72 H 97 Room Air 35 04/30/23 04:00 04/30/23 04:00 04/30/23 04:00 04/30/23 04:00 04/30/23 04:00 04/30/23 04:00 04/21/23 13:00 FiO2 21 04/23/23 07:00 Oxygen Flow Rate (L/min) 35 Oxygen Delivery Method Room Air Weight: 160 lb 7.944 oz Body Mass Index (BMI) 24.3 Intake & Output: Intake and Output for Last 24 Hours 04/28/23 04/29/23 04/30/23 23:59 23:59 23:59 Intake Total 320 / 560 275.5 / 275.5 0 / 0 Output Total 1999 / 1999 Balance 320 / 560 -1724.5 / -1724.5 0 / 0 Lab / Micro Data 04/29/23 05:57 04/30/23 06:35 Labs: Laboratory Results - last 24 hr 04/30/23 06:35: Sodium 134 L, Potassium 4.9, Chloride 102, Carbon Dioxide 21.0, Anion Gap 11, BUN 95 H, Creatinine 8.20 H*, Estim Creat Clear Calc 12.86, Est GFR (MDRD) Af Amer 10 L, Est GFR (MDRD) Non-Af 8 L, BUN/Creatinine Ratio 11.6, Glucose 95, Calcium 7.1 L Micro: Microbiology 04/28/23 10:18 Wound - Arm Right Gram Stain - Final 04/20/23 20:17 Blood Culture (Wb) - Pic Blood Culture - Final No growth in 5 days. 04/18/23 12:55 Blood Culture (Wb) - Venous Blood Culture - Final No growth in 5 days. 04/18/23 12:40 Blood Culture (Wb) - Venous Blood Culture - Final No growth in 5 days. 04/18/23 12:45 Urine Catheter - Catheter Urine Culture - Final Culture exhibits no growth. 04/18/23 16:35 Sputum, Tracheal Aspirate Gram Stain - Final 04/18/23 16:35 Sputum, Tracheal Aspirate Respiratory Culture - Final Streptococcus group C Radiography Diagnostic Testing: Radiology Impression Chest X-Ray 04/29/23 13:31 IMPRESSION: The tip of the right-sided double lumen catheter is at the junction of the superior vena cava and right atrium. Electronically Signed: Art Kelly MD at 13:58 EDT , Physical Exam Const oriented x3 and no apparent distress Resp normal respiratory effort Assessment & Plan Assessment/Plan (1) Chronic renal failure, stage 5: PLAN: Patient's dialysis catheter did some dried blood around the catheter but it was not actively oozing. He reports dialysis worked well yesterday. I will sign off please contact me if there are any questions or concerns. Brown Dumas MD Pager: [facility] [address] [place] [address], [address] [place] [address] Office:
[2023-04-30 08:46] LABS: Differential Indicated MANUAL DIFF
[2023-04-30 08:48] LABS: Neutrophil-Band 4 % (0-5); Neutrophil-Segmented 58 % (47-70); Total Cells Counted 100 (MANUAL DIFF)
[2023-04-30 08:49] LABS: Basophil 2 % (0-1); Eosinophil 7 % (0-5); Lymphocyte 19 % (19-41); Metamyelocyte 6 % (0-1); Monocyte 4 % (0-10); Platelet Estimate ADEQUATE (ADEQ)
[2023-04-30 08:50] LABS: Absolute Neutrophil Count 9.5 X10^3/uL (2.0-7.7); Hypochromasia 1+; Red Cell Morphology N CYTIC NORMAL (NORM C&C)
[2023-04-30 09:25] VITALS: BP 144/84; PULSE 103; RESP 16; TEMP 37.3; O2SAT 97
--- NOTE | 2023-04-30 09:41 | CASEMGMT ---
Received tc from Tracee at [facility], precert has been obtained. Updated who requests transport approx 3pm. Green sheet on chart. RN CM into pt room, pt is aware. Pt father present in room. Pt requested this RN CM to notify his mother. He denies further questions at this time. TC to pt nurse to make aware of number to call report to at approx 2pm. Spoke with certified legal secretary specialist regarding transportation set up. TC to pt mother, she is aware of the plan as well.
--- NOTE | 2023-04-30 10:17 | PCM.PN.REN ---
Subjective Subjective Follow-up on ESRD. Patient has been dialyzed yesterday. Feeling fine today. Denies shortness of breath, right arm is swollen and tender. Objective Data Objective Data Vital Signs: Vital Signs Temp Pulse Resp BP Pulse Ox O2 Del Method O2 Flow Rate 99.2 F H 103 H 16 144/84 H 97 Nasal Cannula 35 04/30/23 09:25 04/30/23 09:25 04/30/23 09:25 04/30/23 09:25 04/30/23 09:25 04/30/23 09:52 04/21/23 13:00 FiO2 21 04/23/23 07:00 Oxygen Flow Rate (L/min) 35 Oxygen Delivery Method Nasal Cannula Weight: 72.8 kg Body Mass Index (BMI) 24.3 Intake & Output: Intake and Output for Last 24 Hours 04/28/23 04/29/23 04/30/23 23:59 23:59 23:59 Intake Total 320 / 560 275.5 / 275.5 0 / 0 Output Total 1999 / 1999 Balance 320 / 560 -1724.5 / -1724.5 0 / 0 Lab / Micro Data Attestation: I reviewed the patient's lab results. 04/30/23 06:35 04/30/23 06:35 Labs: Laboratory Results - last 24 hr 04/30/23 06:35: WBC 15.4 H, RBC 2.66 L, Hgb 8.0 L, Hct 24.1 L, MCV 90.6, MCH 30.1, MCHC 33.2, RDW Std Deviation 46.5 H, RDW Coeff of Merrick 14.4, Plt Count , MPV 14.1 H, Neut % (Auto) Not Reportable, Absolute Neuts (auto) 9.5 H, Absolute Lymphs (auto) 2.90, Total Counted 100, Neutrophils % (Manual) 58, Band Neutrophils % 4, Lymphocytes % (Manual) 19, Monocytes % (Manual) 4, Eosinophils % (Manual) 7 H, Basophils % (Manual) 2 H, Metamyelocytes % 6 H, Diff Path Review December, Platelet Estimate ADEQUATE, RBC Morphology N CYTIC, Hypochromasia 1+, Sodium 134 L, Potassium 4.9, Chloride 102, Carbon Dioxide 21.0, Anion Gap 11, BUN 95 H, Creatinine 8.20 H*, Estim Creat Clear Calc 12.86, Est GFR (MDRD) Af Amer 10 L, Est GFR (MDRD) Non-Af 8 L, BUN/Creatinine Ratio 11.6, Glucose 95, Calcium 7.1 L Micro: Microbiology 04/28/23 10:18 Wound - Arm Right Gram Stain - Final 04/28/23 10:18 Wound - Arm Right Wound Culture - Preliminary No growth-Final to follow 04/20/23 20:17 Blood Culture (Wb) - Pic Blood Culture - Final No growth in 5 days. 04/18/23 12:55 Blood Culture (Wb) - Venous Blood Culture - Final No growth in 5 days. 04/18/23 12:40 Blood Culture (Wb) - Venous Blood Culture - Final No growth in 5 days. 04/18/23 12:45 Urine Catheter - Catheter Urine Culture - Final Culture exhibits no growth. 04/18/23 16:35 Sputum, Tracheal Aspirate Gram Stain - Final 04/18/23 16:35 Sputum, Tracheal Aspirate Respiratory Culture - Final Streptococcus group C Radiography Diagnostic Testing: Radiology Impression Chest X-Ray 04/29/23 13:31 IMPRESSION: The tip of the right-sided double lumen catheter is at the junction of the superior vena cava and right atrium. Electronically Signed: Art Kelly MD at 13:58 EDT , Physical Exam Const alert, oriented x3 and no apparent distress General Appearance: frail HEENT normocephalic Head and Scalp: atraumatic Neck no lymphadenopathy Resp no use of accessory muscles and clear to auscultation bilaterally Cardio regular rate, no murmurs and no rub GI Auscultation: normoactive bowel sounds Palpation: soft Skin no rashes or lesions noted Neuro Motor Exam: muscle tone normal throughout Psych cooperative Assessment & Plan Assessment/Plan (1) ESRD (end stage renal disease) on dialysis: PLAN: Recently started on dialysis, appears euvolemic, electrolytes are fine, no fluid overload. We will dialyze Tuesday
--- NOTE | 2023-04-30 12:22 | DS.PCM_ITS ---
Providers Date of Admission: 04/18/23 Date of Discharge: 04/30/23 Primary Care Physician: Maricarmen Primary Care Phys Consultations 04/18/23 16:02 Consult: Retail Security Professional / Pulmonary Medicine Routine Consulting Provider: Pulmonary Medicine tammy [place] Reason for Consult: acute respiratory faiure likely due to drug overdose EMERGENT Consult: No MD Notified: Yes Date Notified: 04/18/23 Time Notified: 14:51 Method of Notification: Text 04/18/23 18:30 Consult: Cardiology Routine Consulting Provider: Otoniel Booth Reason for Consult: elevated troponin EMERGENT Consult: No Notified: Yes Date Notified: 04/18/23 Time Notified: 18:30 Method of Notification: Text 04/19/23 07:06 Consult: Nephrology Routine Consulting Provider: Ree Delaney Reason for Consult: GREGORY EMERGENT Consult: No Notified: Yes Date Notified: 04/19/23 Time Notified: 08:07 Method of Notification: Answering Service 04/20/23 08:40 Consult: Infectious Disease Routine Consulting Provider: Anthony Beauchamp Reason for Consult: ECHOGENIC mass in [place], Polysubstance IVDA EMERGENT Consult: No MD Notified: Yes Date Notified: 04/20/23 Time Notified: 08:41 Method of Notification: Text 04/25/23 17:11 Consult: General Surgery Routine Consulting Provider: Nneka Zheng Reason for Consult: Tunnelled HD cath EMERGENT Consult: No Notified: Yes Date Notified: 04/25/23 Time Notified: 17:11 Method of Notification: Verbal 04/26/23 17:30 Consult: Orthopedics Routine Consulting Provider: Leonardo Cornejo Reason for Consult: R Biceps Abcess EMERGENT Consult: No Notified: Yes Date Notified: 04/26/23 Time Notified: 17:31 Method of Notification: Verbal Reason For Visit: ACUTE ENCEPHALOPATHY Diagnosis Discharge Diagnosis (1) ESRD (end stage renal disease) on dialysis: Status: Acute Code(s): N18.6 - End stage renal disease; Z99.2 - Dependence on renal dialysis Medications at Discharge Home Medications oxycodone 5 mg tablet 5 mg PO Q6H PRN PRN Pain Score 6-10 1 day #4 tabs 04/30/23 pantoprazole 40 mg tablet,delayed release (Protonix) 40 mg PO DAILY #7 tabs 04/30/23 polyethylene glycol 3350 17 gram oral powder packet 17 g PO DAILY #0 ea 04/30/23 Hospital Course Procedures 2-D Echocardiogram, Central line placement, Dialysis, EKG, Intubation, PICC line placement and - (Lower extremity Dopplers/renal ultrasound/right upper extremity ultrasound/right upper extremity CT and MRI/tunneled dialysis catheter/liver ultrasound placement) Summary of Care Provided Minutes Spent on Discharge: 40 Hospital Course: Patient is a 27-year-old male who presented to the emergency department on 023 after being found unresponsive. He had a known history of IV drug use and was found facedown on the floor at his residence. EMS gave him 4 doses of Narcan with no response. On arrival to the emergency department he was found to be in a decorticate posturing and his Chloe Coma Scale was 3. He was intubated in the emergency department and admitted to the ICU. Vital signs on presentation were overall unremarkable. CBC showed a white count of 23,000 and hemoglobin of 15.4. His chemistry showed a sodium of 133 with a potassium of 6.8 and a serum bicarb of 14. Serum creatinine was 2.8 and his anion gap was 18. Lactic acid was 4.7 and he had shock liver with AST of 388 and an ALT of 231. CPK was found to be 10,960 and his urinalysis showed 2+ bacteria. CT of the brain was unremarkable. He was started on broad-spectrum antibiotics after cultures were obtained and admitted to the ICU. An echocardiogram was done on the day of presentation showed an EF of 65 to 70% with a moderate size echogenic mass attached to the right atrium, unremarkable tricuspid valve. ICU was consulted as well as nephrology. Renal ultrasound was also performed due to his GREGORY due to rhabdomyolysis and showed echogenic kidneys indicative of renal medical disease but no hydronephrosis. An MRI of his brain was performed on 04/20/2023 that showed acute ischemia in the internal capsules and deep parietal white matter consistent with anoxia but was otherwise unremarkable. Liver ultrasound was done for liver enzyme elevation and demonstrated gallbladder sludge, small amount of perihepatic fluid and increased echotexture of the kidneys as noted previously. Venous Dopplers were performed on 04 20 and was unremarkable for clot. Repeated Dopplers were done for right lower extremity swelling today and again remained unremarkable. Initial blood cultures were negative and repeat blood cultures were performed and remained negative. He was maintained empirically on vancomycin and meropenem due to history of penicillin allergy. We did obtain HIV and hepatitis studies and they were all negative. A SUZIE was unable to be performed as cardiology did not want to do it while he was intubated and he ultimately refused once he was extubated. He did ultimately require initiation of dialysis and a temporary IJ dialysis catheter was placed by the police commissioner on 04/19/2023. He has tolerated dialysis well throughout his hospitalization but will require ongoing dialysis at discharge as he has not sh own any signs of renal recovery as of yet. A tunneled dialysis catheter was placed by general surgery on 04/29/2023 and was used satisfactorily postplacement. His troponin did rise and it was felt likely due to demand ischemia as his echocardiogram was unremarkable. Cardiology was following but felt that his troponin elevation was likely all related to stress-induced ischemia and his renal failure and signed off. He needs no ongoing cardiology follow-up. It was felt that sepsis was present on presentation and was likely related to aspiration pneumonia. Sputum culture is growing group C strep at this point. Infectious disease followed the patient throughout his hospital course and he was treated with a full course of IV meropenem. This was discontinued on 04/28/2023. He had an ongoing white count elevation and prior to his dialysis catheter placement he was noted to have some swelling in the right upper extremity bicipital area. CT and MRI both showed fluid collection that was concerning for abscess. Orthopedic surgery was consulted and he was taken to the OR. This area was I&D did and was found to be a hematoma rather than a fluid collection consistent with abscess. Cultures were unremarkable at discharge. Patient was able to be extubated on 04/23/2023 and has been ho sitioned to an oral diet without difficulty. He has ongoing right lower and upper extremity swelling with no signs of compartment syndrome. This is related to his positioning while he was unresponsive. With his history of IV drug use, wound care needs for his right upper extremity and anoxic encephalopathy requiring ongoing speech therapy and physical disabilities requiring ongoing physical and occupational therapy we felt that an LTAC would be most appropriate for discharge and he was excepted by the LTAC at [facility] in [place]. We obtained pre-CERT for discharge on 04/30/2023 and the patient was discharged in stable condition. He will need a repeat CBC and BMP tomorrow morning. Discharge diagnoses: Acute hypoxic respiratory failure secondary to narcotic overdose Acute anoxic encephalopathy secondary to the above GREGORY secondary to ischemic ATN/rhabdo myelosis-requiring dialysis Sepsis Aspiration pneumonia secondary to group C strep Thrombocytopenia-resolved Anemia Leukocytosis History of IVDU Physical Exam Narrative Patient states he is feeling well and very pleased that he will be able to be discharged today Const alert, oriented x3 and no apparent distress; Negative for healthy appearing Constitutional Narrative: Thin, white male, sitting up in bed, lying in bed watching television, family at bedside General Appearance: cooperative, comfortable, well kempt and well developed Orientation / Consciousness: awake, oriented to person, oriented to place and oriented to time Exam Limitations: no limitations Nutritional Appearance: thin HEENT normocephalic, head/scalp atraumatic, hearing grossly normal bilaterally and moist oral mucous membranes; Negative for dentition normal HEENT Narrative: Dentition is poor with multiple missing teeth, Mallampati is 2, no thrush Eyes PERRL and EOMs intact bilaterally Eyes Narrative: Mild conjunctiva pallor bilaterally, no scleral icterus Neck no lymphadenopathy and supple Neck Narrative: Trachea midline, no thyroid enlargement Resp normal respiratory effort, no retractions, no use of accessory muscles and clear to auscultation bilaterally Resp Narrative: Diminished but clear Auscultation: Negative for rales, rhonchi or wheezes Cardio regular rate, regular rhythm, S1 normal heart sound, S2 normal heart sound, no murmurs, no rub, no gallops and no clicks GI normal to inspection, nondistended, normoactive bowel sounds, soft to palpation and non-tender Extremity normal to inspection and no clubbing, cyanosis or edema Extremity Narrative: PICC line left upper extremity, clean dry and intact, ongoing right upper and lower extremity edema with no cyanosis or clubbing, cap refill is good on the right side Skin no rashes or lesions noted Skin Narrative: Right upper extremity postoperative dressing is in place, tunneled dialysis c atheter with bleeding around site as expected right chest General Skin Exam: no breakdown Neuro oriented x3, CN's II-XII intact bilaterally, moves all extremities, no focal motor deficits and no sensory deficits noted Neuro Narrative: interactions are normalizing Speech: speech normal Psych affect normal Psych Narrative: Eye contact is good and patient interacted appropriately Weight / BMI Weight Weight: 72.8 kg Body Mass Index (BMI) 24.3 ABG / Lab / Microbiology Data 04/30/23 06:35 04/30/23 06:35 Laboratory: Laboratory Results - last 24 hr 04/30/23 06:35: WBC 15.4 H, RBC 2.66 L, Hgb 8.0 L, Hct 24.1 L, MCV 90.6, MCH 30.1, MCHC 33.2, RDW Std Deviation 46.5 H, RDW Coeff of Merrick 14.4, Plt Count , MPV 14.1 H, Neut % (Auto) Not Reportable, Absolute Neuts (auto) 9.5 H, Absolute Lymphs (auto) 2.90, Total Counted 100, Neutrophils % (Manual) 58, Band Neutrophils % 4, Lymphocytes % (Manual) 19, Monocytes % (Manual) 4, Eosinophils % (Manual) 7 H, Basophils % (Manual) 2 H, Metamyelocytes % 6 H, Diff Path Review December, Platelet Estimate ADEQUATE, RBC Morphology N CYTIC, Hypochromasia 1+, Sodium 134 L, Potassium 4.9, Chloride 102, Carbon Dioxide 21.0, Anion Gap 11, BUN 95 H, Creatinine 8.20 H*, Estim Creat Clear Calc 12.86, Est GFR (MDRD) Af Amer 10 L, Est GFR (MDRD) Non-Af 8 L, BUN/Creatinine Ratio 11.6, Glucose 95, Calcium 7.1 L Microbiology: Microbiology 04/28/23 10:18 Wound - Arm Right Gram Stain - Final 04/28/23 10:18 Wound - Arm Right Wound Culture - Preliminary No growth-Final to follow 04/28/23 10:18 Wound - Arm Right Anaerobic Culture - Preliminary No growth in 48 hours. 04/20/23 20:17 Blood Culture (Wb) - Pic Blood Culture - Final No growth in 5 days. 04/18/23 12:55 Blood Culture (Wb) - Venous Blood Culture - Final No growth in 5 days. 04/18/23 12:40 Blood Culture (Wb) - Venous Blood Culture - Final No growth in 5 days. 04/18/23 12:45 Urine Catheter - Catheter Urine Culture - Final Culture exhibits no growth. 04/18/23 16:35 Sputum, Tracheal Aspirate Gram Stain - Final 04/18/23 16:35 Sputum, Tracheal Aspirate Respiratory Culture - Final Streptococcus group C Radiography Diagnostic Testing: Radiology Impression Chest X-Ray 04/29/23 13:31 IMPRESSION: The tip of the right-sided double lumen catheter is at the junction of the superior vena cava and right atrium. Electronically Signed: Art Kelly MD at 13:58 EDT Reading Location ID and State: [facility] / [place] , Service support , D/C Instructions Discharge Diet: No restrictions Meaningful Use Info Meaningful Use Diagnoses (Choose all that apply): None applicable Discharge Plan Admission Admit Date/Time: 04/18/23 14:46 Primary Reason for Your Visit: Unresponsiveness Attending Provider: Christine Mancini Primary Care Provider: Care Physician,No Primary Consulting Providers: Twila Aden; James Chappell; Leobardo Amos; Otoniel Booth; Nneka Zheng; Anthony Beauchamp; Agustin Matta; Quique Barrientos; Live Dozier; Haris Sanders; Luli Duque NP; Ree Delaney; Leonardo Cornejo Discharge Orders/Prescriptions Prescriptions: New oxycodone 5 mg Tablet 5 mg PO Q6H PRN PRN (Reason: Pain Score 6-10) 1 Days Qty: 4 0RF polyethylene glycol 3350 17 gram Powder In Packet 17 g PO DAILY Qty: 0 0RF pantoprazole [Protonix] 40 mg tablet,delayed release (DR/EC) 40 mg PO DAILY Qty: 7 0RF Discontinued sulfamethoxazole-trimethoprim 1 TABLET tablet 1 tab PO BID Qty: 13 0RF naproxen 500 MG tablet 500 mg PO BID PRN Qty: 20 0RF Referrals / Follow Up: Care Physician,No Primary [Primary Care Provider] - Disposition Disposition (needs filled in before D/C Order can be placed): Consumer Recruiter Acute Care Charges/Coding Visit Charges Inpatient E&M: 59168 SNF Disch >30 Min
--- NOTE | 2023-04-30 12:38 | PCM.TXEXTCAR ---
Diet Diet Order/Speech Therapy: Regular diet-renal Routine Orders/Code Status Routine Lab Work: CBC (05/01/2023) and BMP (05/01/2023) Code Status: Full Code Wound(s) Penis: Wound Type: Abrasion R upper arm- bicep area: Wound Type: Surgical Incision R forearm: Wound Type: scab Forehead: Wound Type: Abrasion Generalized scabs: Wound Type: blister/burn Rt lip: Wound Type: swelling Rt Neck: Wound Type: Surgical Incision RIGHT CHEST DIALYSIS CATHETER LOCATION: Wound Type: Surgical Incision Suggestions for Active Care Change Position every (hours): 2 Therapies Weight Bearing: Full weight bearing Physical Therapy: Eval and Treat Occupational Therapy: Eval and Treat Speech Therapy: Eval and Treat (Cognitive therapy for anoxic encephalopathy) Problem/Diagnosis (1) ESRD (end stage renal disease) on dialysis: Status: Acute Code(s): N18.6 - End stage renal disease; Z99.2 - Dependence on renal dialysis Allergies/Procedures Done in Hospital Allergies acetaminophen [From Soddy Daisy] Allergy (Verified 09/30/16 04:48) Swelling cephalexin [From Keflex] Allergy (Verified 09/30/16 04:48) Hives hydrocodone [From Sod[place] Daisy] Allergy (Verified 09/30/16 04:48) Swelling Penicillins Allergy (Verified 09/30/16 04:48) Itching Procedures: 2-D Echocardiogram, Central line placement, Dialysis, EKG, PICC line placement and - (MRI brain/bilateral lower extremity ultrasound/tunneled dialysis catheter placement/liver ultrasound/renal ultrasound/CT right upper extremity/MRI right upper extremity) Type of Care/Length of Stay Estimated LOS: Convalescent Care Less Than 30 days Type of Care Needed: LTAC Rehab Potential: Good Prognosis: Fair Additional Orders/Day of Discharge Day of Discharge: 04/30/23 Dietary and Speech Recommendations Dietitian Recommendations/Changes: Change diet to Renal - protein restricted Provide diet education prior to discharge as appropriate Continue to follow and monitor for changes in pt nutritional status and make additional rec as indicated. Discharge Plan Admission Admit Date/Time: 04/18/23 14:46 Primary Reason for Your Visit: Unresponsiveness Attending Provider: Christine Mancini Primary Care Provider: Care Physician,No Primary Consulting Providers: Twila Aden; James Chappell; Leobardo Amos; Otoniel Booth; Nneka Zheng; Anthony Beauchamp; Agustin Matta; Quique Barrientos; Live Dozier; Haris Sanders; Luli Duque NP; Ree Delaney; Leonardo Cornejo Discharge Orders/Prescriptions Prescriptions: New oxycodone 5 mg Tablet 5 mg PO Q6H PRN PRN (Reason: Pain Score 6-10) 1 Days Qty: 4 0RF polyethylene glycol 3350 17 gram Powder In Packet 17 g PO DAILY Qty: 0 0RF pantoprazole [Protonix] 40 mg tablet,delayed release (DR/EC) 40 mg PO DAILY Qty: 7 0RF Discontinued sulfamethoxazole-trimethoprim 1 TABLET tablet 1 tab PO BID Qty: 13 0RF naproxen 500 MG tablet 500 mg PO BID PRN Qty: 20 0RF Referrals / Follow Up: Care Physician,No Primary [Primary Care Provider] - Disposition Disposition (needs filled in before D/C Order can be placed): Polymer Scientist Acute Care
[2023-04-30 13:38] VITALS: BP 150/83; PULSE 93; RESP 16; TEMP 36.8; O2SAT 98
[2023-05-02 09:41] LABS: Pathologist Review Reviewed
[2023-05-02 10:00] LABS: Pathologist Review Reviewed
[2023-05-02 13:40] LABS: Pathologist Review Reviewed
== END 2023-04-30 16:06 | DRG 793 ==
LOC: ED 14:13 → ICU 14:35 → PCU 04-25 18:44
PROVIDERS: Family Medicine; Internal Medicine; Internal Medicine Critical Care Medicine; Internal Medicine Infectious Disease; Internal Medicine Interventional Cardiology; Internal Medicine Nephrology; Nurse Practitioner Adult Health; Orthopaedic Surgery; Surgery; Admitting Provider Student in an Organized Health Care Education/Training Program; Emergency Provider Emergency Medicine; Visit Provider Internal Medicine
PROC: 0KD70ZZ Extraction of Right Upper Arm Muscle, Open Approach (ICD-10-PCS; principal; 2023-04-28 08:40)
PROC: 02HV33Z Insertion of Infusion Device into Superior Vena Cava, Percutaneous Approach (ICD-10-PCS; principal; 2023-04-29 12:45)
DX: T40.601A Poisoning by unspecified narcotics, accidental (unintentional), initial encounter (principal); J96.01 Acute respiratory failure with hypoxia; N17.0 Acute kidney failure with tubular necrosis; J69.0 Pneumonitis due to inhalation of food and vomit; G92.8 Other toxic encephalopathy; A40.8 Other streptococcal sepsis; J15.4 Pneumonia due to other streptococci; K71.10 Toxic liver disease with hepatic necrosis, without coma; G93.1 Anoxic brain damage, not elsewhere classified; F19.10 Other psychoactive substance abuse, uncomplicated; N18.6 End stage renal disease; D69.6 Thrombocytopenia, unspecified; D64.9 Anemia, unspecified; M62.82 Rhabdomyolysis; L89.529 Pressure ulcer of left ankle, unspecified stage; E87.5 Hyperkalemia; F17.210 Nicotine dependence, cigarettes, uncomplicated; L89.519 Pressure ulcer of right ankle, unspecified stage; E87.1 Hypo-osmolality and hyponatremia; S40.021A Contusion of right upper arm, initial encounter; M79.661 Pain in right lower leg; M79.89 Other specified soft tissue disorders; I5A Non-ischemic myocardial injury (non-traumatic); N39.0 Urinary tract infection, site not specified; R31.9 Hematuria, unspecified; Z88.0 Allergy status to penicillin
CPT/HCPCS: 31500; 31720; 36415; 36569; 36600; 51702; 70470; 70553; 71045; 73201; 73218; 74018; 76705; 76770; 76882; 77001; 80048; 80053; 80069; 80074; 80076; 80202; 80307; 81001; 82077; 82140; 82550; 82803; 82962; 83605; 83735; 83880; 84100; 84132; 84478; 84484; 84520; 84550; 85025; 85610; 85730; 86022; 86703; 87040; 87070; 87075; 87077; 87086; 87205; 87340; 90937; 92507; 92526; 92610; 93005; 93306; 93308; 93971; 94002; 94003; 94660; 94762; 97110; 97116; 97162; 97163; 97166; 97530; 97535; 97802; 97803; 99252; 99285; A9575; J2185; J7030; J7040; J7050; Q9967; A4216; C1750; C1752; G0257; G0463; J0612; J2405

== ENCOUNTER 2024-06-08 14:30 | Outpatient (RCR) | payer MEDICAID, SELFPAY ==
--- NOTE | 2024-04-18 13:06 | HP.PTEVAL_ITS ---
Patient's Visit Information Visit Information Visit Information: LIZ WHITNEY is a 28 year old M referred to Physical Therapy by Dr. Chip Chang DPM with a diagnosis of R LE CRPS. Date of Evaluation: 04/18/24 Physical Therapist: Ernie Sharma, PT, ATC Visit Plan Frequency: 2-3x /Week Duration: 4-6 Weeks Plan: Fluidotherapy, R LE strenthening and stretching, balance and proprio, gait training, and HEP Subjective Subjective: Pt reports he overdosed one year ago and fell asleep with his R LE tucked in underneath of him. Pt reports this resulted in rhabdomyolysis and kidney failure. Pt reports his kidney function has since returned. Pt notes he has had pain in his R LE ever since then. Pt believed he had fractured his R foot at the time secondary to the amount of pain he was in. However, he has had x-rays which revealed no fracture. Pt then was told he had neuropathy. Pt recently saw his foot and ankle doctor that diagnosed him with CRPS. Pt reports he has to wear shoes at all times because of how sensitive his R foot is. Pt reports he has different levels of pain and radiculopathy throughout each toe and part of his foot. 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 Pt notes if he is walking on uneven terrain, he also experiences severe pain. Pt notes he has not been able to run or jump since the DOI. 4/10 pain while sitting here at rest, 9/10 pain at worst. Pain R foot: Pain Intensity (Out of 10): 4 Pain Intensity Range: 9 Objective Objective: Neuro: R LE is hypersensitive from mid adkins down. All other B LE sensation is WNL to light touch. ROM: L ankle DF= 23, PF= 50 degrees; R ankle DF= 0, PF= 30 degrees MMT: L ankle DF= 40, PF= 44 #F; R ankle DF= 12, PF= 16 #F TU.47 sec Balance/Special Test Scores Lower Extremity Functional Score: 45 Goals Goal 1:: Decrease R LE pain x 50% to aid with ambulation Goal Time Frame: 4-6 Weeks Goal 2:: Increase R ankle ROM x 30 degrees to aid with restoring a more normalized gait pattern Goal Time Frame: 4-6 Weeks Goal 3:: Increase R ankle strength x 10 #F to aid with stair negotiation Goal Time Frame: 4-6 Weeks Goal 4:: I with HEP Goal Time Frame: 4-6 Weeks Rehabilitation Potential Physical Therapy Diagnosis: Pt has R LE pain, weakness, and limited ROM secondary to CRPS Rehabilitation Potential: Good Anticipated Interventions Patient/Client Instruction: Educate patient on: Condition and Plan of Care For the Purpose of:: To improve self management Therapeutic Exercise to Include: Strength training, Endurance training, Balance training, Flexibilty training and Gait and locomotor training For the Purpose of:: To decrease pain, To increase ROM and To improve muscle performance and motor function Fluidotherapy: Yes For the Purpose of:: To decrease pain and To increase ROM Text: Thank you for the opportunity to evaluate your patient. For Medicare and Medicare HMO plans, please review the plan of care and approve it. It will need to be FAXED BACK to us at [phone] for Medicare purposes. For Medicare only, by signing this I certify the plan of care. Please let me know if there are questions or concerns regarding this plan of care. Physician Signature : Date:
--- NOTE | 2024-05-31 18:16 | HP.PTREVAL ---
Re-Evaluation Intro: Dr. Chip Chang, DPM, It has been my pleasure to treat LIZ WHITNEY over the last 5 visits for R LE CRPS. Please see the progress note below for an update on the physical therapy plan of care! Subjective Subjective: I really havent noticed much difference. Objective Objective/Function: R ankle pain ranges from 5-9/10 R ankle ROM: DF= 6, PF= 30 degrees R ankle MMT: DF= 14, PF= 32 #F Pt is showing excellent progress at this time. Plan Plan Plan: 05/31/24- Cont to progress R ankle stretching and strengthening, balance and proprio, and HEP Balance/Gait/Functional tests Balance/Special Test Scores Lower Extremity Functional Score: 56 Goals Goals Goal 1:: Decrease R LE pain x 50% to aid with ambulation Goal Time Frame: 4-6 Weeks Goal Progress: Progressing Goal 2:: Increase R ankle ROM x 30 degrees to aid with restoring a more normalized gait pattern Goal Time Frame: 4-6 Weeks Goal Progress: Progressing Goal 3:: Increase R ankle strength x 10 #F to aid with stair negotiation Goal Time Frame: 4-6 Weeks Goal Progress: Progressing Goal 4:: I with HEP Goal Time Frame: 4-6 Weeks Goal Progress: Progressing Anticipated Interventions Anticipated Interventions Patient/Client Instruction: Educate patient on: Condition and Plan of Care For the Purpose of:: To improve self management Therapeutic Exercise to Include: Strength training, Endurance training, Balance training, Flexibilty training and Gait and locomotor training For the Purpose of:: To decrease pain, To increase ROM and To improve muscle performance and motor function Fluidotherapy: Yes For the Purpose of:: To decrease pain and To increase ROM Re-Evaluation Ending Re-evaluation ending: Please do not hesitate to contact me at [phone] by phone or if you have questions or concerns regarding this new plan of care! Sincerely, Ernie Sharma, PT, ATC
--- NOTE | 2024-08-14 13:15 | HP.PT.NRP ---
Patient Information Patient Information: LIZ WHITNEY was seen in my office for initial evaluation on 04/18/24. The following Plan of Care was established for this patient: POC Established Initial Frequency: 2-3x /Week Initial Duration: 4-6 Weeks Anticipated Interventions Patient/Client Instruction: Educate patient on: Condition and Plan of Care For the Purpose of:: To improve self management Therapeutic Exercise to Include: Strength training, Endurance training, Balance training, Flexibilty training and Gait and locomotor training For the Purpose of:: To decrease pain, To increase ROM and To improve muscle performance and motor function Fluidotherapy: Yes For the Purpose of:: To decrease pain and To increase ROM Last Seen Last Seen: This patient was last seen in our office . Pertinent comments regarding their Physical therapy will appear below: Discontinue At this point I will be discontinuing this patient from physical therapy. I would be happy to see this patient again in the future if found appropriate by the physician. Thank you! Ernie Sharma, PT, ATC Balance/Gait/Functional tests Balance/Special Test Scores Lower Extremity Functional Score: 56
== END 2024-06-08 19:00 | disposition home or self-care (01) ==
LOC: PT 14:30
PROVIDERS: Referring Provider Student in an Organized Health Care Education/Training Program; Visit Provider Student in an Organized Health Care Education/Training Program
DX: G90.521 Complex regional pain syndrome I of right lower limb (principal)
CPT/HCPCS: 97110; 97161; 97530